=== PATIENT | female | born 1955 | race Caucasian/White ===

== ENCOUNTER → 2016-03-30 | Outpatient (CLI) | payer MEDICARE ==
[~2016-03-30] MED LIST: ACET65TA OR; ACTO30TA7 PO; ALBU17IN INH; ASPI1TAB PO; ATEN25TA PO; ATEN50TA2 PO; CHLO250T4 PO; COLA100C2 OR; GLIP10TA13 PO; JANU100T PO; LEVA750T OR; MILKSUS OR; NAPR220T8 PO; NEUP480I2 SC; PARO-39 PO; PAXI20TA PO; SENO8.6T5 PO; TYLE325T5 PO; compazine PO
[2016-03-30 15:31] LABS: BASO % 0.3 % (0.0-1.0); EOS # 0.1 K/mm3 (0.0-0.50); EOS % 1.4 % (0.0-3.0); LYMPH # 0.2 K/mm3 (1.5-4.5); LYMPH % 5.2 % (24.0-44.0); MEAN CORPUSCULAR VOLUME 96.7 fl (80.0-96.0); MONO # 0.2 K/mm3 (0.0-0.8); MONO % 4.9 % (0.0-5.0); NEUTROPHILS # 3.8 K/mm3 (1.8-7.7); NEUTROPHILS % 87.6 % (36.0-66.0); RED CELL DISTRIBUTION WIDTH 16.8 % (11.5-14.5); WHITE BLOOD COUNT 4.3 K/mm3 (4.0-10.0)
== END ==
LOC: M LAB 14:54
PROVIDERS: ATTEND Internal Medicine Hematology & Oncology
DX: C50.912 Malignant neoplasm of unspecified site of left female breast (principal); C50.911 Malignant neoplasm of unspecified site of right female breast

== ENCOUNTER → 2016-03-31 | Outpatient (CLI) | payer MEDICARE ==
--- NOTE | 2016-03-31 19:01 | REP ---
ULTRASOUND LEFT BREAST: Real-time sonographic evaluation of the left breast is performed and compared to prior ultrasound of 01/20/2016. Imaging is centered in the 9-o'clock region at the site of a known malignancy. Once again, there is a heterogeneous irregular nodule present, measuring 2.3 x 1.1 x 1.9 cm. There are adjacent dilated ducts. The nodule has diminished in size compared to the prior study. On the prior exam, it measured 2.1 x 1.8 x 2.0 cm. IMPRESSION: Once again, the nodule at 9-o'clock appears to have mildly diminished in size compared to the prior study of 01/20/2016. ACR 6. Known malignancy. Signed by Kwabena Dave MD 04/01/2016 05:15 P
== END ==
LOC: M RAD 14:38
PROVIDERS: ATTEND Internal Medicine Hematology & Oncology
DX: C50.912 Malignant neoplasm of unspecified site of left female breast (principal); C50.911 Malignant neoplasm of unspecified site of right female breast

== ENCOUNTER 2016-04-03 03:34 | Inpatient (IN) | payer MEDICARE ==
[~2016-04-03] VITALS: Ht 162.6 cm; Wt 98.2 kg
[~2016-04-03 03:34] MED LIST changes: -ACTO30TA7 PO; -ALBU17IN INH; -ASPI1TAB PO; -ATEN50TA2 PO; -GLIP10TA13 PO; -JANU100T PO; -NAPR220T8 PO; -NEUP480I2 SC; -PARO-39 PO; -TYLE325T5 PO
[2016-04-03 05:18] LABS: DIFF SLIDE NUMBER 104; MEAN CORPUSCULAR HEMOGLOBIN 29.8 pg (27.0-33.0); MEAN CORPUSCULAR VOLUME 93.3 fl (80.0-96.0); RED CELL DISTRIBUTION WIDTH 17.4 % (11.5-14.5)
[2016-04-03 05:31] LABS: WHITE BLOOD COUNT 0.9 K/mm3 (4.0-10.0)
[2016-04-03 05:32] LABS: ADD MORPHOLOGY? NO; BASO % 0.6 % (0.0-1.0); EOS % 2.4 % (0.0-3.0); LARGE UNSTAINED CELL # 0.1 K/mm3 (0.0-0.4); LYMPH # 0.2 K/mm3 (1.5-4.5); LYMPH % 26.9 % (24.0-44.0); MONO # 0.2 K/mm3 (0.0-0.8); MONO % 21.7 % (0.0-5.0); NEUTROPHILS # 0.3 K/mm3 (1.8-7.7); NEUTROPHILS % 36.4 % (36.0-66.0); PLATELET COUNT, AUTOMATED 16 k/mm3 (150-450)
[2016-04-03 05:41] LABS: ANION GAP 10 MEQ/L (8-16); BLOOD UREA NITROGEN 14 MG/DL (7-18); CALCIUM LEVEL 8.7 MG/DL (8.5-10.1); CARBON DIOXIDE LEVEL 29 MEQ/L (21-32); CHLORIDE LEVEL 99 MEQ/L (98-107); CREATININE FOR GFR 0.77 MG/DL (0.55-1.02); GLOMERULAR FILTRATION RATE > 60.0 (>51); GLUCOSE, FASTING 259 MG/DL (70-105); POTASSIUM SERUM 3.8 MEQ/L (3.5-5.1); SODIUM LEVEL 138 MEQ/L (136-145)
[2016-04-03] MEDS ORDERED: TYLE325T5 PO (06:38)
[2016-04-03] MEDS ORDERED: GLIP10TA13 PO (06:38)
[2016-04-03] MEDS ORDERED: ACTO30TA7 PO (06:38)
[2016-04-03] MEDS ORDERED: NEUP480I2 SC (06:38)
[2016-04-03] MEDS ORDERED: PARO-39 PO (06:38)
[2016-04-03] MEDS ORDERED: JANU100T PO (06:38)
[2016-04-03] MEDS ORDERED: NAPR220T8 PO (06:38)
[2016-04-03] MEDS ORDERED: ATEN50TA2 PO (06:38)
[2016-04-03] MEDS ORDERED: ASPI1TAB PO (06:38)
[2016-04-03] MEDS ORDERED: ALBU17IN INH (06:38)
[2016-04-03] MEDS ORDERED: ACETAMINOPHEN TAB 650MG DOSE (2X325MG) PO PRN (07:00)
[2016-04-03] MEDS ORDERED: DEXTROSE 50% 50 ML SYRINGE IV PRN (07:45)
[2016-04-03] MEDS ORDERED: GLUCOSE 4 GM CHEW TABLET PO PRN (07:45)
[2016-04-03] MEDS ORDERED: GLUCAGON FOR INJ 1 MG VIAL (J1610) SC PRN (07:45)
[2016-04-03] MEDS ORDERED: ALBUTEROL 90 MCG/ACT 8GM HFA INHALER INH PRN (08:00)
--- NOTE | 2016-04-03 08:47 | HPE ---
DATE OF ADMISSION: 04/03/2016 PRIMARY CARE PROVIDER: Dr. Julien Ramirez HISTORY OF PRESENT ILLNESS: This is a 61-year-old female with a past medical history significant for bilateral breast cancer, status post chemotherapy, diabetes, hypertension, osteoporosis, depression, who presented to [facility] on 04/03/2016 for worsening generalized weakness. The patient has a history of left breast cancer that was diagnosed in September 2015, stage 2. The patient started on chemotherapy by Dr. Steve in [place]. The patient has received approximately six chemotherapies. Every time after chemotherapy, the patient feels she is getting weaker and starts having different symptoms. The last chemotherapy was 03/26/2016, and two days after chemotherapy the patient started having gastrointestinal symptoms, such as dry heaving. On the next Wednesday, the patient started having continuous diarrhea with orange colored stool. The patient also noticed to have worsening generalized weakness. Now, the patient cannot even perform daily activity functions. The patient also noted to have increased shortness of breath on exertion. Denies any fevers or chills. When the patient arrived in the emergency room, the patient was found to have pancytopenia with a white blood cell count of 0.9, hemoglobin 9.6, and platelet count of 16. The patient stated that she had similar issue in the past after chemotherapy. Approximately one month ago, the patient had significant anemia and required blood transfusion. On 03/26/2016, the patient was found to have significant thrombocytopenia. She actually got one dose of platelet transfusion. The patient does have a history of right breast cancer, status post lobectomy in November 2010, and the patient also was on chemotherapy for her right breast cancer previously. ALLERGIES: No known drug allergies. HOME MEDICATIONS: - Tylenol 650 mg by mouth every 4 hours as needed for pain - Ventolin two puff inhalation every 4 hours as needed for shortness of breath - aspirin 81 mg by mouth daily - atenolol 50 mg by mouth daily - Neupogen injection 480 mcg subcutaneously monthly - glipizide 10 mg by mouth before food - paroxetine 20 mg by mouth daily - Actos 30 mg by mouth daily - Januvia 100 mg by mouth daily PAST MEDICAL HISTORY: 1. Diabetes. 2. Hypertension. 3. Osteoporosis. 4. Depression. 5. History of right breast cancer, status post lumpectomy and chemotherapy in 2010. 6. Current left breast cancer. PAST SURGICAL HISTORY: 1. Right cataract surgery. 2. Complete hysterectomy. 3. Right breast lumpectomy. SOCIAL HISTORY: Denies any smoking. Denies alcohol use. Denies any recreational drug use. The patient wants to be FULL CODE. REVIEW OF SYSTEMS: GENERAL: Has progressive worsening of feeling fatigue and weakness. No fever. No chills. HEENT: No vision change. No auditory change. CARDIOVASCULAR: No chest pain. No palpitations. RESPIRATORY: The patient has worsening of breathing on exertion. No shortness of breath at rest. No wheezes. No cough. No sputum production. CARDIOVASCULAR: No chest pain. No palpitations. GASTROINTESTINAL: The patient started having dry heaving a few days after the chemotherapy. The patient started to have diarrhea four days after chemotherapy, producing loose, orange colored stool. NEUROLOGIC: No numbness. No tingling. MUSCULOSKELETAL: No muscle pain or joint pain. OBJECTIVE: VITAL SIGNS: Blood pressure 118/63, pulse is 94, respirations 18, temperature is 99, pulse oximetry is 98% on room air. Body weight is 96 kg. Body height is 162.56 cm. GENERAL: Pale. No sign of acute distress. Oriented times three. HEENT: Decreased amount of hair. Poor dentition. Otherwise, normocephalic, atraumatic. Extraocular motors grossly intact. CARDIOVASCULAR: Very distant heart sounds. Positive S1, S2. LUNGS: Clear to auscultation bilaterally. No wheezes or rhonchi. ABDOMEN: Soft, nontender, nondistended. Bowel sounds positive. MUSCULOSKELETAL: No lower extremity edema. No sign of cyanosis. No calf tenderness. LABORATORY DATA: WBC 0.9, hemoglobin 9.6, hematocrit 30.1, platelet count is 16. Sodium is 139, potassium 3.8, chloride is 99, carbon dioxide 29, BUN 14, creatinine 0.77, GFR greater than 60, fasting glucose 259, calcium is 8.7. ASSESSMENT AND PLAN: 1. Generalized weakness, most likely secondary to pancytopenia and adverse effects from the chemotherapy. The patient is admitted to medical/surgical floor under inpatient status. Currently, the patient's vital signs are within normal range. However, the patient is mildly anemic. We will follow with hemoglobin and hematocrit. We will follow with stool cultures to rule out any current bleeding. The patient will be on reverse isolation precautions. 2. Pancytopenia secondary to chemotherapy. The patient has received laboratory tests at [facility] and the previous laboratory shows that the patient has a WBC of 4.3, which is in normal range. Hemoglobin 9.3 and platelet count of 31. Significant decrease of WBC and platelet count in the last four days. Currently, the patient is in critical range of leukopenia and the patient's platelet count is 16. We will order irradiated platelets for her. We will check the CBC every 8 hours and at this moment, if hemoglobin and hematocrit remain stable, the patient may not need blood transfusion unless the patient becomes symptomatic. 3. Left breast cancer, stage 2, in the middle of chemotherapy. Per patient, the patient's physical condition is continuing to get worse with each chemotherapy. The patient is seen by oncologist in [place] and she is receiving her chemotherapy in [facility]. Her next scheduled chemotherapy is in 2 weeks. 4. Diabetes. The patient will be on consistent carbohydrate diet and insulin sliding scale. 5. Hypertension. Continue atenolol. 6. Osteoporosis. 7. Anxiety and depression. Continue Paxil. 8. Deep vein thrombosis (DVT) prophylaxis. Currently, the patient has significant thrombocytopenia. Anticoagulation will be on hold. The patient will be on TEDs, sequentials and compression device. The patient's aspirin is also on hold.
--- NOTE | 2016-04-03 10:17 | REP ---
PORTABLE CHEST: AP Portable view of the chest is performed and compared to a prior study of 05/15/2014. Mild bibasilar scarring is seen, which is stable. There is no acute infiltrate or pulmonary edema. The heart is normal in size and mediastinal silhouette is unchanged. There is a left MediPort catheter with the tip in the right atrium. Signed by Kwabena Dave MD 04/03/2016 01:27 P
[2016-04-03 11:22] LABS: MEAN CORPUSCULAR HEMOGLOBIN 30.2 pg (27.0-33.0); MEAN CORPUSCULAR HGB CONC 32.1 g/dl (32.0-36.5); MEAN CORPUSCULAR VOLUME 94.1 fl (80.0-96.0); RED CELL DISTRIBUTION WIDTH 16.4 % (11.5-14.5); RETIC HEMOGLOBIN CONTENT CHr 27.7 PG (24-36); RETICULOCYTE ABSOLUTE ADVIA212 4 x10(9)/L (17-77); WHITE BLOOD COUNT 1.2 K/mm3 (4.0-10.0)
[2016-04-03 11:54] LABS: NUCLEATED RED BLOOD CELL 1 % (0-0)
[2016-04-03 11:55] LABS: ANISOCYTOSIS 1+; FERRITIN 652 NG/ML (8-252); HYPOCHROMASIA 1+; PERCENT SATURATION 12.2 % (13.2-37.4); TOTAL IRON BINDING CAPACITY 254 UG/DL (250-450)
[2016-04-03] MEDS: HumaLOG INSULIN (NovoLOG) PER UNIT SC SCH ×3 (12:00→21:00)
[2016-04-03 12:01] LABS: VITAMIN B12 LEVEL > 2000 PG/ML (247-911)
[2016-04-03 12:02] LABS: FOLATE > 24.0 NG/ML (>5.4)
--- NOTE | 2016-04-03 12:03 | IPNPDOC ---
Assessment/Plan Date Seen The patient was seen on 04/03/16. Problems Problems: (1) Severe neutropenia Status: Acute Problem Text: No documented fever so far. Last Neupogen 03/26? (Patient reports getting an injetion on 03/26 but not entirely certain if it was Neupogen) Initiate Reverse Isolation Consult Oncology (Dr. Noble fried) to discuss further Neupogen, empiric antibiotics etc. (At this point she is calculated to be low risk and empiric antibiotics are not indicated, but will defer decision for abx to Oncology) (2) Thrombocytopenia Status: Acute Problem Text: 2 units irradiated Platelets ordered (3) Anemia Status: Acute Problem Text: Symptomatic with BROWNLEE and generalized weakness Defer to Oncology whether to transfuse (4) Pancytopenia Status: Acute (5) Diabetes type 2, uncontrolled Status: Chronic Response to Treatment: Stable Problem Text: oral meds on hold Continue SSI coverge (6) Breast cancer Status: Chronic (7) Depression Status: Chronic Response to Treatment: Stable Problem Text: Paxil (8) HTN (hypertension) Status: Chronic Response to Treatment: Stable Problem Text: atenolol Plan / VTE VTE Prophylaxis Ordered?: No VTE Exclusion Pharmacological: Thrombocytopenia Disposition Initiate reverse isolation Subjective Review of Systems CC/HPI The patient is a 61-year-old female admitted with a reason for visit of Neutropenia. Events since last encounter Patient without complaints currently. Gets Short of breath and feels generally weak when she walks even short distances, but otherwise feels well. No CP, cough, sore throat,. Ate well this morning. No N/V, abd pain. Diarrhea yesterday but not today so far. Constitutional: Reports: Chills (Had chills earlier in the week), Denies: Fever Pulmonary: Denies: Cough, Dyspnea Cardiovascular: Denies: Chest Pain, Palpitations Gastrointestinal: Denies: Abdominal Pain, Constipation, Diarrhea, Nausea, Vomiting Objective Physical Examination General Exam: Positive: Alert, No Acute Distress Chest Exam: Positive: Clear to auscultation, Normal air movement Heart Exam: Positive: Rate Normal, Negative: Murmurs Abdomen Exam: Positive: Normal bowel sounds, Soft, Negative: Tenderness Extremity Exam: Negative: Edema Laboratory Data Labs 24H Laboratory Tests 2 04/03/16 05:07: Anion Gap 10, White Blood Count 0.9*L, Red Blood Count 3.23L, Hemoglobin 9.6L, Hematocrit 30.1L, Mean Corpuscular Volume 93.3, Mean Corpuscular Hemoglobin 29.8 , Mean Corpuscular Hemoglobin Concent 32.0, Red Cell Distribution Width 17.4H, Platelet Count 16*L, Neutrophils (%) (Auto) 36.4, Lymphocytes (%) (Auto) 26.9, Monocytes (%) (Auto) 21.7H, Eosinophils (%) (Auto) 2.4, Basophils (%) (Auto) 0.6 , Neutrophils # (Auto) 0.3L, Lymphocytes # (Auto) 0.2L, Monocytes # (Auto) 0.2, Eosinophils # (Auto) 0.0, Basophils # (Auto) 0.0, C-Reactive Protein, Quantitative 4.98H, Blood Urea Nitrogen 14, Creatinine 0.77, Sodium Level 138, Potassium Level 3.8, Chloride Level 99, Carbon Dioxide Level 29, Calcium Level 8.7, Glomerular Filtration Rate > 60.0, Large Unclassified Cells # 0.1, Large Unclassified Cells % 12.0H 04/03/16 10:51: CBC/BMP Laboratory Tests 04/03/16 05:07 Calcium Level 8.7, Red Blood Count 3.23 L, Mean Corpuscular Volume 93.3, Mean Corpuscular Hemoglobin 29.8, Mean Corpuscular Hemoglobin Concent 32.0, Red Cell Distribution Width 17.4 H, Neutrophils (%) (Auto) 36.4, Lymphocytes (%) (Auto) 26.9, Monocytes (%) (Auto) 21.7 H, Eosinophils (%) (Auto) 2.4, Basophils (%) ( Auto) 0.6, Neutrophils # (Auto) 0.3 L, Lymphocytes # (Auto) 0.2 L, Monocytes # ( Auto) 0.2, Eosinophils # (Auto) 0.0, Basophils # (Auto) 0.0 Microbiology Microbiology 04/03/16 Blood Culture, Received Pending 04/03/16 Blood Culture, Received Pending YESENIA SOLOMON DO Apr 03, 2016 12:03
--- NOTE | 2016-04-03 13:41 | EDDOCDS ---
Physician Documentation [facility] Name: Sherly Romero Age: 61 yrs Sex: Female : 1955 Arrival Date: 04/03/2016 Time: 03:34 Bed 17 Private MD: Julien Ramirez Disposition: 04/03/16 05:58 Hospitalization ordered by Sussy Agudelo for Inpatient Admission. Preliminary diagnosis are Neutropenia, Thrombocytopenia, unspecified. - Bed requested for 4 Mason. - Status is Inpatient Admission. jmk - Condition is Stable. - Problem is an ongoing problem. - Symptoms are unchanged. Historical: - Allergies: No known drug Allergies; - Home Meds: 1. Atenolol Oral 2. Januvia oral Unknown oral 3. Glipizide Unknown Oral 4. Paroxetine HCl Unknown Oral 5. Aspirin Unknown Oral - Social history: Smoking status: Patient states was never smoker of tobacco. Patient/guardian denies using alcohol, street drugs, No barriers to communication noted, The patient speaks fluent Turkish. - Family history: Not pertinent. - : The pt / caregiver states he / she is not on anticoagulants. Home medication list is obtained from the patient. - Exposure Risk Screening:: None identified. Vital Signs: 04/03 03:44 BP 118 / 63; Pulse 94; Resp 18; Temp 99; Pulse Ox 98% ; Weight 96.16 kg / 212 lbs; [facility] [place] [facility] Height 5 ft. 4 in. (162.56 cm); Pain 0/10; 06:06 BP 124 / 68; Pulse 92; Resp 16; Temp 99.4; Pulse Ox 98% on R/A; Pain 0/10; jp6 09:48 BP 100 / 62; Pulse 95; Resp 16; Temp 99.0; Pulse Ox 98% on R/A; jmk 12:12 BP 133 / 55; Pulse 96; Resp 16; Temp 98.4(TE); Pulse Ox 98% on R/A; jmk 13:29 BP 149 / 70; Pulse 104; Resp 16; Temp 98.0(O); Pulse Ox 98% ; jmk 03:44 Body Mass Index 36.39 (96.16 kg, 162.56 cm) [facility] MDM: 04:18 IV Saline Lock ordered. cs11 04:18 NS 0.9% 1000 ml IV at bolus once ordered. cs11 04:19 CBC with Diff Ordered. EDMS 04:19 MED Profile Ordered. EDMS 05:30 Financial registration complete. [facility] 05:32 [facility] Payment Agreement was scanned into [employer] and attached to record. [facility] 05:35 CBC with Diff Reviewed. [facility] 05:44 MED Profile Reviewed. [facility] 06:00 BED REQUEST+ADM ordered. EDMS 06:35 Admission / Observation Status ordered. EDMS 06:59 2 GRAM SODIUM DIET ordered. EDMS 07:42 IRRADIATED PHERESIS PLATELETS Ordered. EDMS 07:44 COMPLETE BLOOD COUNT Ordered. EDMS 07:54 PORTABLE CHEST X-RAY Ordered. EDMS 08:05 C REACTIVE PROTEIN QUANTITATIV Ordered. EDMS 10:27 Attending Doctor Change: ordered. EDMS 10:30 RETICULOCYTE COUNT Ordered. EDMS 10:30 VITAMIN B12 LEVEL Ordered. EDMS 10:31 FOLATE Ordered. EDMS 10:31 FERRITIN Ordered. EDMS 10:31 IRON (FE) Ordered. EDMS 10:31 TOTAL IRON BINDING CAPACIT Ordered. EDMS 10:31 URINALYSIS Ordered. EDMS 10:31 HEPATITIS PROFILE Ordered. EDMS 10:32 BLOOD CULTURES Ordered. EDMS 10:32 BLOOD CULTURES Ordered. EDMS 10:58 CBC WITH MANUAL DIFFERENTAL Ordered. EDMS Administered Medications: 05:12 Drug: NS 0.9% 1000 ml [sodium chloride 0.9 % intravenous solution] Route: IV; Rate: jp6 bolus; Site: left antecubital; Signatures: Dispatcher [employer] EDMS Anthony Herbert,RN Carlos Goss DO DO 11 Radha Garcia [facility] Xiomara Walls RN RN jp6 Andres Bravo RN RN sa The chart was reviewed and I authenticate all verbal orders and agree with the evaluation and treatment provided.Corrections: (The following items were deleted from the chart) 08:05 07:43 C REACTIVE PROTEIN QUANTITATIV ordered. EDMS EDMS 10:57 10:36 CBC WITH MANUAL DIFFERENTAL ordered. EDMS EDMS Attachments: 05:32 [facility] Payment Agreement [facility] MTDD
[2016-04-03 13:42] VITALS: BP 154/69
--- NOTE | 2016-04-03 13:42 | EDDOCDS ---
Nurse's Notes [facility] Name: Sherly Romero Age: 61 yrs Sex: Female : 1955 Arrival Date: 04/03/2016 Time: 03:34 Bed 17 Private MD: Julien Ramirez Diagnosis: Neutropenia;Thrombocytopenia, unspecified Presentation: 04/03 03:48 Presenting complaint: Patient states: "I have been sick w/ the stomach bug lately and jp6 when I was walking and my legs just gave out" "I pulled down some bags of clothes and fell on them I didn't get hurt" EMS states: EMS states pt is a hoarder and there are only single small walkways from room to room,very unsafe living conditions per EMS. Adult Sepsis Screening: The patient does not have new or worsening altered mentation. Patient's respiratory rate is less than 22. Systolic blood pressure is less than or equal to 100 (1 point). Patient has a qSOFA score of 0- Negative Sepsis Screen. Suicide/Homicide risk assessment- the patient denies having any suicidal and/or homicidal ideations and does not present with any other emotional, behavioral or mental health complaints. Status: Patient is not a customer services manager or dependent. Transition of care: patient was not received from another setting of care. 03:48 Acuity: KAYE Level 3 jp6 03:48 Method Of Arrival: Ambulance jp6 Triage Assessment: 03:56 General: Appears comfortable, ill, Behavior is appropriate for age, cooperative, jp6 pleasant. Pain: Denies pain. Pt Declines HIV testing. The patient is triaged at the bedside. See Assessment in Nurses Notes section of ED record. Neurological: Level of Consciousness is awake, alert, Oriented to person, place, time. EENT: No deficits noted. Cardiovascular: Capillary refill < 3 seconds Heart tones S2 present. Respiratory: Airway is patent Respiratory effort is even, unlabored, Respiratory pattern is regular, symmetrical, Breath sounds are clear bilaterally. GI: Abdomen is obese, Bowel sounds present X 4 quads. Reports diarrhea, nausea. : No deficits noted. Derm: Skin is pink, warm & dry. Musculoskeletal: No deficits noted. Historical: - Allergies: No known drug Allergies; - Home Meds: 1. Atenolol Oral 2. Januvia oral Unknown oral 3. Glipizide Unknown Oral 4. Paroxetine HCl Unknown Oral 5. Aspirin Unknown Oral - Social history: Smoking status: Patient states was never smoker of tobacco. Patient/guardian denies using alcohol, street drugs, No barriers to communication noted, The patient speaks fluent Setswana. - Family history: Not pertinent. - : The pt / caregiver states he / she is not on anticoagulants. Home medication list is obtained from the patient. - Exposure Risk Screening:: None identified. Screenin:58 Screening information is obtained from the patient. Fall risk: At risk due to jp6 immobility. Assistance ADL's: requires no assistance with activities of daily living. Abuse/DV Screen: The patient / caregiver reports he/she is: not in a situation that causes fear, pain or injury. Nutritional screening: Has had N/V for 3 or more days. Advance Directives: Currently, there is a health care proxy, Cindy Jones. home support is inadequate. Assessment: 03:58 General: see triage assessment. jp6 05:13 Reassessment: Patient states symptoms have not improved. Pain: Denies pain. jp6 Neurological: Level of Consciousness is awake, alert, Oriented to person, place, time. EENT: No deficits noted. Cardiovascular: No deficits noted. Respiratory: Airway is patent Respiratory effort is even, unlabored, Respiratory pattern is regular, symmetrical. GI: No deficits noted. : No deficits noted. Derm: Skin is pink, warm & dry. Musculoskeletal: No deficits noted. 06:06 Reassessment: Patient appears in no apparent distress at this time. Patient denies pain jp6 at this time. Respiratory: Airway is patent Respiratory effort is even, unlabored, Respiratory pattern is regular, symmetrical. Derm: Skin is pink, warm & dry. 07:35 General: Appears skin warm and dry. + pallor. without discomfort. no observed resp jmk distress when at rest. OOB to void on commode and reports fatigue with physical activity. Chest is CTA. sl intact to left ac space. awaiting admission. 08:37 General: Appears diet provided and taken fair. without complaints. Presently jmk interviewing with admission nurse.. 09:48 General: Appears quietly awaiting admission. without resp distress. Still with fatigue jmk with activity ( getting OOB to void). awaiting bed avail. comfort measures offered. 11:49 General: Appears without discomfort or SOB. prepared for transfusion. sl accessed with leonela saline.. 12:11 General: Appears OOB to void on commode. Loose BM noted. without pain. Platelets jmk initiated.. 12:22 General: Appears rate increased on platelet infusion. jmk 13:29 General: Appears Infusion nearing infusion without event. reports no new symptoms. jmk remain cheerful nd pleasant. admitted.. Vital Signs: 03:44 BP 118 / 63; Pulse 94; Resp 18; Temp 99; Pulse Ox 98% ; Weight 96.16 kg; Height 5 ft. 4 [facility] in. (162.56 cm); Pain 0/10; 06:06 BP 124 / 68; Pulse 92; Resp 16; Temp 99.4; Pulse Ox 98% on R/A; Pain 0/10; jp6 09:48 BP 100 / 62; Pulse 95; Resp 16; Temp 99.0; Pulse Ox 98% on R/A; jmk 12:12 BP 133 / 55; Pulse 96; Resp 16; Temp 98.4(TE); Pulse Ox 98% on R/A; jmk 13:29 BP 149 / 70; Pulse 104; Resp 16; Temp 98.0(O); Pulse Ox 98% ; jmk 03:44 Body Mass Index 36.39 (96.16 kg, 162.56 cm) [facility] Vitals: 03:44 Log In Time N/A - ambulance arrival. [facility] ED Course: 03:36 Patient visited by Arelis Rojo PCA. tmm1 03:36 Julien Ramirez is Private Physician. tmm1 03:36 Patient moved to Waiting tmm1 03:36 Patient moved to 17 tmm1 03:44 Patient visited by Nery Wellington, Exhaust And Muffler Fitter. [facility] 03:48 Xiomara Walls,RN is Primary Nurse. jp6 03:48 Patient visited by Xiomara Walls,DOUG. jp6 03:52 Triage Initiated jp6 03:58 The patient / caregiver is instructed regarding the plan of care and ED course. Cardiac jp6 monitor on. Pulse ox on. NIBP on. 03:59 Carlos Burgess DO is Attending Physician. cs11 03:59 Patient visited by Carlos Burgess DO. cs11 05:12 Patient visited by Xiomara Walls,DOUG. jp6 05:13 Inserted saline lock: 20 gauge in left antecubital area and blood collected. No jp6 procedures done that require assistance. Labs drawn. (by ED staff). Sent per order to lab. 05:31 Notified attending ED physician of Critical lab value. sls1 05:32 [facility] Payment Agreement was scanned into [employer] and attached to record. [facility] 05:34 Patient name changed from Sherly\\S\\F\\S\\Grandjean\\S\\ to Sherly\\S\\Cherelle\\S\\Grandjean. EDMS 05:58 Sussy Agudelo is Hospitalizing Provider. cs11 06:06 Assisted to bedside commode. jp6 08:38 Patient visited by Anthony Herbert,DOUG. jmk 09:32 Patient moved to Admit Hold dy 09:51 Patient visited by Anthony Herbert,DOUG. jmk 10:34 PORTABLE CHEST X-RAY Returned. EDMS 11:08 CBC WITH MANUAL DIFFERENTAL Sent. jmk 12:13 Patient visited by Anthony Herbert,DOUG. jmk 13:38 Patient moved to [facility] Administered Medications: 05:12 Drug: NS 0.9% 1000 ml [sodium chloride 0.9 % intravenous solution] Route: IV; Rate: jp6 bolus; Site: left antecubital; Order Results: Lab Order: CBC with Diff; SPEC'M 04/03/16 05:07 Test: WHITE BLOOD COUNT; Value: 0.9; Range: 4.0-10.0; Abnormal: Critical Low; Units: K/mm3; Status: F Test: RED BLOOD COUNT; Value: 3.23; Range: 4.00-5.40; Abnormal: Below low normal; Units: M/mm3; Status: F Test: HEMOGLOBIN; Value: 9.6; Range: 12.0-16.0; Abnormal: Below low normal; Units: g/dl; Status: F Test: HEMATOCRIT; Value: 30.1; Range: 36.0-47.0; Abnormal: Below low normal; Units: %; Status: F Test: MEAN CORPUSCULAR VOLUME; Value: 93.3; Range: 80.0-96.0; Units: fl; Status: F Test: MEAN CORPUSCULAR HEMOGLOBIN; Value: 29.8; Range: 27.0-33.0; Units: pg; Status: F Test: MEAN CORPUSCULAR HGB CONC; Value: 32.0; Range: 32.0-36.5; Units: g/dl; Status: F Test: RED CELL DISTRIBUTION WIDTH; Value: 17.4; Range: 11.5-14.5; Abnormal: Above high normal; Units: %; Status: F Test: PLATELET COUNT, AUTOMATED; Value: 16; Range: 150-450; Abnormal: Critical Low; Units: k/mm3; Status: F Test: NEUTROPHILS %; Value: 36.4; Range: 36.0-66.0; Units: %; Status: F Test: LYMPH %; Value: 26.9; Range: 24.0-44.0; Units: %; Status: F Test: MONO %; Value: 21.7; Range: 0.0-5.0; Abnormal: Above high normal; Units: %; Status: F Test: EOS %; Value: 2.4; Range: 0.0-3.0; Units: %; Status: F Test: BASO %; Value: 0.6; Range: 0.0-1.0; Units: %; Status: F Test: LARGE UNSTAINED CELL %; Value: 12.0; Range: 0.0-4.0; Abnormal: Above high normal; Units: %; Status: F Test: NEUTROPHILS #; Value: 0.3; Range: 1.8-7.7; Abnormal: Below low normal; Units: K/mm3; Status: F Test: LYMPH #; Value: 0.2; Range: 1.5-4.5; Abnormal: Below low normal; Units: K/mm3; Status: F Test: MONO #; Value: 0.2; Range: 0.0-0.8; Units: K/mm3; Status: F Test: EOS #; Value: 0.0; Range: 0.0-0.50; Units: K/mm3; Status: F Test: BASO #; Value: 0.0; Range: 0.0-0.2; Units: K/mm3; Status: F Test: LARGE UNSTAINED CELL #; Value: 0.1; Range: 0.0-0.4; Units: K/mm3; Status: F Test Note: ; : 1955 Lab Order: MED Profile; SPEC'M 01/06/17 05:07 Test: GLUCOSE, FASTING; Value: 259; Range: 70-105; Abnormal: Above high normal; Units: MG/DL; Status: F Test: BLOOD UREA NITROGEN; Value: 14; Range: 7-18; Units: MG/DL; Status: F Test: CREATININE FOR GFR; Value: 0.77; Range: 0.55-1.02; Units: MG/DL; Status: F Test: GLOMERULAR FILTRATION RATE; Value: > 60.0; Range: >51; Status: F Test: SODIUM LEVEL; Value: 138; Range: 136-145; Units: MEQ/L; Status: F Test: POTASSIUM SERUM; Value: 3.8; Range: 3.5-5.1; Units: MEQ/L; Status: F Test: CHLORIDE LEVEL; Value: 99; Range: 98-107; Units: MEQ/L; Status: F Test: CARBON DIOXIDE LEVEL; Value: 29; Range: 21-32; Units: MEQ/L; Status: F Test: ANION GAP; Value: 10; Range: 8-16; Units: MEQ/L; Status: F Test: CALCIUM LEVEL; Value: 8.7; Range: 8.5-10.1; Units: MG/DL; Status: F Test Note: ; Units are mL/min/1.73 m2 Chronic Kidney Disease Staging per NKF: Stage I & II GFR >=60 Normal to Mildly Decreased Stage III GFR 30-59 Moderately Decreased Stage IV GFR 15-29 Severely Decreased Stage V GFR <15 Very Little GFR Left ESRD GFR <15 on MECHANICAL ENGINEERING ADVISOR Lab Order: C REACTIVE PROTEIN QUANTITATIV; SPEC'M 04/03/16 05:07 Test: C REACTIVE PROTEIN QUANTITATIV; Value: 4.98; Range: 0.00-0.30; Abnormal: Above high normal; Units: MG/DL; Status: F Lab Order: RETICULOCYTE COUNT; SPEC'M 04/03/16 10:51 Test: RETICULOCYTE % [id number]; Value: 0.10; Range: 0.5-1.5; Abnormal: Below low normal; Units: %; Status: F Test: RETICULOCYTE ABSOLUTE [id number]; Value: 4; Range: 17-77; Abnormal: Below low normal; Units: x10(9)/L; Status: F Test: RETIC HEMOGLOBIN CONTENT CHr; Value: 27.7; Range: 24-36; Units: PG; Status: F Lab Order: VITAMIN B12 LEVEL; 04/03/16 10:51 Test: VITAMIN B12 LEVEL; Value: > 2000; Range: 247-911; Abnormal: Above high normal; Units: PG/ML; Status: F Test Note: ; VITAMIN B12 NORMAL RANGE NORMAL 247 - 911 PG/ML INDETERMINATE 211 - 246 PG/ML DEFICIENT LESS THAN 211 PG/ML Lab Order: FOLATE; 04/03/16 10:51 Test: FOLATE; Value: > 24.0; Range: >5.4; Units: NG/ML; Status: F Test Note: ; FOLATE NORMAL RANGE NORMAL GREATER THAN 5.4 NG/ML INDETERMINATE 3.4-5.4 NG/ML DEFICIENT LESS THAN 3.4 NG/ML Lab Order: FERRITIN; 04/03/16 10:51 Test: FERRITIN; Value: 652; Range: 8-252; Abnormal: Above high normal; Units: NG/ML; Status: F Lab Order: TOTAL IRON BINDING CAPACIT; 04/03/16 10:51 Test: IRON (FE); Value: 31; Range: 50-170; Abnormal: Below low normal; Units: UG/DL; Status: F Test: TOTAL IRON BINDING CAPACITY; Value: 254; Range: 250-450; Units: UG/DL; Status: F Test: PERCENT SATURATION; Value: 12.2; Range: 13.2-37.4; Abnormal: Below low normal; Units: %; Status: F Lab Order: HEPATITIS PROFILE; 04/03/16 10:51 Test: HEPATITIS C VIRUS SHARON INDEX; Value: < 0.0; Range: <0.8; Units: INDEX; Status: F Test: HEPATITIS B SURFACE ANTIGEN; Value: NEGATIVE; Range: NEGATIVE; Status: F Test: HEPATITIS B CORE ANTIBODY IGM; Value: NEGATIVE; Range: NEGATIVE; Status: F Test: HEPATITIS A ANTIBODY IGM; Value: NEGATIVE; Range: NEGATIVE; Status: F Lab Order: CBC WITH MANUAL DIFFERENTAL; 04/03/16 10:51 Test: WHITE BLOOD COUNT; Value: 1.2; Range: 4.0-10.0; Abnormal: Below low normal; Units: K/mm3; Status: F Test: RED BLOOD COUNT; Value: 2.73; Range: 4.00-5.40; Abnormal: Below low normal; Units: M/mm3; Status: F Test: HEMOGLOBIN; Value: 8.2; Range: 12.0-16.0; Abnormal: Below low normal; Units: g/dl; Status: F Test: HEMATOCRIT; Value: 25.6; Range: 36.0-47.0; Abnormal: Below low normal; Units: %; Status: F Test: MEAN CORPUSCULAR VOLUME; Value: 94.1; Range: 80.0-96.0; Units: fl; Status: F Test: MEAN CORPUSCULAR HEMOGLOBIN; Value: 30.2; Range: 27.0-33.0; Units: pg; Status: F Test: MEAN CORPUSCULAR HGB CONC; Value: 32.1; Range: 32.0-36.5; Units: g/dl; Status: F Test: RED CELL DISTRIBUTION WIDTH; Value: 16.4; Range: 11.5-14.5; Abnormal: Above high normal; Units: %; Status: F Test: PLATELET COUNT, AUTOMATED MD; Value: 14; Range: 150-450; Abnormal: Critical Low; Units: K/mm3; Status: F Test: NEUTROPHILS; Value: 28; Range: 35-75; Abnormal: Below low normal; Units: %; Status: F Test: LYMPHOCYTES; Value: 41; Range: 16-52; Units: %; Status: F Test: MONOCYTES; Value: 17; Range: 0-8; Abnormal: Above high normal; Units: %; Status: F Test: METAMYELOCYTES; Value: 5; Range: 0-0; Abnormal: Above high normal; Units: %; Status: F Test: MYELOCYTES; Value: 1; Range: 0-0; Abnormal: Above high normal; Units: %; Status: F Test: ATYPICAL LYMPH; Value: 8; Range: 0-5; Abnormal: Above high normal; Units: %; Status: F Test: NUCLEATED RED BLOOD CELL; Value: 1; Range: 0-0; Abnormal: Above high normal; Units: %; Status: F Test: HYPOCHROMASIA; Value: 1+; Status: F Test: ANISOCYTOSIS; Value: 1+; Status: F Test: PLATELET ESTIMATE; Value: MARKED DECREASE; Range: NORMAL; Status: F Test Note: ; NO PLAT CLUMPING NOTED ON SLIDE. Radiology Order: PORTABLE CHEST X-RAY Test: PORTABLE CHEST X-RAY REASON FOR EXAMINATION: shortness of breath; ; PORTABLE CHEST:; ; AP Portable view of the chest is performed and compared to a prior study of; 05/15/2014.; ; Mild bibasilar scarring is seen, which is stable. There is no acute infiltrate or; pulmonary edema. The heart is normal in size and mediastinal silhouette is; unchanged. There is a left MediPort catheter with the tip in the right atrium.; ; ; ; Unreviewed; Outcome: 05:58 Decision to Hospitalize by Provider. cs11 13:31 Discharge Assessment: Patient awake, alert and oriented x 3. No cognitive and/or jmk functional deficits noted. Patient verbalized understanding of disposition instructions. patient administered narcotics - no. The following High Risk Discharge criteria are identified: None. Admitted to Med/Surg. Condition: good. No special radiology studies were completed. Admission hand-off: Report Faxed Fax receipt verified by private secretary.. Property :Personal belongings accompany Pt. 13:41 Patient left the ED. leonela Signatures: Dispatcher [employer] EDAnthony Elena,RN Walalce Dooley, RN Brunilda Chamberlain RN RN sls1 Carlos Burgess, DO cs11 McLear, Arelis, WATCHGUARD WATCHGUARD tmm1 Nery Wellington, Exhaust And Muffler Fitter Unit Radha Alvarado Jessica,RN RN jp6 MTDD
[2016-04-03] MEDS: ATENOLOL 50 MG TAB PO SCH (15:23)
[2016-04-03] MEDS: PARoxetine 20 MG TAB PO SCH (15:23)
[2016-04-03 16:16] LABS: MEAN CORPUSCULAR HEMOGLOBIN 31.4 pg (27.0-33.0); MEAN CORPUSCULAR HGB CONC 31.6 g/dl (32.0-36.5); MEAN CORPUSCULAR VOLUME 99.4 fl (80.0-96.0); RED CELL DISTRIBUTION WIDTH 17.7 % (11.5-14.5); WHITE BLOOD COUNT 1.9 K/mm3 (4.0-10.0)
[2016-04-03 20:10] VITALS: BP 140/65
[2016-04-04 00:21] LABS: MEAN CORPUSCULAR HEMOGLOBIN 30.4 pg (27.0-33.0); MEAN CORPUSCULAR HGB CONC 32.6 g/dl (32.0-36.5); RED CELL DISTRIBUTION WIDTH 17.8 % (11.5-14.5); WHITE BLOOD COUNT 1.9 K/mm3 (4.0-10.0)
[2016-04-04] MEDS: diphenhydrAMINE 25 MG CAP PO PRN ×2 (01:35→11:23)
[2016-04-04 06:05] VITALS: BP 127/60
[2016-04-04 06:56] LABS: DIFF SLIDE NUMBER 72; MEAN CORPUSCULAR HGB CONC 32.2 g/dl (32.0-36.5); MEAN CORPUSCULAR VOLUME 93.3 fl (80.0-96.0); RED CELL DISTRIBUTION WIDTH 16.8 % (11.5-14.5); WHITE BLOOD COUNT 2.2 K/mm3 (4.0-10.0)
[2016-04-04 07:01] LABS: PLATELET COUNT, AUTOMATED 57 k/mm3 (150-450)
[2016-04-04 07:14] LABS: ANION GAP 9 MEQ/L (8-16); BLOOD UREA NITROGEN 11 MG/DL (7-18); CALCIUM LEVEL 8.7 MG/DL (8.5-10.1); CARBON DIOXIDE LEVEL 28 MEQ/L (21-32); CHLORIDE LEVEL 104 MEQ/L (98-107); CREATININE FOR GFR 0.48 MG/DL (0.55-1.02); GLOMERULAR FILTRATION RATE > 60.0 (>51); GLUCOSE, FASTING 131 MG/DL (70-105); POTASSIUM SERUM 3.3 MEQ/L (3.5-5.1); SODIUM LEVEL 141 MEQ/L (136-145)
--- NOTE | 2016-04-04 07:30 | CR ---
DATE OF CONSULTATION: 04/03/2016 REFERRING PHYSICIAN: Dr. Wu. REASON FOR CONSULTATION: Pancytopenia. 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 Pastor. She primarily sees Dr. Steve at the [facility] in [place]. More recently, she was diagnosed with a left breast Stage IIB triple-negative infiltrating ductal carcinoma, clinical stage IIB [id number]. She is currently receiving chemotherapy with carboplatin and Taxol given initially at one week interval, but then changed to two week interval due to protracted cytopenia, and now more recently, to be given every three weeks. Her last chemotherapy was dosed on 03/26/2016. She was hospitalized for worsening fatigue and with mechanical fall. On evaluation at [facility] emergency room (ER), she was noted to have a white count of 9,000, hemoglobin of 9.6, and a platelet count of 16,000. She denies any cough or shortness of breath. She recently completed antibiotics with Keflex for a right labial cyst. She also has diarrhea which she believes is secondary to her chemotherapy. PAST MEDICAL HISTORY: 1. Diabetes. 2. Hypertension. 3. Hypercholesterolemia. 4. Obesity. 5. Asthma. 6. Bilateral breast cancer as above. PAST SURGICAL HISTORY: 1. Hysterectomy and bilateral salpingo-oophorectomy for endometriosis at age of 42. 2. Left breast biopsy in 2015. 3. Lumpectomy in 2010. MEDICATIONS AT HOME (include): - Compazine as needed - folic acid - Januvia - Paxil - pioglitazone - glipizide - atenolol ALLERGIES: No known drug allergies. SOCIAL HISTORY: No tobacco use. No alcohol use. She lives alone. Unmarried. She has no children. 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 No history of IV drug use. FAMILY HISTORY: Mother diagnosed with breast cancer in her 50s. No other history of breast or ovarian cancer in the family. PHYSICAL EXAMINATION: Vitals: She is afebrile. She is no acute distress. of 1. In general, she is lying in bed in the emergency room. She is in no acute distress. Alopecia. HEENT: No pallor. Anicteric sclerae. Moist mucous membranes. Oropharynx is clear. Neck is supple. Heart: Regular rate and rhythm. Normal S1, S2. Lungs are clear bilaterally. No wheeze, rhonchi or rales. Abdomen is soft, protuberant ,nontender, nondistended. No hepatosplenomegaly or masses. Extremities: No clubbing, cyanosis or edema. LABS: As above. She had a chest x-ray done that showed no acute infiltrates. She had an ultrasound of her left breast on 03/31/2016 and it shows decrease in the 9 o'clock breast nodule from 2.1 cm 1.1 cm. IMPRESSION AND PLAN: 61-year-old female with prior history of right Stage IA infiltrating triple-negative breast cancer and more recently diagnosed with left Stage IIB T2N1 triple-negative infiltrating ductal carcinoma now receiving new adjuvant chemotherapy with carboplatin and Taxol with change in chemotherapy regimen due to protracted cytopenias. Chemotherapy was started in November 2015. The patient is now admitted with cytopenia, including thrombocytopenia and neutropenia. 1. Her cytopenia is likely related to her evelin from chemotherapy and also because she is with chemotherapy; however, would recommend checking the peripheral smear to evaluate for bone marrow involvement of her breast cancer, especially given that it is a triple-negative breast cancer. 2. Will transfuse patient as required to keep platelet count above 15,000 and also to keep hemoglobin above 7. 3. Do not recommend Neupogen at this time; however, if patient's neutropenia does not improve in 24 to 48 hours, then Neupogen could be considered.
[2016-04-04 07:59] LABS: TOXIC GRANULATION 1+
[2016-04-04 08:00] LABS: ANISOCYTOSIS 1+
[2016-04-04] MEDS: PARoxetine 20 MG TAB PO SCH (09:43)
[2016-04-04] MEDS: ATENOLOL 50 MG TAB PO SCH (09:43)
[2016-04-04] MEDS: HumaLOG INSULIN (NovoLOG) PER UNIT SC SCH ×4 (09:44→21:47)
[2016-04-04 09:48] LABS: REASON FOR REVIEW COMPREHENSIVE REVIEW
--- NOTE | 2016-04-04 10:04 | IPNPDOC ---
Assessment/Plan Date Seen The patient was seen on 04/04/16. Problems Problems: (1) Severe neutropenia Status: Acute Problem Text: No documented fever so far. Last Neupogen 03/26? (Patient reports getting an injetion on 03/26 but not entirely certain if it was Neupogen) Initiate Reverse Isolation Consult Oncology (Dr. Dickey aware) to discuss further Neupogen, empiric antibiotics etc. (At this point she is calculated to be low risk and empiric antibiotics are not indicated, but will defer decision for abx to Oncology) 04/04/16 - Seen by Dr Dickey from Onc. He states that her cytopenia is likely related to her evelin from chemotherapy and he would recommend checking the peripheral smear to evaluate for bone marrow involvement of her breast cancer, especially given that it is a triple-negative breast cancer. He advises transfusing patient as required to keep platelet count above 15,000 and also to keep hemoglobin above 7. Dr Dickey does not recommend Neupogen at this time, however, if patient's neutropenia does not improve in 24 to 48 hours, then Neupogen could be considered. Transfusion was ordered during night but PRBCs needed to come from [place] therefore transfusion to be started this AM. (2) Thrombocytopenia Status: Acute Problem Text: 2 units irradiated Platelets given 04/03/16 (3) Anemia Status: Acute Problem Text: Symptomatic with BROWNLEE and generalized weakness Defer to Oncology whether to transfuse 04/04/16 - Seen by Oncology. See above. (4) Pancytopenia Status: Acute (5) Diabetes type 2, uncontrolled Status: Chronic Response to Treatment: Stable Problem Text: oral meds on hold Continue SSI coverge (6) Breast cancer Status: Chronic Problem Text: See above. (7) Depression Status: Chronic Response to Treatment: Stable Problem Text: Paxil (8) HTN (hypertension) Status: Chronic Response to Treatment: Stable Problem Text: atenolol Plan / VTE VTE Prophylaxis Ordered?: No VTE Exclusion Pharmacological: Thrombocytopenia Subjective Review of Systems CC/HPI The patient is a 61-year-old female admitted with a reason for visit of Neutropenia. Events since last encounter Pt states she is feeling better. Denies any current fevers. Denies CP, SOB, Abd pain. Constitutional: Denies: Chills, Fever Pulmonary: Denies: Dyspnea Cardiovascular: Denies: Chest Pain, Palpitations Gastrointestinal: Denies: Abdominal Pain, Nausea, Vomiting Objective Physical Examination General Exam: Positive: Alert, No Acute Distress Chest Exam: Positive: Clear to auscultation, Normal air movement Heart Exam: Positive: Rate Normal, Negative: Murmurs Abdomen Exam: Positive: Normal bowel sounds, Soft, Negative: Tenderness Extremity Exam: Negative: Edema Skin Exam: Positive: Rash (right hand dermatitis) Vital Signs/I&O Vital Signs Date Time Temp Pulse Resp B/P Pulse Ox O2 Delivery O2 Flow Rate FiO2 04/04/16 06:05 97.1 85 16 127/60 99 Room Air I&O- Last 24 Hours up to 6 AM 04/04/16 05:59 Intake Total 1222 ml Output Total 100 ml Balance 1122 ml Laboratory Data Labs 24H Laboratory Tests 2 04/03/16 10:51: Absolute Reticulocyte Count 4L, Anisocytosis 1+, Atypical Lymphocytes 8H, Ferritin 652H, Folate > 24.0, Hepatitis A IgM Antibody NEGATIVE, Hepatitis B Core IgM Antibody NEGATIVE, Hepatitis B Surface Antigen NEGATIVE, Hepatitis C Antibody Index < 0.0, Hypochromasia 1+, Iron Level 31L, Lymphocytes (Manual) 41 , Metamyelocytes 5H, Monocytes (Manual) 17H, Myelocytes 1H, Neutrophils 28L, Nucleated Red Blood Cells 1H, Percent Reticulocyte Count 0.10L, Platelet Estimate MARKED DECREASE, Reticulocyte Hgb Content (CHr) 27.7, Total Iron Binding Capacity 254, Transferrin % Saturation 12.2L, Vitamin B12 Level > 2000H 04/03/16 16:48: Bedside Glucose (Misc Panel) 182H 04/03/16 17:47: Urine Amorphous Sediment , Urine Appearance HAZY, Urine Color YELLOW, Urine pH 6.0, Urine Specific [place] 1.023, Urine Protein 1+H, Urine Glucose (UA) 3+H, Urine Ketones NEGATIVE, Urine Urobilinogen 0.2, Urine Bilirubin NEGATIVE, Urine Leukocyte Esterase TRACEH, Urine Bacteria (Auto) 1+H, Urine Blood 1+H, Urine Calcium Carbonate Cryst(Auto) , Urine Calcium Oxalate Cryst (Auto) , Urine Calcium Phosphate Azucena (Auto) , Urine Cellular Casts , Urine Cystine Crystals , Urine Granular Casts (Auto) , Urine Hyaline Casts (Auto) 1, Urine Leucine Crystals , Urine Mucus (Auto) SMALL, Urine Nitrite NEGATIVE, Urine Oval Fat Bodies (Auto) , Urine RBC (Auto) 6H, Urine Renal Epithelial Cells , Urine Sperm (Auto) , Urine Squamous Epithelial Cells 2, Urine Transitional Epithelial Cells , Urine Trichomonas (Auto) , Urine Triple Phosphate Cryst (Auto) , Urine Tyrosine Crystals , Urine Uric Acid Crystals (Auto) , Urine WBC (Auto) 22H, Urine Waxy Casts (Auto) , Urine Yeast-Like Cells (Auto) 04/03/16 20:09: Bedside Glucose (Misc Panel) 182H 04/04/16 06:40: Anion Gap 9, Anisocytosis 1+, Atypical Lymphocytes 4, Blood Urea Nitrogen 11, Creatinine 0.48L, Sodium Level 141, Potassium Level 3.3L, Chloride Level 104, Carbon Dioxide Level 28, Calcium Level 8.7, Glomerular Filtration Rate > 60.0, Lymphocytes (Manual) 24, Metamyelocytes 3H, Monocytes (Manual) 20H, Myelocytes 1H, Neutrophils 48, Platelet Estimate MARKED DECREASE, Toxic Granulation 1+ CBC/BMP Laboratory Tests 04/03/16 10:51 04/03/16 16:07 Red Blood Count 2.97 L, Mean Corpuscular Volume 99.4 #H, Mean Corpuscular Hemoglobin 31.4, Mean Corpuscular Hemoglobin Concent 31.6 L, Red Cell Distribution Width 17.7 H 04/03/16 23:57 Red Blood Count 2.43 L, Mean Corpuscular Volume 93.0 #, Mean Corpuscular Hemoglobin 30.4, Mean Corpuscular Hemoglobin Concent 32.6, Red Cell Distribution Width 17.8 H 04/04/16 06:40 Red Blood Count 2.62 L, Mean Corpuscular Volume 93.3, Mean Corpuscular Hemoglobin 30.0, Mean Corpuscular Hemoglobin Concent 32.2, Red Cell Distribution Width 16.8 H, Calcium Level 8.7 FSBS Laboratory Tests Test 04/03/16 16:48 04/03/16 20:09 Range/Units Bedside Glucose (Misc Panel) 182 182 70-105 MG/DL Microbiology Microbiology 04/03/16 Blood Culture, Received Pending 04/03/16 Blood Culture, Received Pending 04/03/16 Stool Occult Blood (LEISA) - Final, Complete Deven Herbert RPA-C Apr 04, 2016 10:04
[2016-04-04] MEDS ORDERED: POTASSIUM CHLORIDE 10 MEQ SR TABLET PO ONE (10:15)
[2016-04-04] MEDS: HYDROCORTISONE 1% CREAM 30 GM TOP PRN ×2 (12:26→22:02)
[2016-04-04 14:00] VITALS: BP 110/66
[2016-04-04 16:26] LABS: MEAN CORPUSCULAR HEMOGLOBIN 30.2 pg (27.0-33.0); MEAN CORPUSCULAR HGB CONC 32.4 g/dl (32.0-36.5); MEAN CORPUSCULAR VOLUME 93.2 fl (80.0-96.0); RED CELL DISTRIBUTION WIDTH 18.1 % (11.5-14.5); WHITE BLOOD COUNT 3.6 K/mm3 (4.0-10.0)
[2016-04-04 21:05] VITALS: BP 133/65
[2016-04-05 00:11] LABS: MEAN CORPUSCULAR HEMOGLOBIN 29.6 pg (27.0-33.0); MEAN CORPUSCULAR HGB CONC 31.4 g/dl (32.0-36.5); MEAN CORPUSCULAR VOLUME 94.3 fl (80.0-96.0); RED CELL DISTRIBUTION WIDTH 17.9 % (11.5-14.5); WHITE BLOOD COUNT 4.3 K/mm3 (4.0-10.0)
[2016-04-05 06:20] VITALS: BP 132/62
[2016-04-05 06:30] LABS: ANION GAP 7 MEQ/L (8-16); BLOOD UREA NITROGEN 12 MG/DL (7-18); CALCIUM LEVEL 8.7 MG/DL (8.5-10.1); CARBON DIOXIDE LEVEL 30 MEQ/L (21-32); CHLORIDE LEVEL 104 MEQ/L (98-107); CREATININE FOR GFR 0.42 MG/DL (0.55-1.02); GLOMERULAR FILTRATION RATE > 60.0 (>51); GLUCOSE, FASTING 128 MG/DL (70-105); POTASSIUM SERUM 3.5 MEQ/L (3.5-5.1); SODIUM LEVEL 141 MEQ/L (136-145)
[2016-04-05 06:50] LABS: BASO # 0.1 K/mm3 (0.0-0.2); BASO % 1.3 % (0.0-1.0); EOS % 0.2 % (0.0-3.0); LARGE UNSTAINED CELL # 0.2 K/mm3 (0.0-0.4); LYMPH % 15.7 % (24.0-44.0); MEAN CORPUSCULAR HGB CONC 32.3 g/dl (32.0-36.5); MEAN CORPUSCULAR VOLUME 92.9 fl (80.0-96.0); MONO # 0.3 K/mm3 (0.0-0.8); MONO % 7.2 % (0.0-5.0); NEUTROPHILS # 3.3 K/mm3 (1.8-7.7); NEUTROPHILS % 70.6 % (36.0-66.0); RED CELL DISTRIBUTION WIDTH 17.7 % (11.5-14.5); WHITE BLOOD COUNT 4.7 K/mm3 (4.0-10.0)
[2016-04-05 06:56] LABS: PLATELET COUNT, AUTOMATED 56 k/mm3 (150-450)
[2016-04-05] MEDS: PARoxetine 20 MG TAB PO SCH (08:45)
[2016-04-05] MEDS: ATENOLOL 50 MG TAB PO SCH (08:47)
[2016-04-05] MEDS: HumaLOG INSULIN (NovoLOG) PER UNIT SC SCH ×4 (08:47→20:53)
--- NOTE | 2016-04-05 08:58 | IPNPDOC ---
Assessment/Plan Date Seen The patient was seen on 04/05/16. Problems Problems: (1) Severe neutropenia Status: Acute Problem Text: No documented fever so far. Seen by Dr Dickey from oncology, who believed that her pancytopenia was likely due to her recent chemotherapy. He indicated that her levels would likely return to normal, I did not recommend Neupogen at this point. He recommended transfusion of packed cells for hemoglobin less than 7. Her case was again discussed today, 04/05/2016, and oncology feels that she is safe for discharge and can follow-up in the oncology clinic. -White blood cells have increased to 4.7 -No fever and medically stable for discharge. However, we'll need to have patient evaluated for home safety prior to discharge. (2) Thrombocytopenia Status: Acute Problem Text: Patient was given 2 units irradiated Platelets given 04/03/16, and her platelets have remained stable since then. Oncology feels that she is safe for discharge. -Discharge planning in process -Will need outpatient follow-up labs (3) Anemia Status: Acute Problem Text: Symptomatic with BROWNLEE and generalized weakness. Patient was transfused 1 unit packed red blood cells on 04/04/2016. Her hemoglobin remained stable, and the patient is currently symptomatically. She is cleared for discharge per oncology. - Discharge planning and processed -Will need outpatient follow-up labs (4) Pancytopenia Status: Acute (5) Diabetes type 2, uncontrolled Status: Chronic Response to Treatment: Stable Problem Text: oral meds on hold Continue SSI coverge (6) Breast cancer Status: Chronic Problem Text: See above. (7) Depression Status: Chronic Response to Treatment: Stable Problem Text: Paxil (8) HTN (hypertension) Status: Chronic Response to Treatment: Stable Problem Text: atenolol (9) Rash Status: Acute Response to Treatment: Worse Problem Text: Patient had a rash on her right hand yesterday, which appear to be dry hands and mild dermatitis. However, the rash is now beefy-red and more tender after treatment with 1% hydrocortisone cream. There appear to be some satellite lesions. Will treat with nystatin cream for possible cutaneous candidiasis. Does not appear to be cellulitis. -Nystatin cream twice a day 7 days Plan / VTE VTE Prophylaxis Ordered?: No VTE Exclusion Pharmacological: Thrombocytopenia Disposition Discharge planning for 04/06/2016. PT evaluation for home safety. Subjective Review of Systems CC/HPI The patient is a 61-year-old female admitted with a reason for visit of Neutropenia. Events since last encounter Patient is feeling well today. She has no complaints. However, she feels unsteady on her feet, and feels unsafe to go home. The rash in her hand has worsened with hydrocortisone cream, and is nontender to the touch. She denies any fevers, chills, sweats. She denies any difficulty with breathing. She is eating well, stooling, and urinating without difficulty. Constitutional: Denies: Chills, Fever Skin: Reports: Rash Gastrointestinal: Denies: Abdominal Pain, Constipation, Diarrhea, Nausea, Vomiting Genitourinary: Denies: Dysuria Hematologic: Denies: Bleeding Excessively, Bruising Other systems 10 point review systems otherwise negative. Objective Physical Examination General Exam: Positive: Alert, No Acute Distress Chest Exam: Positive: Clear to auscultation, Normal air movement Heart Exam: Positive: Rate Normal, Negative: Murmurs Abdomen Exam: Positive: Normal bowel sounds, Soft, Negative: Tenderness Extremity Exam: Negative: Edema Skin Exam: Positive: Rash (right hand now has right red erythema, with satellite lesions) Vital Signs/I&O Vital Signs Date Time Temp Pulse Resp B/P Pulse Ox O2 Delivery O2 Flow Rate FiO2 04/05/16 08:47 89 132/62 04/05/16 06:20 97.9 16 94 Room Air I&O- Last 24 Hours up to 6 AM 04/05/16 05:59 Intake Total 1670 ml Output Total 1150 ml Balance 520 ml Laboratory Data Labs 24H Laboratory Tests 2 04/04/16 09:39: Differential Pathologist's Review COMPREHENSIVE REVIEW, Differential Slide Review Report, Peripheral Blood Smear Path Consult PERIPHERAL SMEAR 04/04/16 11:41: Bedside Glucose (Misc Panel) 211H 04/04/16 16:34: Bedside Glucose (Misc Panel) 114H 04/04/16 21:08: Bedside Glucose (Misc Panel) 154H 04/05/16 05:19: Anion Gap 7L, White Blood Count 4.7, Red Blood Count 2.90L, Hemoglobin 8.7L, Hematocrit 27.0L, Mean Corpuscular Volume 92.9, Mean Corpuscular Hemoglobin 30.0 , Mean Corpuscular Hemoglobin Concent 32.3, Red Cell Distribution Width 17.7H, Platelet Count 56L, Neutrophils (%) (Auto) 70.6H, Lymphocytes (%) (Auto) 15.7L, Monocytes (%) (Auto) 7.2H, Eosinophils (%) (Auto) 0.2, Basophils (%) (Auto) 1.3H , Neutrophils # (Auto) 3.3, Lymphocytes # (Auto) 1.0L, Monocytes # (Auto) 0.3, Eosinophils # (Auto) 0.0, Basophils # (Auto) 0.1, Blood Urea Nitrogen 12, Creatinine 0.42L, Sodium Level 141, Potassium Level 3.5, Chloride Level 104, Carbon Dioxide Level 30, Calcium Level 8.7, Glomerular Filtration Rate > 60.0, Large Unclassified Cells # 0.2, Large Unclassified Cells % 5.0H CBC/BMP Laboratory Tests 04/04/16 16:00 Red Blood Count 2.86 L, Mean Corpuscular Volume 93.2, Mean Corpuscular Hemoglobin 30.2, Mean Corpuscular Hemoglobin Concent 32.4, Red Cell Distribution Width 18.1 H 04/05/16 00:04 Red Blood Count 2.91 L, Mean Corpuscular Volume 94.3, Mean Corpuscular Hemoglobin 29.6, Mean Corpuscular Hemoglobin Concent 31.4 L, Red Cell Distribution Width 17.9 H 04/05/16 05:19 Red Blood Count 2.90 L, Mean Corpuscular Volume 92.9, Mean Corpuscular Hemoglobin 30.0, Mean Corpuscular Hemoglobin Concent 32.3, Red Cell Distribution Width 17.7 H, Calcium Level 8.7, Neutrophils (%) (Auto) 70.6 H, Lymphocytes (%) (Auto) 15.7 L, Monocytes (%) (Auto) 7.2 H, Eosinophils (%) (Auto ) 0.2, Basophils (%) (Auto) 1.3 H, Neutrophils # (Auto) 3.3, Lymphocytes # (Auto ) 1.0 L, Monocytes # (Auto) 0.3, Eosinophils # (Auto) 0.0, Basophils # (Auto) 0.1 FSBS Laboratory Tests Test 04/04/16 11:41 04/04/16 16:34 04/04/16 21:08 Range/Units Bedside Glucose (Misc Panel) 211 114 154 70-105 MG/DL Microbiology Microbiology 04/03/16 Blood Culture - Preliminary, Resulted No growth after 24 hours . All specim... 04/03/16 Blood Culture - Preliminary, Resulted No growth after 24 hours . All specim... 04/03/16 Stool Occult Blood (LEISA) - Final, Complete 04/04/16 Urine Culture, Received Pending DEE AVILA MD Apr 05, 2016 08:58
[2016-04-05] MEDS: NYSTATIN CREAM 15 GM TOP SCH ×2 (12:10→20:55)
[2016-04-05 14:00] VITALS: BP 116/57
--- NOTE | 2016-04-05 14:42 | EDDOCDS ---
Physician Documentation [facility] Name: Sherly Romero Age: 61 yrs Sex: Female : 1955 Arrival Date: 04/03/2016 Time: 03:34 Bed 17 Private MD: Julien Ramirez Disposition: 04/03/16 05:58 Hospitalization ordered by Sussy Agudelo for Inpatient Admission. Preliminary diagnosis are Neutropenia, Thrombocytopenia, unspecified. - Bed requested for 4 [place]. - Status is Inpatient Admission. jmk - Condition is Stable. - Problem is an ongoing problem. - Symptoms are unchanged. Historical: - Allergies: No known drug Allergies; - Home Meds: 1. Atenolol Oral 2. Januvia oral Unknown oral 3. Glipizide Unknown Oral 4. Paroxetine HCl Unknown Oral 5. Aspirin Unknown Oral - Social history: Smoking status: Patient states was never smoker of tobacco. Patient/guardian denies using alcohol, street drugs, No barriers to communication noted, The patient speaks fluent [place]. - Family history: Not pertinent. - : The pt / caregiver states he / she is not on anticoagulants. Home medication list is obtained from the patient. - Exposure Risk Screening:: None identified. Vital Signs: 04/03 03:44 BP 118 / 63; Pulse 94; Resp 18; Temp 99; Pulse Ox 98% ; Weight 96.16 kg / 212 lbs; [facility] Height 5 ft. 4 in. (162.56 cm); Pain 0/10; 06:06 BP 124 / 68; Pulse 92; Resp 16; Temp 99.4; Pulse Ox 98% on R/A; Pain 0/10; jp6 09:48 BP 100 / 62; Pulse 95; Resp 16; Temp 99.0; Pulse Ox 98% on R/A; jmk 12:12 BP 133 / 55; Pulse 96; Resp 16; Temp 98.4(TE); Pulse Ox 98% on R/A; jmk 13:29 BP 149 / 70; Pulse 104; Resp 16; Temp 98.0(O); Pulse Ox 98% ; jmk 03:44 Body Mass Index 36.39 (96.16 kg, 162.56 cm) [facility] MDM: 04:18 IV Saline Lock ordered. cs11 04:18 NS 0.9% 1000 ml IV at bolus once ordered. cs11 04:19 CBC with Diff Ordered. EDMS 04:19 MED Profile Ordered. EDMS 05:30 Financial registration complete. [facility] 05:32 [facility] Payment Agreement was scanned into [employer] and attached to record. [facility] 05:35 CBC with Diff Reviewed. [facility] 05:44 MED Profile Reviewed. [facility] 06:00 BED REQUEST+ADM ordered. EDMS 06:35 Admission / Observation Status ordered. EDMS 06:59 2 GRAM SODIUM DIET ordered. EDMS 07:42 IRRADIATED PHERESIS PLATELETS Ordered. EDMS 07:44 COMPLETE BLOOD COUNT Ordered. EDMS 07:54 PORTABLE CHEST X-RAY Ordered. EDMS 08:05 C REACTIVE PROTEIN QUANTITATIV Ordered. EDMS 10:27 Attending Doctor Change: ordered. EDMS 10:30 RETICULOCYTE COUNT Ordered. EDMS 10:30 VITAMIN B12 LEVEL Ordered. EDMS 10:31 FOLATE Ordered. EDMS 10:31 FERRITIN Ordered. EDMS 10:31 IRON (FE) Ordered. EDMS 10:31 TOTAL IRON BINDING CAPACIT Ordered. EDMS 10:31 URINALYSIS Ordered. EDMS 10:31 HEPATITIS PROFILE Ordered. EDMS 10:32 BLOOD CULTURES Ordered. EDMS 10:32 BLOOD CULTURES Ordered. EDMS 10:58 CBC WITH MANUAL DIFFERENTAL Ordered. EDMS 04/04 09:30 T-Sheet-- Draft Copy was scanned into [employer] and attached to record. 12:48 PCR was scanned into [employer] and attached to record. gb Administered Medications: 04/03 05:12 Drug: NS 0.9% 1000 ml [sodium chloride 0.9 % intravenous solution] Route: IV; Rate: jp6 bolus; Site: left antecubital; Signatures: Dispatcher [employer] EDMS Anthony Herbert,RN RN Nieves Truong, Reg Reg Carlos Miller, DO DO cs11 Radha Garcia [facility] Xiomara WalslRN RN jp6 Andres Bravo RN RN The chart was reviewed and I authenticate all verbal orders and agree with the evaluation and treatment provided.Corrections: (The following items were deleted from the chart) 08:05 07:43 C REACTIVE PROTEIN QUANTITATIV ordered. EDMS EDMS 10:57 10:36 CBC WITH MANUAL DIFFERENTAL ordered. EDMS EDMS Attachments: 05:32 [facility] Payment Agreement [facility] 04/04 09:30 T-Sheet-- Draft Copy gb Chart Complete MTDD
--- NOTE | 2016-04-05 14:42 | EDDOCDS ---
Physician Documentation [facility] Name: Sherly Romero Age: 61 yrs Sex: Female : 1955 Arrival Date: 04/03/2016 Time: 03:34 Bed 17 Private MD: Julien Ramirez Disposition: 04/03/16 05:58 Hospitalization ordered by Sussy Agudelo for Inpatient Admission. Preliminary diagnosis are Neutropenia, Thrombocytopenia, unspecified. - Bed requested for 4 [place]. - Status is Inpatient Admission. jmk - Condition is Stable. - Problem is an ongoing problem. - Symptoms are unchanged. Historical: - Allergies: No known drug Allergies; - Home Meds: 1. Atenolol Oral 2. Januvia oral Unknown oral 3. Glipizide Unknown Oral 4. Paroxetine HCl Unknown Oral 5. Aspirin Unknown Oral - Social history: Smoking status: Patient states was never smoker of tobacco. Patient/guardian denies using alcohol, street drugs, No barriers to communication noted, The patient speaks fluent Yoruba. - Family history: Not pertinent. - : The pt / caregiver states he / she is not on anticoagulants. Home medication list is obtained from the patient. - Exposure Risk Screening:: None identified. Vital Signs: 04/03 03:44 BP 118 / 63; Pulse 94; Resp 18; Temp 99; Pulse Ox 98% ; Weight 96.16 kg / 212 lbs; [facility] Height 5 ft. 4 in. (162.56 cm); Pain 0/10; 06:06 BP 124 / 68; Pulse 92; Resp 16; Temp 99.4; Pulse Ox 98% on R/A; Pain 0/10; jp6 09:48 BP 100 / 62; Pulse 95; Resp 16; Temp 99.0; Pulse Ox 98% on R/A; jmk 12:12 BP 133 / 55; Pulse 96; Resp 16; Temp 98.4(TE); Pulse Ox 98% on R/A; jmk 13:29 BP 149 / 70; Pulse 104; Resp 16; Temp 98.0(O); Pulse Ox 98% ; jmk 03:44 Body Mass Index 36.39 (96.16 kg, 162.56 cm) [facility] MDM: 04:18 IV Saline Lock ordered. cs11 04:18 NS 0.9% 1000 ml IV at bolus once ordered. cs11 04:19 CBC with Diff Ordered. EDMS 04:19 MED Profile Ordered. EDMS 05:30 Financial registration complete. [facility] 05:32 [facility] Payment Agreement was scanned into [employer] and attached to record. [facility] 05:35 CBC with Diff Reviewed. [facility] 05:44 MED Profile Reviewed. [facility] 06:00 BED REQUEST+ADM ordered. EDMS 06:35 Admission / Observation Status ordered. EDMS 06:59 2 GRAM SODIUM DIET ordered. EDMS 07:42 IRRADIATED PHERESIS PLATELETS Ordered. EDMS 07:44 COMPLETE BLOOD COUNT Ordered. EDMS 07:54 PORTABLE CHEST X-RAY Ordered. EDMS 08:05 C REACTIVE PROTEIN QUANTITATIV Ordered. EDMS 10:27 Attending Doctor Change: ordered. EDMS 10:30 RETICULOCYTE COUNT Ordered. EDMS 10:30 VITAMIN B12 LEVEL Ordered. EDMS 10:31 FOLATE Ordered. EDMS 10:31 FERRITIN Ordered. EDMS 10:31 IRON (FE) Ordered. EDMS 10:31 TOTAL IRON BINDING CAPACIT Ordered. EDMS 10:31 URINALYSIS Ordered. EDMS 10:31 HEPATITIS PROFILE Ordered. EDMS 10:32 BLOOD CULTURES Ordered. EDMS 10:32 BLOOD CULTURES Ordered. EDMS 10:58 CBC WITH MANUAL DIFFERENTAL Ordered. EDMS 04/04 09:30 T-Sheet-- Draft Copy was scanned into [employer] and attached to record. 12:48 PCR was scanned into [employer] and attached to record. gb Administered Medications: 04/03 05:12 Drug: NS 0.9% 1000 ml [sodium chloride 0.9 % intravenous solution] Route: IV; Rate: jp6 bolus; Site: left antecubital; Signatures: Dispatcher [employer] EDMS Anthony Herbert,RN RN Nieves Truong, Reg Reg Carlos Miller, DO DO cs11 Radha Garcia [facility] Xiomara WallsRN RN jp6 Andres Bravo RN RN The chart was reviewed and I authenticate all verbal orders and agree with the evaluation and treatment provided.Corrections: (The following items were deleted from the chart) 08:05 07:43 C REACTIVE PROTEIN QUANTITATIV ordered. EDMS EDMS 10:57 10:36 CBC WITH MANUAL DIFFERENTAL ordered. EDMS EDMS Attachments: 05:32 [facility] Payment Agreement [facility] 04/04 09:30 T-Sheet-- Draft Copy gb Chart Complete MTDD
--- NOTE | 2016-04-05 14:42 | EDDOCDS ---
Nurse's Notes [facility] Name: Sherly Romero Age: 61 yrs Sex: Female : 1955 Arrival Date: 04/03/2016 Time: 03:34 Bed 17 Private MD: Julien Ramirez Diagnosis: Neutropenia;Thrombocytopenia, unspecified Presentation: 04/03 03:48 Presenting complaint: Patient states: "I have been sick w/ the stomach bug lately and jp6 when I was walking and my legs just gave out" "I pulled down some bags of clothes and fell on them I didn't get hurt" EMS states: EMS states pt is a hoarder and there are only single small walkways from room to room,very unsafe living conditions per EMS. Adult Sepsis Screening: The patient does not have new or worsening altered mentation. Patient's respiratory rate is less than 22. Systolic blood pressure is less than or equal to 100 (1 point). Patient has a qSOFA score of 0- Negative Sepsis Screen. Suicide/Homicide risk assessment- the patient denies having any suicidal and/or homicidal ideations and does not present with any other emotional, behavioral or mental health complaints. Status: Patient is not a sales agent protective service or dependent. Transition of care: patient was not received from another setting of care. 03:48 Acuity: KAYE Level 3 jp6 03:48 Method Of Arrival: Ambulance jp6 Triage Assessment: 03:56 General: Appears comfortable, ill, Behavior is appropriate for age, cooperative, jp6 pleasant. Pain: Denies pain. Pt Declines HIV testing. The patient is triaged at the bedside. See Assessment in Nurses Notes section of ED record. Neurological: Level of Consciousness is awake, alert, Oriented to person, place, time. EENT: No deficits noted. Cardiovascular: Capillary refill < 3 seconds Heart tones S2 present. Respiratory: Airway is patent Respiratory effort is even, unlabored, Respiratory pattern is regular, symmetrical, Breath sounds are clear bilaterally. GI: Abdomen is obese, Bowel sounds present X 4 quads. Reports diarrhea, nausea. : No deficits noted. Derm: Skin is pink, warm & dry. Musculoskeletal: No deficits noted. Historical: - Allergies: No known drug Allergies; - Home Meds: 1. Atenolol Oral 2. Januvia oral Unknown oral 3. Glipizide Unknown Oral 4. Paroxetine HCl Unknown Oral 5. Aspirin Unknown Oral - Social history: Smoking status: Patient states was never smoker of tobacco. Patient/guardian denies using alcohol, street drugs, No barriers to communication noted, The patient speaks fluent Hungarian. - Family history: Not pertinent. - : The pt / caregiver states he / she is not on anticoagulants. Home medication list is obtained from the patient. - Exposure Risk Screening:: None identified. Screenin:58 Screening information is obtained from the patient. Fall risk: At risk due to jp6 immobility. Assistance ADL's: requires no assistance with activities of daily living. Abuse/DV Screen: The patient / caregiver reports he/she is: not in a situation that causes fear, pain or injury. Nutritional screening: Has had N/V for 3 or more days. Advance Directives: Currently, there is a health care proxy, Cindy Jones. home support is inadequate. Assessment: 03:58 General: see triage assessment. jp6 05:13 Reassessment: Patient states symptoms have not improved. Pain: Denies pain. jp6 Neurological: Level of Consciousness is awake, alert, Oriented to person, place, time. EENT: No deficits noted. Cardiovascular: No deficits noted. Respiratory: Airway is patent Respiratory effort is even, unlabored, Respiratory pattern is regular, symmetrical. GI: No deficits noted. : No deficits noted. Derm: Skin is pink, warm & dry. Musculoskeletal: No deficits noted. 06:06 Reassessment: Patient appears in no apparent distress at this time. Patient denies pain jp6 at this time. Respiratory: Airway is patent Respiratory effort is even, unlabored, Respiratory pattern is regular, symmetrical. Derm: Skin is pink, warm & dry. 07:35 General: Appears skin warm and dry. + pallor. without discomfort. no observed resp jmk distress when at rest. OOB to void on commode and reports fatigue with physical activity. Chest is CTA. sl intact to left ac space. awaiting admission. 08:37 General: Appears diet provided and taken fair. without complaints. Presently jmk interviewing with admission nurse.. 09:48 General: Appears quietly awaiting admission. without resp distress. Still with fatigue jmk with activity ( getting OOB to void). awaiting bed avail. comfort measures offered. 11:49 General: Appears without discomfort or SOB. prepared for transfusion. sl accessed with leonela saline.. 12:11 General: Appears OOB to void on commode. Loose BM noted. without pain. Platelets jmk initiated.. 12:22 General: Appears rate increased on platelet infusion. jmk 13:29 General: Appears Infusion nearing infusion without event. reports no new symptoms. jmk remain cheerful nd pleasant. admitted.. Vital Signs: 03:44 BP 118 / 63; Pulse 94; Resp 18; Temp 99; Pulse Ox 98% ; Weight 96.16 kg; Height 5 ft. 4 [facility] in. (162.56 cm); Pain 0/10; 06:06 BP 124 / 68; Pulse 92; Resp 16; Temp 99.4; Pulse Ox 98% on R/A; Pain 0/10; jp6 09:48 BP 100 / 62; Pulse 95; Resp 16; Temp 99.0; Pulse Ox 98% on R/A; jmk 12:12 BP 133 / 55; Pulse 96; Resp 16; Temp 98.4(TE); Pulse Ox 98% on R/A; jmk 13:29 BP 149 / 70; Pulse 104; Resp 16; Temp 98.0(O); Pulse Ox 98% ; jmk 03:44 Body Mass Index 36.39 (96.16 kg, 162.56 cm) [facility] Vitals: 03:44 Log In Time N/A - ambulance arrival. [facility] ED Course: 03:36 Patient visited by Arelis Rojo PCA. tmm1 03:36 Julien Ramirez is Private Physician. tmm1 03:36 Patient moved to Waiting tmm1 03:36 Patient moved to 17 tmm1 03:44 Patient visited by Nery Wellington, Location Man. [facility] 03:48 Xiomara Walls,RN is Primary Nurse. jp6 03:48 Patient visited by Xiomara Walls,DOUG. jp6 03:52 Triage Initiated jp6 03:58 The patient / caregiver is instructed regarding the plan of care and ED course. Cardiac jp6 monitor on. Pulse ox on. NIBP on. 03:59 Carlos Burgess DO is Attending Physician. cs11 03:59 Patient visited by Carlos Burgess DO. cs11 05:12 Patient visited by Xiomara Walls,DOUG. jp6 05:13 Inserted saline lock: 20 gauge in left antecubital area and blood collected. No jp6 procedures done that require assistance. Labs drawn. (by ED staff). Sent per order to lab. 05:31 Notified attending ED physician of Critical lab value. sls1 05:32 [facility] Payment Agreement was scanned into [employer] and attached to record. [facility] 05:34 Patient name changed from Sherly\\S\\F\\S\\Grandjean\\S\\ to Sherly\\S\\Cherelle\\S\\Grandjean. EDMS 05:58 Sussy Agudelo is Hospitalizing Provider. cs11 06:06 Assisted to bedside commode. jp6 08:38 Patient visited by Anthony Herbert,RN. jmk 09:32 Patient moved to Admit Hold dy 09:51 Patient visited by Anthony Herbert,DOUG. jmk 10:34 PORTABLE CHEST X-RAY Returned. EDMS 11:08 CBC WITH MANUAL DIFFERENTAL Sent. jmk 12:13 Patient visited by Anthony Herbert,DOUG. jmk 13:38 Patient moved to 17 k 04/04 09:30 T-Sheet-- Draft Copy was scanned into [employer] and attached to record. gb 12:48 PCR was scanned into [employer] and attached to record. gb Administered Medications: 04/03 05:12 Drug: NS 0.9% 1000 ml [sodium chloride 0.9 % intravenous solution] Route: IV; Rate: jp6 bolus; Site: left antecubital; Order Results: Lab Order: CBC with Diff; SPEC'M 04/03/16 05:07 Test: WHITE BLOOD COUNT; Value: 0.9; Range: 4.0-10.0; Abnormal: Critical Low; Units: K/mm3; Status: F Test: RED BLOOD COUNT; Value: 3.23; Range: 4.00-5.40; Abnormal: Below low normal; Units: M/mm3; Status: F Test: HEMOGLOBIN; Value: 9.6; Range: 12.0-16.0; Abnormal: Below low normal; Units: g/dl; Status: F Test: HEMATOCRIT; Value: 30.1; Range: 36.0-47.0; Abnormal: Below low normal; Units: %; Status: F Test: MEAN CORPUSCULAR VOLUME; Value: 93.3; Range: 80.0-96.0; Units: fl; Status: F Test: MEAN CORPUSCULAR HEMOGLOBIN; Value: 29.8; Range: 27.0-33.0; Units: pg; Status: F Test: MEAN CORPUSCULAR HGB CONC; Value: 32.0; Range: 32.0-36.5; Units: g/dl; Status: F Test: RED CELL DISTRIBUTION WIDTH; Value: 17.4; Range: 11.5-14.5; Abnormal: Above high normal; Units: %; Status: F Test: PLATELET COUNT, AUTOMATED; Value: 16; Range: 150-450; Abnormal: Critical Low; Units: k/mm3; Status: F Test: NEUTROPHILS %; Value: 36.4; Range: 36.0-66.0; Units: %; Status: F Test: LYMPH %; Value: 26.9; Range: 24.0-44.0; Units: %; Status: F Test: MONO %; Value: 21.7; Range: 0.0-5.0; Abnormal: Above high normal; Units: %; Status: F Test: EOS %; Value: 2.4; Range: 0.0-3.0; Units: %; Status: F Test: BASO %; Value: 0.6; Range: 0.0-1.0; Units: %; Status: F Test: LARGE UNSTAINED CELL %; Value: 12.0; Range: 0.0-4.0; Abnormal: Above high normal; Units: %; Status: F Test: NEUTROPHILS #; Value: 0.3; Range: 1.8-7.7; Abnormal: Below low normal; Units: K/mm3; Status: F Test: LYMPH #; Value: 0.2; Range: 1.5-4.5; Abnormal: Below low normal; Units: K/mm3; Status: F Test: MONO #; Value: 0.2; Range: 0.0-0.8; Units: K/mm3; Status: F Test: EOS #; Value: 0.0; Range: 0.0-0.50; Units: K/mm3; Status: F Test: BASO #; Value: 0.0; Range: 0.0-0.2; Units: K/mm3; Status: F Test: LARGE UNSTAINED CELL #; Value: 0.1; Range: 0.0-0.4; Units: K/mm3; Status: F Test Note: ; : 1955 Lab Order: MED Profile; SPEC'04/03/16 05:07 Test: GLUCOSE, FASTING; Value: 259; Range: 70-105; Abnormal: Above high normal; Units: MG/DL; Status: F Test: BLOOD UREA NITROGEN; Value: 14; Range: 7-18; Units: MG/DL; Status: F Test: CREATININE FOR GFR; Value: 0.77; Range: 0.55-1.02; Units: MG/DL; Status: F Test: GLOMERULAR FILTRATION RATE; Value: > 60.0; Range: >51; Status: F Test: SODIUM LEVEL; Value: 138; Range: 136-145; Units: MEQ/L; Status: F Test: POTASSIUM SERUM; Value: 3.8; Range: 3.5-5.1; Units: MEQ/L; Status: F Test: CHLORIDE LEVEL; Value: 99; Range: 98-107; Units: MEQ/L; Status: F Test: CARBON DIOXIDE LEVEL; Value: 29; Range: 21-32; Units: MEQ/L; Status: F Test: ANION GAP; Value: 10; Range: 8-16; Units: MEQ/L; Status: F Test: CALCIUM LEVEL; Value: 8.7; Range: 8.5-10.1; Units: MG/DL; Status: F Test Note: ; Units are mL/min/1.73 m2 Chronic Kidney Disease Staging per NKF: Stage I & II GFR >=60 Normal to Mildly Decreased Stage III GFR 30-59 Moderately Decreased Stage IV GFR 15-29 Severely Decreased Stage V GFR <15 Very Little GFR Left ESRD GFR <15 on TEA TASTER Lab Order: C REACTIVE PROTEIN QUANTITATIV; SPEC'04/03/16 05:07 Test: C REACTIVE PROTEIN QUANTITATIV; Value: 4.98; Range: 0.00-0.30; Abnormal: Above high normal; Units: MG/DL; Status: F Lab Order: RETICULOCYTE COUNT; SPEC'04/03/16 10:51 Test: RETICULOCYTE % [id number]; Value: 0.10; Range: 0.5-1.5; Abnormal: Below low normal; Units: %; Status: F Test: RETICULOCYTE ABSOLUTE [id number]; Value: 4; Range: 17-77; Abnormal: Below low normal; Units: x10(9)/L; Status: F Test: RETIC HEMOGLOBIN CONTENT CHr; Value: 27.7; Range: 24-36; Units: PG; Status: F Lab Order: VITAMIN B12 LEVEL; 04/03/16 10:51 Test: VITAMIN B12 LEVEL; Value: > 2000; Range: 247-911; Abnormal: Above high normal; Units: PG/ML; Status: F Test Note: ; VITAMIN B12 NORMAL RANGE NORMAL 247 - 911 PG/ML INDETERMINATE 211 - 246 PG/ML DEFICIENT LESS THAN 211 PG/ML Lab Order: FOLATE; 04/03/16 10:51 Test: FOLATE; Value: > 24.0; Range: >5.4; Units: NG/ML; Status: F Test Note: ; FOLATE NORMAL RANGE NORMAL GREATER THAN 5.4 NG/ML INDETERMINATE 3.4-5.4 NG/ML DEFICIENT LESS THAN 3.4 NG/ML Lab Order: FERRITIN; 04/03/16 10:51 Test: FERRITIN; Value: 652; Range: 8-252; Abnormal: Above high normal; Units: NG/ML; Status: F Lab Order: TOTAL IRON BINDING CAPACIT; 04/03/16 10:51 Test: IRON (FE); Value: 31; Range: 50-170; Abnormal: Below low normal; Units: UG/DL; Status: F Test: TOTAL IRON BINDING CAPACITY; Value: 254; Range: 250-450; Units: UG/DL; Status: F Test: PERCENT SATURATION; Value: 12.2; Range: 13.2-37.4; Abnormal: Below low normal; Units: %; Status: F Lab Order: HEPATITIS PROFILE; 04/03/16 10:51 Test: HEPATITIS C VIRUS SHARON INDEX; Value: < 0.0; Range: <0.8; Units: INDEX; Status: F Test: HEPATITIS B SURFACE ANTIGEN; Value: NEGATIVE; Range: NEGATIVE; Status: F Test: HEPATITIS B CORE ANTIBODY IGM; Value: NEGATIVE; Range: NEGATIVE; Status: F Test: HEPATITIS A ANTIBODY IGM; Value: NEGATIVE; Range: NEGATIVE; Status: F Lab Order: CBC WITH MANUAL DIFFERENTAL; SPEC'M 04/03/16 10:51 Test: WHITE BLOOD COUNT; Value: 1.2; Range: 4.0-10.0; Abnormal: Below low normal; Units: K/mm3; Status: F Test: RED BLOOD COUNT; Value: 2.73; Range: 4.00-5.40; Abnormal: Below low normal; Units: M/mm3; Status: F Test: HEMOGLOBIN; Value: 8.2; Range: 12.0-16.0; Abnormal: Below low normal; Units: g/dl; Status: F Test: HEMATOCRIT; Value: 25.6; Range: 36.0-47.0; Abnormal: Below low normal; Units: %; Status: F Test: MEAN CORPUSCULAR VOLUME; Value: 94.1; Range: 80.0-96.0; Units: fl; Status: F Test: MEAN CORPUSCULAR HEMOGLOBIN; Value: 30.2; Range: 27.0-33.0; Units: pg; Status: F Test: MEAN CORPUSCULAR HGB CONC; Value: 32.1; Range: 32.0-36.5; Units: g/dl; Status: F Test: RED CELL DISTRIBUTION WIDTH; Value: 16.4; Range: 11.5-14.5; Abnormal: Above high normal; Units: %; Status: F Test: PLATELET COUNT, AUTOMATED MD; Value: 14; Range: 150-450; Abnormal: Critical Low; Units: K/mm3; Status: F Test: NEUTROPHILS; Value: 28; Range: 35-75; Abnormal: Below low normal; Units: %; Status: F Test: LYMPHOCYTES; Value: 41; Range: 16-52; Units: %; Status: F Test: MONOCYTES; Value: 17; Range: 0-8; Abnormal: Above high normal; Units: %; Status: F Test: METAMYELOCYTES; Value: 5; Range: 0-0; Abnormal: Above high normal; Units: %; Status: F Test: MYELOCYTES; Value: 1; Range: 0-0; Abnormal: Above high normal; Units: %; Status: F Test: ATYPICAL LYMPH; Value: 8; Range: 0-5; Abnormal: Above high normal; Units: %; Status: F Test: NUCLEATED RED BLOOD CELL; Value: 1; Range: 0-0; Abnormal: Above high normal; Units: %; Status: F Test: HYPOCHROMASIA; Value: 1+; Status: F Test: ANISOCYTOSIS; Value: 1+; Status: F Test: PLATELET ESTIMATE; Value: MARKED DECREASE; Range: NORMAL; Status: F Test Note: ; NO PLAT CLUMPING NOTED ON SLIDE. Radiology Order: PORTABLE CHEST X-RAY Test: PORTABLE CHEST X-RAY REASON FOR EXAMINATION: shortness of breath; PORTABLE CHEST:; ; AP Portable view of the chest is performed and compared to a prior study of; 05/15/2014.; ; Mild bibasilar scarring is seen, which is stable. There is no acute infiltrate or; pulmonary edema. The heart is normal in size and mediastinal silhouette is; unchanged. There is a left MediPort catheter with the tip in the right atrium.; ; ; Signed by; Kwabena Dave MD 04/03/2016 01:27 P; Outcome: 05:58 Decision to Hospitalize by Provider. cs11 13:31 Discharge Assessment: Patient awake, alert and oriented x 3. No cognitive and/or k functional deficits noted. Patient verbalized understanding of disposition instructions. patient administered narcotics - no. The following High Risk Discharge criteria are identified: None. Admitted to Med/Surg. Condition: good. No special radiology studies were completed. Admission hand-off: Report Faxed Fax receipt verified by junior legal secretary.. Property :Personal belongings accompany Pt. 13:41 Patient left the ED. leonela Signatures: Dispatcher [employer] EDMS Anthony Herbert,RN Nieves De Leon, Reg Reg Wallace Medina, RN Brunilda Chamberlain RN RN [id number] Carlos Burgess DO DO cs11 McLear, Arelis, TUBE BUFFER TUBE BUFFER tmm1 Nery Wellington, Location Man Unit Radha Alvarado Jessica,RN RN jp6 Chart Complete MTDD
[2016-04-05 22:00] VITALS: BP 130/67
[2016-04-06 06:00] VITALS: BP 143/72
[2016-04-06 06:03] LABS: BASO % 0.1 % (0.0-1.0); EOS % 0.4 % (0.0-3.0); LARGE UNSTAINED CELL # 0.2 K/mm3 (0.0-0.4); LARGE UNSTAINED CELL % 3.4 % (0.0-4.0); LYMPH # 0.7 K/mm3 (1.5-4.5); LYMPH % 15.5 % (24.0-44.0); MEAN CORPUSCULAR HEMOGLOBIN 30.1 pg (27.0-33.0); MEAN CORPUSCULAR HGB CONC 32.5 g/dl (32.0-36.5); MEAN CORPUSCULAR VOLUME 92.6 fl (80.0-96.0); MONO # 0.3 K/mm3 (0.0-0.8); NEUTROPHILS # 3.3 K/mm3 (1.8-7.7); NEUTROPHILS % 74.6 % (36.0-66.0); RED CELL DISTRIBUTION WIDTH 16.7 % (11.5-14.5); WHITE BLOOD COUNT 4.4 K/mm3 (4.0-10.0)
[2016-04-06 06:04] LABS: PLATELET COUNT, AUTOMATED 44 k/mm3 (150-450)
[2016-04-06 06:17] LABS: ANION GAP 9 MEQ/L (8-16); BLOOD UREA NITROGEN 10 MG/DL (7-18); CALCIUM LEVEL 8.7 MG/DL (8.5-10.1); CARBON DIOXIDE LEVEL 28 MEQ/L (21-32); CHLORIDE LEVEL 106 MEQ/L (98-107); CREATININE FOR GFR 0.46 MG/DL (0.55-1.02); GLOMERULAR FILTRATION RATE > 60.0 (>51); GLUCOSE, FASTING 129 MG/DL (70-105); POTASSIUM SERUM 3.5 MEQ/L (3.5-5.1); SODIUM LEVEL 143 MEQ/L (136-145)
[2016-04-06 10:30] VITALS: BP 138/70
[2016-04-06] MEDS: NYSTATIN CREAM 15 GM TOP SCH (10:30)
[2016-04-06] MEDS: ATENOLOL 50 MG TAB PO SCH (10:30)
[2016-04-06] MEDS: PARoxetine 20 MG TAB PO SCH (10:30)
[2016-04-06] MEDS: HumaLOG INSULIN (NovoLOG) PER UNIT SC SCH ×2 (10:31→12:53)
--- NOTE | 2016-04-06 16:48 | DSES ---
DATE OF ADMISSION: 04/03/2016 DATE OF DISCHARGE: 04/06/2016 PRIMARY CARE PROVIDER: Dr. Stanislav Costa HISTORY: This is a 61-year-old female patient of Dr. Costa'nicole who presented to [facility] Emergency Room with generalized weakness, difficulty performing activities of daily living, and increased shortness of breath with exertion. She has a history of left breast cancer and is currently undergoing chemotherapy. She was found to have significant thrombocytopenia on arrival to the emergency room and, therefore, her admission was arranged. During her hospitalization she has remained medically stable. She was admitted with reverse isolation precautions. She received two bags of platelets, one bag of red blood cells. Her white blood cells on day of discharge have increased to 4.4, her hemoglobin is at 9.2, her platelets are at 44. She has been seen in consultation by Dr. Dickey, who did not recommend any Neupogen unless her neutropenia did not improve within 24-48 hours. He recommended checking a peripheral smear to evaluate for bone marrow involvement of her breast cancer, especially given that she is triple negative for breast cancer. The results of the peripheral smear are not yet available. She is feeling significantly better today. She does have a physical therapy evaluation pending. As long as this confirms that she is, in fact, safe to go home, she will be discharged home today. She has been ambulating around her room per nursing without difficulty. DISCHARGE DIAGNOSES: Include: 1. Breast cancer with chemotherapy. 2. Severe neutropenia. 3. Thrombocytopenia. 4. Anemia. 5. Depression. 6. Hypertension. 7. Rash. DISCHARGE MEDICATIONS: Include: - acetaminophen 650 mg every 4 hours as needed for pain - albuterol sulfate two puffs inhaled every 4 hours as needed for shortness of breath - aspirin 81 mg daily - atenolol 50 mg daily - Neupogen 480 mcg subcutaneous monthly - Naproxen 220 mg by mouth twice a day as needed for pain - paroxetine 20 mg by mouth daily
== END 2016-04-06 15:05 | disposition home or self-care (01) | DRG 810 ==
LOC: M ED 03:34 → M ED INP 06:33 → M MSPAV 14:17
PROVIDERS: ADMIT Internal Medicine; ATTEND Family Medicine
PROC: 30253N1 (ICD-10-PCS; principal; 2016-04-04)
PROC: 30253R1 (ICD-10-PCS; 2016-04-04)
DX: D61.810 Antineoplastic chemotherapy induced pancytopenia (principal); C50.912 Malignant neoplasm of unspecified site of left female breast; E11.65 Type 2 diabetes mellitus with hyperglycemia; R19.7 Diarrhea, unspecified; B37.2 Candidiasis of skin and nail; I10 Essential (primary) hypertension; M81.0 Age-related osteoporosis without current pathological fracture; J45.909 Unspecified asthma, uncomplicated; E78.00 Pure hypercholesterolemia, unspecified; F41.9 Anxiety disorder, unspecified; F32.9 Major depressive disorder, single episode, unspecified; Z79.82 Long term (current) use of aspirin; Z79.84 Long term (current) use of oral hypoglycemic drugs; Z79.899 Other long term (current) drug therapy; Z68.37 Body mass index [BMI] 37.0-37.9, adult

== ENCOUNTER → 2016-04-13 | Outpatient (CLI) | payer MEDICARE ==
[~2016-04-13] MED LIST changes: +ACTO30TA7 PO; +ALBU17IN INH; +ASPI1TAB PO; +ATEN50TA2 PO; +GLIP10TA13 PO; +JANU100T PO; +NAPR220T8 PO; +NEUP480I2 SC; +PARO-39 PO; +TYLE325T5 PO
[2016-04-13 17:28] LABS: BASO % 0.3 % (0.0-1.0); EOS % 0.9 % (0.0-3.0); LYMPH # 0.6 K/mm3 (1.5-4.5); LYMPH % 20.6 % (24.0-44.0); MEAN CORPUSCULAR HEMOGLOBIN 30.7 pg (27.0-33.0); MEAN CORPUSCULAR HGB CONC 32.1 g/dl (32.0-36.5); MEAN CORPUSCULAR VOLUME 95.8 fl (80.0-96.0); MONO # 0.2 K/mm3 (0.0-0.8); MONO % 6.4 % (0.0-5.0); NEUTROPHILS % 69.2 % (36.0-66.0); RED CELL DISTRIBUTION WIDTH 16.7 % (11.5-14.5); WHITE BLOOD COUNT 2.9 K/mm3 (4.0-10.0)
== END ==
LOC: M LAB 16:25
PROVIDERS: ATTEND Internal Medicine Hematology & Oncology
DX: C50.919 Malignant neoplasm of unspecified site of unspecified female breast (principal)

== ENCOUNTER → 2016-04-22 | Outpatient (CLI) | payer MEDICARE, MEDICAID ==
[2016-04-22 14:18] LABS: LYMPH # 0.2 K/mm3 (1.5-4.5); LYMPH % 54.6 % (24.0-44.0); MEAN CORPUSCULAR HEMOGLOBIN 30.9 pg (27.0-33.0); MEAN CORPUSCULAR HGB CONC 32.4 g/dl (32.0-36.5); MEAN CORPUSCULAR VOLUME 95.3 fl (80.0-96.0); MONO % 5.3 % (0.0-5.0); NEUTROPHILS # 0.1 K/mm3 (1.8-7.7); NEUTROPHILS % 28.7 % (36.0-66.0); RED CELL DISTRIBUTION WIDTH 15.5 % (11.5-14.5)
[2016-04-22 14:27] LABS: WHITE BLOOD COUNT 0.4 K/mm3 (4.0-10.0)
== END ==
LOC: M LAB 13:34
PROVIDERS: ATTEND Internal Medicine Hematology & Oncology
DX: C50.912 Malignant neoplasm of unspecified site of left female breast (principal); C50.511 Malignant neoplasm of lower-outer quadrant of right female breast
CPT/HCPCS: 36415; 85027; G0463

== ENCOUNTER → 2016-05-04 | Outpatient (CLI) | payer MEDICARE, MEDICAID ==
[2016-05-04 14:54] LABS: BASO % 0.3 % (0.0-1.0); EOS % 0.2 % (0.0-3.0); LYMPH # 0.3 K/mm3 (1.5-4.5); MEAN CORPUSCULAR HEMOGLOBIN 30.2 pg (27.0-33.0); MEAN CORPUSCULAR HGB CONC 31.8 g/dl (32.0-36.5); MONO # 0.2 K/mm3 (0.0-0.8); MONO % 5.8 % (0.0-5.0); NEUTROPHILS % 78.5 % (36.0-66.0); RED CELL DISTRIBUTION WIDTH 16.2 % (11.5-14.5); WHITE BLOOD COUNT 2.6 K/mm3 (4.0-10.0)
== END ==
LOC: M LAB 13:57
PROVIDERS: ATTEND Internal Medicine Hematology & Oncology
DX: C50.912 Malignant neoplasm of unspecified site of left female breast (principal); C50.511 Malignant neoplasm of lower-outer quadrant of right female breast

== ENCOUNTER → 2016-05-04 | Outpatient (CLI) | payer MEDICARE, MEDICAID ==
[2016-05-04 14:48] LABS: ANION GAP 7 MEQ/L (8-16); BLOOD UREA NITROGEN 12 MG/DL (7-18); CALCIUM LEVEL 8.9 MG/DL (8.5-10.1); CARBON DIOXIDE LEVEL 35 MEQ/L (21-32); CHLORIDE LEVEL 97 MEQ/L (98-107); CREATININE FOR GFR 0.85 MG/DL (0.55-1.02); GLOMERULAR FILTRATION RATE > 60.0 (>51); GLUCOSE, FASTING 345 MG/DL (70-105); POTASSIUM SERUM 3.1 MEQ/L (3.5-5.1); SODIUM LEVEL 139 MEQ/L (136-145)
== END ==
LOC: M LAB 14:02
PROVIDERS: ATTEND Family Medicine

== ENCOUNTER → 2016-05-13 | Outpatient (CLI) | payer MEDICARE, MEDICAID ==
[~2016-05-13] MED LIST changes: +FILG48VL SC; +REFR0.5D8 OU
[2016-05-13 18:30] LABS: BASO % 0.5 % (0.0-1.0); LYMPH # 0.1 K/mm3 (1.5-4.5); MEAN CORPUSCULAR HGB CONC 31.9 g/dl (32.0-36.5); NEUTROPHILS % 13.5 % (36.0-66.0); RED CELL DISTRIBUTION WIDTH 15.3 % (11.5-14.5)
[2016-05-13 20:01] LABS: WHITE BLOOD COUNT 0.2 K/mm3 (4.0-10.0)
== END ==
LOC: M LAB 16:49
PROVIDERS: ATTEND Internal Medicine Hematology & Oncology
DX: C50.919 Malignant neoplasm of unspecified site of unspecified female breast (principal)

== ENCOUNTER 2016-05-17 04:35 | Inpatient (IN) | payer MEDICARE, MEDICAID ==
[~2016-05-17] VITALS: Ht 162.6 cm; Wt 91.2 kg
[~2016-05-17 04:35] MED LIST changes: -FILG48VL SC; -REFR0.5D8 OU
[2016-05-17] MEDS ORDERED: ONDANSETRON 4MG/2ML VIAL (J2405) As Ordered ONE ×2 (05:15→15:28)
[2016-05-17] MEDS ORDERED: ACETAMINOPHEN TAB 650MG DOSE (2X325MG) As Ordered ONE ×2 (05:52→16:09)
[2016-05-17 06:12] LABS: EOS % 0.6 % (0.0-3.0); LARGE UNSTAINED CELL # 0.1 K/mm3 (0.0-0.4); LARGE UNSTAINED CELL % 12.7 % (0.0-4.0); LYMPH # 0.2 K/mm3 (1.5-4.5); LYMPH % 24.5 % (24.0-44.0); MEAN CORPUSCULAR HEMOGLOBIN 30.2 pg (27.0-33.0); MEAN CORPUSCULAR HGB CONC 32.2 g/dl (32.0-36.5); MEAN CORPUSCULAR VOLUME 93.9 fl (80.0-96.0); MONO # 0.2 K/mm3 (0.0-0.8); MONO % 36.4 % (0.0-5.0); NEUTROPHILS # 0.2 K/mm3 (1.8-7.7); NEUTROPHILS % 25.8 % (36.0-66.0); RED CELL DISTRIBUTION WIDTH 15.3 % (11.5-14.5)
[2016-05-17 06:15] LABS: PLATELET COUNT, AUTOMATED 31 k/mm3 (150-450); WHITE BLOOD COUNT 0.6 K/mm3 (4.0-10.0)
[2016-05-17 06:17] LABS: ANION GAP 13 MEQ/L (8-16); BLOOD UREA NITROGEN 7 MG/DL (7-18); CALCIUM LEVEL 8.3 MG/DL (8.5-10.1); CARBON DIOXIDE LEVEL 28 MEQ/L (21-32); CHLORIDE LEVEL 91 MEQ/L (98-107); CREATININE FOR GFR 0.89 MG/DL (0.55-1.02); GLOMERULAR FILTRATION RATE > 60.0 (>51); POTASSIUM SERUM 3.2 MEQ/L (3.5-5.1); SODIUM LEVEL 132 MEQ/L (136-145)
[2016-05-17 06:19] LABS: GLUCOSE, FASTING 416 MG/DL (70-105)
[2016-05-17] MEDS ORDERED: VANCOMYCIN 1000 MG/20 ML VIAL (J3370) As Ordered ONE (06:29)
[2016-05-17] MEDS ORDERED: ZOSYN 3.375 GM VIAL (J2543) As Ordered ONE ×2 (06:29→13:36)
[2016-05-17] MEDS ORDERED: REFR0.5D8 OU (07:33)
[2016-05-17] MEDS ORDERED: JANU100T PO (07:40)
--- NOTE | 2016-05-17 08:21 | REP ---
Clinical: Chest pain and weakness . Comparison: 04/03/2016 . Findings: The mediastinum and cardiac silhouette are stable and within normal limits for portable technique. Cavvkn-E-Dauc extends into the right atrium. The lung jones are clear without acute consolidation, effusion, or pneumothorax. Skeletal structures are intact. Impression: No acute cardiopulmonary process. Signed by Cedrick Bauer MD 05/17/2016 08:13 A
--- NOTE | 2016-05-17 08:52 | ECGEPIP ---
Stationary ECG Study [facility] - ED Test Date: 2016-05-17 Pat Name: RAND DAVE Department: Room: - Gender: F Donor Relations Associate: LylesB: 1955 Requested By: KAR Pandya Order Number: [id number] Reading MD: Ian Shafer Measurements Intervals [place] Rate: 116 P: 82 AL: 104 QRS: 74 QRSD: 90 T: 120 QT: 306 QTc: 425 Interpretive Statements SINUS TACHYCARDIA WITH SHORT AL INTERVAL NSTTW ABNORMALITIES SIMILAR TO 04/09/11 Electronically Signed On 05-17-2016 8:51:53 EST by Ian Shafer
[2016-05-17] MEDS: ATENOLOL 50 MG TAB PO SCH (09:00)
[2016-05-17] MEDS ORDERED: diphenhydrAMINE INJ 50MG/ML VIAL (J1200) As Ordered ONE (09:06)
[2016-05-17] MEDS ORDERED: FILG48VL SC (09:36)
[2016-05-17 12:00] VITALS: BP 101/56
[2016-05-17] MEDS ORDERED: GLUCAGON FOR INJ 1 MG VIAL (J1610) SC PRN (12:45)
[2016-05-17] MEDS ORDERED: GLUCOSE 4 GM CHEW TABLET PO PRN (12:45)
[2016-05-17] MEDS ORDERED: DEXTROSE 50% 50 ML SYRINGE IV PRN (12:45)
[2016-05-17 13:40] LABS: BASO % 0.4 % (0.0-1.0); EOS % 0.9 % (0.0-3.0); LARGE UNSTAINED CELL # 0.1 K/mm3 (0.0-0.4); LARGE UNSTAINED CELL % 14.2 % (0.0-4.0); LYMPH # 0.3 K/mm3 (1.5-4.5); LYMPH % 43.6 % (24.0-44.0); MEAN CORPUSCULAR HEMOGLOBIN 30.3 pg (27.0-33.0); MEAN CORPUSCULAR HGB CONC 32.3 g/dl (32.0-36.5); MEAN CORPUSCULAR VOLUME 93.6 fl (80.0-96.0); MONO # 0.2 K/mm3 (0.0-0.8); MONO % 26.9 % (0.0-5.0); NEUTROPHILS # 0.1 K/mm3 (1.8-7.7); RED CELL DISTRIBUTION WIDTH 15.7 % (11.5-14.5)
[2016-05-17 13:42] LABS: PLATELET COUNT, AUTOMATED 25 k/mm3 (150-450); WHITE BLOOD COUNT 0.6 K/mm3 (4.0-10.0)
[2016-05-17] MEDS: NS 1,000 ML IV SCH (13:56)
[2016-05-17] MEDS: PIPERACILLIN/TAZOBACTAM SOD 3.375 GM in D5W MINI-BAG PLUS 50 ML IV SCH ×3 (13:57→23:50)
[2016-05-17] MEDS: FILGRASTIM 480 MCG/0.8 ML SYRINGE (J1442) SC SCH (13:57)
[2016-05-17] MEDS ORDERED: VANCOMYCIN HCL 750 MG, VIAL MATE ADAPTER 1 EACH in D5W 250 ML IV SCH (14:00)
--- NOTE | 2016-05-17 14:27 | PHACANCOPD ---
PHARMACY VANCOMYCIN DOSING Pt Demographics Demographics Patient Age:61 , Weight: , Gender: female Adjusted Body Weight Date: 05/17/16, Adjusted Body Weight: [69] Kg Events Past 24 Hours Events Past 24 Hours: YES: Fever, NO: Change in CrCl, Dialysis, Diuretic Therapy, Elevation in WBC, Other, Pending Diagnostics, Pending Procedures Vancomycin Vancomycin indication: febrile neutropenia Vancomycin Target Ranges: 15-20 mcg/ml Vancomycin Load Y/N: Yes Load Dose Date Time Vancomycin Load Dose: 2000mg Date: 05/17 Time: 06:30 (ER) Vancomycin Dose Date: 05/17/16. Current Vancomycin Dose: [750mg IV q8h @14] Intermittent Dosing?: No Labs Labs Item Value Date Time Creatinine 0.89 MG/DL 05/17/16 0536 Micro Microbiology 05/17/16 Blood Culture, Received Pending 05/17/16 Blood Culture, Received Pending 05/17/16 Influenza Virus Type A Antigen - Final, Complete 05/17/16 Influenza Virus Type B Antigen - Final, Complete Creatinine Clearance Date:05/17/16. Creatinine Clearance: [74 ml/min using adjusted BW]. Pending Labs Vanco trough scheduled 05/19 @05:00 Assessment and Plan Maintaining Current Dose?: Yes Reason for dose change: No Dose Change Pharmacist Note Pharmacist Note Date: 05/17/16. Pharmacist note: pt has been admitted for febrile neutropenia and has been started on Zosyn and Vancomycin. She has a Hx of breast cancer and receiving chemotherapy. She does not have any positive culture Hx at our facility and was last on vancomycin IV here in 04/2011. Based on that admission I have resumed similar dosing. She received a 2g load in the ER and I have started vanco 750mg IV q8h. I have a trough scheduled for Wednesday. We will continue to monitor. Luan Hanson Pharm.D. May 17, 2016 14:27
[2016-05-17] MEDS ORDERED: HumaLOG INSULIN (NovoLOG) PER UNIT As Ordered ONE (14:39)
[2016-05-17] MEDS: PARoxetine 20 MG TAB PO SCH (14:48)
[2016-05-17] MEDS: ONDANSETRON 4MG/2ML VIAL (J2405) IV PRN (15:32)
[2016-05-17 16:00] VITALS: BP 132/62
[2016-05-17] MEDS ORDERED: POTASSIUM CHLORIDE 10 MEQ SR TABLET PO SCH (16:00)
[2016-05-17] MEDS: ACETAMINOPHEN TAB 650MG DOSE (2X325MG) PO PRN (16:14)
--- NOTE | 2016-05-17 17:06 | EDDOCDS ---
Physician Documentation [facility] Name: Sherly Romero Age: 61 yrs Sex: Female : 1955 Arrival Date: 05/17/2016 Time: 04:35 Bed 18 Private MD: Disposition: 05/17/16 06:23 Hospitalization ordered by Nilay Ramachandran for Inpatient Admission. Preliminary diagnosis are Neutropenia, Other sepsis. - Bed requested for PCU. - Status is Inpatient Admission. [facility] - Condition is Stable. - Problem is an ongoing problem. - Symptoms have improved. Historical: - Allergies: no known allergies; - Home Meds: 1. potassium chloride 8 mEq Oral cpER 1 cap once daily 2. glipizide 10 mg Oral tab 1 tab once daily 3. Januvia 100 mg oral tab 1 tab once daily 4. pioglitazone 30 mg oral tab 1 tab once daily 5. atenolol 50 mg Oral tab 1 tab once daily 6. Paxil 20 mg Oral tab 1 tab once daily 7. aspirin 81 mg Oral tab 1 tab once daily - PMHx: Cancer, Breast - Left; Cancer, Breast - Right; Diabetes - NIDDM: controlled; Hypertension; - PSHx: Mastectomy- Right; - Social history: Smoking status: Patient states former smoker of tobacco. No barriers to communication noted, The patient speaks fluent [place], Speaks appropriately for age. - Family history: Not pertinent. - : The pt / caregiver states he / she is not on anticoagulants. Home medication list is obtained from the patient. - Exposure Risk Screening:: None identified. Vital Signs: 05/17 04:38 BP 92 / 59 (auto/); srm 04:41 Pulse 121 MON; Pulse Ox 98% ; srm 04:42 BP 92 / 59; Pulse 122; Resp 20; Pulse Ox 100% on R/A; Weight 90.72 kg / 200 lbs (R); yuliya Height 5 ft. 4 in. (162.56 cm) (R); Pain 0/10; 04:45 BP 125 / 60 (auto/); srm 04:46 Pulse 120 MON; Pulse Ox 97% ; srm 05:00 BP 100 / 56 (auto/); srm 05:01 Pulse 115 MON; Pulse Ox 97% ; srm 05:14 Temp 102.2(O); mlc 05:34 BP 126 / 60 (auto/); srm 05:34 Pulse Ox 95% ; srm 05:45 BP 111 / 62 (auto/); srm 05:46 Pulse 111 MON; Pulse Ox 97% ; srm 06:00 BP 113 / 65 (auto/); srm 06:02 Pulse 111 MON; Pulse Ox 94% ; srm 06:15 BP 122 / 68 (auto/); srm 06:16 Pulse 112 MON; Pulse Ox 94% ; srm 06:30 BP 117 / 61 (auto/); srm 06:30 Pulse 110 MON; Pulse Ox 96% ; srm 06:45 BP 120 / 60 (auto/); srm 06:45 Pulse 113 MON; Pulse Ox 96% ; srm 07:00 BP 119 / 56 (auto/); srm 07:00 Pulse 112 MON; Pulse Ox 94% ; srm 07:02 BP 119 / 56; Pulse 110; Resp 16; Temp 100.1(O); Pulse Ox 93% on R/A; Pain 3/10; kr3 07:14 Pulse 110 MON; Pulse Ox 95% ; srm 07:15 BP 106 / 52 (auto/); srm 07:30 BP 112 / 55 (auto/); srm 07:31 Pulse 108 MON; Pulse Ox 92% ; srm 07:43 BP 112 / 55; Pulse 108; Resp 18; Pulse Ox 96% on R/A; kr3 07:45 BP 113 / 65 (auto/); srm 07:45 Pulse 108 MON; Pulse Ox 97% ; srm 08:00 BP 110 / 59 (auto/); srm 08:00 Pulse 108 MON; Pulse Ox 94% ; srm 08:15 BP 112 / 56 (auto/); kr3 08:16 Pulse 102 MON; Pulse Ox 94% ; kr3 08:30 BP 109 / 56 (auto/); kr3 08:31 Pulse 102 MON; Pulse Ox 93% ; kr3 08:45 BP 129 / 79 (auto/); srm 08:46 Pulse Ox 96% ; srm 09:00 BP 133 / 66 (auto/); srm 09:01 Pulse Ox 97% ; srm 09:02 BP 133 / 66; Pulse 116; Resp 16; Pulse Ox 96% on R/A; kr3 09:03 Pulse 107 MON; Pulse Ox 96% ; srm 09:28 BP 132 / 61; Pulse 108; Temp 98.5; kr3 10:28 BP 106 / 55; Pulse 106; Resp 18; kr3 11:23 BP 102 / 51 (auto/); kr3 11:24 Pulse 102 MON; kr3 12:23 BP 101 / 56 (auto/); kr3 12:24 Pulse 102 MON; kr3 04:42 Body Mass Index 34.33 (90.72 kg, 162.56 cm) yuliya 04:42 RN aware of BP yuliya MDM: 05:09 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 mm11 05:09 IV Saline Lock ordered. mm11 05:09 Rhythm Strip to chart ordered. mm11 05:09 Undress patient appropriately for examination ordered. mm11 05:09 NS 0.9% 1000 ml IV at bolus once ordered. mm11 05:10 Basic Metabolic Profile Ordered. EDMS 05:10 CBC with Diff Ordered. EDMS 05:10 Cardiac Injury Profile Ordered. EDMS 05:10 Troponin Ordered. EDMS 05:10 portable chest Ordered. EDMS 05:10 Ondansetron 4 mg IVP once ordered. mm11 05:10 Oral Temp ordered. mm11 05:11 ECG WITH READING ER PHYS+CARDIAG ordered. EDMS 05:42 Acetaminophen Tablet 650 mg PO once ordered. mm11 05:59 Financial registration complete. pm4 06:01 -Influenza A&B Rapid Antigen - Nose Ordered. EDMS 06:17 Piperacillin-Tazobactam 3.375 grams IVPB once over 30 mins; dilute in 50mL of NS or D5W mm11 ordered. 06:17 vancomycin (loading dose for pt. wt. >= 80kg) 2000 mg IVPB once ordered. mm11 06:18 NS 0.9% (Sepsis- hypotension or lactate >4mmol/L, 30ml/kg) 2000 ml IV at bolus once; mm11 Give in 500mL aliquots, assess for rales after each, inform provider ordered. 06:18 [facility] [place] Payment Agreement was scanned into [email or web address] and attached to record. pm4 06:18 BED REQUEST+ADM ordered. EDMS 06:21 Basic Metabolic Profile Reviewed. mm11 06:21 Troponin Reviewed. mm11 06:21 Cardiac Injury Profile Reviewed. mm11 06:43 -Blood Culture (Adults Only), peripheral from different site, or from device/port/PICC mm11 etc. if present ordered. 06:43 CBC with Diff Reviewed. mm11 06:43 -Influenza A&B Rapid Antigen - Nose Reviewed. mm11 06:44 -Blood Culture Ordered. EDMS 06:45 -Blood Culture (Adults Only), peripheral from different site, or from device/port/PICC ml3 etc. if present complete. 06:47 BLOOD CULTURES Ordered. EDMS 09:05 diphenhydrAMINE 25 mg IVP once ordered. mm11 12:50 Admission / Observation Status ordered. EDMS 12:50 CONSISTENT CARBOHYDRATES ordered. EDMS 12:51 CBC WITH DIFFERENTIAL Ordered. EDMS 13:51 CARDIAC MARKER PANEL Ordered. EDMS 13:51 CARDIAC MARKER PANEL Ordered. EDMS Administered Medications: 05:44 Drug: NS 0.9% 1000 ml [sodium chloride 0.9 % intravenous solution] Route: IV; Rate: bcj bolus; Site: Implantable Access Device; 07:04 Follow up: IV Status: Completed infusion; IV Intake: 1000ml kr3 05:44 Drug: Ondansetron 4 mg Route: IVP; Site: Implantable Access Device; j 05:55 Drug: Acetaminophen 650 mg [acetaminophen 325 mg tablet (2 tabs)] Route: PO; bcj 07:02 Follow up: Response: Temperature is decreased kr3 06:48 Drug: Piperacillin-Tazobactam 3.375 grams [piperacillin-tazobactam 3.375 gram bcj intravenous solution] Route: IVPB; Infused Over: 30 mins; Site: Implantable Access Device; 07:51 Follow up: IV Status: Completed infusion; IV Intake: 50ml kr3 07:07 Drug: NS 0.9% (Sepsis- hypotension or lactate >4mmol/L, 30ml/kg) 2000 ml [sodium kr3 chloride 0.9 % intravenous solution] Route: IV; Rate: bolus; Site: Implantable Access Device; 07:54 Drug: vancomycin (loading dose for pt. wt. >= 80kg) 2000 mg Route: IVPB; Infused Over: kr3 1 hrs; Site: Implantable Access Device; 09:01 Follow up: IV Status: Completed infusion; IV Intake: 500ml kr3 09:08 Drug: diphenhydrAMINE 25 mg [diphenhydramine 50 mg/mL injection solution (0.5 mL)] kr3 Route: IVP; Site: Implantable Access Device; 09:30 Follow up: itchy has stopped kr3 Signatures: Dispatcher [employer] EDKelsi Browne, RN RN Kevin Ricketts, RN RN bcGary Tinoco, Plate And Weld Inspector Unit ml3 Tc Taylor, DO mm11 Rahel Agee, TWISTER TENDER TWISTER TENDER ar3 Dillon Gallego, Reg Reg pm4 Sepideh Nicolas RN kr3 The chart was reviewed and I authenticate all verbal orders and agree with the evaluation and treatment provided.Attachments: 06:18 [facility] [place] Payment Agreement pm4 MTDD
--- NOTE | 2016-05-17 17:07 | EDDOCDS ---
Nurse's Notes [facility] Name: Rand Dave Age: 61 yrs Sex: Female : 1955 Arrival Date: 05/17/2016 Time: 04:35 Bed 18 Private MD: Diagnosis: Neutropenia;Other sepsis Presentation: 05/17 04:49 Presenting complaint: Patient states: has been feeling weak x 24 to 48 hrs - not eating bcj not drinking. has been having frequent diarrhea. states that she was told by oncologist that her white count are very low. denies nausea vomiting. ? temp at home . states very light headed whenever she stands up. Adult Sepsis Screening: The patient does not have new or worsening altered mentation. Patient's respiratory rate is less than 22. Systolic blood pressure is less than or equal to 100 (1 point). Patient has a qSOFA score of 1- Negative Sepsis Screen. Suicide/Homicide risk assessment- the patient denies having any suicidal and/or homicidal ideations and does not present with any other emotional, behavioral or mental health complaints. Status: Patient is not a center sales and service associate or dependent. Transition of care: patient was not received from another setting of care. 04:49 Acuity: KAYE Level 2 j 04:49 Method Of Arrival: Ambulance bcj Triage Assessment: 04:57 General: Appears ill, Behavior is cooperative. Pain: Denies pain. HIV screening NA for bcj this visit Offered previously. Neurological: Level of Consciousness is awake, alert, Oriented to person, place, time. Cardiovascular: Rhythm is sinus tachycardia. Derm: Skin is pink, warm & dry. Historical: - Allergies: no known allergies; - Home Meds: 1. potassium chloride 8 mEq Oral cpER 1 cap once daily 2. glipizide 10 mg Oral tab 1 tab once daily 3. Januvia 100 mg oral tab 1 tab once daily 4. pioglitazone 30 mg oral tab 1 tab once daily 5. atenolol 50 mg Oral tab 1 tab once daily 6. Paxil 20 mg Oral tab 1 tab once daily 7. aspirin 81 mg Oral tab 1 tab once daily - PMHx: Cancer, Breast - Left; Cancer, Breast - Right; Diabetes - NIDDM: controlled; Hypertension; - PSHx: Mastectomy- Right; - Social history: Smoking status: Patient states former smoker of tobacco. No barriers to communication noted, The patient speaks fluent Tajik, Speaks appropriately for age. - Family history: Not pertinent. - : The pt / caregiver states he / she is not on anticoagulants. Home medication list is obtained from the patient. - Exposure Risk Screening:: None identified. Screenin:59 Screening information is obtained from the patient. Fall risk: At risk due to gait bcj disturbance, The following interventions are performed due to a positive Fall Risk Screen: Fall Risk is added to Special Handling on the patient Summary Screen. A Fall Risk Bracelet was applied to the patient. Side Rails are placed in the up position. A Call Waters is given with instruction to call for help when getting out of bed. Fall Alert bracelet is placed on the patient. Assistance ADL's: requires no assistance with activities of daily living. Abuse/DV Screen: The patient / caregiver reports he/she is: not in a situation that causes fear, pain or injury. Nutritional screening: No deficits noted. home support is adequate. Assessment: 04:59 General: Appears ill. Cardiovascular: Rhythm is sinus tachycardia. bcj 06:00 General: Appears in no apparent distress, comfortable, Behavior is cooperative. Pain: bcj Denies pain. Neurological: Level of Consciousness is awake, alert, Oriented to person, place, time. Cardiovascular: Rhythm is sinus tachycardia. Respiratory: Airway is patent Respiratory effort is even, unlabored, Respiratory pattern is regular, Breath sounds are clear bilaterally. Derm: Skin is pale, pink. 07:03 Reassessment: Patient appears in no apparent distress at this time. complains of kr3 'discomfort stomach area'. Neurological: Level of Consciousness is awake, alert. Respiratory: Respiratory effort is even, unlabored. GI: Reports nausea. Derm: Skin is normal. 08:44 Reassessment: Patient appears in no apparent distress at this time. attempting to eat kr3 breakfast, reports has poor appetite. 09:01 Reassessment: complains of itchiness all over head, denies difficulty swallowing or kr3 breathing. Respiratory: Respiratory effort is even, unlabored, Breath sounds are clear bilaterally. 09:29 Reassessment: assisted to commode and patient had large amount of diarrhea. did well kr3 moving form bed to commode and back and denies any feelings of dizziness or lightheaded. 10:30 Reassessment: Patient appears in no apparent distress at this time. General: Appears kr3 comfortable, Behavior is cooperative. 11:36 Reassessment: Patient appears in no apparent distress at this time. hospitalist with kr3 patient. 12:37 Reassessment: Patient appears in no apparent distress at this time. General: Appears kr3 comfortable, Behavior is cooperative, aware that plan at this time is to be in ED. Patient watching TV. Vital Signs: 04:38 BP 92 / 59 (auto/); srm 04:41 Pulse 121 MON; Pulse Ox 98% ; srm 04:42 BP 92 / 59; Pulse 122; Resp 20; Pulse Ox 100% on R/A; Weight 90.72 kg (R); Height 5 ft. yuliya 4 in. (162.56 cm) (R); Pain 0/10; 04:45 BP 125 / 60 (auto/); srm 04:46 Pulse 120 MON; Pulse Ox 97% ; srm 05:00 BP 100 / 56 (auto/); srm 05:01 Pulse 115 MON; Pulse Ox 97% ; srm 05:14 Temp 102.2(O); mlc 05:34 BP 126 / 60 (auto/); srm 05:34 Pulse Ox 95% ; srm 05:45 BP 111 / 62 (auto/); srm 05:46 Pulse 111 MON; Pulse Ox 97% ; srm 06:00 BP 113 / 65 (auto/); srm 06:02 Pulse 111 MON; Pulse Ox 94% ; srm 06:15 BP 122 / 68 (auto/); srm 06:16 Pulse 112 MON; Pulse Ox 94% ; srm 06:30 BP 117 / 61 (auto/); srm 06:30 Pulse 110 MON; Pulse Ox 96% ; srm 06:45 BP 120 / 60 (auto/); srm 06:45 Pulse 113 MON; Pulse Ox 96% ; srm 07:00 BP 119 / 56 (auto/); srm 07:00 Pulse 112 MON; Pulse Ox 94% ; srm 07:02 BP 119 / 56; Pulse 110; Resp 16; Temp 100.1(O); Pulse Ox 93% on R/A; Pain 3/10; kr3 07:14 Pulse 110 MON; Pulse Ox 95% ; srm 07:15 BP 106 / 52 (auto/); srm 07:30 BP 112 / 55 (auto/); srm 07:31 Pulse 108 MON; Pulse Ox 92% ; srm 07:43 BP 112 / 55; Pulse 108; Resp 18; Pulse Ox 96% on R/A; kr3 07:45 BP 113 / 65 (auto/); srm 07:45 Pulse 108 MON; Pulse Ox 97% ; srm 08:00 BP 110 / 59 (auto/); srm 08:00 Pulse 108 MON; Pulse Ox 94% ; srm 08:15 BP 112 / 56 (auto/); kr3 08:16 Pulse 102 MON; Pulse Ox 94% ; kr3 08:30 BP 109 / 56 (auto/); kr3 08:31 Pulse 102 MON; Pulse Ox 93% ; kr3 08:45 BP 129 / 79 (auto/); srm 08:46 Pulse Ox 96% ; srm 09:00 BP 133 / 66 (auto/); srm 09:01 Pulse Ox 97% ; srm 09:02 BP 133 / 66; Pulse 116; Resp 16; Pulse Ox 96% on R/A; kr3 09:03 Pulse 107 MON; Pulse Ox 96% ; srm 09:28 BP 132 / 61; Pulse 108; Temp 98.5; kr3 10:28 BP 106 / 55; Pulse 106; Resp 18; kr3 11:23 BP 102 / 51 (auto/); kr3 11:24 Pulse 102 MON; kr3 12:23 BP 101 / 56 (auto/); kr3 12:24 Pulse 102 MON; kr3 04:42 Body Mass Index 34.33 (90.72 kg, 162.56 cm) yuliya 04:42 RN aware of BP yuliya Vitals: 04:57 Glucose Measurement D-stick done by EMS. Log In Time N/A - ambulance arrival. [facility] 04:59 Refer to monitor trend for complete vital signs trends. [facility] ED Course: 04:36 Patient visited by Gary Fields, Regional Director. ml3 04:36 Patient moved to Waiting ml3 04:36 Patient moved to 1 ml3 04:43 Patient visited by Carlotta Salvador PCA. yuliya 04:43 Pt greeted and oriented to ED. Patient advised of names of staff involved in care, yuliya location of call waters, wait times and NPO status. Patient has correct armband on for positive identification. Placed in gown. Bed in low position. Call light in reach. Side rails up X2. monitor car operator on. Pulse ox on. NIBP on. 04:53 Triage Initiated bcj 04:58 Kar Kate DO is Attending Physician. mm11 04:58 Patient visited by Kar Kate DO. mm11 04:59 Resting quietly. Awaiting ED physician evaluation. bcj 04:59 The patient / caregiver is instructed regarding the plan of care and ED course. bcj 05:00 Patient visited by Kevin Giang RN. bcj 05:08 Patient visited by Kar Kate DO. mm11 05:19 Patient visited by Carlotta Salvador PCA. yuliya 05:19 EKG done. (by ED staff). Reviewed by Kar Kate DO. yuliya 05:40 Basic Metabolic Profile Sent. bcj 05:40 CBC with Diff Sent. bcj 05:40 Cardiac Injury Profile Sent. bcj 05:40 Troponin Sent. bcj 05:57 Accessed using accessed w/ # 20 Snyder needle, per hospital protocol. [facility] in [facility] patient's anterior aspect of left upper chest. Clean & dry. Good blood return. Flushes easily. Labs drawn. (by ED staff). Sent per order to lab. Labs/Blood culture drawn. 05:58 Patient visited by Kevin Giang RN. bcj 06:00 Resting quietly. awaiting re-evaluation by ER physician. bcj 06:00 IV is intact. bcj 06:01 Patient visited by Kevin Giang, DOUG. bcj 06:08 -Influenza A&B Rapid Antigen - Nose Sent. bcj 06:18 [facility] Payment Agreement was scanned into [employer] and attached to record. pm4 06:22 Samara Costa is Hospitalizing Provider. mm11 06:24 Notified attending ED physician of Critical lab value. dr kate advised of WBC 0.6, edmundo paltelets 31, glucose of 460. 06:53 -Blood Culture Sent. bcj 06:53 BLOOD CULTURES Sent. bcj 07:33 Sepideh Nicolas,DOUG is Primary Nurse. kr3 07:44 Cleaned of incontinence. Linen changed. kr3 07:51 Nilay Ramachandran MD is Hospitalizing Provider. mm11 08:39 portable chest Returned. EDMS 08:44 Diet tray given. kr3 09:12 EKG-ADULT Returned. EDMS 09:15 Patient moved to [facility] 13:05 Report given to Mariano CAMACHO modi nurse. kr3 13:24 No procedures done that require assistance. js13 13:58 Primary Nurse role handed off by Sepideh Nicolas RN kr3 Administered Medications: 05:44 Drug: NS 0.9% 1000 ml [sodium chloride 0.9 % intravenous solution] Route: IV; Rate: bcj bolus; Site: Implantable Access Device; 07:04 Follow up: IV Status: Completed infusion; IV Intake: 1000ml kr3 05:44 Drug: Ondansetron 4 mg Route: IVP; Site: Implantable Access Device; [facility] 05:55 Drug: Acetaminophen 650 mg [acetaminophen 325 mg tablet (2 tabs)] Route: PO; j 07:02 Follow up: Response: Temperature is decreased kr3 06:48 Drug: Piperacillin-Tazobactam 3.375 grams [piperacillin-tazobactam 3.375 gram bcj intravenous solution] Route: IVPB; Infused Over: 30 mins; Site: Implantable Access Device; 07:51 Follow up: IV Status: Completed infusion; IV Intake: 50ml kr3 07:07 Drug: NS 0.9% (Sepsis- hypotension or lactate >4mmol/L, 30ml/kg) 2000 ml [sodium kr3 chloride 0.9 % intravenous solution] Route: IV; Rate: bolus; Site: Implantable Access Device; 07:54 Drug: vancomycin (loading dose for pt. wt. >= 80kg) 2000 mg Route: IVPB; Infused Over: kr3 1 hrs; Site: Implantable Access Device; 09:01 Follow up: IV Status: Completed infusion; IV Intake: 500ml kr3 09:08 Drug: diphenhydrAMINE 25 mg [diphenhydramine 50 mg/mL injection solution (0.5 mL)] kr3 Route: IVP; Site: Implantable Access Device; 09:30 Follow up: itchy has stopped kr3 Intake: 07:04 IV: 1000.00ml; Total: 1000.00ml. kr3 07:51 IV: 50.00ml; Total: 1050.00ml. kr3 09:01 IV: 500.00ml; Total: 1550.00ml. kr3 10:33 IV: 1000.00ml (NS); Total: 2550.00ml. kr3 Order Results: Lab Order: Basic Metabolic Profile; SPEC'M 05/17/16 05:36 Test: GLUCOSE, FASTING; Value: 416; Range: 70-105; Abnormal: Above upper panic limits; Units: MG/DL; Status: F Test: BLOOD UREA NITROGEN; Value: 7; Range: 7-18; Units: MG/DL; Status: F Test: CREATININE FOR GFR; Value: 0.89; Range: 0.55-1.02; Units: MG/DL; Status: F Test: GLOMERULAR FILTRATION RATE; Value: > 60.0; Range: >51; Status: F Test: SODIUM LEVEL; Value: 132; Range: 136-145; Abnormal: Below low normal; Units: MEQ/L; Status: F Test: POTASSIUM SERUM; Value: 3.2; Range: 3.5-5.1; Abnormal: Below low normal; Units: MEQ/L; Status: F Test: CHLORIDE LEVEL; Value: 91; Range: 98-107; Abnormal: Below low normal; Units: MEQ/L; Status: F Test: CARBON DIOXIDE LEVEL; Value: 28; Range: 21-32; Units: MEQ/L; Status: F Test: ANION GAP; Value: 13; Range: 8-16; Units: MEQ/L; Status: F Test: CALCIUM LEVEL; Value: 8.3; Range: 8.5-10.1; Abnormal: Below low normal; Units: MG/DL; Status: F Test Note: ; Units are mL/min/1.73 m2 Chronic Kidney Disease Staging per NKF: Stage I & II GFR >=60 Normal to Mildly Decreased Stage III GFR 30-59 Moderately Decreased Stage IV GFR 15-29 Severely Decreased Stage V GFR <15 Very Little GFR Left ESRD GFR <15 on UNDERGROUND 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 Lab Order: CBC with Diff; SPEC'M 05/17/16 05:36 Test: WHITE BLOOD COUNT; Value: 0.6; Range: 4.0-10.0; Abnormal: Critical Low; Units: K/mm3; Status: F Test: RED BLOOD COUNT; Value: 2.92; Range: 4.00-5.40; Abnormal: Below low normal; Units: M/mm3; Status: F Test: HEMOGLOBIN; Value: 8.8; Range: 12.0-16.0; Abnormal: Below low normal; Units: g/dl; Status: F Test: HEMATOCRIT; Value: 27.4; Range: 36.0-47.0; Abnormal: Below low normal; Units: %; Status: F Test: MEAN CORPUSCULAR VOLUME; Value: 93.9; Range: 80.0-96.0; Units: fl; Status: F Test: MEAN CORPUSCULAR HEMOGLOBIN; Value: 30.2; Range: 27.0-33.0; Units: pg; Status: F Test: MEAN CORPUSCULAR HGB CONC; Value: 32.2; Range: 32.0-36.5; Units: g/dl; Status: F Test: RED CELL DISTRIBUTION WIDTH; Value: 15.3; Range: 11.5-14.5; Abnormal: Above high normal; Units: %; Status: F Test: PLATELET COUNT, AUTOMATED; Value: 31; Range: 150-450; Abnormal: Below low normal; Units: k/mm3; Status: F Test: NEUTROPHILS %; Value: 25.8; Range: 36.0-66.0; Abnormal: Below low normal; Units: %; Status: F Test: LYMPH %; Value: 24.5; Range: 24.0-44.0; Units: %; Status: F Test: MONO %; Value: 36.4; Range: 0.0-5.0; Abnormal: Above high normal; Units: %; Status: F Test: EOS %; Value: 0.6; Range: 0.0-3.0; Units: %; Status: F Test: BASO %; Value: 0.0; Range: 0.0-1.0; Units: %; Status: F Test: LARGE UNSTAINED CELL %; Value: 12.7; Range: 0.0-4.0; Abnormal: Above high normal; Units: %; Status: F Test: NEUTROPHILS #; Value: 0.2; Range: 1.8-7.7; Abnormal: Below low normal; Units: K/mm3; Status: F Test: LYMPH #; Value: 0.2; Range: 1.5-4.5; Abnormal: Below low normal; Units: K/mm3; Status: F Test: MONO #; Value: 0.2; Range: 0.0-0.8; Units: K/mm3; Status: F Test: EOS #; Value: 0.0; Range: 0.0-0.50; Units: K/mm3; Status: F Test: BASO #; Value: 0.0; Range: 0.0-0.2; Units: K/mm3; Status: F Test: LARGE UNSTAINED CELL #; Value: 0.1; Range: 0.0-0.4; Units: K/mm3; Status: F Lab Order: Cardiac Injury Profile; SPEC'M 05/17/16 05:36 Test: CPK CREATINE PHOSPHOKINASE; Value: 59; Range: 26-192; Units: U/L; Status: F Test: CK-MB VALUE MASS; Value: 1.0; Range: 0.0-3.6; Units: NG/ML; Status: F Test: MB/CK RELATIVE INDEX; Value: 1.69; Range: < OR =4; Status: F Test Note: ; DIAGNOSIS CRITERIA MMB ng/ml Relative Index (RI) NON-AMI < or = 5 N/A LUCIO ZONE > 5 < or = 4 AMI > 5 > 4 Lab Order: Troponin; SPEC'M 05/17/16 05:36 Test: TROPONIN I; Value: 0.63; Range: < 0.10; Abnormal: Above high normal; Units: NG/ML; Status: F Test Note: ; Troponin I Reference Interval for scanR LOCI: 99th Percentile= 0.00-0.045 ng/ml Risk Stratification: <= 0.10 ng/ml Decreased Risk for Adverse Clinical Events. 0.10-1.50 ng/ml Increased Risk for Adverse Clinical Events. Evaluation of additional criterion and/or repeat testing in 2-6 hours is suggested to rule out myocardial damage. >= 1.50 ng/ml Indicative of Myocardial Injury. Lab Order: -Influenza A&B Rapid Antigen - Nose; SPEC'M 05/17/16 06:05 Test: INFLUENZA A RAPID SCR by ICA; Value: INFLUENZA A RESULTS NEGATIVE; Status: F Test: INFLUENZA A RAPID SCR by ICA; Value: Comments:; Status: F Test: INFLUENZA B RAPID SCR by ICA; Value: INFLUENZA B RESULTS NEGATIVE; Status: F Test Note: ; The Influenza test is a direct rapid immunoassay for the qualitative detection of Influenza viral antigen. Cell culture (Viral Culture) testing should be considered to confirm NEGATIVE results and to assist in detecting other viruses that can provide similar clinical symptoms. Please contact the lab within 24 hours ([phone]) if confirmatory testing is desired. Lab Order: CBC WITH DIFFERENTIAL; SPEC'M 05/17/16 13:10 Test: WHITE BLOOD COUNT; Value: 0.6; Range: 4.0-10.0; Abnormal: Critical Low; Units: K/mm3; Status: F Test: RED BLOOD COUNT; Value: 2.33; Range: 4.00-5.40; Abnormal: Below low normal; Units: M/mm3; Status: F Test: HEMOGLOBIN; Value: 7.1; Range: 12.0-16.0; Abnormal: Below low normal; Units: g/dl; Status: F Test: HEMATOCRIT; Value: 21.8; Range: 36.0-47.0; Abnormal: Below low normal; Units: %; Status: F Test: MEAN CORPUSCULAR VOLUME; Value: 93.6; Range: 80.0-96.0; Units: fl; Status: F Test: MEAN CORPUSCULAR HEMOGLOBIN; Value: 30.3; Range: 27.0-33.0; Units: pg; Status: F Test: MEAN CORPUSCULAR HGB CONC; Value: 32.3; Range: 32.0-36.5; Units: g/dl; Status: F Test: RED CELL DISTRIBUTION WIDTH; Value: 15.7; Range: 11.5-14.5; Abnormal: Above high normal; Units: %; Status: F Test: PLATELET COUNT, AUTOMATED; Value: 25; Range: 150-450; Abnormal: Critical Low; Units: k/mm3; Status: F Test: NEUTROPHILS %; Value: 14.0; Range: 36.0-66.0; Abnormal: Below low normal; Units: %; Status: F Test: LYMPH %; Value: 43.6; Range: 24.0-44.0; Units: %; Status: F Test: MONO %; Value: 26.9; Range: 0.0-5.0; Abnormal: Above high normal; Units: %; Status: F Test: EOS %; Value: 0.9; Range: 0.0-3.0; Units: %; Status: F Test: BASO %; Value: 0.4; Range: 0.0-1.0; Units: %; Status: F Test: LARGE UNSTAINED CELL %; Value: 14.2; Range: 0.0-4.0; Abnormal: Above high normal; Units: %; Status: F Test: NEUTROPHILS #; Value: 0.1; Range: 1.8-7.7; Abnormal: Below low normal; Units: K/mm3; Status: F Test: LYMPH #; Value: 0.3; Range: 1.5-4.5; Abnormal: Below low normal; Units: K/mm3; Status: F Test: MONO #; Value: 0.2; Range: 0.0-0.8; Units: K/mm3; Status: F Test: EOS #; Value: 0.0; Range: 0.0-0.50; Units: K/mm3; Status: F Test: BASO #; Value: 0.0; Range: 0.0-0.2; Units: K/mm3; Status: F Test: LARGE UNSTAINED CELL #; Value: 0.1; Range: 0.0-0.4; Units: K/mm3; Status: F Lab Order: Fingerstick Blood Sugar; SPEC'M 05/17/16 13:10 Test: BEDSIDE GLUCOSE; Value: 385; Range: 70-105; Abnormal: Above high normal; Units: MG/DL; Status: F Lab Order: CARDIAC MARKER PANEL; SPEC'M 05/17/16 13:10 Test: CPK CREATINE PHOSPHOKINASE; Value: 79; Range: 26-192; Units: U/L; Status: F Test: CK-MB VALUE MASS; Value: 1.0; Range: 0.0-3.6; Units: NG/ML; Status: F Test: MB/CK RELATIVE INDEX; Value: 1.26; Range: < OR =4; Status: F Test: TROPONIN I; Value: 0.21; Range: < 0.10; Abnormal: High; Units: NG/ML; Status: F Test Note: ; DIAGNOSIS CRITERIA MMB ng/ml Relative Index (RI) NON-AMI < or = 5 N/A LUCIO ZONE > 5 < or = 4 AMI > 5 > 4 Radiology Order: portable chest Test: portable chest REASON FOR EXAMINATION: weakness; Clinical: Chest pain and weakness .; ; Comparison: 04/03/2016 .; ; Findings:; The mediastinum and cardiac silhouette are stable and within normal limits for; portable technique. [place] extends into the right atrium. The lung; jones are clear without acute consolidation, effusion, or pneumothorax.; Skeletal structures are intact.; ; Impression:; No acute cardiopulmonary process.; ; ; Signed by; Cedrick Bauer MD 05/17/2016 08:13 A; Radiology Order: EKG-ADULT Test: EKG-ADULT REASON FOR EXAMINATION: weakness; Stationary ECG Study; [facility] - ED; ; Test Date: 2016-05-17; Pat Name: RAND DAVE Department:; Room: -; Gender: F Print Controller: lesia; : 1955 Requested By: KAR Pandya; Order Number: [id number] Reading MD: Ian Shafer; Measurements; Intervals [place]; Rate: 116 P: 82; FL: 104 QRS: 74; QRSD: 90 T: 120; QT: 306; QTc: 425; Interpretive Statements; SINUS TACHYCARDIA WITH SHORT FL INTERVAL; NSTTW ABNORMALITIES; SIMILAR TO 04/09/11; Electronically Signed On 05-17-2016 8:51:53 EST by Ian Shafer; Outcome: 06:23 Decision to Hospitalize by Provider. mm11 17:05 Patient left the ED. [facility] Signatures: Dispatcher [employer] EDMS Kelsi Ann RN RN kpj Johnson, Bruce RN Teresa Bolotn RN RN srm Newman, Jill New RN Gary Cotton, Regional Director Unit ml3 Sepideh NicolasRN Kar Mendoza, DO DO mm11 Carlotta Salvador, SENIOR SALES COMPENSATION ANALYST SENIOR SALES COMPENSATION ANALYST Yancy RojoRN RN Ha Ren, SENIOR SALES COMPENSATION ANALYST SENIOR SALES COMPENSATION ANALYST Cassidy Lau RN RN mlc Montondo, Paul, Reg Reg pm4 Corrections: (The following items were deleted from the chart) 09:08 09:01 Respiratory: Respiratory effort is even, unlabored, krElaine kitchen3 MTDD
[2016-05-17 17:28] VITALS: BP 121/60
[2016-05-17] MEDS: HumaLOG INSULIN (NovoLOG) PER UNIT SC SCH ×2 (18:16→20:33)
[2016-05-17] MEDS ORDERED: KCL 20MEQ IN 100ML SWI (KRUN) 20 MEQ in APPROPRIATE DILUENT 1 EA IV ONE ×2 (19:00)
[2016-05-17 19:54] VITALS: BP 104/55
[2016-05-17] MEDS: MICONAZOLE-7 VAGINAL 2% CREAM 47.7 GM PV SCH (20:27)
[2016-05-18] VITALS (7 sets, daily range): BP systolic 104–137; BP diastolic 51–71
[2016-05-18 00:43] LABS: ANION GAP 12 MEQ/L (8-16); BLOOD UREA NITROGEN 8 MG/DL (7-18); CALCIUM LEVEL 7.1 MG/DL (8.5-10.1); CARBON DIOXIDE LEVEL 26 MEQ/L (21-32); CHLORIDE LEVEL 103 MEQ/L (98-107); CREATININE FOR GFR 0.71 MG/DL (0.55-1.02); GLOMERULAR FILTRATION RATE > 60.0 (>51); GLUCOSE, FASTING 142 MG/DL (70-105); POTASSIUM SERUM 2.8 MEQ/L (3.5-5.1); SODIUM LEVEL 141 MEQ/L (136-145)
[2016-05-18] MEDS ORDERED: KCL 20MEQ IN 100ML SWI (KRUN) 20 MEQ in APPROPRIATE DILUENT 1 EA IV ONE ×2 (01:00)
[2016-05-18] MEDS: METOPROLOL TART 25 MG TABLET PO SCH ×4 (01:24→18:22)
[2016-05-18] MEDS: ONDANSETRON 4MG/2ML VIAL (J2405) IV PRN ×2 (01:47→12:12)
[2016-05-18] MEDS: ACETAMINOPHEN TAB 650MG DOSE (2X325MG) PO PRN (01:48)
[2016-05-18] MEDS ORDERED: METOPROLOL 5 MG/5 ML VIAL IV STA (02:48)
[2016-05-18] MEDS: PIPERACILLIN/TAZOBACTAM SOD 3.375 GM in D5W MINI-BAG PLUS 50 ML IV SCH ×3 (06:00→18:23)
[2016-05-18 06:30] LABS: MEAN CORPUSCULAR HEMOGLOBIN 30.9 pg (27.0-33.0); MEAN CORPUSCULAR HGB CONC 33.2 g/dl (32.0-36.5); MEAN CORPUSCULAR VOLUME 93.1 fl (80.0-96.0); RED CELL DISTRIBUTION WIDTH 15.5 % (11.5-14.5)
[2016-05-18 06:36] LABS: ANION GAP 10 MEQ/L (8-16); BLOOD UREA NITROGEN 7 MG/DL (7-18); CALCIUM LEVEL 7.3 MG/DL (8.5-10.1); CARBON DIOXIDE LEVEL 27 MEQ/L (21-32); CHLORIDE LEVEL 104 MEQ/L (98-107); CREATININE FOR GFR 0.65 MG/DL (0.55-1.02); GLOMERULAR FILTRATION RATE > 60.0 (>51); GLUCOSE, FASTING 193 MG/DL (70-105); SODIUM LEVEL 141 MEQ/L (136-145); WHITE BLOOD COUNT 0.8 K/mm3 (4.0-10.0)
[2016-05-18] MEDS: PARoxetine 20 MG TAB PO SCH (07:51)
[2016-05-18] MEDS: ATENOLOL 50 MG TAB PO SCH (07:51)
[2016-05-18] MEDS: PANTOPRAZOLE 40MG TAB (PROTONIX) PO SCH (07:52)
[2016-05-18] MEDS: HumaLOG INSULIN (NovoLOG) PER UNIT SC SCH ×4 (07:52→21:00)
[2016-05-18] MEDS: FILGRASTIM 480 MCG/0.8 ML SYRINGE (J1442) SC SCH (10:33)
[2016-05-18] MEDS: KCL 10MEQ IN 100ML SWI (KRUN) 10 MEQ in APPROPRIATE DILUENT 1 EA IV SCH ×4 (10:33→11:58)
--- NOTE | 2016-05-18 10:33 | IPNPDOC ---
Subjective Date Seen The patient was seen on 05/18/16. Subjective Chief Complaint/HPI The patient is a 61-year-old female admitted with a reason for visit of Breast Cancer Diabetes Mellitus Fever Neutropenia. Events since last encounter Pt states she feels better today. Denies CP, SOB, Abd pain. Pulmonary: Denies: Dyspnea Gastrointestinal: Denies: Abdominal Pain, Nausea, Vomiting Objective Physical Examination General Exam: Positive: Alert, No Acute Distress Neck Exam: Positive: Supple, Negative: JVD Chest Exam: Positive: Clear to auscultation Heart Exam: Positive: Rate Normal, Regular Rhythm Abdomen Exam: Positive: Normal bowel sounds, Soft, Negative: Tenderness Extremity Exam: Negative: Edema Assessment /Plan Problems (1) Neutropenia Status: Acute Problem Specific Plan: Monitor Clinically, Repeat Labs Problem Text: 05/18 - WBC 0.8. Neupogen was started. Pt received chemo from Onc in [place] around May 07. (2) Anemia Status: Acute Problem Specific Plan: Monitor Clinically, Repeat Labs Problem Text: 05/18 - Received 1 unit PRBC. Hgb 8.5 (from 7.1). (3) Fever Status: Acute Problem Specific Plan: Monitor Clinically, Repeat Labs Problem Text: 05/18 - Currently afebrile. Tmax was 100.6 during night. IV Zosyn. (4) Pancytopenia Status: Acute Problem Specific Plan: Monitor Clinically, Repeat Labs Problem Text: 05/18 - WBC 0.8. Plts 28. Neupogen was started. Pt received chemo from Onc in [place] around May 07. (5) Breast cancer Status: Chronic Problem Specific Plan: Monitor Clinically, Repeat Labs Problem Text: Pt received chemo from Onc in [place] around May 07. (6) Diabetes mellitus Status: Chronic Problem Specific Plan: Monitor Clinically, Repeat Labs Problem Text: On SSI. Plan/VTE VTE Prophylaxis Ordered?: No Plan Attending attestation: I saw and evaluated the patient, and I agree with the plan of care as discussed and documented by Cedrick Herbert. Dee Costa MD VS, I&O, 24H, Fishbone Vital Signs/I&O Vital Signs Date Time Temp Pulse Resp B/P Pulse Ox O2 Delivery O2 Flow Rate FiO2 05/18/16 07:55 Room Air 05/18/16 07:51 97 104/51 05/18/16 07:49 97.7 18 97 I&O- Last 24 Hours up to 6 AM 05/18/16 06:00 Intake Total 870 ml Balance 870 ml Laboratory Data 24H LABS Laboratory Tests 2 05/17/16 13:10: White Blood Count 0.6*L, Red Blood Count 2.33L, Hemoglobin 7.1L, Hematocrit 21.8L, Mean Corpuscular Volume 93.6, Mean Corpuscular Hemoglobin 30.3, Mean Corpuscular Hemoglobin Concent 32.3, Red Cell Distribution Width 15.7H, Platelet Count 25*L, Neutrophils (%) (Auto) 14.0L, Lymphocytes (%) (Auto) 43.6, Monocytes (%) (Auto) 26.9H, Eosinophils (%) (Auto) 0.9, Basophils (%) (Auto) 0.4 , Neutrophils # (Auto) 0.1L, Lymphocytes # (Auto) 0.3L, Monocytes # (Auto) 0.2, Eosinophils # (Auto) 0.0, Basophils # (Auto) 0.0, Bedside Glucose (Misc Panel) 385H, Creatine Kinase MB 1.0, Creatine Kinase MB Relative Index 1.26, Large Unclassified Cells # 0.1, Large Unclassified Cells % 14.2H, Total Creatine Kinase 79, Troponin I 0.21#H 05/17/16 17:16: Bedside Glucose (Misc Panel) 224H 05/17/16 20:32: Bedside Glucose (Misc Panel) 148H 05/18/16 00:07: Creatine Kinase MB 1.0, Creatine Kinase MB Relative Index 1.49, Total Creatine Kinase 67, Troponin I 0.19H, Anion Gap 12, Blood Urea Nitrogen 8, Creatinine 0.71, Sodium Level 141#, Potassium Level 2.8*L, Chloride Level 103, Carbon Dioxide Level 26, Calcium Level 7.1L, Glomerular Filtration Rate > 60.0 05/18/16 05:45: Anion Gap 10, Blood Urea Nitrogen 7, Creatinine 0.65, Sodium Level 141, Potassium Level 3.0L, Chloride Level 104, Carbon Dioxide Level 27, Calcium Level 7.3L, Creatine Kinase MB 1.0, Creatine Kinase MB Relative Index 1.69, Glomerular Filtration Rate > 60.0, Total Creatine Kinase 59, Troponin I 0.19H CBC/BMP Laboratory Tests 05/17/16 13:10 Red Blood Count 2.33 L, Mean Corpuscular Volume 93.6, Mean Corpuscular Hemoglobin 30.3, Mean Corpuscular Hemoglobin Concent 32.3, Red Cell Distribution Width 15.7 H, Neutrophils (%) (Auto) 14.0 L, Lymphocytes (%) (Auto ) 43.6, Monocytes (%) (Auto) 26.9 H, Eosinophils (%) (Auto) 0.9, Basophils (%) ( Auto) 0.4, Neutrophils # (Auto) 0.1 L, Lymphocytes # (Auto) 0.3 L, Monocytes # ( Auto) 0.2, Eosinophils # (Auto) 0.0, Basophils # (Auto) 0.0 05/18/16 00:07 Calcium Level 7.1 L 05/18/16 05:45 Red Blood Count 2.76 L, Mean Corpuscular Volume 93.1, Mean Corpuscular Hemoglobin 30.9, Mean Corpuscular Hemoglobin Concent 33.2, Red Cell Distribution Width 15.5 H, Calcium Level 7.3 L Microbiology Microbiology 05/17/16 Blood Culture - Preliminary, Resulted No growth after 24 hours . All specim... 05/17/16 Blood Culture - Preliminary, Resulted No growth after 24 hours . All specim... 05/17/16 Stool Occult Blood (LEISA) - Final, Complete 05/17/16 Influenza Virus Type A Antigen - Final, Complete 05/17/16 Influenza Virus Type B Antigen - Final, Complete Deven Herbert May 18, 2016 10:33 DEE COSTA MD May 24, 2016 19:52
[2016-05-18] MEDS: NS 1,000 ML IV SCH (11:57)
--- NOTE | 2016-05-18 14:10 | HPE ---
DATE OF ADMISSION: 05/17/2016 CHIEF COMPLAINT: Weakness. HISTORY OF PRESENT ILLNESS: This is a 61-year-old white female under treatment for a left breast cancer, which appeared in September of this year. It had rapidly grown to the size of a golf ball, and her oncologist, Dr. Criselda Marshall in [place], recommended immediate chemotherapy, which she says she has had since October. Her last chemotherapy was on May 07. The patient herself cannot tell us what exactly her chemotherapeutic regimen, but do know that she does get Neupogen as a continuous infusion after the chemotherapy is finished for another day. Several days ago the patient began feeling weaker. Was having some diarrhea. Also noted some vaginal itching. No dysuria. No cough or shortness of breath. No increased pains. She did not seem to be aware of any problems with fever, although she had 103 fever on evaluation in the emergency room (ER), and I should note that on standing on getting ready to get into the ambulance, she had a brief episode of syncope. She had been treated in our facility with a similar picture approximately 6 weeks ago and also has had blood transfusions and platelet transfusions during her course of chemotherapy.. PAST HISTORY: Includes treatment for diabetes, hypertension, depression, osteoporosis. She was treated with lumpectomy, chemotherapy, and I believe radiation in 2010. She has had cataract surgery. She has had a hysterectomy. Her medication regimen includes Januvia 100 mg daily, Actos 30 mg daily, paroxetine 20 mg daily, glipizide 10 mg daily, Neupogen injection 480 mg monthly following chemotherapy, atenolol 50 mg daily, aspirin 81 mg daily, albuterol inhaler two puffs every four hours as needed, Tylenol as needed. ALLERGIES: She has no known allergies. SOCIAL HISTORY: She lives alone in [place]. She is nonsmoker, nondrinker. She has a healthcare proxy, which is a niece and alternate is a nephew. The patient indicates that she would not want to be intubated and ventilated if she was in a condition to require that for her treatment. She has not worked since 2009. 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 Her primary care physician is Dr. Stanislav Costa. REVIEW OF SYSTEMS: She is not aware of any fever, chills, or sweats. She does have generalized weakness. Not feeling dizzy but did feel lightheaded earlier. Appetite is down. She needs glasses for her vision. No hearing problems. No chewing or swallowing problems. Denies cough or shortness of breath. No sputum production. No chest pains or palpitations. No nausea but does have depressed appetite. Does have a lot of heartburn and indigestion. Is having some loose stools. No dysuria or incontinence but does have some vaginal itching and burning. No back pain. She does have some paresthesias in the tips of her fingers that she believes started with her initial chemotherapy but has not gotten any worse. She can be somewhat unsteady on her feet. She has taken to using a cane. She did have some skin problems that showed up during her last admission. Did have some demarcated patches on her hands. She also reports that this morning in the emergency room (ER) after receiving vancomycin she did have some rash and was given some Benadryl for this. Is treated for depression. Denies any memory troubles. PHYSICAL EXAMINATION: See EMR for vital signs. This is a white female with alopecia who is not in any distress. She is alert, oriented, pleasant, and cooperative. Otherwise normocephalic. Extraocular movements are full. Pupils equal, round, regular, and react to light accommodation. Mouth and throat showed normal mucous membranes. No erythematous or white patches in her mouth. Tongue is midline. Speech is clear. She does have some dentition that is irregular. There are no neck masses, tenderness, or adenopathy. There are no carotid bruits. Her lungs are clear to auscultation. Heart has a regular rhythm. There is no murmur, click, or gallop. Abdomen: Soft and nontender. Breast examination shows no hint of any nodularity in the left breast. Abdomen is soft, nontender without any masses or organomegaly. Somewhat protuberant. There is no edema. No calf tenderness. No cyanosis or clubbing. Babinski signs negative. Cranial nerves III-XII within normal limits. Sensation is grossly normal. She does have well-demarcated areas on primarily her left hand and davide. These are not inflamed or denuded of any skin. Certainly not ulcerated. She is oriented to time, place, and person. She is euthymic. Labs done today: Her hemoglobin is 0.8, WBC are 6000 with 26% neutrophils, 24% lymphocytes, 36% monocytes. Sodium 132, potassium 3.2, glucose 416, BUN 7, creatinine 0.89. CPK is normal at 59. Chest x-ray done today showed no acute cardiopulmonary process. Her platelet count at this time was 31,000. She had a platelet count on her earlier this week of 19,000. Blood cultures and urine cultures are pending. ASSESSMENT: A 61-year-old white female under treatment for breast cancer with 103 fever, leukopenia, treated for potential sepsis. She does have diabetes, hypertension, and depression. She is anemic and thrombocytopenic. After having gotten some intravenous (IV) fluid resuscitation, sounds to be a lot better than when she was originally taken to the emergency room (ER). PLAN: Patient is currently quite comfortable. Appears her temperature is down. Will need to continue antibiotics for her and also will consult with her physician in [place]. Will need to address her blood sugars. It would probably be better to have her on sliding-scale coverage rather than to have her on orals at this time. Goal is to get her white count back up and her fever down and her cultures negative. I should note that she had a rapid influenza A and B, and these were negative. JOSE
--- NOTE | 2016-05-18 17:55 | ECGEPIP ---
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
[2016-05-18] MEDS: MICONAZOLE-7 VAGINAL 2% CREAM 47.7 GM PV SCH (20:40)
[2016-05-18] MEDS ORDERED: diphenhydrAMINE 25 MG CAP PO ONE (21:00)
[2016-05-18] MEDS ORDERED: FLUCONAZOLE 50MG TABLET PO ONE (21:00)
[2016-05-18] MEDS: VANCOMYCIN HCL 750 MG, VIAL MATE ADAPTER 1 EACH in D5W 250 ML IV SCH (22:48)
[2016-05-19] VITALS (9 sets, daily range): BP systolic 88–121; BP diastolic 46–76
[2016-05-19] MEDS: METOPROLOL TART 25 MG TABLET PO SCH ×4 (00:12→17:41)
[2016-05-19] MEDS: PIPERACILLIN/TAZOBACTAM SOD 3.375 GM in D5W MINI-BAG PLUS 50 ML IV SCH ×4 (01:35→17:40)
[2016-05-19] MEDS ORDERED: diphenhydrAMINE 25 MG CAP PO ONE (05:00)
[2016-05-19 05:33] LABS: ANION GAP 7 MEQ/L (8-16); BLOOD UREA NITROGEN 5 MG/DL (7-18); CARBON DIOXIDE LEVEL 29 MEQ/L (21-32); CHLORIDE LEVEL 103 MEQ/L (98-107); CREATININE FOR GFR 0.64 MG/DL (0.55-1.02); GLOMERULAR FILTRATION RATE > 60.0 (>51); GLUCOSE, FASTING 206 MG/DL (70-105); POTASSIUM SERUM 2.9 MEQ/L (3.5-5.1); SODIUM LEVEL 139 MEQ/L (136-145)
[2016-05-19] MEDS: VANCOMYCIN HCL 750 MG, VIAL MATE ADAPTER 1 EACH in D5W 250 ML IV SCH ×3 (05:37→22:14)
[2016-05-19 05:38] LABS: DIFF SLIDE NUMBER 70; MEAN CORPUSCULAR HEMOGLOBIN 31.1 pg (27.0-33.0); MEAN CORPUSCULAR HGB CONC 33.2 g/dl (32.0-36.5); MEAN CORPUSCULAR VOLUME 93.8 fl (80.0-96.0); RED CELL DISTRIBUTION WIDTH 15.4 % (11.5-14.5)
[2016-05-19 05:39] LABS: PLATELET COUNT, AUTOMATED 34 k/mm3 (150-450)
[2016-05-19] MEDS ORDERED: POTASSIUM CHLORIDE 10 MEQ SR TABLET PO SCH (06:00)
[2016-05-19 06:42] LABS: BANDS 2 % (< 11); NUCLEATED RED BLOOD CELL 1 % (0-0)
[2016-05-19 06:43] LABS: ANISOCYTOSIS 2+
[2016-05-19] MEDS ORDERED: diphenhydrAMINE 25 MG CAP PO SCH (07:45)
[2016-05-19 07:54] LABS: MAGNESIUM LEVEL 1.3 MG/DL (1.8-2.4)
[2016-05-19] MEDS: HumaLOG INSULIN (NovoLOG) PER UNIT SC SCH ×4 (08:03→21:00)
[2016-05-19] MEDS: PARoxetine 20 MG TAB PO SCH (08:03)
[2016-05-19] MEDS: ATENOLOL 50 MG TAB PO SCH (08:04)
[2016-05-19] MEDS: PANTOPRAZOLE 40MG TAB (PROTONIX) PO SCH (08:04)
--- NOTE | 2016-05-19 08:49 | IPNPDOC ---
Subjective Date Seen The patient was seen on 05/19/16. Subjective Chief Complaint/HPI The patient is a 61-year-old female admitted with a reason for visit of Breast Cancer Diabetes Mellitus Fever Neutropenia. Events since last encounter Pt states she is feeling better. Denies CP, SOB, Abd pain. Constitutional: Denies: Chills, Fever Pulmonary: Denies: Dyspnea Cardiovascular: Denies: Chest Pain Gastrointestinal: Denies: Abdominal Pain, Nausea, Vomiting Objective Physical Examination General Exam: Positive: Alert, No Acute Distress Neck Exam: Positive: Supple, Negative: JVD Chest Exam: Positive: Clear to auscultation Heart Exam: Positive: Rate Normal, Regular Rhythm Abdomen Exam: Positive: Normal bowel sounds, Soft, Negative: Tenderness Extremity Exam: Negative: Edema Assessment /Plan Problems (1) Neutropenia Status: Acute Problem Specific Plan: Monitor Clinically, Repeat Labs Problem Text: 05/19 - WBC 2.0. ANC 1400. Plan was to stop the Neupogen when ANC above 1000. Pt received chemo from Onc in [place] around May 07. 05/18 - WBC 0.8. Neupogen was started. Pt received chemo from Onc in [place] around May 07. (2) Anemia Status: Acute Problem Specific Plan: Monitor Clinically, Repeat Labs Problem Text: 05/19 - Hgb 8.0. D/W attending 05/18 - Received 1 unit PRBC. Hgb 8.5 (from 7.1). (3) Fever Status: Acute Problem Specific Plan: Monitor Clinically, Repeat Labs Problem Text: 05/19 - Currently afebrile. 05/18 - Currently afebrile. Tmax was 100.6 during night. IV Zosyn. (4) Pancytopenia Status: Acute Problem Specific Plan: Monitor Clinically, Repeat Labs Problem Text: 05/19 - WBC 2.0. ANC 1400. Plan was to stop the Neupogen when ANC above 1000. Plts 34. Pt received chemo from Onc in [place] around May 07. 05/18 - WBC 0.8. Plts 28. Neupogen was started. Pt received chemo from Onc in [place] around May 07. (5) Pancytopenia due to chemotherapy Status: Acute Problem Specific Plan: Monitor Clinically, Repeat Labs Problem Text: 05/19 - WBC 2.0. ANC 1400. Plan was to stop the Neupogen when ANC above 1000. Plts 34. Pt received chemo from Onc in [place] around May 07. (6) Breast cancer Status: Chronic Problem Specific Plan: Monitor Clinically, Repeat Labs Problem Text: Pt received chemo from Onc in [place] around May 07. (7) Diabetes mellitus Status: Chronic Problem Specific Plan: Monitor Clinically, Repeat Labs Problem Text: On SSI. (8) Sepsis Status: Acute Problem Specific Plan: Monitor Clinically, Repeat Labs Problem Text: On Vanco. Pretreating with Benadryl. Pt tolerating the Vanco. (9) Hypokalemia Status: Acute Problem Specific Plan: Monitor Clinically, Repeat Labs Problem Text: Getting replacement. (10) Hypomagnesemia Status: Acute Problem Specific Plan: Monitor Clinically, Repeat Labs Problem Text: Mag 1.3. Will give Mag runs. (11) Atrial fibrillation with RVR Status: Acute Problem Specific Plan: Monitor Clinically, Repeat Labs Problem Text: Converted Plan/VTE VTE Prophylaxis Ordered?: No Plan Attending attestation: I saw and evaluated the patient, and I agree with the plan of care as discussed and documented by Raghu Herbert. Dee Costa VS, I&O, 24H, Chanelle Vital Signs/I&O Vital Signs Date Time Temp Pulse Resp B/P Pulse Ox O2 Delivery O2 Flow Rate FiO2 05/19/16 08:04 85 120/69 05/19/16 04:00 98.9 18 100 Room Air I&O- Last 24 Hours up to 6 AM 05/19/16 06:00 Intake Total 1869 ml Output Total 150 ml Balance 1719 ml Laboratory Data 24H LABS Laboratory Tests 2 05/18/16 11:23: Bedside Glucose (Misc Panel) 266H 05/18/16 16:31: Creatine Kinase MB 1.0, Creatine Kinase MB Relative Index 1.75, Total Creatine Kinase 57, Troponin I 0.14#H 05/18/16 16:38: Bedside Glucose (Misc Panel) 180H 05/18/16 20:39: Bedside Glucose (Misc Panel) 216H 05/19/16 04:50: Anion Gap 7L, Anisocytosis 2+, Atypical Lymphocytes 1, Band Neutrophils 2, Blood Urea Nitrogen 5L, Creatinine 0.64, Sodium Level 139, Potassium Level 2.9*L , Chloride Level 103, Carbon Dioxide Level 29, Calcium Level 7.0L, Glomerular Filtration Rate > 60.0, Lymphocytes (Manual) 22, Magnesium Level 1.3L, Monocytes (Manual) 7, Neutrophils 68, Nucleated Red Blood Cells 1H, Platelet Estimate MARKED DECREASE CBC/BMP Laboratory Tests 05/19/16 04:50 Calcium Level 7.0 L, Red Blood Count 2.57 L, Mean Corpuscular Volume 93.8, Mean Corpuscular Hemoglobin 31.1, Mean Corpuscular Hemoglobin Concent 33.2, Red Cell Distribution Width 15.4 H Microbiology Microbiology 05/17/16 Blood Culture - Preliminary, Resulted No Growth after 48 hours. All Specime... 05/17/16 Blood Culture - Preliminary, Resulted No Growth after 48 hours. All Specime... 05/19/16 Clostridium difficile (PCR), Received Pending 05/17/16 Stool Occult Blood (LEISA) - Final, Complete 05/17/16 Influenza Virus Type A Antigen - Final, Complete 05/17/16 Influenza Virus Type B Antigen - Final, Complete Deven Herbert May 19, 2016 08:49 DEE COSTA MD May 24, 2016 19:35
[2016-05-19] MEDS ORDERED: PREVNAR 13 VACCINE SYRINGE (CPT CODE:90670) IM ONE (09:00)
[2016-05-19] MEDS: MAG SULF 1GM/100ML (MAG RUN) 1 GM in APPROPRIATE DILUENT 1 EA IV SCH ×2 (10:27→11:29)
[2016-05-19] MEDS: NS 1,000 ML IV SCH (12:35)
[2016-05-19] MEDS ORDERED: POTASSIUM CHLORIDE 10 MEQ SR TABLET PO ONE (13:00)
[2016-05-19] MEDS: diphenhydrAMINE 25 MG CAP PO SCH ×2 (13:02→21:26)
--- NOTE | 2016-05-19 13:45 | PHACANCOPD ---
PHARMACY VANCOMYCIN DOSING Pt Demographics Demographics Patient Age:61 , Weight:88.000 , Gender: female Adjusted Body Weight Date: 05/17/16, Adjusted Body Weight: [69] Kg Vancomycin Vancomycin indication: febrile neutropenia Vancomycin Target Ranges: 15-20 mcg/ml Vancomycin Load Y/N: Yes Load Dose Date Time Vancomycin Load Dose: 2000mg Date: 05/17 Time: 06:30 (ER) Vancomycin Dose Date: 05/17/16. Current Vancomycin Dose: [750mg IV q8h @14] Intermittent Dosing?: No Labs Micro Microbiology 05/17/16 Blood Culture - Preliminary, Resulted No Growth after 48 hours. All Specime... 05/17/16 Blood Culture - Preliminary, Resulted No Growth after 48 hours. All Specime... 05/19/16 Clostridium difficile (PCR) - Final, Complete 05/17/16 Stool Occult Blood (LEISA) - Final, Complete 05/17/16 Influenza Virus Type A Antigen - Final, Complete 05/17/16 Influenza Virus Type B Antigen - Final, Complete Creatinine Clearance Date:05/17/16. Creatinine Clearance: [74 ml/min using adjusted BW]. Pending Labs Vanco trough scheduled 05/19 @05:00 Assessment and Plan Maintaining Current Dose?: Yes Reason for dose change: No Dose Change Pharmacist Note Pharmacist Note 05/19/16: I have scheduled a trough 05/20/16 @1300, prior to the 6th dose. We will continue to monitor and make adjustments as needed. Date: 05/17/16. Pharmacist note: pt has been admitted for febrile neutropenia and has been started on Zosyn and Vancomycin. She has a Hx of breast cancer and receiving chemotherapy. She does not have any positive culture Hx at our facility and was last on vancomycin IV here in 04/2011. Based on that admission I have resumed similar dosing. She received a 2g load in the ER and I have started vanco 750mg IV q8h. I have a trough scheduled for Wednesday. We will continue to monitor. MADONNA PERSON PHARMACY May 19, 2016 13:44
[2016-05-19] MEDS: POTASSIUM CHLORIDE 10 MEQ SR TABLET PO SCH ×2 (16:33→21:26)
--- NOTE | 2016-05-19 18:06 | EDDOCDS ---
Physician Documentation [facility] Name: Sherly Romero Age: 61 yrs Sex: Female : 1955 Arrival Date: 05/17/2016 Time: 04:35 Bed 18 Private MD: Disposition: 05/17/16 06:23 Hospitalization ordered by Nilay Ramachandran for Inpatient Admission. Preliminary diagnosis are Neutropenia, Other sepsis. - Bed requested for PCU. - Status is Inpatient Admission. [facility] - Condition is Stable. - Problem is an ongoing problem. - Symptoms have improved. Historical: - Allergies: no known allergies; - Home Meds: 1. potassium chloride 8 mEq Oral cpER 1 cap once daily 2. glipizide 10 mg Oral tab 1 tab once daily 3. Januvia 100 mg oral tab 1 tab once daily 4. pioglitazone 30 mg oral tab 1 tab once daily 5. atenolol 50 mg Oral tab 1 tab once daily 6. Paxil 20 mg Oral tab 1 tab once daily 7. aspirin 81 mg Oral tab 1 tab once daily - PMHx: Cancer, Breast - Left; Cancer, Breast - Right; Diabetes - NIDDM: controlled; Hypertension; - PSHx: Mastectomy- Right; - Social history: Smoking status: Patient states former smoker of tobacco. No barriers to communication noted, The patient speaks fluent [place], Speaks appropriately for age. - Family history: Not pertinent. - : The pt / caregiver states he / she is not on anticoagulants. Home medication list is obtained from the patient. - Exposure Risk Screening:: None identified. Vital Signs: 05/17 04:38 BP 92 / 59 (auto/); srm 04:41 Pulse 121 MON; Pulse Ox 98% ; srm 04:42 BP 92 / 59; Pulse 122; Resp 20; Pulse Ox 100% on R/A; Weight 90.72 kg / 200 lbs (R); yuliya Height 5 ft. 4 in. (162.56 cm) (R); Pain 0/10; 04:45 BP 125 / 60 (auto/); srm 04:46 Pulse 120 MON; Pulse Ox 97% ; srm 05:00 BP 100 / 56 (auto/); srm 05:01 Pulse 115 MON; Pulse Ox 97% ; srm 05:14 Temp 102.2(O); mlc 05:34 BP 126 / 60 (auto/); srm 05:34 Pulse Ox 95% ; srm 05:45 BP 111 / 62 (auto/); srm 05:46 Pulse 111 MON; Pulse Ox 97% ; srm 06:00 BP 113 / 65 (auto/); srm 06:02 Pulse 111 MON; Pulse Ox 94% ; srm 06:15 BP 122 / 68 (auto/); srm 06:16 Pulse 112 MON; Pulse Ox 94% ; srm 06:30 BP 117 / 61 (auto/); srm 06:30 Pulse 110 MON; Pulse Ox 96% ; srm 06:45 BP 120 / 60 (auto/); srm 06:45 Pulse 113 MON; Pulse Ox 96% ; srm 07:00 BP 119 / 56 (auto/); srm 07:00 Pulse 112 MON; Pulse Ox 94% ; srm 07:02 BP 119 / 56; Pulse 110; Resp 16; Temp 100.1(O); Pulse Ox 93% on R/A; Pain 3/10; kr3 07:14 Pulse 110 MON; Pulse Ox 95% ; srm 07:15 BP 106 / 52 (auto/); srm 07:30 BP 112 / 55 (auto/); srm 07:31 Pulse 108 MON; Pulse Ox 92% ; srm 07:43 BP 112 / 55; Pulse 108; Resp 18; Pulse Ox 96% on R/A; kr3 07:45 BP 113 / 65 (auto/); srm 07:45 Pulse 108 MON; Pulse Ox 97% ; srm 08:00 BP 110 / 59 (auto/); srm 08:00 Pulse 108 MON; Pulse Ox 94% ; srm 08:15 BP 112 / 56 (auto/); kr3 08:16 Pulse 102 MON; Pulse Ox 94% ; kr3 08:30 BP 109 / 56 (auto/); kr3 08:31 Pulse 102 MON; Pulse Ox 93% ; kr3 08:45 BP 129 / 79 (auto/); srm 08:46 Pulse Ox 96% ; srm 09:00 BP 133 / 66 (auto/); srm 09:01 Pulse Ox 97% ; srm 09:02 BP 133 / 66; Pulse 116; Resp 16; Pulse Ox 96% on R/A; kr3 09:03 Pulse 107 MON; Pulse Ox 96% ; srm 09:28 BP 132 / 61; Pulse 108; Temp 98.5; kr3 10:28 BP 106 / 55; Pulse 106; Resp 18; kr3 11:23 BP 102 / 51 (auto/); kr3 11:24 Pulse 102 MON; kr3 12:23 BP 101 / 56 (auto/); kr3 12:24 Pulse 102 MON; kr3 04:42 Body Mass Index 34.33 (90.72 kg, 162.56 cm) yuliya 04:42 RN aware of BP yuliya MDM: 05:09 Network Liaison/Pulse Ox/q 30 min VS ordered. mm11 05:09 IV Saline Lock ordered. mm11 05:09 Rhythm Strip to chart ordered. mm11 05:09 Undress patient appropriately for examination ordered. mm11 05:09 NS 0.9% 1000 ml IV at bolus once ordered. mm11 05:10 Basic Metabolic Profile Ordered. EDMS 05:10 CBC with Diff Ordered. EDMS 05:10 Cardiac Injury Profile Ordered. EDMS 05:10 Troponin Ordered. EDMS 05:10 portable chest Ordered. EDMS 05:10 Ondansetron 4 mg IVP once ordered. mm11 05:10 Oral Temp ordered. mm11 05:11 ECG WITH READING ER PHYS+CARDIAG ordered. EDMS 05:42 Acetaminophen Tablet 650 mg PO once ordered. mm11 05:59 Financial registration complete. pm4 06:01 -Influenza A&B Rapid Antigen - Nose Ordered. EDMS 06:17 Piperacillin-Tazobactam 3.375 grams IVPB once over 30 mins; dilute in 50mL of NS or D5W mm11 ordered. 06:17 vancomycin (loading dose for pt. wt. >= 80kg) 2000 mg IVPB once ordered. mm11 06:18 NS 0.9% (Sepsis- hypotension or lactate >4mmol/L, 30ml/kg) 2000 ml IV at bolus once; mm11 Give in 500mL aliquots, assess for rales after each, inform provider ordered. 06:18 [facility] Payment Agreement was scanned into [employer] and attached to record. pm4 06:18 BED REQUEST+ADM ordered. EDMS 06:21 Basic Metabolic Profile Reviewed. mm11 06:21 Troponin Reviewed. mm11 06:21 Cardiac Injury Profile Reviewed. mm11 06:43 -Blood Culture (Adults Only), peripheral from different site, or from device/port/PICC mm11 etc. if present ordered. 06:43 CBC with Diff Reviewed. mm11 06:43 -Influenza A&B Rapid Antigen - Nose Reviewed. mm11 06:44 -Blood Culture Ordered. EDMS 06:45 -Blood Culture (Adults Only), peripheral from different site, or from device/port/PICC ml3 etc. if present complete. 06:47 BLOOD CULTURES Ordered. EDMS 09:05 diphenhydrAMINE 25 mg IVP once ordered. mm11 12:50 Admission / Observation Status ordered. EDMS 12:50 CONSISTENT CARBOHYDRATES ordered. EDMS 12:51 CBC WITH DIFFERENTIAL Ordered. EDMS 13:51 CARDIAC MARKER PANEL Ordered. EDMS 13:51 CARDIAC MARKER PANEL Ordered. EDMS 05/18 12:00 T-Sheet-- Draft Copy was scanned into [employer] and attached to record. gb 12:00 ECG/EKG was scanned into [employer] and attached to record. gb 12:00 PCR was scanned into [employer] and attached to record. gb Administered Medications: 05/17 05:44 Drug: NS 0.9% 1000 ml [sodium chloride 0.9 % intravenous solution] Route: IV; Rate: bcj bolus; Site: Implantable Access Device; 07:04 Follow up: IV Status: Completed infusion; IV Intake: 1000ml kr3 05:44 Drug: Ondansetron 4 mg Route: IVP; Site: Implantable Access Device; [facility] 05:55 Drug: Acetaminophen 650 mg [acetaminophen 325 mg tablet (2 tabs)] Route: PO; j 07:02 Follow up: Response: Temperature is decreased kr3 06:48 Drug: Piperacillin-Tazobactam 3.375 grams [piperacillin-tazobactam 3.375 gram bcj intravenous solution] Route: IVPB; Infused Over: 30 mins; Site: Implantable Access Device; 07:51 Follow up: IV Status: Completed infusion; IV Intake: 50ml kr3 07:07 Drug: NS 0.9% (Sepsis- hypotension or lactate >4mmol/L, 30ml/kg) 2000 ml [sodium kr3 chloride 0.9 % intravenous solution] Route: IV; Rate: bolus; Site: Implantable Access Device; 07:54 Drug: vancomycin (loading dose for pt. wt. >= 80kg) 2000 mg Route: IVPB; Infused Over: kr3 1 hrs; Site: Implantable Access Device; 09:01 Follow up: IV Status: Completed infusion; IV Intake: 500ml kr3 09:08 Drug: diphenhydrAMINE 25 mg [diphenhydramine 50 mg/mL injection solution (0.5 mL)] kr3 Route: IVP; Site: Implantable Access Device; 09:30 Follow up: itchy has stopped kr3 Signatures: Dispatcher [employer] EDKelsi Browne RN RN Kevin Ricketts, RN RN Nieves Tejeda, Reg Reg gb Donnie, ThanhLaly, Senior Education Specialist Unit ml3 Tc Taylor, DO DO mm11 Rahel Agee, SUPERVISOR COMPRESSED YEAST SUPERVISOR COMPRESSED YEAST ar3 Dillon Gallego, Reg Reg pm4 Sepideh Nicolas RN3 The chart was reviewed and I authenticate all verbal orders and agree with the evaluation and treatment provided.Attachments: 06:18 [facility] Payment Agreement pm4 05/18 12:00 T-Sheet-- Draft Copy gb 12:00 ECG/EKG gb Chart Complete MTDD
--- NOTE | 2016-05-19 18:06 | EDDOCDS ---
Physician Documentation [facility] Name: Sherly Romero Age: 61 yrs Sex: Female : 1955 Arrival Date: 05/17/2016 Time: 04:35 Bed 18 Private MD: Disposition: 05/17/16 06:23 Hospitalization ordered by Nilay Ramachandran for Inpatient Admission. Preliminary diagnosis are Neutropenia, Other sepsis. - Bed requested for PCU. - Status is Inpatient Admission. [facility] - Condition is Stable. - Problem is an ongoing problem. - Symptoms have improved. Historical: - Allergies: no known allergies; - Home Meds: 1. potassium chloride 8 mEq Oral cpER 1 cap once daily 2. glipizide 10 mg Oral tab 1 tab once daily 3. Januvia 100 mg oral tab 1 tab once daily 4. pioglitazone 30 mg oral tab 1 tab once daily 5. atenolol 50 mg Oral tab 1 tab once daily 6. Paxil 20 mg Oral tab 1 tab once daily 7. aspirin 81 mg Oral tab 1 tab once daily - PMHx: Cancer, Breast - Left; Cancer, Breast - Right; Diabetes - NIDDM: controlled; Hypertension; - PSHx: Mastectomy- Right; - Social history: Smoking status: Patient states former smoker of tobacco. No barriers to communication noted, The patient speaks fluent Indonesian, Speaks appropriately for age. - Family history: Not pertinent. - : The pt / caregiver states he / she is not on anticoagulants. Home medication list is obtained from the patient. - Exposure Risk Screening:: None identified. Vital Signs: 05/17 04:38 BP 92 / 59 (auto/); srm 04:41 Pulse 121 MON; Pulse Ox 98% ; srm 04:42 BP 92 / 59; Pulse 122; Resp 20; Pulse Ox 100% on R/A; Weight 90.72 kg / 200 lbs (R); yuliya Height 5 ft. 4 in. (162.56 cm) (R); Pain 0/10; 04:45 BP 125 / 60 (auto/); srm 04:46 Pulse 120 MON; Pulse Ox 97% ; srm 05:00 BP 100 / 56 (auto/); srm 05:01 Pulse 115 MON; Pulse Ox 97% ; srm 05:14 Temp 102.2(O); mlc 05:34 BP 126 / 60 (auto/); srm 05:34 Pulse Ox 95% ; srm 05:45 BP 111 / 62 (auto/); srm 05:46 Pulse 111 MON; Pulse Ox 97% ; srm 06:00 BP 113 / 65 (auto/); srm 06:02 Pulse 111 MON; Pulse Ox 94% ; srm 06:15 BP 122 / 68 (auto/); srm 06:16 Pulse 112 MON; Pulse Ox 94% ; srm 06:30 BP 117 / 61 (auto/); srm 06:30 Pulse 110 MON; Pulse Ox 96% ; srm 06:45 BP 120 / 60 (auto/); srm 06:45 Pulse 113 MON; Pulse Ox 96% ; srm 07:00 BP 119 / 56 (auto/); srm 07:00 Pulse 112 MON; Pulse Ox 94% ; srm 07:02 BP 119 / 56; Pulse 110; Resp 16; Temp 100.1(O); Pulse Ox 93% on R/A; Pain 3/10; kr3 07:14 Pulse 110 MON; Pulse Ox 95% ; srm 07:15 BP 106 / 52 (auto/); srm 07:30 BP 112 / 55 (auto/); srm 07:31 Pulse 108 MON; Pulse Ox 92% ; srm 07:43 BP 112 / 55; Pulse 108; Resp 18; Pulse Ox 96% on R/A; kr3 07:45 BP 113 / 65 (auto/); srm 07:45 Pulse 108 MON; Pulse Ox 97% ; srm 08:00 BP 110 / 59 (auto/); srm 08:00 Pulse 108 MON; Pulse Ox 94% ; srm 08:15 BP 112 / 56 (auto/); kr3 08:16 Pulse 102 MON; Pulse Ox 94% ; kr3 08:30 BP 109 / 56 (auto/); kr3 08:31 Pulse 102 MON; Pulse Ox 93% ; kr3 08:45 BP 129 / 79 (auto/); srm 08:46 Pulse Ox 96% ; srm 09:00 BP 133 / 66 (auto/); srm 09:01 Pulse Ox 97% ; srm 09:02 BP 133 / 66; Pulse 116; Resp 16; Pulse Ox 96% on R/A; kr3 09:03 Pulse 107 MON; Pulse Ox 96% ; srm 09:28 BP 132 / 61; Pulse 108; Temp 98.5; kr3 10:28 BP 106 / 55; Pulse 106; Resp 18; kr3 11:23 BP 102 / 51 (auto/); kr3 11:24 Pulse 102 MON; kr3 12:23 BP 101 / 56 (auto/); kr3 12:24 Pulse 102 MON; kr3 04:42 Body Mass Index 34.33 (90.72 kg, 162.56 cm) yuliya 04:42 RN aware of BP yuliya MDM: 05:09 Human Relations Professor/Pulse Ox/q 30 min VS ordered. mm11 05:09 IV Saline Lock ordered. mm11 05:09 Rhythm Strip to chart ordered. mm11 05:09 Undress patient appropriately for examination ordered. mm11 05:09 NS 0.9% 1000 ml IV at bolus once ordered. mm11 05:10 Basic Metabolic Profile Ordered. EDMS 05:10 CBC with Diff Ordered. EDMS 05:10 Cardiac Injury Profile Ordered. EDMS 05:10 Troponin Ordered. EDMS 05:10 portable chest Ordered. EDMS 05:10 Ondansetron 4 mg IVP once ordered. mm11 05:10 Oral Temp ordered. mm11 05:11 ECG WITH READING ER PHYS+CARDIAG ordered. EDMS 05:42 Acetaminophen Tablet 650 mg PO once ordered. mm11 05:59 Financial registration complete. pm4 06:01 -Influenza A&B Rapid Antigen - Nose Ordered. EDMS 06:17 Piperacillin-Tazobactam 3.375 grams IVPB once over 30 mins; dilute in 50mL of NS or D5W mm11 ordered. 06:17 vancomycin (loading dose for pt. wt. >= 80kg) 2000 mg IVPB once ordered. mm11 06:18 NS 0.9% (Sepsis- hypotension or lactate >4mmol/L, 30ml/kg) 2000 ml IV at bolus once; mm11 Give in 500mL aliquots, assess for rales after each, inform provider ordered. 06:18 [facility] [place] Agreement was scanned into [employer] and attached to record. pm4 06:18 BED REQUEST+ADM ordered. EDMS 06:21 Basic Metabolic Profile Reviewed. mm11 06:21 Troponin Reviewed. mm11 06:21 Cardiac Injury Profile Reviewed. mm11 06:43 -Blood Culture (Adults Only), peripheral from different site, or from device/port/PICC mm11 etc. if present ordered. 06:43 CBC with Diff Reviewed. mm11 06:43 -Influenza A&B Rapid Antigen - Nose Reviewed. mm11 06:44 -Blood Culture Ordered. EDMS 06:45 -Blood Culture (Adults Only), peripheral from different site, or from device/port/PICC ml3 etc. if present complete. 06:47 BLOOD CULTURES Ordered. EDMS 09:05 diphenhydrAMINE 25 mg IVP once ordered. mm11 12:50 Admission / Observation Status ordered. EDMS 12:50 CONSISTENT CARBOHYDRATES ordered. EDMS 12:51 CBC WITH DIFFERENTIAL Ordered. EDMS 13:51 CARDIAC MARKER PANEL Ordered. EDMS 13:51 CARDIAC MARKER PANEL Ordered. EDMS 05/18 12:00 T-Sheet-- Draft Copy was scanned into [employer] and attached to record. gb 12:00 ECG/EKG was scanned into [employer] and attached to record. gb 12:00 PCR was scanned into [employer] and attached to record. gb Administered Medications: 05/17 05:44 Drug: NS 0.9% 1000 ml [sodium chloride 0.9 % intravenous solution] Route: IV; Rate: bcj bolus; Site: Implantable Access Device; 07:04 Follow up: IV Status: Completed infusion; IV Intake: 1000ml kr3 05:44 Drug: Ondansetron 4 mg Route: IVP; Site: Implantable Access Device; [facility] 05:55 Drug: Acetaminophen 650 mg [acetaminophen 325 mg tablet (2 tabs)] Route: PO; j 07:02 Follow up: Response: Temperature is decreased kr3 06:48 Drug: Piperacillin-Tazobactam 3.375 grams [piperacillin-tazobactam 3.375 gram bcj intravenous solution] Route: IVPB; Infused Over: 30 mins; Site: Implantable Access Device; 07:51 Follow up: IV Status: Completed infusion; IV Intake: 50ml kr3 07:07 Drug: NS 0.9% (Sepsis- hypotension or lactate >4mmol/L, 30ml/kg) 2000 ml [sodium kr3 chloride 0.9 % intravenous solution] Route: IV; Rate: bolus; Site: Implantable Access Device; 07:54 Drug: vancomycin (loading dose for pt. wt. >= 80kg) 2000 mg Route: IVPB; Infused Over: kr3 1 hrs; Site: Implantable Access Device; 09:01 Follow up: IV Status: Completed infusion; IV Intake: 500ml kr3 09:08 Drug: diphenhydrAMINE 25 mg [diphenhydramine 50 mg/mL injection solution (0.5 mL)] kr3 Route: IVP; Site: Implantable Access Device; 09:30 Follow up: itchy has stopped kr3 Signatures: Dispatcher [employer] EDKelsi Browne RN RN Kevin Ricketts, RN RN Nieves Tejeda, Reg Reg gb Donnie, ThanhLaly, Spare Hand Carding Unit ml3 Tc Taylor, DO DO mm11 Rahel Agee, ACID CONDENSER ACID CONDENSER ar3 Dillon Gallego, Reg Reg pm4 Sepideh Nicolas RN3 The chart was reviewed and I authenticate all verbal orders and agree with the evaluation and treatment provided.Attachments: 06:18 [facility] Payment Agreement pm4 05/18 12:00 T-Sheet-- Draft Copy gb 12:00 ECG/EKG gb Chart Complete MTDD
--- NOTE | 2016-05-19 18:07 | EDDOCDS ---
Nurse's Notes [facility] Name: Rand Dave Age: 61 yrs Sex: Female : 1955 Arrival Date: 05/17/2016 Time: 04:35 Bed 18 Private MD: Diagnosis: Neutropenia;Other sepsis Presentation: 05/17 04:49 Presenting complaint: Patient states: has been feeling weak x 24 to 48 hrs - not eating bcj not drinking. has been having frequent diarrhea. states that she was told by oncologist that her white count are very low. denies nausea vomiting. ? temp at home . states very light headed whenever she stands up. Adult Sepsis Screening: The patient does not have new or worsening altered mentation. Patient's respiratory rate is less than 22. Systolic blood pressure is less than or equal to 100 (1 point). Patient has a qSOFA score of 1- Negative Sepsis Screen. Suicide/Homicide risk assessment- the patient denies having any suicidal and/or homicidal ideations and does not present with any other emotional, behavioral or mental health complaints. 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 Transition of care: patient was not received from another setting of care. 04:49 Acuity: KAYE Level 2 j 04:49 Method Of Arrival: Ambulance bcj Triage Assessment: 04:57 General: Appears ill, Behavior is cooperative. Pain: Denies pain. HIV screening NA for bcj this visit Offered previously. Neurological: Level of Consciousness is awake, alert, Oriented to person, place, time. Cardiovascular: Rhythm is sinus tachycardia. Derm: Skin is pink, warm & dry. Historical: - Allergies: no known allergies; - Home Meds: 1. potassium chloride 8 mEq Oral cpER 1 cap once daily 2. glipizide 10 mg Oral tab 1 tab once daily 3. Januvia 100 mg oral tab 1 tab once daily 4. pioglitazone 30 mg oral tab 1 tab once daily 5. atenolol 50 mg Oral tab 1 tab once daily 6. Paxil 20 mg Oral tab 1 tab once daily 7. aspirin 81 mg Oral tab 1 tab once daily - PMHx: Cancer, Breast - Left; Cancer, Breast - Right; Diabetes - NIDDM: controlled; Hypertension; - PSHx: Mastectomy- Right; - Social history: Smoking status: Patient states former smoker of tobacco. No barriers to communication noted, The patient speaks fluent Georgian, Speaks appropriately for age. - Family history: Not pertinent. - : The pt / caregiver states he / she is not on anticoagulants. Home medication list is obtained from the patient. - Exposure Risk Screening:: None identified. Screenin:59 Screening information is obtained from the patient. Fall risk: At risk due to gait bcj disturbance, The following interventions are performed due to a positive Fall Risk Screen: Fall Risk is added to Special Handling on the patient Summary Screen. A Fall Risk Bracelet was applied to the patient. Side Rails are placed in the up position. A Call Waters is given with instruction to call for help when getting out of bed. Fall Alert bracelet is placed on the patient. Assistance ADL's: requires no assistance with activities of daily living. Abuse/DV Screen: The patient / caregiver reports he/she is: not in a situation that causes fear, pain or injury. Nutritional screening: No deficits noted. home support is adequate. Assessment: 04:59 General: Appears ill. Cardiovascular: Rhythm is sinus tachycardia. bcj 06:00 General: Appears in no apparent distress, comfortable, Behavior is cooperative. Pain: bcj Denies pain. Neurological: Level of Consciousness is awake, alert, Oriented to person, place, time. Cardiovascular: Rhythm is sinus tachycardia. Respiratory: Airway is patent Respiratory effort is even, unlabored, Respiratory pattern is regular, Breath sounds are clear bilaterally. Derm: Skin is pale, pink. 07:03 Reassessment: Patient appears in no apparent distress at this time. complains of kr3 'discomfort stomach area'. Neurological: Level of Consciousness is awake, alert. Respiratory: Respiratory effort is even, unlabored. GI: Reports nausea. Derm: Skin is normal. 08:44 Reassessment: Patient appears in no apparent distress at this time. attempting to eat kr3 breakfast, reports has poor appetite. 09:01 Reassessment: complains of itchiness all over head, denies difficulty swallowing or kr3 breathing. Respiratory: Respiratory effort is even, unlabored, Breath sounds are clear bilaterally. 09:29 Reassessment: assisted to commode and patient had large amount of diarrhea. did well kr3 moving form bed to commode and back and denies any feelings of dizziness or lightheaded. 10:30 Reassessment: Patient appears in no apparent distress at this time. General: Appears kr3 comfortable, Behavior is cooperative. 11:36 Reassessment: Patient appears in no apparent distress at this time. hospitalist with kr3 patient. 12:37 Reassessment: Patient appears in no apparent distress at this time. General: Appears kr3 comfortable, Behavior is cooperative, aware that plan at this time is to be in ED. Patient watching TV. Vital Signs: 04:38 BP 92 / 59 (auto/); srm 04:41 Pulse 121 MON; Pulse Ox 98% ; srm 04:42 BP 92 / 59; Pulse 122; Resp 20; Pulse Ox 100% on R/A; Weight 90.72 kg (R); Height 5 ft. yuliya 4 in. (162.56 cm) (R); Pain 0/10; 04:45 BP 125 / 60 (auto/); srm 04:46 Pulse 120 MON; Pulse Ox 97% ; srm 05:00 BP 100 / 56 (auto/); srm 05:01 Pulse 115 MON; Pulse Ox 97% ; srm 05:14 Temp 102.2(O); mlc 05:34 BP 126 / 60 (auto/); srm 05:34 Pulse Ox 95% ; srm 05:45 BP 111 / 62 (auto/); srm 05:46 Pulse 111 MON; Pulse Ox 97% ; srm 06:00 BP 113 / 65 (auto/); srm 06:02 Pulse 111 MON; Pulse Ox 94% ; srm 06:15 BP 122 / 68 (auto/); srm 06:16 Pulse 112 MON; Pulse Ox 94% ; srm 06:30 BP 117 / 61 (auto/); srm 06:30 Pulse 110 MON; Pulse Ox 96% ; srm 06:45 BP 120 / 60 (auto/); srm 06:45 Pulse 113 MON; Pulse Ox 96% ; srm 07:00 BP 119 / 56 (auto/); srm 07:00 Pulse 112 MON; Pulse Ox 94% ; srm 07:02 BP 119 / 56; Pulse 110; Resp 16; Temp 100.1(O); Pulse Ox 93% on R/A; Pain 3/10; kr3 07:14 Pulse 110 MON; Pulse Ox 95% ; srm 07:15 BP 106 / 52 (auto/); srm 07:30 BP 112 / 55 (auto/); srm 07:31 Pulse 108 MON; Pulse Ox 92% ; srm 07:43 BP 112 / 55; Pulse 108; Resp 18; Pulse Ox 96% on R/A; kr3 07:45 BP 113 / 65 (auto/); srm 07:45 Pulse 108 MON; Pulse Ox 97% ; srm 08:00 BP 110 / 59 (auto/); srm 08:00 Pulse 108 MON; Pulse Ox 94% ; srm 08:15 BP 112 / 56 (auto/); kr3 08:16 Pulse 102 MON; Pulse Ox 94% ; kr3 08:30 BP 109 / 56 (auto/); kr3 08:31 Pulse 102 MON; Pulse Ox 93% ; kr3 08:45 BP 129 / 79 (auto/); srm 08:46 Pulse Ox 96% ; srm 09:00 BP 133 / 66 (auto/); srm 09:01 Pulse Ox 97% ; srm 09:02 BP 133 / 66; Pulse 116; Resp 16; Pulse Ox 96% on R/A; kr3 09:03 Pulse 107 MON; Pulse Ox 96% ; srm 09:28 BP 132 / 61; Pulse 108; Temp 98.5; kr3 10:28 BP 106 / 55; Pulse 106; Resp 18; kr3 11:23 BP 102 / 51 (auto/); kr3 11:24 Pulse 102 MON; kr3 12:23 BP 101 / 56 (auto/); kr3 12:24 Pulse 102 MON; kr3 04:42 Body Mass Index 34.33 (90.72 kg, 162.56 cm) yuliya 04:42 RN aware of BP yuliya Vitals: 04:57 Glucose Measurement D-stick done by EMS. Log In Time N/A - ambulance arrival. [facility] 04:59 Refer to monitor trend for complete vital signs trends. [facility] ED Course: 04:36 Patient visited by Gary Fields, Product Manager. ml3 04:36 Patient moved to Waiting ml3 04:36 Patient moved to 1 ml3 04:43 Patient visited by Carlotta Salvador PCA. yuliya 04:43 Pt greeted and oriented to ED. Patient advised of names of staff involved in care, yuliya location of call waters, wait times and NPO status. Patient has correct armband on for positive identification. Placed in gown. Bed in low position. Call light in reach. Side rails up X2. vehicle monitor technician on. Pulse ox on. NIBP on. 04:53 Triage Initiated bcj 04:58 Kar Kate DO is Attending Physician. mm11 04:58 Patient visited by Kar Kate DO. mm11 04:59 Resting quietly. Awaiting ED physician evaluation. bcj 04:59 The patient / caregiver is instructed regarding the plan of care and ED course. bcj 05:00 Patient visited by Kevin Giang RN. bcj 05:08 Patient visited by Kar Kate DO. mm11 05:19 Patient visited by Carlotta Salvador PCA. yuliya 05:19 EKG done. (by ED staff). Reviewed by Kar Kate DO. yuliya 05:40 Basic Metabolic Profile Sent. bcj 05:40 CBC with Diff Sent. bcj 05:40 Cardiac Injury Profile Sent. bcj 05:40 Troponin Sent. bcj 05:57 Accessed using accessed w/ # 20 Snyder needle, per hospital protocol. [employer] in [facility] patient's anterior aspect of left upper chest. Clean & dry. Good blood return. Flushes easily. Labs drawn. (by ED staff). Sent per order to lab. Labs/Blood culture drawn. 05:58 Patient visited by Kevin Giang RN. bcj 06:00 Resting quietly. awaiting re-evaluation by ER physician. bcj 06:00 IV is intact. bcj 06:01 Patient visited by Kevin Giang, DOUG. bcj 06:08 -Influenza A&B Rapid Antigen - Nose Sent. bcj 06:18 [facility] Payment Agreement was scanned into [employer] and attached to record. pm4 06:22 Samara Costa is Hospitalizing Provider. mm11 06:24 Notified attending ED physician of Critical lab value. dr kate advised of WBC 0.6, edmundo paltelets 31, glucose of 460. 06:53 -Blood Culture Sent. bcj 06:53 BLOOD CULTURES Sent. bcj 07:33 Sepideh Nicolas,DOUG is Primary Nurse. kr3 07:44 Cleaned of incontinence. Linen changed. kr3 07:51 Nilay Ramachandran MD is Hospitalizing Provider. mm11 08:39 portable chest Returned. EDMS 08:44 Diet tray given. kr3 09:12 EKG-ADULT Returned. EDMS 09:15 Patient moved to [facility] 13:05 Report given to Mariano CAMACHO modi nurse. kr3 13:24 No procedures done that require assistance. js13 13:58 Primary Nurse role handed off by Sepideh Nicolas RN kr3 05/18 12:00 T-Sheet-- Draft Copy was scanned into [employer] and attached to record. gb 12:00 ECG/EKG was scanned into [employer] and attached to record. gb 12:00 PCR was scanned into [employer] and attached to record. gb Administered Medications: 05/17 05:44 Drug: NS 0.9% 1000 ml [sodium chloride 0.9 % intravenous solution] Route: IV; Rate: bcj bolus; Site: Implantable Access Device; 07:04 Follow up: IV Status: Completed infusion; IV Intake: 1000ml kr3 05:44 Drug: Ondansetron 4 mg Route: IVP; Site: Implantable Access Device; j 05:55 Drug: Acetaminophen 650 mg [acetaminophen 325 mg tablet (2 tabs)] Route: PO; bcj 07:02 Follow up: Response: Temperature is decreased kr3 06:48 Drug: Piperacillin-Tazobactam 3.375 grams [piperacillin-tazobactam 3.375 gram bcj intravenous solution] Route: IVPB; Infused Over: 30 mins; Site: Implantable Access Device; 07:51 Follow up: IV Status: Completed infusion; IV Intake: 50ml kr3 07:07 Drug: NS 0.9% (Sepsis- hypotension or lactate >4mmol/L, 30ml/kg) 2000 ml [sodium kr3 chloride 0.9 % intravenous solution] Route: IV; Rate: bolus; Site: Implantable Access Device; 07:54 Drug: vancomycin (loading dose for pt. wt. >= 80kg) 2000 mg Route: IVPB; Infused Over: kr3 1 hrs; Site: Implantable Access Device; 09:01 Follow up: IV Status: Completed infusion; IV Intake: 500ml kr3 09:08 Drug: diphenhydrAMINE 25 mg [diphenhydramine 50 mg/mL injection solution (0.5 mL)] kr3 Route: IVP; Site: Implantable Access Device; 09:30 Follow up: itchy has stopped kr3 Intake: 07:04 IV: 1000.00ml; Total: 1000.00ml. kr3 07:51 IV: 50.00ml; Total: 1050.00ml. kr3 09:01 IV: 500.00ml; Total: 1550.00ml. kr3 10:33 IV: 1000.00ml (NS); Total: 2550.00ml. kr3 Order Results: Lab Order: Basic Metabolic Profile; SPEC'M 05/17/16 05:36 Test: GLUCOSE, FASTING; Value: 416; Range: 70-105; Abnormal: Above upper panic limits; Units: MG/DL; Status: F Test: BLOOD UREA NITROGEN; Value: 7; Range: 7-18; Units: MG/DL; Status: F Test: CREATININE FOR GFR; Value: 0.89; Range: 0.55-1.02; Units: MG/DL; Status: F Test: GLOMERULAR FILTRATION RATE; Value: > 60.0; Range: >51; Status: F Test: SODIUM LEVEL; Value: 132; Range: 136-145; Abnormal: Below low normal; Units: MEQ/L; Status: F Test: POTASSIUM SERUM; Value: 3.2; Range: 3.5-5.1; Abnormal: Below low normal; Units: MEQ/L; Status: F Test: CHLORIDE LEVEL; Value: 91; Range: 98-107; Abnormal: Below low normal; Units: MEQ/L; Status: F Test: CARBON DIOXIDE LEVEL; Value: 28; Range: 21-32; Units: MEQ/L; Status: F Test: ANION GAP; Value: 13; Range: 8-16; Units: MEQ/L; Status: F Test: CALCIUM LEVEL; Value: 8.3; Range: 8.5-10.1; Abnormal: Below low normal; Units: MG/DL; Status: F Test Note: ; Units are mL/min/1.73 m2 Chronic Kidney Disease Staging per NKF: Stage I & II GFR >=60 Normal to Mildly Decreased Stage III GFR 30-59 Moderately Decreased Stage IV GFR 15-29 Severely Decreased Stage V GFR <15 Very Little GFR Left ESRD GFR <15 on ROLL CONTOUR GRINDER Lab Order: CBC with Diff; SPEC'M 05/17/16 05:36 Test: WHITE BLOOD COUNT; Value: 0.6; Range: 4.0-10.0; Abnormal: Critical Low; Units: K/mm3; Status: F Test: RED BLOOD COUNT; Value: 2.92; Range: 4.00-5.40; Abnormal: Below low normal; Units: M/mm3; Status: F Test: HEMOGLOBIN; Value: 8.8; Range: 12.0-16.0; Abnormal: Below low normal; Units: g/dl; Status: F Test: HEMATOCRIT; Value: 27.4; Range: 36.0-47.0; Abnormal: Below low normal; Units: %; Status: F Test: MEAN CORPUSCULAR VOLUME; Value: 93.9; Range: 80.0-96.0; Units: fl; Status: F Test: MEAN CORPUSCULAR HEMOGLOBIN; Value: 30.2; Range: 27.0-33.0; Units: pg; Status: F Test: MEAN CORPUSCULAR HGB CONC; Value: 32.2; Range: 32.0-36.5; Units: g/dl; Status: F Test: RED CELL DISTRIBUTION WIDTH; Value: 15.3; Range: 11.5-14.5; Abnormal: Above high normal; Units: %; Status: F Test: PLATELET COUNT, AUTOMATED; Value: 31; Range: 150-450; Abnormal: Below low normal; Units: k/mm3; Status: F Test: NEUTROPHILS %; Value: 25.8; Range: 36.0-66.0; Abnormal: Below low normal; Units: %; Status: F Test: LYMPH %; Value: 24.5; Range: 24.0-44.0; Units: %; Status: F Test: MONO %; Value: 36.4; Range: 0.0-5.0; Abnormal: Above high normal; Units: %; Status: F Test: EOS %; Value: 0.6; Range: 0.0-3.0; Units: %; Status: F Test: BASO %; Value: 0.0; Range: 0.0-1.0; Units: %; Status: F Test: LARGE UNSTAINED CELL %; Value: 12.7; Range: 0.0-4.0; Abnormal: Above high normal; Units: %; Status: F Test: NEUTROPHILS #; Value: 0.2; Range: 1.8-7.7; Abnormal: Below low normal; Units: K/mm3; Status: F Test: LYMPH #; Value: 0.2; Range: 1.5-4.5; Abnormal: Below low normal; Units: K/mm3; Status: F Test: MONO #; Value: 0.2; Range: 0.0-0.8; Units: K/mm3; Status: F Test: EOS #; Value: 0.0; Range: 0.0-0.50; Units: K/mm3; Status: F Test: BASO #; Value: 0.0; Range: 0.0-0.2; Units: K/mm3; Status: F Test: LARGE UNSTAINED CELL #; Value: 0.1; Range: 0.0-0.4; Units: K/mm3; Status: F Lab Order: Cardiac Injury Profile; SPEC'M 05/17/16 05:36 Test: CPK CREATINE PHOSPHOKINASE; Value: 59; Range: 26-192; Units: U/L; Status: F Test: CK-MB VALUE MASS; Value: 1.0; Range: 0.0-3.6; Units: NG/ML; Status: F Test: MB/CK RELATIVE INDEX; Value: 1.69; Range: < OR =4; Status: F Test Note: ; DIAGNOSIS CRITERIA MMB ng/ml Relative Index (RI) NON-AMI < or = 5 N/A LUCIO ZONE > 5 < or = 4 AMI > 5 > 4 Lab Order: Troponin; SPEC'M 05/17/16 05:36 Test: TROPONIN I; Value: 0.63; Range: < 0.10; Abnormal: Above high normal; Units: NG/ML; Status: F Test Note: ; Troponin I Reference Interval for [employer] LOCI: 99th Percentile= 0.00-0.045 ng/ml Risk Stratification: <= 0.10 ng/ml Decreased Risk for Adverse Clinical Events. 0.10-1.50 ng/ml Increased Risk for Adverse Clinical Events. Evaluation of additional criterion and/or repeat testing in 2-6 hours is suggested to rule out myocardial damage. >= 1.50 ng/ml Indicative of Myocardial Injury. Lab Order: -Influenza A&B Rapid Antigen - Nose; SPEC'M 05/17/16 06:05 Test: INFLUENZA A RAPID SCR by ICA; Value: INFLUENZA A RESULTS NEGATIVE; Status: F Test: INFLUENZA A RAPID SCR by ICA; Value: Comments:; Status: F Test: INFLUENZA B RAPID SCR by ICA; Value: INFLUENZA B RESULTS NEGATIVE; Status: F Test Note: ; The Influenza test is a direct rapid immunoassay for the qualitative detection of Influenza viral antigen. Cell culture (Viral Culture) testing should be considered to confirm NEGATIVE results and to assist in detecting other viruses that can provide similar clinical symptoms. Please contact the lab within 24 hours ([phone]) if confirmatory testing is desired. Lab Order: CBC WITH DIFFERENTIAL; SPEC'M 05/17/16 13:10 Test: WHITE BLOOD COUNT; Value: 0.6; Range: 4.0-10.0; Abnormal: Critical Low; Units: K/mm3; Status: F Test: RED BLOOD COUNT; Value: 2.33; Range: 4.00-5.40; Abnormal: Below low normal; Units: M/mm3; Status: F Test: HEMOGLOBIN; Value: 7.1; Range: 12.0-16.0; Abnormal: Below low normal; Units: g/dl; Status: F Test: HEMATOCRIT; Value: 21.8; Range: 36.0-47.0; Abnormal: Below low normal; Units: %; Status: F Test: MEAN CORPUSCULAR VOLUME; Value: 93.6; Range: 80.0-96.0; Units: fl; Status: F Test: MEAN CORPUSCULAR HEMOGLOBIN; Value: 30.3; Range: 27.0-33.0; Units: pg; Status: F Test: MEAN CORPUSCULAR HGB CONC; Value: 32.3; Range: 32.0-36.5; Units: g/dl; Status: F Test: RED CELL DISTRIBUTION WIDTH; Value: 15.7; Range: 11.5-14.5; Abnormal: Above high normal; Units: %; Status: F Test: PLATELET COUNT, AUTOMATED; Value: 25; Range: 150-450; Abnormal: Critical Low; Units: k/mm3; Status: F Test: NEUTROPHILS %; Value: 14.0; Range: 36.0-66.0; Abnormal: Below low normal; Units: %; Status: F Test: LYMPH %; Value: 43.6; Range: 24.0-44.0; Units: %; Status: F Test: MONO %; Value: 26.9; Range: 0.0-5.0; Abnormal: Above high normal; Units: %; Status: F Test: EOS %; Value: 0.9; Range: 0.0-3.0; Units: %; Status: F Test: BASO %; Value: 0.4; Range: 0.0-1.0; Units: %; Status: F Test: LARGE UNSTAINED CELL %; Value: 14.2; Range: 0.0-4.0; Abnormal: Above high normal; Units: %; Status: F Test: NEUTROPHILS #; Value: 0.1; Range: 1.8-7.7; Abnormal: Below low normal; Units: K/mm3; Status: F Test: LYMPH #; Value: 0.3; Range: 1.5-4.5; Abnormal: Below low normal; Units: K/mm3; Status: F Test: MONO #; Value: 0.2; Range: 0.0-0.8; Units: K/mm3; Status: F Test: EOS #; Value: 0.0; Range: 0.0-0.50; Units: K/mm3; Status: F Test: BASO #; Value: 0.0; Range: 0.0-0.2; Units: K/mm3; Status: F Test: LARGE UNSTAINED CELL #; Value: 0.1; Range: 0.0-0.4; Units: K/mm3; Status: F Lab Order: Fingerstick Blood Sugar; [facility] 05/17/16 13:10 Test: BEDSIDE GLUCOSE; Value: 385; Range: 70-105; Abnormal: Above high normal; Units: MG/DL; Status: F Lab Order: CARDIAC MARKER PANEL; [facility] 05/17/16 13:10 Test: CPK CREATINE PHOSPHOKINASE; Value: 79; Range: 26-192; Units: U/L; Status: F Test: CK-MB VALUE MASS; Value: 1.0; Range: 0.0-3.6; Units: NG/ML; Status: F Test: MB/CK RELATIVE INDEX; Value: 1.26; Range: < OR =4; Status: F Test: TROPONIN I; Value: 0.21; Range: < 0.10; Abnormal: High; Units: NG/ML; Status: F Test Note: ; DIAGNOSIS CRITERIA MMB ng/ml Relative Index (RI) NON-AMI < or = 5 N/A LUCIO ZONE > 5 < or = 4 AMI > 5 > 4 Radiology Order: portable chest Test: portable chest REASON FOR EXAMINATION: weakness; Clinical: Chest pain and weakness .; ; Comparison: 04/03/2016 .; ; Findings:; The mediastinum and cardiac silhouette are stable and within normal limits for; portable technique. [id number] extends into the right atrium. 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 mm11 17:05 Patient left the ED. [facility] Signatures: Dispatcher [employer] EDMS Kelsi Ann RN Kevin Piña RN Teresa Bolton RN Bianca Langford RN Nieves Johnston, Gary Rodrigues, Product Manager Unit ml3 Sepideh Nicolas RN RN kr3 Maynard, Matthew, DO mm11 Carlotta Salvador, MEDICAL PAYMENT POSTER MEDICAL PAYMENT POSTER Yancy Rojo,RN RN js Ha Olivier, MEDICAL PAYMENT POSTER MEDICAL PAYMENT POSTER jlf Cassidy Ogden,RN RN mlc Dillon Gallego, Reg Reg pm4 Corrections: (The following items were deleted from the chart) 09:08 09:01 Respiratory: Respiratory effort is even, unlabored, kr3 kr3 Chart Complete MTDD
[2016-05-19] MEDS ORDERED: SODIUM CHLORIDE 0.9% 1000 ML IV ONE (20:45)
[2016-05-19] MEDS: MICONAZOLE-7 VAGINAL 2% CREAM 47.7 GM PV SCH (21:26)
[2016-05-19] MEDS: TRIAMCINOLONE ACET 0.1% CREAM 15 GM TOP SCH (21:26)
[2016-05-20] MEDS: PIPERACILLIN/TAZOBACTAM SOD 3.375 GM in D5W MINI-BAG PLUS 50 ML IV SCH ×4 (00:19→19:49)
[2016-05-20 02:00] VITALS: BP 109/56
[2016-05-20] MEDS: diphenhydrAMINE 25 MG CAP PO SCH ×3 (05:01→17:05)
[2016-05-20 05:34] LABS: BASO % 0.3 % (0.0-1.0); EOS % 0.5 % (0.0-3.0); LARGE UNSTAINED CELL # 0.1 K/mm3 (0.0-0.4); LARGE UNSTAINED CELL % 3.3 % (0.0-4.0); LYMPH # 0.5 K/mm3 (1.5-4.5); LYMPH % 10.7 % (24.0-44.0); MEAN CORPUSCULAR HEMOGLOBIN 31.1 pg (27.0-33.0); MEAN CORPUSCULAR VOLUME 94.2 fl (80.0-96.0); MONO # 0.3 K/mm3 (0.0-0.8); MONO % 8.2 % (0.0-5.0); NEUTROPHILS # 2.7 K/mm3 (1.8-7.7); NEUTROPHILS % 76.9 % (36.0-66.0); RED CELL DISTRIBUTION WIDTH 15.7 % (11.5-14.5); WHITE BLOOD COUNT 3.4 K/mm3 (4.0-10.0)
[2016-05-20 05:35] LABS: PLATELET COUNT, AUTOMATED 26 k/mm3 (150-450)
[2016-05-20] MEDS: VANCOMYCIN HCL 750 MG, VIAL MATE ADAPTER 1 EACH in D5W 250 ML IV SCH (05:35)
[2016-05-20 05:49] LABS: ANION GAP 7 MEQ/L (8-16); BLOOD UREA NITROGEN 4 MG/DL (7-18); CALCIUM LEVEL 7.4 MG/DL (8.5-10.1); CARBON DIOXIDE LEVEL 28 MEQ/L (21-32); CHLORIDE LEVEL 107 MEQ/L (98-107); CREATININE FOR GFR 0.66 MG/DL (0.55-1.02); GLOMERULAR FILTRATION RATE > 60.0 (>51); GLUCOSE, FASTING 207 MG/DL (70-105); MAGNESIUM LEVEL 1.8 MG/DL (1.8-2.4); POTASSIUM SERUM 3.3 MEQ/L (3.5-5.1); SODIUM LEVEL 142 MEQ/L (136-145)
[2016-05-20 06:00] VITALS: BP 113/60
[2016-05-20] MEDS: HumaLOG INSULIN (NovoLOG) PER UNIT SC SCH ×4 (08:23→21:13)
[2016-05-20] MEDS: PANTOPRAZOLE 40MG TAB (PROTONIX) PO SCH (08:24)
[2016-05-20] MEDS: ATENOLOL 50 MG TAB PO SCH (08:24)
[2016-05-20] MEDS: POTASSIUM CHLORIDE 10 MEQ SR TABLET PO SCH ×3 (08:24→21:09)
[2016-05-20] MEDS: PARoxetine 20 MG TAB PO SCH (08:24)
[2016-05-20] MEDS: TRIAMCINOLONE ACET 0.1% CREAM 15 GM TOP SCH ×2 (08:25→21:10)
[2016-05-20] MEDS ORDERED: ATENOLOL 50 MG TAB PO SCH (09:00)
[2016-05-20 10:00] VITALS: BP 110/64
--- NOTE | 2016-05-20 11:23 | IPNPDOC ---
Subjective Date Seen The patient was seen on 05/20/16. Subjective Chief Complaint/HPI The patient is a 61-year-old female admitted with a reason for visit of Breast Cancer Diabetes Mellitus Fever Neutropenia. Events since last encounter Pt denies any new issues. States she is feeling better. She denies CP, SOB, Abd pain. Constitutional: Denies: Chills, Fever Pulmonary: Denies: Dyspnea Cardiovascular: Denies: Chest Pain Gastrointestinal: Denies: Abdominal Pain, Nausea, Vomiting Objective Physical Examination General Exam: Positive: Alert, No Acute Distress Neck Exam: Positive: Supple, Negative: JVD Chest Exam: Positive: Clear to auscultation Heart Exam: Positive: Rate Normal, Regular Rhythm Abdomen Exam: Positive: Normal bowel sounds, Soft, Negative: Tenderness Extremity Exam: Negative: Edema Assessment /Plan Problems (1) Neutropenia Status: Acute Problem Specific Plan: Monitor Clinically, Repeat Labs Problem Text: 05/20 - WBC 3.4. Neupogen was stopped after ANC >1000. Pt received chemo from Onc in [place] around May 07. 05/19 - WBC 2.0. ANC 1400. Plan was to stop the Neupogen when ANC above 1000. Pt received chemo from Onc in [place] around May 07. 05/18 - WBC 0.8. Neupogen was started. Pt received chemo from Onc in [place] around May 07. (2) Anemia Status: Acute Problem Specific Plan: Monitor Clinically, Repeat Labs Problem Text: 05/20 - Hgb 8.2. 05/19 - Hgb 8.0. D/W attending 05/18 - Received 1 unit PRBC. Hgb 8.5 (from 7.1). (3) Fever Status: Acute Problem Specific Plan: Monitor Clinically, Repeat Labs Problem Text: 05/20 - Currently afebrile. 05/19 - Currently afebrile. 05/18 - Currently afebrile. Tmax was 100.6 during night. IV Zosyn. (4) Pancytopenia Status: Acute Problem Specific Plan: Monitor Clinically, Repeat Labs Problem Text: 05/20 - WBC 3.4. Neupogen was stopped after ANC >1000. Pt received chemo from Onc in [place] around May 07. 05/19 - WBC 2.0. ANC 1400. Plan was to stop the Neupogen when ANC above 1000. Plts 34. Pt received chemo from Onc in [place] around May 07. 05/18 - WBC 0.8. Plts 28. Neupogen was started. Pt received chemo from Onc in [place] around May 07. (5) Pancytopenia due to chemotherapy Status: Acute Problem Specific Plan: Monitor Clinically, Repeat Labs Problem Text: 05/20 - WBC 3.4. Neupogen was stopped after ANC >1000. Pt received chemo from Onc in [place] around May 07. 05/19 - WBC 2.0. ANC 1400. Plan was to stop the Neupogen when ANC above 1000. Plts 34. Pt received chemo from Onc in [place] around May 07. (6) Breast cancer Status: Chronic Problem Specific Plan: Monitor Clinically, Repeat Labs Problem Text: Pt received chemo from Onc in [place] around May 07. (7) Diabetes mellitus Status: Chronic Problem Specific Plan: Monitor Clinically, Repeat Labs Problem Text: On SSI. (8) Sepsis Status: Acute Problem Specific Plan: Monitor Clinically, Repeat Labs Problem Text: On Zosyn. On Vanco. Pretreating with Benadryl. Pt tolerating the Vanco. (9) Hypokalemia Status: Acute Problem Specific Plan: Monitor Clinically, Repeat Labs Problem Text: Getting replacement. (10) Hypomagnesemia Status: Acute Problem Specific Plan: Monitor Clinically, Repeat Labs Problem Text: 05/20 - Mg 1.8 05/19 - Mag 1.3. Will give Mag runs. (11) Atrial fibrillation with RVR Status: Acute Problem Specific Plan: Monitor Clinically, Repeat Labs Problem Text: Converted Plan/VTE VTE Prophylaxis Ordered?: No Plan Attending attestation: I saw and evaluated the patient, and I agree with the plan of care as discussed and documented by Raghu Herbert. From heme standpoint, pt is stable now. No fevers in the past 48 hrs, cx negative. Will likely be able to discharge tomorrow. Dee Costa MD VS, I&O, 24H, [facility] Vital Signs/I&O Vital Signs Date Time Temp Pulse Resp B/P Pulse Ox O2 Delivery O2 Flow Rate FiO2 05/20/16 08:24 87 116/65 05/20/16 06:00 97.9 18 95 Room Air I&O- Last 24 Hours up to 6 AM 05/20/16 06:00 Intake Total 3155 ml Output Total 975 ml Balance 2180 ml Laboratory Data 24H LABS Laboratory Tests 2 05/19/16 11:27: Bedside Glucose (Misc Panel) 294H 05/19/16 16:32: Bedside Glucose (Misc Panel) 273H 05/19/16 21:03: Bedside Glucose (Misc Panel) 161H 05/20/16 05:14: Anion Gap 7L, White Blood Count 3.4L, Red Blood Count 2.63L, Hemoglobin 8.2L, Hematocrit 24.8L, Mean Corpuscular Volume 94.2, Mean Corpuscular Hemoglobin 31.1 , Mean Corpuscular Hemoglobin Concent 33.0, Red Cell Distribution Width 15.7H, Platelet Count 26*L, Neutrophils (%) (Auto) 76.9H, Lymphocytes (%) (Auto) 10.7L , Monocytes (%) (Auto) 8.2H, Eosinophils (%) (Auto) 0.5, Basophils (%) (Auto) 0.3, Neutrophils # (Auto) 2.7, Lymphocytes # (Auto) 0.5L, Monocytes # (Auto) 0.3 , Eosinophils # (Auto) 0.0, Basophils # (Auto) 0.0, Blood Urea Nitrogen 4L, Creatinine 0.66, Sodium Level 142, Potassium Level 3.3L, Chloride Level 107, Carbon Dioxide Level 28, Calcium Level 7.4L, Glomerular Filtration Rate > 60.0, Large Unclassified Cells # 0.1, Large Unclassified Cells % 3.3, Magnesium Level 1.8 CBC/BMP Laboratory Tests 05/20/16 05:14 Calcium Level 7.4 L, Red Blood Count 2.63 L, Mean Corpuscular Volume 94.2, Mean Corpuscular Hemoglobin 31.1, Mean Corpuscular Hemoglobin Concent 33.0, Red Cell Distribution Width 15.7 H, Neutrophils (%) (Auto) 76.9 H, Lymphocytes (%) (Auto ) 10.7 L, Monocytes (%) (Auto) 8.2 H, Eosinophils (%) (Auto) 0.5, Basophils (%) (Auto) 0.3, Neutrophils # (Auto) 2.7, Lymphocytes # (Auto) 0.5 L, Monocytes # ( Auto) 0.3, Eosinophils # (Auto) 0.0, Basophils # (Auto) 0.0 Microbiology Microbiology 05/17/16 Blood Culture - Preliminary, Resulted No Growth after 72 hours. All specime... 05/17/16 Blood Culture - Preliminary, Resulted No Growth after 72 hours. All specime... 05/19/16 Clostridium difficile (PCR) - Final, Complete 05/17/16 Stool Occult Blood (LEISA) - Final, Complete 05/17/16 Influenza Virus Type A Antigen - Final, Complete 05/17/16 Influenza Virus Type B Antigen - Final, Complete Deven Herbert May 20, 2016 11:23 DEE COSTA MD May 24, 2016 11:03
[2016-05-20] MEDS ORDERED: POTASSIUM CHLORIDE 10 MEQ SR TABLET PO ONE (11:45)
[2016-05-20 14:00] VITALS: BP 120/67
[2016-05-20] MEDS: NS 1,000 ML IV SCH (14:25)
--- NOTE | 2016-05-20 14:30 | PHACANCOPD ---
PHARMACY VANCOMYCIN DOSING Pt Demographics Demographics Patient Age:61 , Weight:91.100 , Gender: female Adjusted Body Weight Date: 05/17/16, Adjusted Body Weight: [69] Kg Events Past 24 Hours Events Past 24 Hours: NO: Change in CrCl, Dialysis, Diuretic Therapy, Elevation in WBC, Fever, Other, Pending Diagnostics, Pending Procedures Vancomycin Vancomycin indication: febrile neutropenia Vancomycin Target Ranges: 15-20 mcg/ml Vancomycin Load Y/N: Yes Load Dose Date Time Vancomycin Load Dose: 2000mg Date: 05/17 Time: 06:30 (ER) Vancomycin Dose Date: 05/20/16. Current Vancomycin Dose: [1G IV Q12H @18] Date: 05/17/16. Current Vancomycin Dose: [750mg IV q8h @14] Intermittent Dosing?: No Labs Labs Item Value Date Time Creatinine 0.64 MG/DL 05/19/16 0450 Creatinine 0.66 MG/DL 05/20/16 0514 Vital Signs Label Value Date Time Patient Temperature 98.3 degrees F 05/20/16 1000 Temperature Source Tympanic 05/20/16 1000 Micro Microbiology 05/17/16 Blood Culture - Preliminary, Resulted No Growth after 72 hours. All specime... 05/17/16 Blood Culture - Preliminary, Resulted No Growth after 72 hours. All specime... 05/19/16 Clostridium difficile (PCR) - Final, Complete 05/17/16 Stool Occult Blood (LEISA) - Final, Complete 05/17/16 Influenza Virus Type A Antigen - Final, Complete 05/17/16 Influenza Virus Type B Antigen - Final, Complete Creatinine Clearance Date:05/17/16. Creatinine Clearance: [74 ml/min using adjusted BW]. Pending Labs Vanco trough scheduled 05/19 @05:00 Assessment and Plan Maintaining Current Dose?: No Reason for dose change: Trough too high Pharmacist Note Pharmacist Note Date: 05/20/16. Pharmacist note: Trough came back today at 20.6mcg/ml. Creatinine clearance has remained level and half life for this patient is estimated at ~10 hours. The dose was held and therapy will continue with 1g q12h starting at 1800. 05/19/16: I have scheduled a trough 05/20/16 @1300, prior to the 6th dose. We will continue to monitor and make adjustments as needed. Date: 05/17/16. Pharmacist note: pt has been admitted for febrile neutropenia and has been started on Zosyn and Vancomycin. She has a Hx of breast cancer and receiving chemotherapy. She does not have any positive culture Hx at our facility and was last on vancomycin IV here in 04/2011. Based on that admission I have resumed similar dosing. She received a 2g load in the ER and I have started vanco 750mg IV q8h. I have a trough scheduled for Wednesday. We will continue to monitor. MONA ROSAS PHARMACY May 20, 2016 14:30
[2016-05-20] MEDS: VANCOMYCIN HCL 1,000 MG, VIAL MATE ADAPTER 1 EACH in D5W 250 ML IV SCH (17:37)
[2016-05-20 18:00] VITALS: BP 126/69
[2016-05-20] MEDS: MICONAZOLE-7 VAGINAL 2% CREAM 47.7 GM PV SCH (21:00)
[2016-05-20 22:00] VITALS: BP 116/60
[2016-05-21] MEDS: PIPERACILLIN/TAZOBACTAM SOD 3.375 GM in D5W MINI-BAG PLUS 50 ML IV SCH ×3 (00:46→13:19)
[2016-05-21 02:00] VITALS: BP 111/55
[2016-05-21] MEDS: diphenhydrAMINE 25 MG CAP PO SCH (05:04)
[2016-05-21] MEDS: VANCOMYCIN HCL 1,000 MG, VIAL MATE ADAPTER 1 EACH in D5W 250 ML IV SCH (05:30)
[2016-05-21 06:00] VITALS: BP 126/55
[2016-05-21 06:07] LABS: BASO % 0.1 % (0.0-1.0); EOS % 0.2 % (0.0-3.0); LARGE UNSTAINED CELL # 0.1 K/mm3 (0.0-0.4); LARGE UNSTAINED CELL % 3.4 % (0.0-4.0); LYMPH # 0.4 K/mm3 (1.5-4.5); LYMPH % 9.7 % (24.0-44.0); MEAN CORPUSCULAR HEMOGLOBIN 30.2 pg (27.0-33.0); MEAN CORPUSCULAR HGB CONC 31.7 g/dl (32.0-36.5); MEAN CORPUSCULAR VOLUME 95.4 fl (80.0-96.0); MONO # 0.3 K/mm3 (0.0-0.8); MONO % 8.7 % (0.0-5.0); NEUTROPHILS # 2.6 K/mm3 (1.8-7.7); NEUTROPHILS % 77.9 % (36.0-66.0); RED CELL DISTRIBUTION WIDTH 15.9 % (11.5-14.5); WHITE BLOOD COUNT 3.3 K/mm3 (4.0-10.0)
[2016-05-21 06:09] LABS: PLATELET COUNT, AUTOMATED 34 k/mm3 (150-450)
[2016-05-21 06:20] LABS: ANION GAP 9 MEQ/L (8-16); BLOOD UREA NITROGEN 4 MG/DL (7-18); CALCIUM LEVEL 7.7 MG/DL (8.5-10.1); CARBON DIOXIDE LEVEL 27 MEQ/L (21-32); CHLORIDE LEVEL 111 MEQ/L (98-107); CREATININE FOR GFR 0.85 MG/DL (0.55-1.02); GLOMERULAR FILTRATION RATE > 60.0 (>51); GLUCOSE, FASTING 184 MG/DL (70-105); POTASSIUM SERUM 3.9 MEQ/L (3.5-5.1); SODIUM LEVEL 147 MEQ/L (136-145)
[2016-05-21] MEDS: HumaLOG INSULIN (NovoLOG) PER UNIT SC SCH ×2 (08:50→13:18)
[2016-05-21] MEDS: POTASSIUM CHLORIDE 10 MEQ SR TABLET PO SCH (08:50)
[2016-05-21] MEDS: PARoxetine 20 MG TAB PO SCH (08:51)
[2016-05-21] MEDS: TRIAMCINOLONE ACET 0.1% CREAM 15 GM TOP SCH (08:51)
[2016-05-21] MEDS: PANTOPRAZOLE 40MG TAB (PROTONIX) PO SCH (08:51)
[2016-05-21 08:52] VITALS: BP 126/60
[2016-05-21] MEDS: ATENOLOL 50 MG TAB PO SCH (08:52)
[2016-05-21 10:00] VITALS: BP 112/50
[2016-05-21] MEDS ORDERED: AMOX500T2 PO (10:01)
[2016-05-21] MEDS ORDERED: SODIUM CHLORIDE 0.9% INJ 10 ML SYR IV PRN (14:15)
--- NOTE | 2016-05-22 07:31 | DSES ---
DATE OF ADMISSION: 05/17/2016 DATE OF DISCHARGE: 05/21/2016 HISTORY: This is a 61-year-old female patient of Dr. Costa who presented to [facility] Emergency Room with weakness. She has been under treatment for left breast cancer under the guidance of Dr. Criselda Marshall in [place], last chemotherapy was administered on May 07. The patient has noticed progressive weakness and diarrhea, some vaginal itching and she denied any fever although on presentation to the emergency room she was noted to have a temperature of 100.3. She was admitted to the hospital for leukopenia with potential sepsis. During her hospitalizations she has remained medically stable. Her white blood cell count was increased to 3.4. Neupogen has been stopped secondary to an ANC of greater than 1000. She will follow with Dr. Marshall in [place] for continued chemotherapy and for further followup. Her hemoglobin baseline runs approximately 8, this morning she is 7.8. She was 8.2 yesterday. She did receive a transfusion on 05/17 with a hemoglobin of 7.1. She does have orders to have her CBC monitored. She may require additional transfusions in the future although this can be arranged as an outpatient. She does feel comfortable with this as the plan. She was placed on Zofran and vancomycin on admission secondary to a fever. Her chest x-ray was benign. Her cultures have been negative. She did have a loose bowel movement although Clostridium difficile was obtained and was negative. Influenza was negative. Blood cultures have been negative. I will discharge her home on Augmentin. DISCHARGE DIAGNOSES: 1. Pancytopenia secondary to chemotherapy with neutropenia. 2. Anemia of chronic disease. 3. Fever. 4. Breast cancer. 5. Diabetes mellitus type 2. 6. Sepsis. 7. Hypokalemia. 8. Hypomagnesemia. 9. Atrial fibrillation with rapid ventricular rate which is converted. DISCHARGE MEDICATIONS: - Augmentin 500/125 one tablet by mouth three times a day times seven days - acetaminophen 650 mg every four hours as needed for pain - Ventolin HFA two puffs inhaled every four hours as needed for shortness of breath - atenolol 50 mg daily - Refresh Tears as needed for dry eyes - Neupogen per oncology - Paroxetine 20 mg daily - Januvia 100 mg by mouth daily Discharge plan will be to followup with Dr. Costa in one week. ACTIVITIES: As tolerated. DIET: Regular. She will followup with Dr. Marshall in the hematology center in [place] next week as scheduled.
[2016-05-22] MEDS ORDERED: SODIUM CHLORIDE 0.9% INJ 10 ML SYR IV SCH (09:00)
== END 2016-05-21 14:25 | disposition home health service (06) | DRG 871 ==
LOC: M ED 04:35 → M ED INP 12:38 → M PCU 17:04 → M MSPAV 05-19 22:00
PROVIDERS: ADMIT Family Medicine; ATTEND Family Medicine
PROC: 30253N1 (ICD-10-PCS; principal; 2016-05-17)
DX: A41.9 Sepsis, unspecified organism (principal); D61.810 Antineoplastic chemotherapy induced pancytopenia; C50.912 Malignant neoplasm of unspecified site of left female breast; E11.9 Type 2 diabetes mellitus without complications; I10 Essential (primary) hypertension; I48.91 Unspecified atrial fibrillation; D63.8 Anemia in other chronic diseases classified elsewhere; L65.9 Nonscarring hair loss, unspecified; D70.9 Neutropenia, unspecified; E83.42 Hypomagnesemia; F32.9 Major depressive disorder, single episode, unspecified; R26.81 Unsteadiness on feet; M81.0 Age-related osteoporosis without current pathological fracture; Z90.710 Acquired absence of both cervix and uterus; Z79.84 Long term (current) use of oral hypoglycemic drugs; Z79.82 Long term (current) use of aspirin; Z79.899 Other long term (current) drug therapy; Z87.891 Personal history of nicotine dependence

== ENCOUNTER → 2016-05-26 | Outpatient (REF) | payer MEDICARE, MEDICAID ==
[~2016-05-26] MED LIST changes: +AMOX500T2 PO; +FILG48VL SC; +PANT40TA2 PO; +POTA10CA PO; +REFR0.5D8 OU; +SMZ-800T PO; +[UNRECOGNIZED DRUG - CODE] PO
[2016-05-26 18:50] LABS: BASO % 0.2 % (0.0-1.0); EOS % 0.4 % (0.0-3.0); LARGE UNSTAINED CELL % 1.2 % (0.0-4.0); LYMPH # 0.6 K/mm3 (1.5-4.5); LYMPH % 15.5 % (24.0-44.0); MEAN CORPUSCULAR HEMOGLOBIN 30.7 pg (27.0-33.0); MEAN CORPUSCULAR HGB CONC 31.7 g/dl (32.0-36.5); MEAN CORPUSCULAR VOLUME 96.8 fl (80.0-96.0); MONO # 0.2 K/mm3 (0.0-0.8); MONO % 6.8 % (0.0-5.0); NEUTROPHILS # 2.7 K/mm3 (1.8-7.7); NEUTROPHILS % 75.9 % (36.0-66.0); WHITE BLOOD COUNT 3.6 K/mm3 (4.0-10.0)
[2016-05-26 18:51] LABS: PLATELET COUNT, AUTOMATED 58 k/mm3 (150-450)
== END ==
LOC: M SFHCPLAZ 16:02
PROVIDERS: ATTEND Family Medicine
DX: D61.818 Other pancytopenia (principal); E11.9 Type 2 diabetes mellitus without complications
CPT/HCPCS: 36415; 83036; 85025; G0463

== ENCOUNTER 2016-06-02 03:30 | Inpatient (IN) | payer MEDICARE, MEDICAID ==
[~2016-06-02] VITALS: Ht 162.6 cm; Wt 81.2 kg
[~2016-06-02 03:30] MED LIST changes: -PANT40TA2 PO; -POTA10CA PO; -SMZ-800T PO; -[UNRECOGNIZED DRUG - CODE] PO
--- NOTE | 2016-06-02 04:40 | REPUSA ---
CLINICAL HISTORY: Head trauma. TECHNIQUE: Multiple axial brain CT scan sections were obtained from base to vertex without contrast a dministration. COMMENTS: There is no evidence of skull fracture. The study shows normal configuration of sella turcica. There are no intra or extra-axial collections. There is no mass effect or midline shift. There is no evidence of hematoma formation. No hydrocephal us is present. No abnormal calcifications are noted. No significant abnormalities are seen either in the posterior fossa or supratentorial compartment. Mild chronic mucosal inflammatory changes of the maxillary sinuses and ethmoid air cells. IMPRESSION: Chronic mucosal inflammatory changes of the maxillary sinuses and ethmoid air cells. No evidence of acute intracranial pathology. No intracranial hemorrhage or skull fracture. Thank you for your kind referral of this patient.
--- NOTE | 2016-06-02 04:50 | REPUSA ---
HISTORY: Trauma. COMPARISON: Not provided. TECHNIQUE: Multiple thin section helically-acquired axially-displayed and helically acquired coronall y displayed computed tomographic images of the face are obtained from the mandible through the fronta l sinuses, with images obtained at soft tissue and bone window. 2D reformatted images were performed. FINDINGS: Right facial soft tissue contusion overlying the mandible. Normal bony mineralization. No fractures. Normal orbits. Mild chronic mucosal inflammatory changes of the maxillary sinuses and ethmoid air cells. Normal, clear paranasal sinuses. Normal oral and nasal cavities. Normal infratemporal fossa and deep parapharyngeal spaces with normal muscles of mastication. Normal parotid and submandibular glands. IMPRESSION: Right facial soft tissue contusion overlying the mandible. Mild chronic mucosal inflammatory changes of the maxillary sinuses and ethmoid air cells. Thank you for your kind referral of this patient
[2016-06-02] MEDS ORDERED: MORPHINE 2 MG/ML 1ML SYRINGE IV ONE (05:15)
[2016-06-02] MEDS ORDERED: MORPHINE 10 MG/ML 1ML VIAL IM ONE (05:30)
[2016-06-02 06:22] LABS: DIFF SLIDE NUMBER 107; MEAN CORPUSCULAR HEMOGLOBIN 30.7 pg (27.0-33.0); MEAN CORPUSCULAR HGB CONC 32.2 g/dl (32.0-36.5); MEAN CORPUSCULAR VOLUME 95.6 fl (80.0-96.0); RED CELL DISTRIBUTION WIDTH 15.5 % (11.5-14.5)
[2016-06-02 06:27] LABS: ANION GAP 10 MEQ/L (8-16); BLOOD UREA NITROGEN 15 MG/DL (7-18); CALCIUM LEVEL 7.7 MG/DL (8.5-10.1); CARBON DIOXIDE LEVEL 34 MEQ/L (21-32); CHLORIDE LEVEL 92 MEQ/L (98-107); GLOMERULAR FILTRATION RATE > 60.0 (>51); GLUCOSE, FASTING 387 MG/DL (70-105); POTASSIUM SERUM 2.7 MEQ/L (3.5-5.1); SODIUM LEVEL 136 MEQ/L (136-145)
[2016-06-02 06:39] LABS: PLATELET COUNT, AUTOMATED 26 k/mm3 (150-450); WHITE BLOOD COUNT 0.2 K/mm3 (4.0-10.0)
[2016-06-02] MEDS ORDERED: POTASSIUM CHLORIDE 10 MEQ SR TABLET PO ONE (06:45)
[2016-06-02] MEDS ORDERED: GLUCAGON FOR INJ 1 MG VIAL (J1610) SC PRN (07:00)
[2016-06-02] MEDS ORDERED: GLUCOSE 4 GM CHEW TABLET PO PRN (07:00)
[2016-06-02] MEDS ORDERED: DEXTROSE 50% 50 ML SYRINGE IV PRN (07:00)
[2016-06-02 07:14] LABS: BASO % 2.2 % (0.0-1.0); EOS % 0.8 % (0.0-3.0); LARGE UNSTAINED CELL % 9.7 % (0.0-4.0); LYMPH # 0.1 K/mm3 (1.5-4.5); LYMPH % 29.1 % (24.0-44.0); MONO % 15.8 % (0.0-5.0); NEUTROPHILS # 0.1 K/mm3 (1.8-7.7); NEUTROPHILS % 42.5 % (36.0-66.0)
--- NOTE | 2016-06-02 07:15 | HPE ---
DATE OF ADMISSION: 06/02/2016 REASON FOR ADMISSION: Fall secondary to weakness. PRIMARY CARE PROVIDER: Dr. Stanislav Costa HISTORY OF PRESENT ILLNESS: The patient is a 61-year-old female who presented with generalized weakness and a ground level fall. She stated she was walking and tripped. She had recent chemotherapy last and has been feeling weak ever since. She states the last two admissions were due to weakness after chemotherapy. The patient was admitted under hospitalist for the family practice group REVIEW OF SYSTEMS: 12-point review of systems obtained. The patient was only complaining of left-sided rib pain and facial swelling and pain. The rest of 12 point review of systems was negative. PAST MEDICAL HISTORY: Significant for breast cancer on chemotherapy, diabetes type 2, hypokalemia, anemia of chronic disease, history of atrial fibrillation with rapid ventricular rate (RVR). PAST SURGICAL HISTORY: Significant for cataract surgery and hysterectomy. MEDICATIONS: Reviewed. ALLERGIES: No known drug allergies. FAMILY HISTORY: Noncontributory. SOCIAL HISTORY: The patient lives alone. She is a nonsmoker and nondrinker. PHYSICAL FINDINGS: Blood pressure 110/82, respiratory rate 18, pulse 75, temperature 98.9, pulse oximetry 94% on room air. HEENT: Pupils equal round and reactive to light and accommodation. Neck: Supple. Cardiac: Regular rate and rhythm. Lungs: Clear to auscultation (CTA) bilaterally. Abdomen: Soft, nontender. Extremities: No clubbing, cyanosis or edema. LABORATORY FINDINGS: WBC 0.2, hemoglobin 8.4, hematocrit 26.2, platelet count 26. Sodium 136, potassium 2.7, chloride 92, BUN 15, creatinine 1, fasting glucose 387. CT of the head showed no evidence of acute intracranial pathology, no intracranial hemorrhage or skull fracture. Facial CT showed right facial soft tissue contusion overlying the mandible. ASSESSMENT AND PLAN: 1. Fall secondary to weakness. The patient was unable to go home due to increased weakness. We will consult physical therapy and occupational therapy for home safety evaluation. 2. Hypokalemia. Patient has history of chronic hypokalemia. We will order electrocardiogram (EKG) and check magnesium level. 3. Breast cancer, on chemotherapy. 4. Pancytopenia secondary to chemotherapy. Continue to monitor. No obvious sources of bleeding other than the facial hematoma at this time. We will defer to morning team for transfusion. 5. History of diabetes. The patient is on sliding scale and consistent carb diet. 6. History of atrial fibrillation. Will order an EKG at this time. 7. Deep vein thrombosis (DVT) prophylaxis. Sequential compression devices (SCDs) while in bed.
[2016-06-02 07:56] LABS: MAGNESIUM LEVEL 1.5 MG/DL (1.8-2.4)
[2016-06-02] MEDS: KCL 10MEQ IN 100ML SWI (KRUN) 10 MEQ in APPROPRIATE DILUENT 1 EA IV SCH ×10 (08:08→12:18)
[2016-06-02] MEDS: diphenhydrAMINE 25 MG CAP PO PRN (08:08)
[2016-06-02] MEDS: HumaLOG INSULIN (NovoLOG) PER UNIT SC SCH ×4 (08:08→21:48)
[2016-06-02 08:28] VITALS: BP 97/54
--- NOTE | 2016-06-02 09:19 | REP ---
Chest one-view HISTORY: Trauma Comparison: 05/17/2016 The lungs are clear. The heart is normal in size. The pulmonary vasculature is normal in appearance. An Hlxvir-E-Wwev catheter is present. Impression: No acute disease. Signed by Sandeep Day MD 06/02/2016 09:11 A
--- NOTE | 2016-06-02 10:38 | IPNPDOC ---
Subjective Date Seen The patient was seen on 06/02/16. Subjective Chief Complaint/HPI Pt notes that she tripped and fell at home, scraping her R face, denies LOC. She did after suffer from some dizziness which resolved within in a few moments. She feels weak, felt too weak to return home. She has stairs which she has to get up to get into her home. Definitely feels as though she could not get up these. General: Reports: Fatigue Constitutional: Reports: Weakness, Denies: Chills, Fever ENT: Denies: Head Aches Pulmonary: Reports: Dyspnea, Denies: Cough Cardiovascular: Denies: Chest Pain, Palpitations Gastrointestinal: Denies: Diarrhea, Nausea, Vomiting Neurological: Reports: Weakness Psych: Reports: Mood Normal Objective Physical Examination General Exam: Positive: Alert, No Acute Distress ENT Exam: Positive: Mucous membr. moist/pink Chest Exam: Positive: Clear to auscultation, Diminished Heart Exam: Positive: Normal S1, Normal S2, Rate Normal Abdomen Exam: Positive: Normal bowel sounds, Soft, Negative: Tenderness Extremity Exam: Negative: Edema Skin Exam: Positive: Other skin issue (R face with swelling, eccymosis, and abrasion) Assessment /Plan Problems (1) Weakness generalized Status: Acute Problem Specific Plan: Monitor Clinically Problem Text: PT ordered (2) Facial contusion Status: Acute Response to Treatment: Stable Problem Specific Plan: Monitor Clinically Problem Text: CT head and face without fractures (3) Hypokalemia Status: Acute Problem Specific Plan: Monitor Clinically, Repeat Labs Problem Text: Replacement ordered, Renal profile ordered for 3 pm (4) Hypomagnesemia Status: Acute Problem Specific Plan: Monitor Clinically, Repeat Labs Problem Text: Replacement ordered (5) Pancytopenia Status: Chronic Problem Specific Plan: Monitor Clinically Problem Text: favor chemo-induced 06/02 BCX x 2 P Plan/VTE VTE Prophylaxis Ordered?: No VS, I&O, 24H, Fishbone Vital Signs/I&O Vital Signs Date Time Temp Pulse Resp B/P Pulse Ox O2 Delivery O2 Flow Rate FiO2 06/02/16 09:25 98/52 06/02/16 09:17 100 97 Nasal Cannula 2 06/02/16 08:28 98.8 20 Laboratory Data 24H LABS Laboratory Tests 2 06/02/16 05:47: Anion Gap 10, White Blood Count 0.2*L, Red Blood Count 2.74L, Hemoglobin 8.4L, Hematocrit 26.2L, Mean Corpuscular Volume 95.6, Mean Corpuscular Hemoglobin 30.7 , Mean Corpuscular Hemoglobin Concent 32.2, Red Cell Distribution Width 15.5H, Platelet Count 26*L, Neutrophils (%) (Auto) 42.5, Lymphocytes (%) (Auto) 29.1, Monocytes (%) (Auto) 15.8H, Eosinophils (%) (Auto) 0.8, Basophils (%) (Auto) 2.2H, Neutrophils # (Auto) 0.1L, Lymphocytes # (Auto) 0.1L, Monocytes # (Auto) 0.0, Eosinophils # (Auto) 0.0, Basophils # (Auto) 0.0, Blood Urea Nitrogen 15, Creatinine 1.00, Sodium Level 136, Potassium Level 2.7*L, Chloride Level 92L, Carbon Dioxide Level 34H, Calcium Level 7.7L, Glomerular Filtration Rate > 60.0 , Large Unclassified Cells # 0.0, Large Unclassified Cells % 9.7H, Magnesium Level 1.5L, Platelet Estimate 06/02/16 08:01: Bedside Glucose (Misc Panel) 390H CBC/BMP Laboratory Tests 06/02/16 05:47 Calcium Level 7.7 L, Red Blood Count 2.74 L, Mean Corpuscular Volume 95.6, Mean Corpuscular Hemoglobin 30.7, Mean Corpuscular Hemoglobin Concent 32.2, Red Cell Distribution Width 15.5 H, Neutrophils (%) (Auto) 42.5, Lymphocytes (%) (Auto) 29.1, Monocytes (%) (Auto) 15.8 H, Eosinophils (%) (Auto) 0.8, Basophils (%) ( Auto) 2.2 H, Neutrophils # (Auto) 0.1 L, Lymphocytes # (Auto) 0.1 L, Monocytes # (Auto) 0.0, Eosinophils # (Auto) 0.0, Basophils # (Auto) 0.0 CATHRYN LINDSAY PA-C Jun 02, 2016 10:38 Bubba Cardoso M.D. Jun 02, 2016 16:50
[2016-06-02] MEDS: MUPIROCIN 2% OINT 22 GM TUBE TOP SCH ×2 (12:18→21:48)
[2016-06-02 12:35] VITALS: BP 139/68
[2016-06-02] MEDS ORDERED: MAG SULF 1GM/100ML (MAG RUN) 1 GM in APPROPRIATE DILUENT 1 EA IV ONE (13:00)
[2016-06-02] MEDS ORDERED: MAGNESIUM SULFATE 1 GM/100 ML D5W BAG (10MG/ML) (J3475) As Ordered ONE (13:44)
[2016-06-02 15:39] LABS: ALBUMIN 2.6 GM/DL (3.2-5.2); CALCIUM LEVEL 7.5 MG/DL (8.5-10.1); CREATININE FOR GFR 1.1 MG/DL (0.55-1.02); GLOMERULAR FILTRATION RATE 54.1 (>51); MAGNESIUM LEVEL 1.9 MG/DL (1.8-2.4); PHOSPHORUS LEVEL 1.3 MG/DL (2.5-4.9); POTASSIUM SERUM 3.2 MEQ/L (3.5-5.1)
[2016-06-02 16:00] VITALS: BP 116/59
--- NOTE | 2016-06-02 16:54 | ECGEPIP ---
Stationary ECG Study [facility] Test Date: 2016-06-02 Pat Name: RAND DAVE Department: Room: [place] [address] Gender: F Mobile Marketing Specialist: KENNEDY : 1955 Requested By: FAWN MCCONNELL Order Number: [id number] Reading MD: Liz Capone Measurements Intervals Ecru Rate: 96 P: 88 MN: 107 QRS: 75 QRSD: 85 T: 204 QT: 326 QTc: 414 Interpretive Statements SINUS RHYTHM WITH SHORT MN INTERVAL ST DEVIATION AND MODERATE T-WAVE ABNORMALITY, CONSIDER ANTEROLATERAL AND INFERIOR ISCHEMIA PRIOR WITH A FIB 05/18/16 Electronically Signed On 06-02-2016 16:54:00 EST by Liz Capone
[2016-06-02] MEDS ORDERED: NORCO, ANEXSIA 5/325MG TABLET (HYDROcodone/ACETAMINOPHEN) PO PRN (17:00)
[2016-06-02] MEDS ORDERED: ACETAMINOPHEN TAB 650MG DOSE (2X325MG) PO PRN (17:00)
[2016-06-02] MEDS: ACETAMINOPHEN TAB 650MG DOSE (2X325MG) PO PRN (17:18)
--- NOTE | 2016-06-02 19:49 | REP ---
THORACOLUMBAR SPINE: AP and lateral views of the thoracolumbar spine are performed. There are no compression fracture of the visualized vertebral bodies. There is normal thoracic kyphosis on alignment. There is moderate diffuse spurring. There is mild disc space narrowing and subchondral sclerosis at virtually all levels. There is mild curvature toward the right. The posterior elements are intact. IMPRESSION: Diffuse degenerative changes as above. Signed by Kwabena Dave MD 06/02/2016 08:13 P
[2016-06-02 20:00] VITALS: BP 101/51
[2016-06-03] VITALS (8 sets, daily range): BP systolic 114–170; BP diastolic 58–75
[2016-06-03] MEDS: NORCO, ANEXSIA 5/325MG TABLET (HYDROcodone/ACETAMINOPHEN) PO PRN ×3 (01:59→19:54)
[2016-06-03 06:30] LABS: BASO % 0.6 % (0.0-1.0); EOS % 3.3 % (0.0-3.0); LARGE UNSTAINED CELL % 16.7 % (0.0-4.0); LYMPH # 0.1 K/mm3 (1.5-4.5); LYMPH % 59.4 % (24.0-44.0); MEAN CORPUSCULAR HEMOGLOBIN 30.9 pg (27.0-33.0); MEAN CORPUSCULAR HGB CONC 32.5 g/dl (32.0-36.5); MEAN CORPUSCULAR VOLUME 95.1 fl (80.0-96.0); RED CELL DISTRIBUTION WIDTH 15.5 % (11.5-14.5)
[2016-06-03 06:31] LABS: PLATELET COUNT, AUTOMATED 16 k/mm3 (150-450); WHITE BLOOD COUNT 0.2 K/mm3 (4.0-10.0)
[2016-06-03 06:47] LABS: ALBUMIN 2.7 GM/DL (3.2-5.2); ALBUMIN/GLOBULIN RATIO 0.82 (1.00-1.93); ALKALINE PHOSPHATASE 62 U/L (45-117); ALT/SGPT 19 U/L (12-78); ANION GAP 8 MEQ/L (8-16); AST/SGOT 22 U/L (15-37); BILIRUBIN,TOTAL 0.5 MG/DL (0.2-1.0); BLOOD UREA NITROGEN 16 MG/DL (7-18); CALCIUM LEVEL 7.5 MG/DL (8.5-10.1); CARBON DIOXIDE LEVEL 34 MEQ/L (21-32); CHLORIDE LEVEL 95 MEQ/L (98-107); CREATININE FOR GFR 0.92 MG/DL (0.55-1.02); GLOMERULAR FILTRATION RATE > 60.0 (>51); GLUCOSE, FASTING 297 MG/DL (70-105); MAGNESIUM LEVEL 1.7 MG/DL (1.8-2.4); POTASSIUM SERUM 3.4 MEQ/L (3.5-5.1); SODIUM LEVEL 137 MEQ/L (136-145)
[2016-06-03] MEDS: HumaLOG INSULIN (NovoLOG) PER UNIT SC SCH ×4 (08:59→20:33)
[2016-06-03] MEDS: SODIUM CHLORIDE 0.9% INJ 10 ML SYR IV SCH (09:00)
[2016-06-03] MEDS: MUPIROCIN 2% OINT 22 GM TUBE TOP SCH ×2 (09:09→20:33)
--- NOTE | 2016-06-03 10:35 | IPNPDOC ---
Subjective Date Seen The patient was seen on 06/03/16. Subjective Chief Complaint/HPI The patient is a 61-year-old female admitted with a reason for visit of Weakness Generalized. Events since last encounter Continues with nausea and weakness. Received several runs of potassium and magnesium yesterday. Constitutional: Reports: Malaise, Denies: Chills, Fever, Night Sweats ENT: Denies: Dysphagia, Ear Pain, Head Aches Skin: Denies: Breakdown, Lesions, Rash Pulmonary: Denies: Cough, Dyspnea Gastrointestinal: Reports: Nausea, Denies: Abdominal Pain, Constipation, Diarrhea, Vomiting Genitourinary: Denies: Dysuria, Frequency, Incontinence, Retention Hematologic: Reports: Bruising (to face after fall) Psych: Reports: Mood Normal Objective Physical Examination General Exam: Positive: Alert, No Acute Distress ENT Exam: Positive: Mucous membr. moist/pink Chest Exam: Positive: Clear to auscultation, Diminished Heart Exam: Positive: Normal S1, Normal S2, Rate Normal Abdomen Exam: Positive: Normal bowel sounds, Soft, Negative: Tenderness Extremity Exam: Negative: Edema Skin Exam: Positive: Other skin issue (R face with swelling, eccymosis, and abrasion) Assessment /Plan Problems (1) Chemotherapy-induced thrombocytopenia Status: Acute Problem Text: platelets 16 today. (2) Chemotherapy-induced neutropenia Status: Acute Problem Text: WBC 0.2. Receives Neulasta post chemo weekly. last dose 05/28/2016. consider Neupogen if WBC remains low in am. (3) Hypomagnesemia Status: Acute Problem Specific Plan: Monitor Clinically, Repeat Labs Problem Text: Mag 1.7: Mag RUN x 1. Replacement ordered (4) Weakness generalized Status: Acute Problem Specific Plan: Monitor Clinically Problem Text: PT ordered (5) Facial contusion Status: Acute Response to Treatment: Stable Problem Specific Plan: Monitor Clinically Problem Text: CT head and face without fractures (6) Hypokalemia Status: Acute Problem Specific Plan: Monitor Clinically, Repeat Labs Problem Text: 06/03: K+ 3.4. order 2 runs KCL (7) Pancytopenia Status: Chronic Problem Specific Plan: Monitor Clinically Problem Text: favor chemo-induced 06/02 BCX x 2 P Plan/VTE VTE Prophylaxis Ordered?: No Plan Family Medicine Attending Note: Patient seen and examined today; I d/w Shannon Samaniego NP and I agree with her note. Patient is c/o low back pain today; x- ray of back shows diffuse degenerative changes only. There is no bruising on her back. She is also c/o mild diffuse abdominal pain - abdomen is soft and nontender to palpation; she states she was able to tolerate a small lunch today without nausea or vomiting. She is pancytopenic, likely from chemotherapy. Per ASCO guidelines, threshold for platelet transfusion is <10,000. Neupogen given today for leukopenia. Anticoagulation is being held. I encouraged her to continue to work with PT to regain her strength. (KES) VS, I&O, 24H, Fishbone Vital Signs/I&O Vital Signs Date Time Temp Pulse Resp B/P Pulse Ox O2 Delivery O2 Flow Rate FiO2 06/03/16 09:11 18 Room Air 06/03/16 08:00 98.4 108 137/75 97 06/02/16 20:00 1.0 I&O- Last 24 Hours up to 6 AM 06/03/16 05:59 Intake Total 2280 ml Output Total 350 ml Balance 1930 ml Laboratory Data 24H LABS Laboratory Tests 2 06/02/16 12:17: Bedside Glucose (Misc Panel) 224H 06/02/16 15:08: Albumin 2.6L, Blood Urea Nitrogen 17, Creatinine 1.10H, Sodium Level 137, Potassium Level 3.2L, Chloride Level 95L, Carbon Dioxide Level 34H, Anion Gap 8 , Calcium Level 7.5L, Glomerular Filtration Rate 54.1, Magnesium Level 1.9, Phosphorus Level 1.3L 06/02/16 16:30: Bedside Glucose (Misc Panel) 245H 06/02/16 21:09: Bedside Glucose (Misc Panel) 283H 06/03/16 06:07: Blood Urea Nitrogen 16, Creatinine 0.92, Sodium Level 137, Potassium Level 3.4L , Chloride Level 95L, Carbon Dioxide Level 34H, Calcium Level 7.5L, Aspartate Amino Transf (AST/SGOT) 22, Alanine Aminotransferase (ALT/SGPT) 19, Alkaline Phosphatase 62, Total Bilirubin 0.5, Total Protein 6.0L, Albumin 2.7L, Albumin/ Globulin Ratio 0.82L, Anion Gap 8, White Blood Count 0.2*L, Red Blood Count 2.35L, Hemoglobin 7.3L, Hematocrit 22.4L, Mean Corpuscular Volume 95.1, Mean Corpuscular Hemoglobin 30.9, Mean Corpuscular Hemoglobin Concent 32.5, Red Cell Distribution Width 15.5H, Platelet Count 16*L, Neutrophils (%) (Auto) 10.0L, Lymphocytes (%) (Auto) 59.4H, Monocytes (%) (Auto) 10.0H, Eosinophils (%) (Auto ) 3.3H, Basophils (%) (Auto) 0.6, Neutrophils # (Auto) 0.0L, Lymphocytes # (Auto ) 0.1L, Monocytes # (Auto) 0.0, Eosinophils # (Auto) 0.0, Basophils # (Auto) 0.0 , Glomerular Filtration Rate > 60.0, Large Unclassified Cells # 0.0, Large Unclassified Cells % 16.7H, Magnesium Level 1.7L CBC/BMP Laboratory Tests 06/02/16 15:08 Anion Gap 8 06/03/16 06:07 Calcium Level 7.5 L, Aspartate Amino Transf (AST/SGOT) 22, Alanine Aminotransferase (ALT/SGPT) 19, Alkaline Phosphatase 62, Total Bilirubin 0.5, Total Protein 6.0 L, Albumin 2.7 L, Red Blood Count 2.35 L, Mean Corpuscular Volume 95.1, Mean Corpuscular Hemoglobin 30.9, Mean Corpuscular Hemoglobin Concent 32.5, Red Cell Distribution Width 15.5 H, Neutrophils (%) (Auto) 10.0 L , Lymphocytes (%) (Auto) 59.4 H, Monocytes (%) (Auto) 10.0 H, Eosinophils (%) ( Auto) 3.3 H, Basophils (%) (Auto) 0.6, Neutrophils # (Auto) 0.0 L, Lymphocytes # (Auto) 0.1 L, Monocytes # (Auto) 0.0, Eosinophils # (Auto) 0.0, Basophils # ( Auto) 0.0 Microbiology Microbiology 06/02/16 Blood Culture, Received Pending Shannon Samaniego Jun 03, 2016 10:35 DAI BHAKTA MD Jun 03, 2016 15:17
[2016-06-03] MEDS ORDERED: MAG SULF 1GM/100ML (MAG RUN) 1 GM in APPROPRIATE DILUENT 1 EA IV ONE (11:00)
[2016-06-03] MEDS: KCL 10MEQ IN 100ML SWI (KRUN) 10 MEQ in APPROPRIATE DILUENT 1 EA IV SCH ×4 (11:32→14:22)
[2016-06-03] MEDS: FILGRASTIM 300 MCG/0.5 ML SYRINGE (J1442) SC SCH (14:24)
[2016-06-03] MEDS: ONDANSETRON 4MG/2ML VIAL (J2405) IV PRN (17:19)
[2016-06-04] MEDS: SODIUM CHLORIDE 0.9% INJ 10 ML SYR IV PRN ×2 (05:19→17:32)
[2016-06-04 05:41] LABS: BASO % 2.8 % (0.0-1.0); EOS % 2.5 % (0.0-3.0); LARGE UNSTAINED CELL # 0.1 K/mm3 (0.0-0.4); LARGE UNSTAINED CELL % 21.1 % (0.0-4.0); LYMPH # 0.1 K/mm3 (1.5-4.5); LYMPH % 37.6 % (24.0-44.0); MEAN CORPUSCULAR HEMOGLOBIN 29.9 pg (27.0-33.0); MEAN CORPUSCULAR HGB CONC 32.3 g/dl (32.0-36.5); MEAN CORPUSCULAR VOLUME 92.5 fl (80.0-96.0); MONO # 0.1 K/mm3 (0.0-0.8); MONO % 21.1 % (0.0-5.0); NEUTROPHILS # 0.1 K/mm3 (1.8-7.7); NEUTROPHILS % 15.1 % (36.0-66.0); WHITE BLOOD COUNT 0.3 K/mm3 (4.0-10.0)
[2016-06-04 05:42] LABS: PLATELET COUNT, AUTOMATED 16 k/mm3 (150-450)
[2016-06-04 06:00] VITALS: BP 125/59
[2016-06-04 06:40] LABS: ALBUMIN 2.5 GM/DL (3.2-5.2); ALBUMIN/GLOBULIN RATIO 0.74 (1.00-1.93); ALKALINE PHOSPHATASE 57 U/L (45-117); ALT/SGPT 16 U/L (12-78); ANION GAP 8 MEQ/L (8-16); AST/SGOT 16 U/L (15-37); BILIRUBIN,TOTAL 0.5 MG/DL (0.2-1.0); BLOOD UREA NITROGEN 13 MG/DL (7-18); CALCIUM LEVEL 7.8 MG/DL (8.5-10.1); CARBON DIOXIDE LEVEL 32 MEQ/L (21-32); CHLORIDE LEVEL 95 MEQ/L (98-107); CREATININE FOR GFR 0.83 MG/DL (0.55-1.02); GLOMERULAR FILTRATION RATE > 60.0 (>51); GLUCOSE, FASTING 246 MG/DL (70-105); MAGNESIUM LEVEL 1.6 MG/DL (1.8-2.4); POTASSIUM SERUM 3.1 MEQ/L (3.5-5.1); SODIUM LEVEL 135 MEQ/L (136-145); TOTAL PROTEIN 5.9 GM/DL (6.4-8.2)
[2016-06-04] MEDS: ACETAMINOPHEN TAB 650MG DOSE (2X325MG) PO PRN ×2 (06:47→15:22)
[2016-06-04] MEDS: SODIUM CHLORIDE 0.9% INJ 10 ML SYR IV SCH (09:31)
[2016-06-04] MEDS: HumaLOG INSULIN (NovoLOG) PER UNIT SC SCH ×4 (09:31→21:30)
[2016-06-04] MEDS: MUPIROCIN 2% OINT 22 GM TUBE TOP SCH ×2 (09:32→21:30)
[2016-06-04] MEDS: FILGRASTIM 300 MCG/0.5 ML SYRINGE (J1442) SC SCH (11:11)
--- NOTE | 2016-06-04 11:39 | IPNPDOC ---
Subjective Date Seen The patient was seen on 06/04/16. Subjective Chief Complaint/HPI Pt is feeling pretty good this morning. notes some improvement in her strength General: Denies: Fatigue Constitutional: Denies: Chills, Fever Pulmonary: Denies: Cough, Dyspnea Cardiovascular: Denies: Chest Pain, Palpitations Gastrointestinal: Denies: Diarrhea, Nausea, Vomiting Neurological: Reports: Weakness Psych: Reports: Mood Normal Objective Physical Examination General Exam: Positive: Alert, No Acute Distress ENT Exam: Positive: Mucous membr. moist/pink Chest Exam: Positive: Clear to auscultation, Diminished Heart Exam: Positive: Normal S1, Normal S2, Rate Normal Abdomen Exam: Positive: Normal bowel sounds, Soft, Negative: Tenderness Extremity Exam: Negative: Edema Skin Exam: Positive: Other skin issue (R face with swelling, eccymosis, and abrasion) Assessment /Plan Problems (1) Chemotherapy-induced thrombocytopenia Status: Acute Problem Text: 06/04 platelets 16 today, stable c/w yesterday. (2) Chemotherapy-induced neutropenia Status: Acute Problem Text: 06/04 WBC 0.3. Receives Neulasta post chemo weekly. last dose 05/28/2016. Neupogen started 06/03.. (3) Hypomagnesemia Status: Acute Problem Specific Plan: Monitor Clinically, Repeat Labs Problem Text: 06/04 Mag 1.6: start po replacement. (4) Weakness generalized Status: Acute Problem Specific Plan: Monitor Clinically Problem Text: PT ordered (5) Facial contusion Status: Acute Response to Treatment: Stable Problem Specific Plan: Monitor Clinically Problem Text: CT head and face without fractures (6) Hypokalemia Status: Acute Problem Specific Plan: Monitor Clinically, Repeat Labs Problem Text: 06/04- K+ 3.1, give po replacement 06/03: K+ 3.4. order 2 runs KCL (7) Pancytopenia Status: Chronic Problem Specific Plan: Monitor Clinically Problem Text: favor chemo-induced 06/02 BCX x 2 P (8) Anemia Status: Acute Problem Text: Likely chemotherapy-induced; 2 U pRBCs given this morning. Will recheck CBC tomorrow. Plan/VTE VTE Prophylaxis Ordered?: No Plan Family Medicine Attending Note: Patient seen and examined early this morning; I discussed her care with Cathryn Lindsay PA-C and I agree with her note. Patient is weak and pancytopenic s/p chemo, which is typical for her. As Hgb <7 this morning, will transfuse 2 U pRBCs (consent obtained and signed this morning). Continue neupagen for neutropenia. Monitor thrombocytopenia and transfuse plt if <10,000. Replete K+, Mag+ as above. Continue PT - will plan to discharge once patient is stronger and safe for discharge. (KES) VS, I&O, 24H, Fishbone Vital Signs/I&O Vital Signs Date Time Temp Pulse Resp B/P Pulse Ox O2 Delivery O2 Flow Rate FiO2 06/04/16 06:00 100.0 119 18 125/59 94 06/03/16 20:40 Room Air 06/02/16 20:00 1.0 I&O- Last 24 Hours up to 6 AM 06/04/16 06:00 Intake Total 900 ml Output Total 750 ml Balance 150 ml Laboratory Data 24H LABS Laboratory Tests 2 06/03/16 12:40: Bedside Glucose (Misc Panel) 248H 06/03/16 17:05: Bedside Glucose (Misc Panel) 353H 06/03/16 20:31: Bedside Glucose (Misc Panel) 222H 06/04/16 05:26: Blood Urea Nitrogen 13, Creatinine 0.83, Sodium Level 135L, Potassium Level 3.1L , Chloride Level 95L, Carbon Dioxide Level 32, Calcium Level 7.8L, Aspartate Amino Transf (AST/SGOT) 16, Alanine Aminotransferase (ALT/SGPT) 16, Alkaline Phosphatase 57, Total Bilirubin 0.5, Total Protein 5.9L, Albumin 2.5L, Albumin/ Globulin Ratio 0.74L, Anion Gap 8, White Blood Count 0.3*L, Red Blood Count 2.30L, Hemoglobin 6.9*L, Hematocrit 21.3L, Mean Corpuscular Volume 92.5, Mean Corpuscular Hemoglobin 29.9, Mean Corpuscular Hemoglobin Concent 32.3, Red Cell Distribution Width 15.0H, Platelet Count 16*L, Neutrophils (%) (Auto) 15.1L, Lymphocytes (%) (Auto) 37.6, Monocytes (%) (Auto) 21.1H, Eosinophils (%) (Auto) 2.5, Basophils (%) (Auto) 2.8H, Neutrophils # (Auto) 0.1L, Lymphocytes # (Auto) 0.1L, Monocytes # (Auto) 0.1, Eosinophils # (Auto) 0.0, Basophils # (Auto) 0.0, Glomerular Filtration Rate > 60.0, Large Unclassified Cells # 0.1, Large Unclassified Cells % 21.1H, Magnesium Level 1.6L CBC/BMP Laboratory Tests 06/04/16 05:26 Calcium Level 7.8 L, Aspartate Amino Transf (AST/SGOT) 16, Alanine Aminotransferase (ALT/SGPT) 16, Alkaline Phosphatase 57, Total Bilirubin 0.5, Total Protein 5.9 L, Albumin 2.5 L, Red Blood Count 2.30 L, Mean Corpuscular Volume 92.5, Mean Corpuscular Hemoglobin 29.9, Mean Corpuscular Hemoglobin Concent 32.3, Red Cell Distribution Width 15.0 H, Neutrophils (%) (Auto) 15.1 L , Lymphocytes (%) (Auto) 37.6, Monocytes (%) (Auto) 21.1 H, Eosinophils (%) ( Auto) 2.5, Basophils (%) (Auto) 2.8 H, Neutrophils # (Auto) 0.1 L, Lymphocytes # (Auto) 0.1 L, Monocytes # (Auto) 0.1, Eosinophils # (Auto) 0.0, Basophils # ( Auto) 0.0 Microbiology Microbiology 06/02/16 Blood Culture - Preliminary, Resulted No growth after 24 hours . All specim... CATHRYN LINDSAY PA-C Jun 04, 2016 11:39 DAI BHAKTA MD Jun 04, 2016 13:08
[2016-06-04] MEDS ORDERED: POTASSIUM CHLORIDE 10 MEQ SR TABLET PO ONE (11:45)
[2016-06-04] MEDS: MAGNESIUM OXIDE 400 MG TAB (MAG-OX) PO SCH ×2 (12:51→21:30)
[2016-06-04 14:00] VITALS: BP 137/65
--- NOTE | 2016-06-04 16:55 | REP ---
PORTABLE CHEST: AP portable view of the chest is performed and compared to prior study of 04/03/2016. There is no acute infiltrate. Cardiomediastinal silhouette is unchanged. Left Mediport catheter is again noted. IMPRESSION: Stable exam with no acute infiltrate. Signed by Kwabena Dave MD 06/04/2016 04:57 P
[2016-06-04] MEDS: NORCO, ANEXSIA 5/325MG TABLET (HYDROcodone/ACETAMINOPHEN) PO PRN (18:57)
[2016-06-04 22:00] VITALS: BP 130/58
[2016-06-05] MEDS ORDERED: LevoFLOXacin IV 500 MG in APPROPRIATE DILUENT 1 EA IV SCH ×2
[2016-06-05] MEDS: ACETAMINOPHEN TAB 650MG DOSE (2X325MG) PO PRN ×2 (00:26→14:06)
[2016-06-05] MEDS: ONDANSETRON 4MG/2ML VIAL (J2405) IV PRN (00:50)
[2016-06-05] MEDS: NORCO, ANEXSIA 5/325MG TABLET (HYDROcodone/ACETAMINOPHEN) PO PRN ×2 (00:51→22:52)
[2016-06-05 05:46] LABS: DIFF SLIDE NUMBER 17; MEAN CORPUSCULAR HEMOGLOBIN 30.6 pg (27.0-33.0); MEAN CORPUSCULAR HGB CONC 34.2 g/dl (32.0-36.5); MEAN CORPUSCULAR VOLUME 89.2 fl (80.0-96.0); RED CELL DISTRIBUTION WIDTH 15.4 % (11.5-14.5); WHITE BLOOD COUNT 1.1 K/mm3 (4.0-10.0)
[2016-06-05 05:48] LABS: PLATELET COUNT, AUTOMATED 17 k/mm3 (150-450)
[2016-06-05 06:00] VITALS: BP 130/66
[2016-06-05 07:58] LABS: BANDS 1 % (< 11); BASOPHILS 1 % (0-4)
[2016-06-05 07:59] LABS: ANISOCYTOSIS 1+; DOHLE BODIES 1+
[2016-06-05] MEDS: MAGNESIUM OXIDE 400 MG TAB (MAG-OX) PO SCH ×2 (08:51→21:53)
[2016-06-05] MEDS: HumaLOG INSULIN (NovoLOG) PER UNIT SC SCH ×5 (08:51→21:54)
[2016-06-05] MEDS: POTASSIUM CHLORIDE 10 MEQ SR TABLET PO SCH (08:51)
[2016-06-05] MEDS: MUPIROCIN 2% OINT 22 GM TUBE TOP SCH ×2 (08:52→21:55)
[2016-06-05] MEDS: SODIUM CHLORIDE 0.9% INJ 10 ML SYR IV SCH (08:52)
[2016-06-05 09:08] LABS: ALBUMIN 2.4 GM/DL (3.2-5.2); ALBUMIN/GLOBULIN RATIO 0.65 (1.00-1.93); BILIRUBIN,TOTAL 0.9 MG/DL (0.2-1.0); CALCIUM LEVEL 7.5 MG/DL (8.5-10.1); CREATININE FOR GFR 1.06 MG/DL (0.55-1.02); GLOMERULAR FILTRATION RATE 56.5 (>51); MAGNESIUM LEVEL 1.5 MG/DL (1.8-2.4); POTASSIUM SERUM 3.6 MEQ/L (3.5-5.1); TOTAL PROTEIN 6.1 GM/DL (6.4-8.2)
[2016-06-05] MEDS: FILGRASTIM 300 MCG/0.5 ML SYRINGE (J1442) SC SCH (10:24)
[2016-06-05] MEDS ORDERED: MAG SULF 1GM/100ML (MAG RUN) 1 GM in APPROPRIATE DILUENT 1 EA IV ONE (12:15)
--- NOTE | 2016-06-05 12:32 | IPNPDOC ---
Subjective Date Seen The patient was seen on 06/05/16. Subjective Chief Complaint/HPI The patient is a 61-year-old female admitted with a reason for visit of Weakness Generalized. Events since last encounter Patient states she fees a little bit better today; she worked with PT briefly and was able to walk around her room, General: Denies: Chills, Fatigue, Malaise, Night Sweats Eyes: Denies: Pain ENT: Denies: Head Aches Skin: Denies: Lesions, Rash Pulmonary: Denies: Cough, Dyspnea Cardiovascular: Denies: Chest Pain Gastrointestinal: Denies: Abdominal Pain, Diarrhea, Nausea, Vomiting Genitourinary: Denies: Dysuria Neurological: Reports: Weakness (generalized) Objective Physical Examination General Exam: Positive: Alert, No Acute Distress ENT Exam: Positive: Mucous membr. moist/pink Chest Exam: Positive: Clear to auscultation, Normal air movement, Negative: Rales, Rhonchi, Wheezing Heart Exam: Positive: Normal S1, Normal S2, Rate Normal, Regular Rhythm Abdomen Exam: Positive: Normal bowel sounds, Soft, Negative: Tenderness Extremity Exam: Negative: Edema Skin Exam: Positive: Other skin issue (R face with swelling, eccymosis, and abrasion; no rashes or sacral ulcers) Assessment /Plan Problems (1) Fever and neutropenia Status: Acute Problem Text: Fever to 101.3 overnight. Levaquin x1 given overnight. Patient is high-risk as fever developed in the hospital; will switch to Cefepime 2 g Q8H pseudomonas coverage. - CXR done yesterday negative for infection. - Blood cultures and urine culture pending. - Skin exam today shows no rashes or cellulitis. - No other obvious source of infection. (2) Chemotherapy-induced thrombocytopenia Status: Acute Problem Text: 06/05 - Plt stable at 17,000 today (3) Chemotherapy-induced neutropenia Status: Acute Problem Text: 06/05 - WBCs improved today to 1.1 06/04 WBC 0.3. Receives Neulasta post chemo weekly. Last dose 05/28/2016. Neupogen started 06/03. (4) Hypomagnesemia Status: Acute Problem Specific Plan: Monitor Clinically, Repeat Labs Problem Text: 06/05 - Mag remains low despite PO replacement; patient was quite hypokalemic upon admission; Mag run x1 ordered for today 06/04 Mag 1.6: start po replacement. (5) Weakness generalized Status: Acute Problem Specific Plan: Monitor Clinically Problem Text: PT ordered (6) Facial contusion Status: Acute Response to Treatment: Stable Problem Specific Plan: Monitor Clinically Problem Text: CT head and face without fractures (7) Hypokalemia Status: Acute Problem Specific Plan: Monitor Clinically, Repeat Labs Problem Text: 06/05 - K+ better today with PO replacement. 06/04- K+ 3.1, give po replacement 06/03: K+ 3.4. order 2 runs KCL (8) Pancytopenia Status: Chronic Problem Specific Plan: Monitor Clinically Problem Text: favor chemo-induced 06/02 BCX x NGTD; repeat BCX 06/04 pending. (9) Anemia Status: Acute Problem Text: 06/05 - H/H improved this morning s/p 2U pRBCs. 06/04 -Likely chemotherapy-induced; 2 U pRBCs given this morning. Will recheck CBC tomorrow. Plan/VTE VTE Prophylaxis Ordered?: No VS, I&O, [facility]O Vital Signs Date Time Temp Pulse Resp B/P Pulse Ox O2 Delivery O2 Flow Rate FiO2 06/05/16 06:00 99.7 85 18 130/66 95 Room Air 06/02/16 20:00 1.0 I&O- Last 24 Hours up to 6 AM 06/05/16 06:00 Intake Total 1600 ml Output Total 50 ml Balance 1550 ml Laboratory Data 24H LABS Laboratory Tests 2 06/04/16 12:40: Bedside Glucose (Misc Panel) 279H 06/04/16 16:29: Bedside Glucose (Misc Panel) 298H 06/04/16 20:26: Bedside Glucose (Misc Panel) 329H 06/05/16 05:25: Blood Urea Nitrogen 14, Creatinine 1.06H, Sodium Level 135L, Potassium Level 3.6 , Chloride Level 94L, Carbon Dioxide Level 29, Calcium Level 7.5L, Aspartate Amino Transf (AST/SGOT) 22, Alanine Aminotransferase (ALT/SGPT) 18, Alkaline Phosphatase 58, Total Bilirubin 0.9#, Total Protein 6.1L, Albumin 2.4L, Albumin/ Globulin Ratio 0.65L, Anion Gap 12, Anisocytosis 1+, Atypical Lymphocytes 7H, Band Neutrophils 1, Basophils (Manual) 1, Dohle Bodies 1+, Glomerular Filtration Rate 56.5, Lymphocytes (Manual) 32, Magnesium Level 1.5L, Metamyelocytes 5H, Monocytes (Manual) 20H, Neutrophils 34L, Platelet Estimate MARKED DECREASE 06/05/16 07:31: Urine Amorphous Sediment , Urine Appearance CLEAR, Urine Color YELLOW, Urine pH 5.0, Urine Specific [place] 1.029, Urine Protein 2+H, Urine Glucose (UA) 3+H, Urine Ketones 1+H, Urine Urobilinogen 0.2, Urine Bilirubin NEGATIVE, Urine Leukocyte Esterase NEGATIVE, Urine Bacteria (Auto) NEGATIVE, Urine Blood 2+H, Urine Calcium Carbonate Cryst(Auto) , Urine Calcium Oxalate Cryst (Auto) , Urine Calcium Phosphate Azucena (Auto) , Urine Cellular Casts , Urine Cystine Crystals , Urine Granular Casts (Auto) , Urine Hyaline Casts (Auto) 0, Urine Leucine Crystals , Urine Mucus (Auto) , Urine Nitrite NEGATIVE, Urine Oval Fat Bodies (Auto) , Urine RBC (Auto) 15H, Urine Renal Epithelial Cells , Urine Sperm (Auto) , Urine Squamous Epithelial Cells 1, Urine Transitional Epithelial Cells , Urine Trichomonas (Auto) , Urine Triple Phosphate Cryst (Auto) , Urine Tyrosine Crystals , Urine Uric Acid Crystals (Auto) , Urine WBC (Auto) 3, Urine Waxy Casts (Auto) , Urine Yeast-Like Cells (Auto) 06/05/16 08:46: Bedside Glucose (Misc Panel) 395H 06/05/16 11:43: Bedside Glucose (Misc Panel) 344H CBC/BMP Laboratory Tests 06/05/16 05:25 Calcium Level 7.5 L, Aspartate Amino Transf (AST/SGOT) 22, Alanine Aminotransferase (ALT/SGPT) 18, Alkaline Phosphatase 58, Total Bilirubin 0.9 #, Total Protein 6.1 L, Albumin 2.4 L, Red Blood Count 3.33 L, Mean Corpuscular Volume 89.2, Mean Corpuscular Hemoglobin 30.6, Mean Corpuscular Hemoglobin Concent 34.2, Red Cell Distribution Width 15.4 H Microbiology Microbiology 06/04/16 Blood Culture, Received Pending 06/04/16 Blood Culture, Received Pending 06/02/16 Blood Culture - Preliminary, Resulted No Growth after 48 hours. All Specime... 06/05/16 Urine Culture, Received Pending DAI BHAKTA MD Jun 05, 2016 12:32
[2016-06-05] MEDS: CEFEPIME HCL 2 GM in D5W MINI-BAG PLUS 50 ML IV SCH ×2 (13:43→21:53)
[2016-06-05 14:00] VITALS: BP 96/53
[2016-06-05] MEDS: SODIUM CHLORIDE 0.9% INJ 10 ML SYR IV PRN ×2 (14:35→22:51)
[2016-06-05 22:00] VITALS: BP 129/63
[2016-06-06] MEDS: SODIUM CHLORIDE 0.9% INJ 10 ML SYR IV PRN ×3 (05:26→22:09)
[2016-06-06] MEDS: CEFEPIME HCL 2 GM in D5W MINI-BAG PLUS 50 ML IV SCH ×3 (05:26→21:13)
[2016-06-06] MEDS: NORCO, ANEXSIA 5/325MG TABLET (HYDROcodone/ACETAMINOPHEN) PO PRN ×2 (05:50→17:56)
[2016-06-06 06:00] VITALS: BP 113/74
[2016-06-06 06:03] LABS: DIFF SLIDE NUMBER 10; MEAN CORPUSCULAR HEMOGLOBIN 30.8 pg (27.0-33.0); MEAN CORPUSCULAR HGB CONC 33.6 g/dl (32.0-36.5); MEAN CORPUSCULAR VOLUME 91.8 fl (80.0-96.0); RED CELL DISTRIBUTION WIDTH 15.7 % (11.5-14.5); WHITE BLOOD COUNT 3.9 K/mm3 (4.0-10.0)
[2016-06-06 06:09] LABS: PLATELET COUNT, AUTOMATED 18 k/mm3 (150-450)
[2016-06-06 06:13] LABS: ALBUMIN 2.2 GM/DL (3.2-5.2); ALBUMIN/GLOBULIN RATIO 0.52 (1.00-1.93); ALKALINE PHOSPHATASE 52 U/L (45-117); ALT/SGPT 14 U/L (12-78); ANION GAP 9 MEQ/L (8-16); AST/SGOT 14 U/L (15-37); BILIRUBIN,TOTAL 0.5 MG/DL (0.2-1.0); BLOOD UREA NITROGEN 16 MG/DL (7-18); CALCIUM LEVEL 8.2 MG/DL (8.5-10.1); CARBON DIOXIDE LEVEL 30 MEQ/L (21-32); CHLORIDE LEVEL 100 MEQ/L (98-107); CREATININE FOR GFR 0.79 MG/DL (0.55-1.02); GLOMERULAR FILTRATION RATE > 60.0 (>51); GLUCOSE, FASTING 202 MG/DL (70-105); MAGNESIUM LEVEL 1.9 MG/DL (1.8-2.4); POTASSIUM SERUM 2.9 MEQ/L (3.5-5.1); SODIUM LEVEL 139 MEQ/L (136-145); TOTAL PROTEIN 6.4 GM/DL (6.4-8.2)
[2016-06-06] MEDS ORDERED: ATENOLOL 50 MG TAB PO ONE (06:15)
[2016-06-06 07:01] LABS: EOSINOPHILS 1 % (0-5); NUCLEATED RED BLOOD CELL 2 % (0-0)
[2016-06-06 07:02] LABS: ANISOCYTOSIS 1+
[2016-06-06] MEDS: KCL 10MEQ IN 100ML SWI (KRUN) 10 MEQ in APPROPRIATE DILUENT 1 EA IV SCH ×4 (07:02→08:09)
[2016-06-06] MEDS: HumaLOG INSULIN (NovoLOG) PER UNIT SC SCH ×4 (08:10→21:12)
[2016-06-06 08:22] VITALS: BP 102/62
[2016-06-06] MEDS: MAGNESIUM OXIDE 400 MG TAB (MAG-OX) PO SCH ×2 (09:00→21:12)
[2016-06-06] MEDS: POTASSIUM CHLORIDE 10 MEQ SR TABLET PO SCH ×2 (09:00→21:11)
[2016-06-06] MEDS: SODIUM CHLORIDE 0.9% INJ 10 ML SYR IV SCH (09:28)
[2016-06-06] MEDS: MUPIROCIN 2% OINT 22 GM TUBE TOP SCH ×2 (09:29→21:13)
[2016-06-06 10:17] LABS: CALCIUM LEVEL 7.9 MG/DL (8.5-10.1); CREATININE FOR GFR 1.1 MG/DL (0.55-1.02); GLOMERULAR FILTRATION RATE 54.1 (>51); POTASSIUM SERUM 3.4 MEQ/L (3.5-5.1)
--- NOTE | 2016-06-06 10:21 | IPNPDOC ---
Subjective Date Seen The patient was seen on 06/06/16. Subjective Chief Complaint/HPI Pt cont to feel better each day. She does feel as though she is too weak to return home. General: Denies: Fatigue Constitutional: Denies: Chills, Fever Pulmonary: Denies: Cough, Dyspnea Cardiovascular: Denies: Chest Pain, Palpitations Gastrointestinal: Denies: Diarrhea, Nausea, Vomiting Psych: Reports: Mood Normal Objective Physical Examination General Exam: Positive: Alert, No Acute Distress ENT Exam: Positive: Mucous membr. moist/pink Chest Exam: Positive: Clear to auscultation, Normal air movement, Negative: Rales, Rhonchi, Wheezing Heart Exam: Positive: Normal S1, Normal S2, Rate Normal, Regular Rhythm Abdomen Exam: Positive: Normal bowel sounds, Soft, Negative: Tenderness Extremity Exam: Negative: Edema Skin Exam: Positive: Other skin issue (R face with swelling, eccymosis, and abrasion; no rashes or sacral ulcers) Assessment /Plan Problems (1) Fever and neutropenia Status: Acute Problem Text: 06/06- afebrile x 24 hours, on cefepime D2 06/05 Fever to 101.3 overnight. Levaquin x1 given overnight. Patient is high- risk as fever developed in the hospital; will switch to Cefepime 2 g Q8H pseudomonas coverage. - CXR done yesterday negative for infection. - Blood cultures and urine culture pending. - Skin exam today shows no rashes or cellulitis. - No other obvious source of infection. (2) Chemotherapy-induced thrombocytopenia Status: Acute Problem Text: 06/06 - cont to make improvements 06/05 - Plt stable at 17,000 today (3) Chemotherapy-induced neutropenia Status: Acute Problem Text: 06/05 - WBCs improved today to 1.1 06/04 WBC 0.3. Receives Neulasta post chemo weekly. Last dose 05/28/2016. Neupogen started 06/03. (4) Hypomagnesemia Status: Acute Problem Specific Plan: Monitor Clinically, Repeat Labs Problem Text: 06/05 - Mag remains low despite PO replacement; patient was quite hypokalemic upon admission; Mag run x1 ordered for today 06/04 Mag 1.6: start po replacement. (5) Weakness generalized Status: Acute Problem Specific Plan: Monitor Clinically Problem Text: PT ordered (6) Facial contusion Status: Acute Response to Treatment: Stable Problem Specific Plan: Monitor Clinically Problem Text: CT head and face without fractures (7) Hypokalemia Status: Acute Problem Specific Plan: Monitor Clinically, Repeat Labs Problem Text: 06/06 K+ 2.9 this morning, IV replacement and repeat labs ordered , will increase po replacement to 40 mcg po BID. 06/05 - K+ better today with PO replacement. 06/04- K+ 3.1, give po replacement 06/03: K+ 3.4. order 2 runs KCL (8) Pancytopenia Status: Chronic Problem Specific Plan: Monitor Clinically Problem Text: favor chemo-induced 06/02 BCX x NGTD; repeat BCX 06/04 pending. (9) Anemia Status: Acute Problem Text: 06/06 - Hgb, stable 10.1 yesterday, 9.9 today. 06/05 - H/H improved this morning s/p 2U pRBCs. 06/04 -Likely chemotherapy-induced; 2 U pRBCs given this morning. Will recheck CBC tomorrow. Plan/VTE VTE Prophylaxis Ordered?: No VS, I&O, 24H, [facility] Vital Signs/I&O Vital Signs Date Time Temp Pulse Resp B/P Pulse Ox O2 Delivery O2 Flow Rate FiO2 06/06/16 08:22 97.5 83 14 102/62 100 Room Air 06/06/16 06:29 2.0 I&O- Last 24 Hours up to 6 AM 06/06/16 06:00 Intake Total 860 ml Output Total 650 ml Balance 210 ml Laboratory Data 24H LABS Laboratory Tests 2 06/05/16 11:43: Bedside Glucose (Misc Panel) 344H 06/05/16 16:35: Bedside Glucose (Misc Panel) 205H 06/05/16 21:32: Bedside Glucose (Misc Panel) 258H 06/06/16 05:34: Blood Urea Nitrogen 16, Creatinine 0.79, Sodium Level 139, Potassium Level 2.9*L , Chloride Level 100, Carbon Dioxide Level 30, Calcium Level 8.2L, Aspartate Amino Transf (AST/SGOT) 14L, Alanine Aminotransferase (ALT/SGPT) 14, Alkaline Phosphatase 52, Total Bilirubin 0.5, Total Protein 6.4, Albumin 2.2L, Albumin/ Globulin Ratio 0.52L, Anion Gap 9, Anisocytosis 1+, Eosinophils (Manual) 1, Glomerular Filtration Rate > 60.0, Lymphocytes (Manual) 13L, Magnesium Level 1.9 , Monocytes (Manual) 5, Neutrophils 81H, Nucleated Red Blood Cells 2H, Platelet Estimate MARKED DECREASE 06/06/16 09:14: CBC/BMP Laboratory Tests 06/06/16 05:34 Calcium Level 8.2 L, Aspartate Amino Transf (AST/SGOT) 14 L, Alanine Aminotransferase (ALT/SGPT) 14, Alkaline Phosphatase 52, Total Bilirubin 0.5, Total Protein 6.4, Albumin 2.2 L, Red Blood Count 3.21 L, Mean Corpuscular Volume 91.8, Mean Corpuscular Hemoglobin 30.8, Mean Corpuscular Hemoglobin Concent 33.6, Red Cell Distribution Width 15.7 H Microbiology Microbiology 06/04/16 Blood Culture - Preliminary, Resulted No growth after 24 hours . All specim... 06/04/16 Blood Culture - Preliminary, Resulted No growth after 24 hours . All specim... 06/02/16 Blood Culture - Preliminary, Resulted No Growth after 72 hours. All specime... 06/05/16 Urine Culture - Final, Complete Attending Note Attending Note Patient c/o cough. She has history of asthma so will make available PRN albuterol. CATHRYN LINDSAY PA-C Jun 06, 2016 10:21 Kevin Hayes MD Jun 06, 2016 15:14
[2016-06-06] MEDS: FILGRASTIM 300 MCG/0.5 ML SYRINGE (J1442) SC SCH (10:25)
[2016-06-06 14:17] VITALS: BP 118/60
--- NOTE | 2016-06-06 15:09 | ECGEPIP ---
Stationary ECG Study [facility] Test Date: 2016-06-06 Pat Name: RAND DAVE Department: [facility] [place] Room: [place] [address] Gender: F Kennel Manager: GAIL : 1955 Requested By: Nilay Ramachandran Order Number: [id number] Reading MD: Liz Capone Measurements Intervals [place] Rate: 115 P: 52 CA: 119 QRS: 70 QRSD: 77 T: 22 QT: 307 QTc: 426 Interpretive Statements SINUS TACHYCARDIA WITH SHORT CA INTERVAL LAE ST & T-WAVE ABNORMALITY ABNORMAL RHYTHM ECG RATE FASTER DIFFUSE STTABN NOT SEVERE 06/02/16 Electronically Signed On 06-06-2016 15:08:45 EST by Liz Capone
[2016-06-06] MEDS: ALBUTEROL 90 MCG/ACT 8GM HFA INHALER INH PRN ×2 (18:04→22:16)
[2016-06-06 22:00] VITALS: BP 159/65
[2016-06-07] MEDS: ALBUTEROL 90 MCG/ACT 8GM HFA INHALER INH PRN ×3 (01:55→20:46)
[2016-06-07] MEDS: SODIUM CHLORIDE 0.9% INJ 10 ML SYR IV PRN ×2 (05:25→15:31)
[2016-06-07] MEDS: CEFEPIME HCL 2 GM in D5W MINI-BAG PLUS 50 ML IV SCH ×3 (05:25→21:36)
[2016-06-07] MEDS: NORCO, ANEXSIA 5/325MG TABLET (HYDROcodone/ACETAMINOPHEN) PO PRN ×2 (05:38→21:35)
[2016-06-07 05:47] LABS: BASO % 0.1 % (0.0-1.0); EOS % 0.3 % (0.0-3.0); LARGE UNSTAINED CELL # 0.1 K/mm3 (0.0-0.4); LARGE UNSTAINED CELL % 2.1 % (0.0-4.0); LYMPH # 0.2 K/mm3 (1.5-4.5); LYMPH % 3.7 % (24.0-44.0); MEAN CORPUSCULAR HEMOGLOBIN 31.6 pg (27.0-33.0); MEAN CORPUSCULAR HGB CONC 34.2 g/dl (32.0-36.5); MEAN CORPUSCULAR VOLUME 92.6 fl (80.0-96.0); MONO # 0.3 K/mm3 (0.0-0.8); MONO % 4.9 % (0.0-5.0); NEUTROPHILS # 5.6 K/mm3 (1.8-7.7); NEUTROPHILS % 88.9 % (36.0-66.0); RED CELL DISTRIBUTION WIDTH 15.7 % (11.5-14.5); WHITE BLOOD COUNT 6.3 K/mm3 (4.0-10.0)
[2016-06-07 05:52] LABS: PLATELET COUNT, AUTOMATED 20 k/mm3 (150-450)
[2016-06-07 06:00] VITALS: BP 121/59
[2016-06-07 06:55] LABS: ALBUMIN 2.3 GM/DL (3.2-5.2); ALBUMIN/GLOBULIN RATIO 0.61 (1.00-1.93); ALKALINE PHOSPHATASE 62 U/L (45-117); ALT/SGPT 18 U/L (12-78); ANION GAP 9 MEQ/L (8-16); AST/SGOT 23 U/L (15-37); BILIRUBIN,TOTAL 0.3 MG/DL (0.2-1.0); BLOOD UREA NITROGEN 19 MG/DL (7-18); CALCIUM LEVEL 8.2 MG/DL (8.5-10.1); CARBON DIOXIDE LEVEL 27 MEQ/L (21-32); CHLORIDE LEVEL 106 MEQ/L (98-107); CREATININE FOR GFR 0.82 MG/DL (0.55-1.02); GLOMERULAR FILTRATION RATE > 60.0 (>51); GLUCOSE, FASTING 228 MG/DL (70-105); MAGNESIUM LEVEL 1.9 MG/DL (1.8-2.4); POTASSIUM SERUM 3.9 MEQ/L (3.5-5.1); SODIUM LEVEL 142 MEQ/L (136-145); TOTAL PROTEIN 6.1 GM/DL (6.4-8.2)
[2016-06-07] MEDS: MAGNESIUM OXIDE 400 MG TAB (MAG-OX) PO SCH ×2 (08:09→21:34)
[2016-06-07] MEDS: ATENOLOL 50 MG TAB PO SCH (08:09)
[2016-06-07] MEDS: POTASSIUM CHLORIDE 10 MEQ SR TABLET PO SCH ×2 (08:09→21:34)
[2016-06-07] MEDS: HumaLOG INSULIN (NovoLOG) PER UNIT SC SCH ×4 (08:10→21:36)
[2016-06-07] MEDS: MUPIROCIN 2% OINT 22 GM TUBE TOP SCH ×2 (08:11→21:36)
[2016-06-07] MEDS: SODIUM CHLORIDE 0.9% INJ 10 ML SYR IV SCH (08:12)
--- NOTE | 2016-06-07 11:30 | IPNPDOC ---
Subjective Date Seen The patient was seen on 06/07/16. Subjective Chief Complaint/HPI pt doing pretty well. She c/o cyst in her R groin, has been dealing with it on and off for several weeks, seems to be slightly larger in the last few days. slightly painful. Has not been draining. General: Reports: Fatigue Constitutional: Denies: Chills, Fever ENT: Denies: Head Aches Pulmonary: Reports: Cough, Dyspnea Cardiovascular: Denies: Chest Pain, Palpitations Gastrointestinal: Denies: Diarrhea, Nausea, Vomiting Neurological: Reports: Weakness Psych: Reports: Mood Normal Objective Physical Examination General Exam: Positive: Alert, No Acute Distress ENT Exam: Positive: Mucous membr. moist/pink Chest Exam: Positive: Clear to auscultation, Normal air movement, Negative: Rales, Rhonchi, Wheezing Heart Exam: Positive: Normal S1, Normal S2, Rate Normal, Regular Rhythm Abdomen Exam: Positive: Normal bowel sounds, Soft, Negative: Tenderness Extremity Exam: Negative: Edema Skin Exam: Positive: Other skin issue (R face with swelling, eccymosis, and abrasion; no rashes or sacral ulcers; R groin with 18 mm x 12 mm boil, mild fluctuation, purple in color, not significantly warm, I suspect there is blood in it more than pus.) Assessment /Plan Problems (1) Fever and neutropenia Status: Acute Problem Text: 06/07 Remains Afebrile, Cefepime D3. 06/06- afebrile x 24 hours, on cefepime D2 06/05 Fever to 101.3 overnight. Levaquin x1 given overnight. Patient is high- risk as fever developed in the hospital; will switch to Cefepime 2 g Q8H pseudomonas coverage. - CXR done yesterday negative for infection. - Blood cultures and urine culture pending. - Skin exam today shows no rashes or cellulitis. - No other obvious source of infection. (2) Chemotherapy-induced thrombocytopenia Status: Acute Problem Text: 06/06 - cont to make improvements 06/05 - Plt stable at 17,000 today (3) Chemotherapy-induced neutropenia Status: Acute Problem Text: 06/07 - D/C Neupogen today. 06/05 - WBCs improved today to 1.1 06/04 WBC 0.3. Receives Neulasta post chemo weekly. Last dose 05/28/2016. Neupogen started 06/03. (4) Hypomagnesemia Status: Acute Problem Specific Plan: Monitor Clinically, Repeat Labs Problem Text: 06/05 - Mag remains low despite PO replacement; patient was quite hypokalemic upon admission; Mag run x1 ordered for today 06/04 Mag 1.6: start po replacement. (5) Weakness generalized Status: Acute Problem Specific Plan: Monitor Clinically Problem Text: Not safe per PT yet. (6) Facial contusion Status: Acute Response to Treatment: Stable Problem Specific Plan: Monitor Clinically Problem Text: CT head and face without fractures (7) Hypokalemia Status: Acute Problem Specific Plan: Monitor Clinically, Repeat Labs Problem Text: 06/06 K+ 2.9 this morning, IV replacement and repeat labs ordered , will increase po replacement to 40 mcg po BID. 06/05 - K+ better today with PO replacement. 06/04- K+ 3.1, give po replacement 06/03: K+ 3.4. order 2 runs KCL (8) Pancytopenia Status: Chronic Problem Specific Plan: Monitor Clinically Problem Text: favor chemo-induced 06/02 BCX x NGTD; repeat BCX 06/04 pending. (9) Anemia Status: Acute Problem Text: 06/06 - Hgb, stable 10.1 yesterday, 9.9 today. 06/05 - H/H improved this morning s/p 2U pRBCs. 06/04 -Likely chemotherapy-induced; 2 U pRBCs given this morning. Will recheck CBC tomorrow. Plan/VTE VTE Prophylaxis Ordered?: No VS, I&O, 24H, Fishbone Vital Signs/I&O Vital Signs Date Time Temp Pulse Resp B/P Pulse Ox O2 Delivery O2 Flow Rate FiO2 06/07/16 08:09 94 110/64 06/07/16 06:08 16 06/07/16 06:00 97.9 94 06/07/16 05:38 Room Air 06/06/16 06:29 2.0 I&O- Last 24 Hours up to 6 AM 06/07/16 06:00 Intake Total 2090 ml Output Total 750 ml Balance 1340 ml Laboratory Data 24H LABS Laboratory Tests 2 06/06/16 11:28: Bedside Glucose (Misc Panel) 278H 06/06/16 16:18: Bedside Glucose (Misc Panel) 206H 06/06/16 20:34: Bedside Glucose (Misc Panel) 270H 06/07/16 05:34: Blood Urea Nitrogen 19H, Creatinine 0.82, Sodium Level 142, Potassium Level 3.9 , Chloride Level 106, Carbon Dioxide Level 27, Calcium Level 8.2L, Aspartate Amino Transf (AST/SGOT) 23, Alanine Aminotransferase (ALT/SGPT) 18, Alkaline Phosphatase 62, Total Bilirubin 0.3, Total Protein 6.1L, Albumin 2.3L, Albumin/ Globulin Ratio 0.61L, Anion Gap 9, Glomerular Filtration Rate > 60.0, Magnesium Level 1.9 06/07/16 05:35: White Blood Count 6.3, Red Blood Count 2.77L, Hemoglobin 8.7L, Hematocrit 25.6L , Mean Corpuscular Volume 92.6, Mean Corpuscular Hemoglobin 31.6, Mean Corpuscular Hemoglobin Concent 34.2, Red Cell Distribution Width 15.7H, Platelet Count 20*L, Neutrophils (%) (Auto) 88.9H, Lymphocytes (%) (Auto) 3.7L, Monocytes (%) (Auto) 4.9, Eosinophils (%) (Auto) 0.3, Basophils (%) (Auto) 0.1, Neutrophils # (Auto) 5.6, Lymphocytes # (Auto) 0.2L, Monocytes # (Auto) 0.3, Eosinophils # (Auto) 0.0, Basophils # (Auto) 0.0, Large Unclassified Cells # 0.1 , Large Unclassified Cells % 2.1 CBC/BMP Laboratory Tests 06/07/16 05:34 Calcium Level 8.2 L, Aspartate Amino Transf (AST/SGOT) 23, Alanine Aminotransferase (ALT/SGPT) 18, Alkaline Phosphatase 62, Total Bilirubin 0.3, Total Protein 6.1 L, Albumin 2.3 L 06/07/16 05:35 Red Blood Count 2.77 L, Mean Corpuscular Volume 92.6, Mean Corpuscular Hemoglobin 31.6, Mean Corpuscular Hemoglobin Concent 34.2, Red Cell Distribution Width 15.7 H, Neutrophils (%) (Auto) 88.9 H, Lymphocytes (%) (Auto ) 3.7 L, Monocytes (%) (Auto) 4.9, Eosinophils (%) (Auto) 0.3, Basophils (%) ( Auto) 0.1, Neutrophils # (Auto) 5.6, Lymphocytes # (Auto) 0.2 L, Monocytes # ( Auto) 0.3, Eosinophils # (Auto) 0.0, Basophils # (Auto) 0.0 Microbiology Microbiology 06/04/16 Blood Culture - Preliminary, Resulted No Growth after 48 hours. All Specime... 06/04/16 Blood Culture - Preliminary, Resulted No Growth after 48 hours. All Specime... 06/02/16 Blood Culture - Preliminary, Resulted No Growth after 72 hours. All specime... 06/05/16 Urine Culture - Final, Complete CATHRYN LINDSAY PA-C Jun 07, 2016 11:30
[2016-06-07 14:00] VITALS: BP 118/66
[2016-06-07] MEDS: ACETAMINOPHEN TAB 650MG DOSE (2X325MG) PO PRN (17:48)
[2016-06-07 22:00] VITALS: BP 110/61
[2016-06-08] MEDS: ALBUTEROL 90 MCG/ACT 8GM HFA INHALER INH PRN ×4 (01:24→23:37)
[2016-06-08] MEDS: ACETAMINOPHEN TAB 650MG DOSE (2X325MG) PO PRN ×3 (05:23→20:58)
[2016-06-08] MEDS: CEFEPIME HCL 2 GM in D5W MINI-BAG PLUS 50 ML IV SCH ×3 (05:23→22:14)
[2016-06-08 06:00] VITALS: BP 144/64
[2016-06-08 06:17] LABS: ALBUMIN 2.4 GM/DL (3.2-5.2); ALBUMIN/GLOBULIN RATIO 0.71 (1.00-1.93); ALKALINE PHOSPHATASE 76 U/L (45-117); ALT/SGPT 20 U/L (12-78); ANION GAP 11 MEQ/L (8-16); AST/SGOT 49 U/L (15-37); BILIRUBIN,TOTAL 0.3 MG/DL (0.2-1.0); BLOOD UREA NITROGEN 15 MG/DL (7-18); CALCIUM LEVEL 7.7 MG/DL (8.5-10.1); CARBON DIOXIDE LEVEL 24 MEQ/L (21-32); CHLORIDE LEVEL 104 MEQ/L (98-107); CREATININE FOR GFR 0.76 MG/DL (0.55-1.02); GLOMERULAR FILTRATION RATE > 60.0 (>51); GLUCOSE, FASTING 222 MG/DL (70-105); MAGNESIUM LEVEL 1.6 MG/DL (1.8-2.4); POTASSIUM SERUM 4.4 MEQ/L (3.5-5.1); SODIUM LEVEL 139 MEQ/L (136-145); TOTAL PROTEIN 5.8 GM/DL (6.4-8.2)
[2016-06-08] MEDS: SODIUM CHLORIDE 0.9% INJ 10 ML SYR IV PRN ×2 (06:30→22:59)
[2016-06-08 06:31] LABS: BASO % 0.1 % (0.0-1.0); EOS % 0.1 % (0.0-3.0); LARGE UNSTAINED CELL # 0.3 K/mm3 (0.0-0.4); LARGE UNSTAINED CELL % 2.9 % (0.0-4.0); LYMPH # 0.2 K/mm3 (1.5-4.5); LYMPH % 1.8 % (24.0-44.0); MEAN CORPUSCULAR HEMOGLOBIN 29.9 pg (27.0-33.0); MEAN CORPUSCULAR HGB CONC 31.9 g/dl (32.0-36.5); MEAN CORPUSCULAR VOLUME 93.6 fl (80.0-96.0); MONO # 0.5 K/mm3 (0.0-0.8); MONO % 5.4 % (0.0-5.0); NEUTROPHILS # 7.8 K/mm3 (1.8-7.7); NEUTROPHILS % 89.7 % (36.0-66.0); WHITE BLOOD COUNT 8.7 K/mm3 (4.0-10.0)
[2016-06-08 06:33] LABS: PLATELET COUNT, AUTOMATED 24 k/mm3 (150-450)
--- NOTE | 2016-06-08 08:38 | IPNPDOC ---
Subjective Date Seen The patient was seen on 06/08/16. Subjective Chief Complaint/HPI The patient is a 61-year-old female admitted with a reason for visit of Weakness Generalized. Events since last encounter Continues with fever. Area to mons pubis with drainage, states is mildly tender. Constitutional: Reports: Fever Skin: Denies: Breakdown, Lesions, Rash Pulmonary: Denies: Cough, Dyspnea Cardiovascular: Denies: Chest Pain, Lt Headedness, Orthopnea, Palpitations, Paroxysmal Noc. Dyspnea Gastrointestinal: Denies: Abdominal Pain, Constipation, Diarrhea, Nausea, Vomiting Psych: Reports: Mood Normal, Denies: Depression, Memory Issues Objective Physical Examination General Exam: Positive: Alert, No Acute Distress ENT Exam: Positive: Mucous membr. moist/pink Chest Exam: Positive: Clear to auscultation, Normal air movement, Negative: Rales, Rhonchi, Wheezing Heart Exam: Positive: Normal S1, Normal S2, Rate Normal, Regular Rhythm Abdomen Exam: Positive: Normal bowel sounds, Soft, Negative: Tenderness Extremity Exam: Negative: Edema Skin Exam: Positive: Other skin issue (RIGHT mons pubis: fluctucant, tender area, purulent drainage expressed, wound cx obatined. ) Assessment /Plan Problems (1) Fever and neutropenia Status: Acute Problem Text: 06/08/2016: low grade temps overnight. Continue Cefepime D4. 06/07 Remains Afebrile, Cefepime D3. 06/06- afebrile x 24 hours, on cefepime D2 06/05 Fever to 101.3 overnight. Levaquin x1 given overnight. Patient is high- risk as fever developed in the hospital; will switch to Cefepime 2 g Q8H pseudomonas coverage. - CXR done yesterday negative for infection. - Blood cultures and urine culture pending. - Skin exam today shows no rashes or cellulitis. - No other obvious source of infection. (2) Chemotherapy-induced thrombocytopenia Status: Acute Problem Text: 06/08/2016: improved at 24, 000 today 06/06 - cont to make improvements 06/05 - Plt stable at 17,000 today (3) Chemotherapy-induced neutropenia Status: Acute Problem Text: 06/07 - D/C Neupogen today. 06/05 - WBCs improved today to 1.1 06/04 WBC 0.3. Receives Neulasta post chemo weekly. Last dose 05/28/2016. Neupogen started 06/03. (4) Hypomagnesemia Status: Resolved Problem Specific Plan: Monitor Clinically, Repeat Labs Problem Text: 06/08/2016: 1.6 today, will replace. 06/05 - Mag remains low despite PO replacement; patient was quite hypokalemic upon admission; Mag run x1 ordered for today 06/04 Mag 1.6: start po replacement. (5) Weakness generalized Status: Acute Problem Specific Plan: Monitor Clinically Problem Text: 06/10/16 Still Not safe per PT. Requires stair training. (6) Facial contusion Status: Acute Response to Treatment: Stable Problem Specific Plan: Monitor Clinically Problem Text: CT head and face without fractures (7) Hypokalemia Status: Acute Problem Specific Plan: Monitor Clinically, Repeat Labs Problem Text: 06/06 K+ 2.9 this morning, IV replacement and repeat labs ordered , will increase po replacement to 40 mcg po BID. 06/05 - K+ better today with PO replacement. 06/04- K+ 3.1, give po replacement 06/03: K+ 3.4. order 2 runs KCL (8) Pancytopenia Status: Chronic Problem Specific Plan: Monitor Clinically Problem Text: favor chemo-induced 06/02 BCX x NGTD; repeat BCX 06/04 pending. (9) Anemia Status: Acute Problem Text: 06/06 - Hgb, stable 10.1 yesterday, 9.9 today. 06/05 - H/H improved this morning s/p 2U pRBCs. 06/04 -Likely chemotherapy-induced; 2 U pRBCs given this morning. Will recheck CBC tomorrow. Plan/VTE VTE Prophylaxis Ordered?: No VS, I&O, 24H, Fishbone Vital Signs/I&O Vital Signs Date Time Temp Pulse Resp B/P Pulse Ox O2 Delivery O2 Flow Rate FiO2 06/08/16 06:00 100.6 115 20 144/64 95 06/07/16 19:35 Room Air 06/06/16 06:29 2.0 I&O- Last 24 Hours up to 6 AM 06/08/16 06:00 Intake Total 1580 ml Output Total 900 ml Balance 680 ml Laboratory Data 24H LABS Laboratory Tests 2 06/07/16 11:41: Bedside Glucose (Misc Panel) 222H 06/07/16 16:17: Bedside Glucose (Misc Panel) 174H 06/07/16 20:25: Bedside Glucose (Misc Panel) 258H 06/08/16 05:24: Blood Urea Nitrogen 15, Creatinine 0.76, Sodium Level 139, Potassium Level 4.4, Chloride Level 104, Carbon Dioxide Level 24, Calcium Level 7.7L, Aspartate Amino Transf (AST/SGOT) 49H, Alanine Aminotransferase (ALT/SGPT) 20, Alkaline Phosphatase 76, Total Bilirubin 0.3, Total Protein 5.8L, Albumin 2.4L, Albumin/ Globulin Ratio 0.71L, Anion Gap 11, White Blood Count 8.7, Red Blood Count 2.86L , Hemoglobin 8.6L, Hematocrit 26.8L, Mean Corpuscular Volume 93.6, Mean Corpuscular Hemoglobin 29.9, Mean Corpuscular Hemoglobin Concent 31.9L, Red Cell Distribution Width 16.0H, Platelet Count 24*L, Neutrophils (%) (Auto) 89.7H , Lymphocytes (%) (Auto) 1.8L, Monocytes (%) (Auto) 5.4H, Eosinophils (%) (Auto ) 0.1, Basophils (%) (Auto) 0.1, Neutrophils # (Auto) 7.8H, Lymphocytes # (Auto ) 0.2L, Monocytes # (Auto) 0.5, Eosinophils # (Auto) 0.0, Basophils # (Auto) 0.0 , Glomerular Filtration Rate > 60.0, Large Unclassified Cells # 0.3, Large Unclassified Cells % 2.9, Magnesium Level 1.6L CBC/BMP Laboratory Tests 06/08/16 05:24 Calcium Level 7.7 L, Aspartate Amino Transf (AST/SGOT) 49 H, Alanine Aminotransferase (ALT/SGPT) 20, Alkaline Phosphatase 76, Total Bilirubin 0.3, Total Protein 5.8 L, Albumin 2.4 L, Red Blood Count 2.86 L, Mean Corpuscular Volume 93.6, Mean Corpuscular Hemoglobin 29.9, Mean Corpuscular Hemoglobin Concent 31.9 L, Red Cell Distribution Width 16.0 H, Neutrophils (%) (Auto) 89.7 H, Lymphocytes (%) (Auto) 1.8 L, Monocytes (%) (Auto) 5.4 H, Eosinophils (%) ( Auto) 0.1, Basophils (%) (Auto) 0.1, Neutrophils # (Auto) 7.8 H, Lymphocytes # ( Auto) 0.2 L, Monocytes # (Auto) 0.5, Eosinophils # (Auto) 0.0, Basophils # (Auto ) 0.0 Microbiology Microbiology 06/04/16 Blood Culture - Preliminary, Resulted No Growth after 72 hours. All specime... 06/04/16 Blood Culture - Preliminary, Resulted No Growth after 72 hours. All specime... 06/02/16 Blood Culture - Final, Complete NO GROWTH AFTER 5 DAYS 06/05/16 Urine Culture - Final, Complete Attending Note Attending Note Agree with plan and findings. Shannon Samaniego Jun 08, 2016 08:38 Kevin Hayes MD Jun 11, 2016 12:34
[2016-06-08] MEDS ORDERED: MAG SULF 1GM/100ML (MAG RUN) 1 GM in APPROPRIATE DILUENT 1 EA IV ONE (09:00)
[2016-06-08] MEDS: SODIUM CHLORIDE 0.9% INJ 10 ML SYR IV SCH (09:00)
[2016-06-08] MEDS: HumaLOG INSULIN (NovoLOG) PER UNIT SC SCH ×4 (09:03→20:51)
[2016-06-08] MEDS: ATENOLOL 50 MG TAB PO SCH (09:03)
[2016-06-08] MEDS: MAGNESIUM OXIDE 400 MG TAB (MAG-OX) PO SCH ×2 (09:04→20:57)
[2016-06-08] MEDS: POTASSIUM CHLORIDE 10 MEQ SR TABLET PO SCH ×2 (09:04→20:58)
[2016-06-08] MEDS: MUPIROCIN 2% OINT 22 GM TUBE TOP SCH ×2 (09:05→20:58)
[2016-06-08] MEDS: ONDANSETRON 4MG/2ML VIAL (J2405) IV PRN (11:28)
[2016-06-08] MEDS ORDERED: fentaNYL 100 MCG/2 ML INJECTION (J3010) As Ordered ONE (13:58)
[2016-06-08] MEDS ORDERED: MIDAZOLAM INJ 2 MG/2 ML VIAL (J2250) As Ordered ONE ×2 (13:59→14:58)
[2016-06-08] MEDS ORDERED: PROPOFOL 200 MG/20 ML VIAL As Ordered ONE (13:59)
[2016-06-08] MEDS ORDERED: LIDOCAINE 2% INJ 100 MG/5 ML SDV (FOR ANES.) As Ordered ONE (13:59)
[2016-06-08 14:00] VITALS: BP 126/57
[2016-06-08] MEDS ORDERED: MORPHINE 10 MG/ML 1ML VIAL As Ordered ONE (16:29)
[2016-06-08] MEDS: PINK BISMUTH SUSP 524MG/30ML ORAL SYRINGE PO PRN (20:58)
[2016-06-08 21:00] VITALS: BP 118/55
[2016-06-09] MEDS: CEFEPIME HCL 2 GM in D5W MINI-BAG PLUS 50 ML IV SCH ×3 (05:37→21:22)
[2016-06-09 06:00] VITALS: BP 142/69
[2016-06-09 06:16] LABS: ALBUMIN 2.4 GM/DL (3.2-5.2); ALBUMIN/GLOBULIN RATIO 0.59 (1.00-1.93); ALKALINE PHOSPHATASE 69 U/L (45-117); ALT/SGPT 23 U/L (12-78); ANION GAP 8 MEQ/L (8-16); AST/SGOT 66 U/L (15-37); BILIRUBIN,TOTAL 0.2 MG/DL (0.2-1.0); BLOOD UREA NITROGEN 13 MG/DL (7-18); CALCIUM LEVEL 7.8 MG/DL (8.5-10.1); CARBON DIOXIDE LEVEL 25 MEQ/L (21-32); CHLORIDE LEVEL 105 MEQ/L (98-107); CREATININE FOR GFR 0.75 MG/DL (0.55-1.02); GLOMERULAR FILTRATION RATE > 60.0 (>51); GLUCOSE, FASTING 197 MG/DL (70-105); MAGNESIUM LEVEL 1.8 MG/DL (1.8-2.4); POTASSIUM SERUM 4.4 MEQ/L (3.5-5.1); SODIUM LEVEL 138 MEQ/L (136-145); TOTAL PROTEIN 6.5 GM/DL (6.4-8.2)
[2016-06-09] MEDS: SODIUM CHLORIDE 0.9% INJ 10 ML SYR IV PRN ×2 (06:22→21:22)
[2016-06-09] MEDS: ACETAMINOPHEN TAB 650MG DOSE (2X325MG) PO PRN (06:22)
[2016-06-09 06:42] LABS: BASO % 0.2 % (0.0-1.0); EOS % 0.2 % (0.0-3.0); LARGE UNSTAINED CELL # 0.3 K/mm3 (0.0-0.4); LYMPH # 0.3 K/mm3 (1.5-4.5); LYMPH % 2.9 % (24.0-44.0); MEAN CORPUSCULAR HEMOGLOBIN 29.3 pg (27.0-33.0); MEAN CORPUSCULAR HGB CONC 31.1 g/dl (32.0-36.5); MEAN CORPUSCULAR VOLUME 94.3 fl (80.0-96.0); MONO # 0.6 K/mm3 (0.0-0.8); MONO % 6.5 % (0.0-5.0); NEUTROPHILS # 7.9 K/mm3 (1.8-7.7); NEUTROPHILS % 87.3 % (36.0-66.0); RED CELL DISTRIBUTION WIDTH 15.8 % (11.5-14.5)
[2016-06-09 06:43] LABS: PLATELET COUNT, AUTOMATED 29 k/mm3 (150-450)
[2016-06-09] MEDS: HumaLOG INSULIN (NovoLOG) PER UNIT SC SCH ×4 (09:36→20:51)
[2016-06-09] MEDS: POTASSIUM CHLORIDE 10 MEQ SR TABLET PO SCH ×2 (09:37→20:50)
[2016-06-09] MEDS: MAGNESIUM OXIDE 400 MG TAB (MAG-OX) PO SCH ×2 (09:38→20:50)
[2016-06-09] MEDS: ATENOLOL 50 MG TAB PO SCH (09:38)
[2016-06-09] MEDS: MUPIROCIN 2% OINT 22 GM TUBE TOP SCH ×2 (09:39→20:51)
[2016-06-09] MEDS: SODIUM CHLORIDE 0.9% INJ 10 ML SYR IV SCH (09:39)
--- NOTE | 2016-06-09 09:41 | IPNPDOC ---
Subjective Date Seen The patient was seen on 06/09/16. Subjective Chief Complaint/HPI The patient is a 61-year-old female admitted with a reason for visit of Weakness Generalized. Events since last encounter c/o 10-12 stools per day. + stool for occult blood yesterday. Denies abdominal pain. Continues with fevers, most recent 100.7. CXR and bl cxs on 06/04 were negative. Constitutional: Reports: Chills, Fatigue, Fever, Lethargy, Malaise, Night Sweats, Weakness Skin: Denies: Breakdown, Lesions, Rash Pulmonary: Denies: Cough, Dyspnea Cardiovascular: Denies: Chest Pain, Lt Headedness, Orthopnea, Palpitations, Paroxysmal Noc. Dyspnea Gastrointestinal: Reports: Diarrhea, Melena, Denies: Abdominal Pain, Constipation, Nausea, Vomiting Genitourinary: Denies: Dysuria, Frequency, Incontinence, Retention Psych: Reports: Mood Normal, Denies: Depression, Memory Issues Objective Physical Examination General Exam: Positive: Alert, No Acute Distress ENT Exam: Positive: Mucous membr. moist/pink Chest Exam: Positive: Clear to auscultation, Normal air movement, Negative: Rales, Rhonchi, Wheezing Heart Exam: Positive: Normal S1, Normal S2, Rate Normal, Regular Rhythm Abdomen Exam: Positive: Normal bowel sounds, Soft, Negative: Tenderness Extremity Exam: Negative: Edema Skin Exam: Positive: Other skin issue (RIGHT mons pubis: mildly erythematous, no drainage, tender) Assessment /Plan Problems (1) Fever and neutropenia Status: Acute Problem Text: 06/08/2016: low grade temps overnight. Continue Cefepime D4. 06/07 Remains Afebrile, Cefepime D3. 06/06- afebrile x 24 hours, on cefepime D2 06/05 Fever to 101.3 overnight. Levaquin x1 given overnight. Patient is high- risk as fever developed in the hospital; will switch to Cefepime 2 g Q8H pseudomonas coverage. - CXR done yesterday negative for infection. - Blood cultures and urine culture pending. - Skin exam today shows no rashes or cellulitis. - No other obvious source of infection. (2) Acute diarrhea Status: Acute Problem Text: + Hemoccult, GI panel pending. (3) Chemotherapy-induced thrombocytopenia Status: Acute Problem Text: 06/08/2016: improved at 24, 000 today 06/06 - cont to make improvements 06/05 - Plt stable at 17,000 today (4) Chemotherapy-induced neutropenia Status: Acute Problem Text: 06/07 - D/C Neupogen today. 06/05 - WBCs improved today to 1.1 06/04 WBC 0.3. Receives Neulasta post chemo weekly. Last dose 05/28/2016. Neupogen started 06/03. (5) Hypomagnesemia Status: Acute Problem Specific Plan: Monitor Clinically, Repeat Labs Problem Text: 06/08/2016: 1.6 today, will replace. 06/05 - Mag remains low despite PO replacement; patient was quite hypokalemic upon admission; Mag run x1 ordered for today 06/04 Mag 1.6: start po replacement. (6) Weakness generalized Status: Acute Problem Specific Plan: Monitor Clinically Problem Text: Not safe per PT yet. (7) Facial contusion Status: Acute Response to Treatment: Stable Problem Specific Plan: Monitor Clinically Problem Text: CT head and face without fractures (8) Hypokalemia Status: Acute Problem Specific Plan: Monitor Clinically, Repeat Labs Problem Text: 06/06 K+ 2.9 this morning, IV replacement and repeat labs ordered , will increase po replacement to 40 mcg po BID. 06/05 - K+ better today with PO replacement. 06/04- K+ 3.1, give po replacement 06/03: K+ 3.4. order 2 runs KCL (9) Pancytopenia Status: Chronic Problem Specific Plan: Monitor Clinically Problem Text: favor chemo-induced 06/02 BCX x NGTD; repeat BCX 06/04 no growth (10) Anemia Status: Acute Problem Text: 06/09/16: H/H: 12/25. 06/06 - Hgb, stable 10.1 yesterday, 9.9 today. 06/05 - H/H improved this morning s/p 2U pRBCs. 06/04 -Likely chemotherapy-induced; 2 U pRBCs given this morning. Will recheck CBC tomorrow. Plan/VTE VTE Prophylaxis Ordered?: No VS, I&O, 24H, Fishbone Vital Signs/I&O Vital Signs Date Time Temp Pulse Resp B/P Pulse Ox O2 Delivery O2 Flow Rate FiO2 06/09/16 06:00 100.7 110 17 142/69 97 Room Air 06/06/16 06:29 2.0 I&O- Last 24 Hours up to 6 AM 06/09/16 06:00 Intake Total 1690 ml Output Total 500 ml Balance 1190 ml Laboratory Data 24H LABS Laboratory Tests 2 06/08/16 11:35: Bedside Glucose (Misc Panel) 235H 06/08/16 16:23: Bedside Glucose (Misc Panel) 228H 06/08/16 20:46: Bedside Glucose (Misc Panel) 239H 06/09/16 05:34: Blood Urea Nitrogen 13, Creatinine 0.75, Sodium Level 138, Potassium Level 4.4, Chloride Level 105, Carbon Dioxide Level 25, Calcium Level 7.8L, Aspartate Amino Transf (AST/SGOT) 66H, Alanine Aminotransferase (ALT/SGPT) 23, Alkaline Phosphatase 69, Total Bilirubin 0.2, Total Protein 6.5, Albumin 2.4L, Albumin/ Globulin Ratio 0.59L, Anion Gap 8, White Blood Count 9.0, Red Blood Count 3.08L , Hemoglobin 9.0L, Hematocrit 29.0L, Mean Corpuscular Volume 94.3, Mean Corpuscular Hemoglobin 29.3, Mean Corpuscular Hemoglobin Concent 31.1L, Red Cell Distribution Width 15.8H, Platelet Count 29*L, Neutrophils (%) (Auto) 87.3H , Lymphocytes (%) (Auto) 2.9L, Monocytes (%) (Auto) 6.5H, Eosinophils (%) (Auto ) 0.2, Basophils (%) (Auto) 0.2, Neutrophils # (Auto) 7.9H, Lymphocytes # (Auto ) 0.3L, Monocytes # (Auto) 0.6, Eosinophils # (Auto) 0.0, Basophils # (Auto) 0.0 , Glomerular Filtration Rate > 60.0, Large Unclassified Cells # 0.3, Large Unclassified Cells % 3.0, Magnesium Level 1.8 CBC/BMP Laboratory Tests 06/09/16 05:34 Calcium Level 7.8 L, Aspartate Amino Transf (AST/SGOT) 66 H, Alanine Aminotransferase (ALT/SGPT) 23, Alkaline Phosphatase 69, Total Bilirubin 0.2, Total Protein 6.5, Albumin 2.4 L, Red Blood Count 3.08 L, Mean Corpuscular Volume 94.3, Mean Corpuscular Hemoglobin 29.3, Mean Corpuscular Hemoglobin Concent 31.1 L, Red Cell Distribution Width 15.8 H, Neutrophils (%) (Auto) 87.3 H, Lymphocytes (%) (Auto) 2.9 L, Monocytes (%) (Auto) 6.5 H, Eosinophils (%) ( Auto) 0.2, Basophils (%) (Auto) 0.2, Neutrophils # (Auto) 7.9 H, Lymphocytes # ( Auto) 0.3 L, Monocytes # (Auto) 0.6, Eosinophils # (Auto) 0.0, Basophils # (Auto ) 0.0 Microbiology Microbiology 06/04/16 Blood Culture - Preliminary, Resulted No Growth after 72 hours. All specime... 06/04/16 Blood Culture - Preliminary, Resulted No Growth after 72 hours. All specime... 06/02/16 Blood Culture - Final, Complete NO GROWTH AFTER 5 DAYS 06/08/16 Stool Occult Blood (LEISA) - Final, Complete 06/08/16 Stool Lactoferrin - Final, Complete 06/05/16 Urine Culture - Final, Complete 06/08/16 Wound Culture, Received Pending Shannon Samaniego [facility] Jun 09, 2016 09:41
[2016-06-09] MEDS: PANTOPRAZOLE 40MG INJ (PROTONIX) (C9113) IV SCH ×2 (12:37→21:22)
[2016-06-09] MEDS: PINK BISMUTH SUSP 524MG/30ML ORAL SYRINGE PO PRN (12:38)
[2016-06-09 14:00] VITALS: BP 117/72
[2016-06-09 22:00] VITALS: BP 106/58
[2016-06-10 06:00] VITALS: BP 106/58
[2016-06-10] MEDS: CEFEPIME HCL 2 GM in D5W MINI-BAG PLUS 50 ML IV SCH (06:31)
[2016-06-10] MEDS: SODIUM CHLORIDE 0.9% INJ 10 ML SYR IV PRN ×2 (06:32→22:19)
[2016-06-10 07:14] LABS: DIFF SLIDE NUMBER 65; MEAN CORPUSCULAR HEMOGLOBIN 30.3 pg (27.0-33.0); MEAN CORPUSCULAR HGB CONC 32.1 g/dl (32.0-36.5); MEAN CORPUSCULAR VOLUME 94.3 fl (80.0-96.0); RED CELL DISTRIBUTION WIDTH 15.8 % (11.5-14.5); WHITE BLOOD COUNT 6.6 K/mm3 (4.0-10.0)
[2016-06-10 07:21] LABS: PLATELET COUNT, AUTOMATED 24 k/mm3 (150-450)
[2016-06-10 07:29] LABS: ALBUMIN 2.2 GM/DL (3.2-5.2); ALBUMIN/GLOBULIN RATIO 0.59 (1.00-1.93); ALKALINE PHOSPHATASE 63 U/L (45-117); ALT/SGPT 25 U/L (12-78); ANION GAP 12 MEQ/L (8-16); AST/SGOT 73 U/L (15-37); BILIRUBIN,TOTAL 0.3 MG/DL (0.2-1.0); BLOOD UREA NITROGEN 13 MG/DL (7-18); CALCIUM LEVEL 7.5 MG/DL (8.5-10.1); CARBON DIOXIDE LEVEL 21 MEQ/L (21-32); CHLORIDE LEVEL 106 MEQ/L (98-107); CREATININE FOR GFR 0.69 MG/DL (0.55-1.02); GLOMERULAR FILTRATION RATE > 60.0 (>51); GLUCOSE, FASTING 160 MG/DL (70-105); POTASSIUM SERUM 4.3 MEQ/L (3.5-5.1); SODIUM LEVEL 139 MEQ/L (136-145); TOTAL PROTEIN 5.9 GM/DL (6.4-8.2)
--- NOTE | 2016-06-10 07:47 | IPNPDOC ---
Subjective Date Seen The patient was seen on 06/10/16. Subjective Chief Complaint/HPI The patient is a 61-year-old female admitted with a reason for visit of Weakness Generalized. Events since last encounter Continues with diarrhea. GI panel negative. vaginal abcess cx returned + for MRSA with sensitivity to Bactrim. Denies nausea or vomiting. fevers, trending down. Constitutional: Reports: Fever, Denies: Chills, Night Sweats Skin: Denies: Breakdown, Lesions, Rash Pulmonary: Denies: Cough, Dyspnea Gastrointestinal: Reports: Diarrhea, Denies: Abdominal Pain, Constipation, Nausea, Vomiting Psych: Reports: Mood Normal, Denies: Depression, Memory Issues Objective Physical Examination General Exam: Positive: Alert, No Acute Distress ENT Exam: Positive: Mucous membr. moist/pink Chest Exam: Positive: Clear to auscultation, Normal air movement, Negative: Rales, Rhonchi, Wheezing Heart Exam: Positive: Normal S1, Normal S2, Rate Normal, Regular Rhythm Abdomen Exam: Positive: Normal bowel sounds, Soft, Negative: Tenderness Extremity Exam: Negative: Edema Skin Exam: Positive: Other skin issue (RIGHT mons pubis: mildly erythematous/ ecchymotic in appearance, no drainage, tender) Assessment /Plan Problems (1) Fever and neutropenia Status: Acute Problem Text: 06/09/2016: continues with low grade temps. Changed to Bactrim po based on cx. 06/08/2016: low grade temps overnight. Continue Cefepime D4. 06/07 Remains Afebrile, Cefepime D3. 06/06- afebrile x 24 hours, on cefepime D2 06/05 Fever to 101.3 overnight. Levaquin x1 given overnight. Patient is high- risk as fever developed in the hospital; will switch to Cefepime 2 g Q8H pseudomonas coverage. - CXR done yesterday negative for infection. - Blood cultures and urine culture pending. - Skin exam today shows no rashes or cellulitis. - No other obvious source of infection. (2) Acute diarrhea Status: Acute Problem Text: + Hemoccult, GI panel pending. (3) Chemotherapy-induced thrombocytopenia Status: Acute Problem Text: 06/08/2016: improved at 24, 000 today 06/06 - cont to make improvements 06/05 - Plt stable at 17,000 today (4) Chemotherapy-induced neutropenia Status: Acute Problem Text: 06/07 - D/C Neupogen today. 06/05 - WBCs improved today to 1.1 06/04 WBC 0.3. Receives Neulasta post chemo weekly. Last dose 05/28/2016. Neupogen started 06/03. (5) Hypomagnesemia Status: Acute Problem Specific Plan: Monitor Clinically, Repeat Labs Problem Text: 06/08/2016: 1.6 today, will replace. 06/05 - Mag remains low despite PO replacement; patient was quite hypokalemic upon admission; Mag run x1 ordered for today 06/04 Mag 1.6: start po replacement. (6) Weakness generalized Status: Acute Problem Specific Plan: Monitor Clinically Problem Text: Not safe per PT yet. (7) Facial contusion Status: Acute Response to Treatment: Stable Problem Specific Plan: Monitor Clinically Problem Text: CT head and face without fractures (8) Hypokalemia Status: Acute Problem Specific Plan: Monitor Clinically, Repeat Labs Problem Text: 06/06 K+ 2.9 this morning, IV replacement and repeat labs ordered , will increase po replacement to 40 mcg po BID. 06/05 - K+ better today with PO replacement. 06/04- K+ 3.1, give po replacement 06/03: K+ 3.4. order 2 runs KCL (9) Pancytopenia Status: Chronic Problem Specific Plan: Monitor Clinically Problem Text: favor chemo-induced 06/02 BCX x NGTD; repeat BCX 06/04 no growth (10) Anemia Status: Acute Problem Text: 06/09/16: H/H: 9/. 06/06 - Hgb, stable 10.1 yesterday, 9.9 today. 06/05 - H/H improved this morning s/p 2U pRBCs. 06/04 -Likely chemotherapy-induced; 2 U pRBCs given this morning. Will recheck CBC tomorrow. (11) MRSA (methicillin resistant staph aureus) culture positive Status: Acute Problem Text: STOP Cefepime. Placed on bactrim po bid based on sensitivity. (12) Infection of skin due to methicillin resistant Staphylococcus aureus (MRSA) Status: Acute Plan/VTE VTE Prophylaxis Ordered?: No VS, I&O, 24H, Fishbone Vital Signs/I&O Vital Signs Date Time Temp Pulse Resp B/P Pulse Ox O2 Delivery O2 Flow Rate FiO2 06/10/16 06:00 98.9 108 93 106/58 17 Room Air 06/06/16 06:29 2.0 I&O- Last 24 Hours up to 6 AM 06/10/16 06:00 Intake Total 1520 ml Output Total 300 ml Balance 1220 ml Laboratory Data 24H LABS Laboratory Tests 2 06/09/16 11:44: Bedside Glucose (Misc Panel) 316H 06/09/16 16:36: Bedside Glucose (Misc Panel) 141H 06/09/16 20:32: Bedside Glucose (Misc Panel) 255H 06/10/16 06:29: Blood Urea Nitrogen 13, Creatinine 0.69, Sodium Level 139, Potassium Level 4.3, Chloride Level 106, Carbon Dioxide Level 21, Calcium Level 7.5L, Aspartate Amino Transf (AST/SGOT) 73H, Alanine Aminotransferase (ALT/SGPT) 25, Alkaline Phosphatase 63, Total Bilirubin 0.3, Total Protein 5.9L, Albumin 2.2L, Albumin/ Globulin Ratio 0.59L, Anion Gap 12, Glomerular Filtration Rate > 60.0 CBC/BMP Laboratory Tests 06/10/16 06:29 Calcium Level 7.5 L, Aspartate Amino Transf (AST/SGOT) 73 H, Alanine Aminotransferase (ALT/SGPT) 25, Alkaline Phosphatase 63, Total Bilirubin 0.3, Total Protein 5.9 L, Albumin 2.2 L, Red Blood Count 3.00 L, Mean Corpuscular Volume 94.3, Mean Corpuscular Hemoglobin 30.3, Mean Corpuscular Hemoglobin Concent 32.1, Red Cell Distribution Width 15.8 H Microbiology Microbiology 06/04/16 Blood Culture - Final, Complete NO GROWTH AFTER 5 DAYS 06/04/16 Blood Culture - Final, Complete NO GROWTH AFTER 5 DAYS 06/02/16 Blood Culture - Final, Complete NO GROWTH AFTER 5 DAYS 06/09/16 Gastrointestinal Tract Panel (PCR) - Final, Complete 06/08/16 Stool Occult Blood (LEISA) - Final, Complete 06/08/16 Stool Lactoferrin - Final, Complete 06/05/16 Urine Culture - Final, Complete 06/08/16 Wound Culture - Final, Complete Staph.aureus Methicillin Resis Shannon Samaniego Jun 10, 2016 07:47
[2016-06-10] MEDS: HumaLOG INSULIN (NovoLOG) PER UNIT SC SCH ×4 (08:00→21:00)
[2016-06-10] MEDS: POTASSIUM CHLORIDE 10 MEQ SR TABLET PO SCH ×2 (08:00→21:00)
[2016-06-10] MEDS: MAGNESIUM OXIDE 400 MG TAB (MAG-OX) PO SCH ×2 (08:00→21:11)
[2016-06-10] MEDS: PANTOPRAZOLE 40MG INJ (PROTONIX) (C9113) IV SCH ×2 (08:00→21:21)
[2016-06-10] MEDS: SODIUM CHLORIDE 0.9% INJ 10 ML SYR IV SCH (08:01)
[2016-06-10] MEDS: BACTRIM 160MG/800MG DS TAB PO SCH ×2 (08:01→21:11)
[2016-06-10] MEDS: ATENOLOL 50 MG TAB PO SCH (08:01)
[2016-06-10] MEDS: MUPIROCIN 2% OINT 22 GM TUBE TOP SCH ×2 (08:01→21:12)
[2016-06-10 08:13] LABS: BANDS 5 % (< 11); BASOPHILS 1 % (0-4)
[2016-06-10 08:14] LABS: ANISOCYTOSIS 1+; MICROCYTOSIS 1+; POIKILOCYTOSIS 1+
[2016-06-10 14:00] VITALS: BP 101/60
--- NOTE | 2016-06-10 15:02 | REP ---
COMPLETE ABDOMINAL ULTRASOUND: 06/10/2016 COMPARISON: CT abdomen and pelvis 12/17/2015. CLINICAL HISTORY: Elevated LFTs, diarrhea. FINDINGS: Sonographic evaluation of the right upper quadrant shows the liver homogeneous and hyperechoic in echotexture suggesting some degree of fatty infiltration may be present. This attenuates sounds and there is a limited sonographic window available. The gallbladder shows some biliary sludge. It has wall thickness of 2.7 mm which is still in the normal range. I do not see pericholecystic fluid or mass. There is no calcified gallstone with shadowing. Common duct has a maximal diameter 4.3 mm. Visualized pancreas is grossly intact without mass, ductal dilatation or inflammatory change. The spleen has a length of 10.7 cm without splenomegaly or focal lesion. There are a few calcifications in the spleen. The aorta has a maximum AP diameter of its patent lumen of 1.4 cm, at the renal artery level 1.3 cm at the bifurcation. The right kidney is 11.6 x 5.4 x 5.5 cm. The left kidney is 11.2 x 5.2 x 4.9 cm. No pelvic or abdominal free fluid on this examination. There is no hydronephrosis or stone. IMPRESSION: 1. Mild hyperechogenicity of the liver diffusely with shadowing and limited sonographic window. The hypodense nodule seen within the liver on CT in December 17, 2015 is not visible today. 2. Right and left kidney without hydronephrosis, stone or mass. 3. Pancreas, spleen, kidneys and aorta intact. 4. The common bile duct 4.3 mm. No common duct dilatation or stone. Signed by Omar Vizcarra MD 06/10/2016 06:43 P
[2016-06-10] MEDS: PINK BISMUTH SUSP 524MG/30ML ORAL SYRINGE PO PRN (21:12)
[2016-06-10 22:00] VITALS: BP 107/57
[2016-06-11] MEDS: ALBUTEROL 90 MCG/ACT 8GM HFA INHALER INH PRN ×3 (00:35→21:50)
[2016-06-11] MEDS: diphenhydrAMINE 25 MG CAP PO PRN ×2 (03:31→20:33)
[2016-06-11] MEDS: ACETAMINOPHEN TAB 650MG DOSE (2X325MG) PO PRN ×3 (03:31→20:30)
[2016-06-11] MEDS: SODIUM CHLORIDE 0.9% INJ 10 ML SYR IV PRN (05:31)
[2016-06-11 06:00] VITALS: BP 101/56
[2016-06-11 06:04] LABS: ALBUMIN 2.2 GM/DL (3.2-5.2); ALBUMIN/GLOBULIN RATIO 0.59 (1.00-1.93); ALKALINE PHOSPHATASE 59 U/L (45-117); ALT/SGPT 23 U/L (12-78); ANION GAP 8 MEQ/L (8-16); AST/SGOT 60 U/L (15-37); BILIRUBIN,TOTAL 0.2 MG/DL (0.2-1.0); BLOOD UREA NITROGEN 14 MG/DL (7-18); CALCIUM LEVEL 7.5 MG/DL (8.5-10.1); CARBON DIOXIDE LEVEL 22 MEQ/L (21-32); CHLORIDE LEVEL 107 MEQ/L (98-107); CREATININE FOR GFR 0.84 MG/DL (0.55-1.02); GLOMERULAR FILTRATION RATE > 60.0 (>51); GLUCOSE, FASTING 148 MG/DL (70-105); POTASSIUM SERUM 4.2 MEQ/L (3.5-5.1); SODIUM LEVEL 137 MEQ/L (136-145); TOTAL PROTEIN 5.9 GM/DL (6.4-8.2)
[2016-06-11 06:05] LABS: BASO % 0.2 % (0.0-1.0); EOS % 0.1 % (0.0-3.0); LARGE UNSTAINED CELL # 0.1 K/mm3 (0.0-0.4); LARGE UNSTAINED CELL % 2.6 % (0.0-4.0); LYMPH # 0.3 K/mm3 (1.5-4.5); LYMPH % 6.5 % (24.0-44.0); MEAN CORPUSCULAR HEMOGLOBIN 29.9 pg (27.0-33.0); MEAN CORPUSCULAR HGB CONC 32.1 g/dl (32.0-36.5); MEAN CORPUSCULAR VOLUME 93.2 fl (80.0-96.0); MONO # 0.4 K/mm3 (0.0-0.8); MONO % 6.9 % (0.0-5.0); NEUTROPHILS # 4.2 K/mm3 (1.8-7.7); NEUTROPHILS % 83.7 % (36.0-66.0); RED CELL DISTRIBUTION WIDTH 15.9 % (11.5-14.5)
[2016-06-11 06:12] LABS: PLATELET COUNT, AUTOMATED 26 k/mm3 (150-450)
--- NOTE | 2016-06-11 07:20 | IPNPDOC ---
Subjective Date Seen The patient was seen on 06/11/16. Subjective Chief Complaint/HPI The patient is a 61-year-old female admitted with a reason for visit of Weakness Generalized. Events since last encounter Tmax: 99. Tolerating Bactrim well. States diarrhea slowing down. Constitutional: Denies: Chills, Fever, Night Sweats Pulmonary: Reports: Dyspnea (relieved with nebs), Denies: Cough Cardiovascular: Denies: Chest Pain, Lt Headedness, Orthopnea, Palpitations, Paroxysmal Noc. Dyspnea Gastrointestinal: Denies: Abdominal Pain, Constipation, Diarrhea, Nausea, Vomiting Genitourinary: Denies: Dysuria, Frequency, Incontinence, Retention Psych: Reports: Mood Normal, Denies: Depression, Memory Issues Objective Physical Examination General Exam: Positive: Alert, No Acute Distress ENT Exam: Positive: Mucous membr. moist/pink Chest Exam: Positive: Clear to auscultation, Normal air movement, Negative: Rales, Rhonchi, Wheezing Heart Exam: Positive: Normal S1, Normal S2, Rate Normal, Regular Rhythm Abdomen Exam: Positive: Normal bowel sounds, Soft, Negative: Tenderness Extremity Exam: Negative: Edema Skin Exam: Positive: Other skin issue (RIGHT mons pubis: mildly erythematous/ ecchymotic in appearance, no drainage, tender) Assessment /Plan Problems (1) Fever and neutropenia Status: Acute Problem Text: 06/10/16: T max 99. Continus to improve. WBC 5,000 06/09/2016: continues with low grade temps. Changed to Bactrim po based on cx. 06/08/2016: low grade temps overnight. Continue Cefepime D4. 06/07 Remains Afebrile, Cefepime D3. 06/06- afebrile x 24 hours, on cefepime D2 06/05 Fever to 101.3 overnight. Levaquin x1 given overnight. Patient is high- risk as fever developed in the hospital; will switch to Cefepime 2 g Q8H pseudomonas coverage. - CXR done yesterday negative for infection. - Blood cultures and urine culture pending. - Skin exam today shows no rashes or cellulitis. - No other obvious source of infection. (2) Infection of skin due to methicillin resistant Staphylococcus aureus (MRSA) Status: Acute Problem Text: 06/11/2016: Bactrim Day 2 (3) Acute diarrhea Status: Acute Problem Text: 06/11/16: repeat hemoccult today + Hemoccult, GI panel pending. (4) Chemotherapy-induced thrombocytopenia Status: Acute Problem Text: 06/11/16: stable at 26,000 06/08/2016: improved at 24, 000 today 06/06 - cont to make improvements 06/05 - Plt stable at 17,000 today (5) Chemotherapy-induced neutropenia Status: Acute Problem Text: 06/07 - D/C Neupogen today. 06/05 - WBCs improved today to 1.1 06/04 WBC 0.3. Receives Neulasta post chemo weekly. Last dose 05/28/2016. Neupogen started 06/03. (6) Weakness generalized Status: Acute Problem Specific Plan: Monitor Clinically Problem Text: Not safe per PT yet. (7) Facial contusion Status: Acute Response to Treatment: Stable Problem Specific Plan: Monitor Clinically Problem Text: CT head and face without fractures (8) Hypokalemia Status: Acute Problem Specific Plan: Monitor Clinically, Repeat Labs Problem Text: 06/06 K+ 2.9 this morning, IV replacement and repeat labs ordered , will increase po replacement to 40 mcg po BID. 06/05 - K+ better today with PO replacement. 06/04- K+ 3.1, give po replacement 06/03: K+ 3.4. order 2 runs KCL (9) Pancytopenia Status: Chronic Problem Specific Plan: Monitor Clinically Problem Text: favor chemo-induced 06/02 BCX x NGTD; repeat BCX 06/04 no growth (10) Anemia Status: Acute Problem Text: 06/09/16: H/H: 12/25. 06/06 - Hgb, stable 10.1 yesterday, 9.9 today. 06/05 - H/H improved this morning s/p 2U pRBCs. 06/04 -Likely chemotherapy-induced; 2 U pRBCs given this morning. Will recheck CBC tomorrow. (11) MRSA (methicillin resistant staph aureus) culture positive Status: Acute Problem Text: STOP Cefepime. Placed on bactrim po bid based on sensitivity. (12) Hypomagnesemia Status: Resolved Problem Specific Plan: Monitor Clinically, Repeat Labs Problem Text: 06/08/2016: 1.6 today, will replace. 06/05 - Mag remains low despite PO replacement; patient was quite hypokalemic upon admission; Mag run x1 ordered for today 06/04 Mag 1.6: start po replacement. Plan/VTE VTE Prophylaxis Ordered?: No VS, I&O, 24H, Brianbone Vital Signs/I&O Vital Signs Date Time Temp Pulse Resp B/P Pulse Ox O2 Delivery O2 Flow Rate FiO2 06/11/16 06:00 98.6 98 17 101/56 97 Room Air 06/06/16 06:29 2.0 I&O- Last 24 Hours up to 6 AM 06/11/16 06:00 Intake Total 1040 ml Output Total 500 ml Balance 540 ml Laboratory Data 24H LABS Laboratory Tests 2 06/10/16 11:36: Bedside Glucose (Misc Panel) 281H 06/10/16 16:22: Bedside Glucose (Misc Panel) 217H 06/10/16 19:59: Bedside Glucose (Misc Panel) 168H 06/11/16 05:33: Blood Urea Nitrogen 14, Creatinine 0.84, Sodium Level 137, Potassium Level 4.2, Chloride Level 107, Carbon Dioxide Level 22, Calcium Level 7.5L, Aspartate Amino Transf (AST/SGOT) 60H, Alanine Aminotransferase (ALT/SGPT) 23, Alkaline Phosphatase 59, Total Bilirubin 0.2, Total Protein 5.9L, Albumin 2.2L, Albumin/ Globulin Ratio 0.59L, Anion Gap 8, White Blood Count 5.0, Red Blood Count 2.85L , Hemoglobin 8.5L, Hematocrit 26.6L, Mean Corpuscular Volume 93.2, Mean Corpuscular Hemoglobin 29.9, Mean Corpuscular Hemoglobin Concent 32.1, Red Cell Distribution Width 15.9H, Platelet Count 26*L, Neutrophils (%) (Auto) 83.7H, Lymphocytes (%) (Auto) 6.5L, Monocytes (%) (Auto) 6.9H, Eosinophils (%) (Auto) 0.1, Basophils (%) (Auto) 0.2, Neutrophils # (Auto) 4.2, Lymphocytes # (Auto) 0.3L, Monocytes # (Auto) 0.4, Eosinophils # (Auto) 0.0, Basophils # (Auto) 0.0, Glomerular Filtration Rate > 60.0, Large Unclassified Cells # 0.1, Large Unclassified Cells % 2.6 CBC/BMP Laboratory Tests 06/11/16 05:33 Calcium Level 7.5 L, Aspartate Amino Transf (AST/SGOT) 60 H, Alanine Aminotransferase (ALT/SGPT) 23, Alkaline Phosphatase 59, Total Bilirubin 0.2, Total Protein 5.9 L, Albumin 2.2 L, Red Blood Count 2.85 L, Mean Corpuscular Volume 93.2, Mean Corpuscular Hemoglobin 29.9, Mean Corpuscular Hemoglobin Concent 32.1, Red Cell Distribution Width 15.9 H, Neutrophils (%) (Auto) 83.7 H , Lymphocytes (%) (Auto) 6.5 L, Monocytes (%) (Auto) 6.9 H, Eosinophils (%) ( Auto) 0.1, Basophils (%) (Auto) 0.2, Neutrophils # (Auto) 4.2, Lymphocytes # ( Auto) 0.3 L, Monocytes # (Auto) 0.4, Eosinophils # (Auto) 0.0, Basophils # (Auto ) 0.0 Microbiology Microbiology 06/04/16 Blood Culture - Final, Complete NO GROWTH AFTER 5 DAYS 06/04/16 Blood Culture - Final, Complete NO GROWTH AFTER 5 DAYS 06/02/16 Blood Culture - Final, Complete NO GROWTH AFTER 5 DAYS 06/09/16 Gastrointestinal Tract Panel (PCR) - Final, Complete 06/08/16 Stool Occult Blood (LEISA) - Final, Complete 06/08/16 Stool Lactoferrin - Final, Complete 06/05/16 Urine Culture - Final, Complete 06/08/16 Wound Culture - Final, Complete Staph.aureus Methicillin Resis Shannon Samaniego Jun 11, 2016 07:20
[2016-06-11] MEDS: BACTRIM 160MG/800MG DS TAB PO SCH ×2 (08:12→20:30)
[2016-06-11] MEDS: MAGNESIUM OXIDE 400 MG TAB (MAG-OX) PO SCH ×2 (08:12→20:30)
[2016-06-11] MEDS: ATENOLOL 50 MG TAB PO SCH (08:13)
[2016-06-11] MEDS: POTASSIUM CHLORIDE 10 MEQ SR TABLET PO SCH ×2 (08:13→20:29)
[2016-06-11] MEDS: SODIUM CHLORIDE 0.9% INJ 10 ML SYR IV SCH (08:14)
[2016-06-11] MEDS: HumaLOG INSULIN (NovoLOG) PER UNIT SC SCH ×4 (08:14→20:35)
[2016-06-11] MEDS: PANTOPRAZOLE 40MG INJ (PROTONIX) (C9113) IV SCH (08:14)
[2016-06-11] MEDS: MUPIROCIN 2% OINT 22 GM TUBE TOP SCH ×2 (08:15→20:30)
[2016-06-11] MEDS: PINK BISMUTH SUSP 524MG/30ML ORAL SYRINGE PO PRN (13:00)
[2016-06-11 14:00] VITALS: BP 101/48
[2016-06-11 20:05] VITALS: BP 112/65
[2016-06-11] MEDS: PANTOPRAZOLE 40MG TAB (PROTONIX) PO SCH (20:30)
[2016-06-12] MEDS: ALBUTEROL 90 MCG/ACT 8GM HFA INHALER INH PRN (03:24)
[2016-06-12] MEDS: SODIUM CHLORIDE 0.9% INJ 10 ML SYR IV PRN (05:29)
[2016-06-12 05:55] VITALS: BP 123/61
[2016-06-12 06:25] LABS: BASO % 0.2 % (0.0-1.0); EOS % 0.2 % (0.0-3.0); LARGE UNSTAINED CELL # 0.1 K/mm3 (0.0-0.4); LARGE UNSTAINED CELL % 1.6 % (0.0-4.0); LYMPH # 0.3 K/mm3 (1.5-4.5); LYMPH % 6.2 % (24.0-44.0); MEAN CORPUSCULAR HEMOGLOBIN 30.1 pg (27.0-33.0); MEAN CORPUSCULAR HGB CONC 32.1 g/dl (32.0-36.5); MEAN CORPUSCULAR VOLUME 93.7 fl (80.0-96.0); MONO # 0.3 K/mm3 (0.0-0.8); MONO % 6.2 % (0.0-5.0); NEUTROPHILS # 3.7 K/mm3 (1.8-7.7); NEUTROPHILS % 85.5 % (36.0-66.0); RED CELL DISTRIBUTION WIDTH 15.8 % (11.5-14.5); WHITE BLOOD COUNT 4.3 K/mm3 (4.0-10.0)
[2016-06-12 06:26] LABS: PLATELET COUNT, AUTOMATED 23 k/mm3 (150-450)
[2016-06-12 07:13] LABS: ALBUMIN 2.3 GM/DL (3.2-5.2); ALKALINE PHOSPHATASE 68 U/L (45-117); ALT/SGPT 20 U/L (12-78); ANION GAP 11 MEQ/L (8-16); AST/SGOT 46 U/L (15-37); BILIRUBIN,TOTAL 0.2 MG/DL (0.2-1.0); BLOOD UREA NITROGEN 16 MG/DL (7-18); CALCIUM LEVEL 7.5 MG/DL (8.5-10.1); CARBON DIOXIDE LEVEL 22 MEQ/L (21-32); CHLORIDE LEVEL 108 MEQ/L (98-107); CREATININE FOR GFR 0.77 MG/DL (0.55-1.02); GLOMERULAR FILTRATION RATE > 60.0 (>51); GLUCOSE, FASTING 140 MG/DL (70-105); POTASSIUM SERUM 4.3 MEQ/L (3.5-5.1); SODIUM LEVEL 141 MEQ/L (136-145); TOTAL PROTEIN 5.6 GM/DL (6.4-8.2)
[2016-06-12] MEDS: HumaLOG INSULIN (NovoLOG) PER UNIT SC SCH ×2 (08:11→11:57)
[2016-06-12] MEDS: MAGNESIUM OXIDE 400 MG TAB (MAG-OX) PO SCH (08:12)
[2016-06-12] MEDS: diphenhydrAMINE 25 MG CAP PO PRN (08:12)
[2016-06-12] MEDS: BACTRIM 160MG/800MG DS TAB PO SCH (08:12)
[2016-06-12] MEDS: POTASSIUM CHLORIDE 10 MEQ SR TABLET PO SCH ×2 (08:12→08:15)
[2016-06-12] MEDS: PANTOPRAZOLE 40MG TAB (PROTONIX) PO SCH (08:12)
[2016-06-12] MEDS: SODIUM CHLORIDE 0.9% INJ 10 ML SYR IV SCH (08:13)
[2016-06-12] MEDS: MUPIROCIN 2% OINT 22 GM TUBE TOP SCH (08:13)
[2016-06-12] MEDS: ACETAMINOPHEN TAB 650MG DOSE (2X325MG) PO PRN (08:14)
[2016-06-12 08:15] VITALS: BP 128/69
[2016-06-12] MEDS: ATENOLOL 50 MG TAB PO SCH (08:15)
[2016-06-12] MEDS ORDERED: ALBU17IN INH (08:34)
[2016-06-12] MEDS ORDERED: PANT40TA2 PO (08:34)
[2016-06-12] MEDS ORDERED: POTA10CA PO (08:34)
[2016-06-12] MEDS ORDERED: [UNRECOGNIZED DRUG - CODE] PO (08:34)
[2016-06-12] MEDS ORDERED: SMZ-800T PO (08:34)
[2016-06-12 14:00] VITALS: BP 107/62
--- NOTE | 2016-06-13 16:49 | DSES ---
DATE OF ADMISSION: 06/04/2016 DATE OF DISCHARGE: 06/12/2016 PRIMARY CARE PROVIDER: Stanislav Costa MD ONCOLOGIST: Criselda Marshall MD at [facility] [place], [address] [place] [address]. Sherly is a 61-year-old female who has had multiple admissions postchemotherapy with postchemotherapy thrombocytopenia and leukopenia, who was admitted on 06/02/2016, after having a fall secondary to weakness. She had had chemotherapy 4 days prior to this. Patient had fallen, had significant ecchymosis and swelling to the right side of her face. Workup also proved hypokalemia and pancytopenia secondary to chemotherapy. Patient was subsequently admitted, electrolytes were replaced accordingly. Physical therapy and occupational therapy were consulted. Workup after fall with facial contusion proved no fractures. Patient did receive 3 days of Neupogen due to white blood cell count of 0.3. This did improve her white count shelter through her hospitalization and the Neupogen was discontinued after 3 doses. On 06/05/2016, patient was found to have a fever of 101.3. Chest xray and blood cultures were obtained, all proved negative. Patient's white count was 1.1 on this day. On 06/08/2016, patient was found to have an area to the right mons pubis which was fluctuant and tender, consistent with an abscess. On exam, a large amount of purulent serous drainage was expressed, culture was obtained, and patient was positive for methicillin-resistant Staphylococcus aureus (MRSA) to this area. She was sensitive to Bactrim and started on this medication and she has tolerated it very well. The abscess has had no further drainage. Patient has been participating with physical therapy. Strength has improved, she has been able to ambulate to the bathroom with her walker with minimal assistance. Patient is anxious to go home today. She states she finally feels well enough to go, is agreeable to home health services for assistance within the home. On physical exam today white count is 4.3, hemoglobin and hematocrit of 8.5 and 26.4, platelet count of 23. Chemistry shows a potassium level of 4.3, sodium 141, BUN 16, creatinine 0.77, calcium level of 7.5. Incidentally noted, patient did have a positive Hemoccult times one while inpatient, repeat was negative. Patient has never had a colonoscopy and is agreeable to followup as an outpatient. Imaging completed includes maxillofacial CT, head CT, chest xray on 06/02/2016 and 06/04/2016, spine xray on 06/02/2016, and an abdominal ultrasound on 06/10/2016, this was secondary to complaints of elevated liver function tests (LFTs) and diarrhea, and no abnormality is appreciated. CONSULTATIONS: None. PHYSICAL EXAMINATION: Today: HEENT: Neck is supple without lymphadenopathy or jugular venous distention (JVD). She does have some ecchymosis to the left side of the face without swelling. Oral mucosa is pink and moist. CARDIOVASCULAR: Heart rate and rhythm are regular. PULMONARY: Lungs are clear to auscultation bilaterally. ABDOMEN: Soft and nontender with positive bowel sounds throughout all four quadrants. BILATERAL LOWER EXTREMITIES: Without any edema. ASSESSMENT: 1. Weakness with fall. 2. Chemotherapy induced thrombocytopenia. 3. Mons pubis abscess with positive methicillin-resistant Staphylococcus aureus (MRSA) infection. 4. Hypokalemia, which has resolved. 5. Breast cancer. In process of chemotherapy, treatment with Dr. Criselda Marshall. 6. History of diabetes. 7. History of atrial fibrillation. PLAN: Patient will be discharged home. Diet is as tolerated. Activity is out of bed with walker. Patient will have home health services within the home for monitoring. MEDICATIONS: Are as follows: - albuterol inhaler every 4 hours as needed for shortness of breath - Pepto-Bismol 30 mL by mouth every 6 hours as needed for gastrointestinal (GI) distress - pantoprazole sodium 40 mg by mouth twice a day - potassium chloride 40 mEq by mouth twice a day - Bactrim one tablet by mouth twice a day - atenolol 50 mg by mouth every evening - paroxetine 20 mg by mouth every evening - Januvia 100 mg by mouth every evening Patient will followup with primary care provider (PCP) within the next 5-7 days. She should also followup with her oncologist Dr. Criselda Marshall within the next 5-7 days. It may need to be discussed between primary care provider (PCP) and oncologist patient's recurrent admissions status post chemotherapy and need of monitoring for electrolyte disturbances on a more acute basis.
== END 2016-06-12 16:50 | disposition home health service (06) | DRG 604 ==
LOC: EDBD 03:30 → M ED 04:54 → M ED INP 06:35 → M PCU 12:32 → M MSPAV 06-03 20:42 → EEVIPCON 06-04 11:39 → OBSVTOIN 06-04 11:39
PROVIDERS: ADMIT Internal Medicine; ATTEND Family Medicine
PROC: 30233N1 Transfusion of Nonautologous Red Blood Cells into Peripheral Vein, Percutaneous Approach (ICD-10-PCS; principal; 2016-06-04)
DX: S00.83XA Contusion of other part of head, initial encounter (principal); D61.810 Antineoplastic chemotherapy induced pancytopenia; L02.215 Cutaneous abscess of perineum; C50.919 Malignant neoplasm of unspecified site of unspecified female breast; D64.81 Anemia due to antineoplastic chemotherapy; E87.6 Hypokalemia; E11.9 Type 2 diabetes mellitus without complications; J45.909 Unspecified asthma, uncomplicated; B95.62 Methicillin resistant Staphylococcus aureus infection as the cause of diseases classified elsewhere; D69.59 Other secondary thrombocytopenia; D70.1 Agranulocytosis secondary to cancer chemotherapy; E83.42 Hypomagnesemia; R53.1 Weakness; R19.7 Diarrhea, unspecified; I48.91 Unspecified atrial fibrillation; Z79.84 Long term (current) use of oral hypoglycemic drugs; Z79.899 Other long term (current) drug therapy; Z92.21 Personal history of antineoplastic chemotherapy; Z90.710 Acquired absence of both cervix and uterus; Z95.828 Presence of other vascular implants and grafts; W01.0XXA Fall on same level from slipping, tripping and stumbling without subsequent striking against object, initial encounter; Y92.019 Unspecified place in single-family (private) house as the place of occurrence of the external cause; Y93.01 Activity, walking, marching and hiking; Y99.9 Unspecified external cause status

== ENCOUNTER → 2016-06-17 | Outpatient (REF) | payer MEDICARE, MEDICAID ==
[~2016-06-17] MED LIST changes: +PANT40TA2 PO; +POTA10CA PO; +SMZ-800T PO; +[UNRECOGNIZED DRUG - CODE] PO
[2016-06-17 13:58] LABS: BASO % 0.4 % (0.0-1.0); EOS % 0.2 % (0.0-3.0); LARGE UNSTAINED CELL # 0.1 K/mm3 (0.0-0.4); LARGE UNSTAINED CELL % 1.4 % (0.0-4.0); LYMPH # 0.4 K/mm3 (1.5-4.5); LYMPH % 7.7 % (24.0-44.0); MEAN CORPUSCULAR HEMOGLOBIN 29.8 pg (27.0-33.0); MEAN CORPUSCULAR HGB CONC 30.8 g/dl (32.0-36.5); MEAN CORPUSCULAR VOLUME 96.8 fl (80.0-96.0); MONO # 0.3 K/mm3 (0.0-0.8); MONO % 6.9 % (0.0-5.0); NEUTROPHILS # 3.7 K/mm3 (1.8-7.7); NEUTROPHILS % 83.4 % (36.0-66.0); RED CELL DISTRIBUTION WIDTH 16.3 % (11.5-14.5); WHITE BLOOD COUNT 4.4 K/mm3 (4.0-10.0)
[2016-06-17 14:01] LABS: PLATELET COUNT, AUTOMATED 58 k/mm3 (150-450)
== END ==
LOC: M SFHCPLAZ 12:13
PROVIDERS: ATTEND Family Medicine
DX: D61.818 Other pancytopenia (principal)
CPT/HCPCS: 36415; 85025; G0463

== ENCOUNTER → 2016-07-15 | Outpatient (REF) | payer MEDICARE, MEDICAID | LOC: M SFHCPLAZ 16:26 | PROVIDERS: ATTEND Family Medicine | DX: D61.818 Other pancytopenia (principal); Z53.8 Procedure and treatment not carried out for other reasons ==

== ENCOUNTER → 2016-07-16 | Outpatient (REF) | payer MEDICARE, MEDICAID ==
[2016-07-16 16:16] LABS: BASO % 0.2 % (0.0-1.0); EOS # 0.1 K/mm3 (0.0-0.50); EOS % 2.1 % (0.0-3.0); LARGE UNSTAINED CELL # 0.1 K/mm3 (0.0-0.4); LARGE UNSTAINED CELL % 1.2 % (0.0-4.0); LYMPH # 0.5 K/mm3 (1.5-4.5); LYMPH % 7.9 % (24.0-44.0); MEAN CORPUSCULAR HEMOGLOBIN 31.3 pg (27.0-33.0); MEAN CORPUSCULAR HGB CONC 31.1 g/dl (32.0-36.5); MEAN CORPUSCULAR VOLUME 100.7 fl (80.0-96.0); MONO # 0.4 K/mm3 (0.0-0.8); NEUTROPHILS # 4.5 K/mm3 (1.8-7.7); NEUTROPHILS % 81.5 % (36.0-66.0); RED CELL DISTRIBUTION WIDTH 16.2 % (11.5-14.5); WHITE BLOOD COUNT 5.5 K/mm3 (4.0-10.0)
[2016-07-16 16:21] LABS: PLATELET COUNT, AUTOMATED 96 k/mm3 (150-450)
== END ==
LOC: M SFHCPLAZ 14:49
PROVIDERS: ATTEND Family Medicine
DX: D61.818 Other pancytopenia (principal)

== ENCOUNTER → 2016-09-25 | Outpatient (REF) | payer MEDICARE, MEDICAID ==
[~2016-09-25] MED LIST changes: +ACET50TAOT PO; +ACTO30TA15 PO; -ACTO30TA7 PO; +ASPI325T PO; +ASPI81CH PO; +CLAR1TAB2 PO; +DEXA4TA PO; -GLIP10TA13 PO; +GLIP1TAB51 PO; +INSUDET SC; +INSUHUMDS SC; +LEVA1TAB2 PO; +LISI2.5T3 PO; +MILKSUS PO; +NAPR1TAB41 PO; -NAPR220T8 PO; -PARO-39 PO; +PARO20TA4 PO; +PERCOCET PO; +PIOG30TA4 PO; +SENN18TA PO; +SENN1TAB2 PO; -SMZ-800T PO; +SULF1TAB23 PO; +TYLE500T78 PO; +VICT18IN SC; +ZOCO40TA PO
[2016-09-25 16:38] LABS: ANION GAP 5 MEQ/L (8-16); BLOOD UREA NITROGEN 20 MG/DL (7-18); CALCIUM LEVEL 9.5 MG/DL (8.5-10.1); CARBON DIOXIDE LEVEL 30 MEQ/L (21-32); CHLORIDE LEVEL 105 MEQ/L (98-107); CHOLESTEROL LEVEL 318 MG/DL (<200); CREATININE FOR GFR 0.64 MG/DL (0.55-1.02); GLOMERULAR FILTRATION RATE > 60.0 (>51); GLUCOSE, FASTING 209 MG/DL (70-105); POTASSIUM SERUM 4.2 MEQ/L (3.5-5.1); SODIUM LEVEL 140 MEQ/L (136-145); TRIGLYCERIDES LEVEL 190 MG/DL (<150)
[2016-09-25 16:39] LABS: BASO % 0.4 % (0.0-1.0); EOS # 0.1 K/mm3 (0.0-0.50); EOS % 2.4 % (0.0-3.0); LARGE UNSTAINED CELL # 0.1 K/mm3 (0.0-0.4); LARGE UNSTAINED CELL % 2.3 % (0.0-4.0); LYMPH # 0.6 K/mm3 (1.5-4.5); LYMPH % 15.2 % (24.0-44.0); MEAN CORPUSCULAR HEMOGLOBIN 31.8 pg (27.0-33.0); MEAN CORPUSCULAR HGB CONC 32.2 g/dl (32.0-36.5); MEAN CORPUSCULAR VOLUME 98.8 fl (80.0-96.0); MONO # 0.2 K/mm3 (0.0-0.8); MONO % 7.5 % (0.0-5.0); NEUTROPHILS # 2.3 K/mm3 (1.8-7.7); NEUTROPHILS % 72.2 % (36.0-66.0); RED CELL DISTRIBUTION WIDTH 12.4 % (11.5-14.5); WHITE BLOOD COUNT 3.2 K/mm3 (4.0-10.0)
[2016-09-25 16:42] LABS: PLATELET COUNT, AUTOMATED 98 k/mm3 (150-450)
== END ==
LOC: M SFHCPLAZ 14:42
PROVIDERS: ATTEND Family Medicine
DX: Z86.2 Personal history of diseases of the blood and blood-forming organs and certain disorders involving the immune mechanism (principal); E11.65 Type 2 diabetes mellitus with hyperglycemia
CPT/HCPCS: 36415; 80048; 80061; 83036; 85025; G0463

== ENCOUNTER → 2016-11-12 | Outpatient (CLI) | payer MEDICARE, MEDICAID ==
--- NOTE | 2016-11-12 14:23 | REP ---
Right shoulder three views: Mineralization and joint spaces are normal. There is no fracture or dislocation. There are no calcifications or foreign bodies. There are surgical clips in the right axilla. Impression: Negative right shoulder. There are surgical clips in the right axilla. Signed by Kwabena De La Rosa MD 11/12/2016 02:14 P
--- NOTE | 2016-11-12 14:24 | REP ---
Cervical spine eight views: There are no comparisons. Vertebral body heights and alignment are normal. There are anterior bridging osteophytes at C4-5 C5-6 compatible with degenerative disc disease. There is disc space narrowing and anterior bridging osteophytes at C6-7 compatible with degenerative disc disease. The prevertebral soft tissues are normal. The facets are normally aligned. There is no listhesis on flexion or extension. The odontoid view is unremarkable. There is no bony foraminal encroachment. There is an indwelling left IJ central venous catheter. Impression: Multilevel degenerative disc disease. No bony foraminal encroachment. Right IJ central venous [id number] catheter. Signed by Kwabena De La Rosa MD 11/12/2016 02:17 P
== END ==
LOC: M RAD 13:43
PROVIDERS: ATTEND Nurse Practitioner Family
DX: M50.30 Other cervical disc degeneration, unspecified cervical region (principal); Z96.89 Presence of other specified functional implants

== ENCOUNTER → 2016-11-26 | Outpatient (CLI) | payer MEDICARE, MEDICAID ==
--- NOTE | 2016-11-27 15:26 | REP ---
MRI BRAIN WITHOUT CONTRAST: HISTORY: Right arm weakness. COMPARISON: CT 06/02/2016 A mass with a cystic component is present in the left parietal lobe. The mass measures 2.4 cm in transverse x 2.8 cm in AP dimensions. A small amount of surrounding edema is present. There is minimal mass effect with partial effacement of the overlying cortical sulci. There is no midline shift. There is no intraparenchymal hemorrhage or infarct. The ventricular system and cortical sulci are dilated consistent with minimal volume loss. There is no extracerebral collection. Mucosal thickening is present in the maxillary sinuses. IMPRESSION: There is a 2.8 cm mass with a cystic component in the posterior left parietal lobe. Contrast enhanced MR is recommended for further evaluation. Signed by Sandeep Day MD 11/27/2016 03:31 P
--- NOTE | 2016-11-27 15:34 | REP ---
MR CERVICAL SPINE WITHOUT CONTRAST: HISTORY: Right arm weakness. A disc bugle is present at the C3-4 level. There is minimal effacement of the thecal sac without spinal cord compression. The C3 neural foramina are patent. A disc bulge is present at the C4-5 level. There is minimal effacement of the thecal sac without spinal cord compression. The C4 neural foramina are patent. A disc bulge is present at the C5-6 level. There is mild effacement of the thecal sac without spinal cord compression. The C5 neural foramina are patent. A disc bugle is present at the C6-7 level. There is mild effacement of the thecal sac without spinal cord compression. Bilateral uncinate process hypertrophy is present. This produces minimal narrowing of the C6 neural foramina. A disc bulge is present at the C7-T1 level. There is minimal effacement of the thecal sac without spinal cord compression. The C7 neural foramina are patent. A small disc protrusion is present at the T1-2 level. There is minimal effacement of the thecal sac without spinal cord compression. The T1 neural foramina are patent on sagittal images. There is no other disc bulge or herniation. The remaining neural foramen are patent. The spinal cord is normal in signal intensity. The C6-7 intervertebral disc is decreased in height consistent with disc degeneration. A 1 cm area of increased signal intensity on T1 and T2-weighted images is present in the left thyroid lobe. A 4 mm area is present in the right thyroid lobe. IMPRESSION: 1. There is cervical spondylosis at the C3-4 through C7-T1 levels without spinal cord compression. 2. There are two areas of increased signal intensity in the thyroid gland. These may represent cysts. Ultrasound may be helpful for further evaluation. Signed by Sandeep Day MD 11/27/2016 03:40 P
== END ==
LOC: M RAD 19:01
PROVIDERS: ATTEND Family Medicine
DX: G93.0 Cerebral cysts (principal); M47.812 Spondylosis without myelopathy or radiculopathy, cervical region; M47.893 Other spondylosis, cervicothoracic region

== ENCOUNTER 2016-12-11 12:15 | Inpatient (IN) | payer MEDICARE, MEDICAID ==
[~2016-12-11] VITALS: Ht 162.6 cm; Wt 80.3 kg
[~2016-12-11 12:15] MED LIST changes: -ACET50TAOT PO; -ASPI325T PO; -ASPI81CH PO; -CLAR1TAB2 PO; -DEXA4TA PO; -INSUDET SC; -INSUHUMDS SC; -LEVA1TAB2 PO; -LISI2.5T3 PO; -MILKSUS PO; -PERCOCET PO; -PIOG30TA4 PO; -SENN18TA PO; -SENN1TAB2 PO; -TYLE500T78 PO; -VICT18IN SC; -ZOCO40TA PO
[2016-12-11] MEDS ORDERED: ASPI81CH PO (12:34)
[2016-12-11] MEDS ORDERED: PIOG30TA4 PO (12:34)
[2016-12-11] MEDS ORDERED: TYLE500T78 PO (12:34)
[2016-12-11] MEDS ORDERED: DEXA4TA PO (12:34)
[2016-12-11] MEDS ORDERED: ONDANSETRON 4MG/2ML VIAL (J2405) IV ONE (13:00)
--- NOTE | 2016-12-11 13:30 | REP ---
Clinical: Right hip pain. Altered mental status. Technique: Frontal view of the pelvis with neutral and frog lateral views of the right hip. Findings: Age-related degenerative changes are appreciated. Hip joints are symmetric. No acute fracture or dislocation is appreciated. Impression: No acute fracture or dislocation. Signed by Cedrick Bauer MD 12/11/2016 01:22 P
--- NOTE | 2016-12-11 13:31 | REP ---
Clinical: Altered mental status. Chest pain. Comparison: 06/04/2016. Findings: Mediastinum and cardiac silhouette are stable. [id number] is identified with tip in the right atrium. Lung jones are clear without acute consolidation, effusion, or pneumothorax. Skeletal structures are normal. Evidence of prior right axillary node dissection. Impression: No acute cardiopulmonary process or focal consolidation appreciated. Signed by Cedrick Bauer MD 12/11/2016 01:23 P
[2016-12-11] MEDS: NS 1,000 ML IV SCH (13:37)
[2016-12-11] MEDS: MORPHINE 2 MG/ML 1ML SYRINGE IV PRN ×2 (13:39→23:40)
[2016-12-11] MEDS ORDERED: CLAR1TAB2 PO (13:48)
[2016-12-11] MEDS ORDERED: LISI2.5T3 PO (13:48)
[2016-12-11] MEDS ORDERED: ASPI325T PO (13:48)
[2016-12-11] MEDS ORDERED: VICT18IN SC (13:48)
[2016-12-11] MEDS ORDERED: ZOCO40TA PO (13:48)
[2016-12-11] MEDS ORDERED: ACET50TAOT PO (13:48)
[2016-12-11 14:36] LABS: EOS % 0.3 % (0.0-3.0); LARGE UNSTAINED CELL % 0.5 % (0.0-4.0); LYMPH # 0.3 K/mm3 (1.5-4.5); LYMPH % 4.4 % (24.0-44.0); MEAN CORPUSCULAR HEMOGLOBIN 30.4 pg (27.0-33.0); MEAN CORPUSCULAR HGB CONC 31.9 g/dl (32.0-36.5); MEAN CORPUSCULAR VOLUME 95.3 fl (80.0-96.0); MONO # 0.2 K/mm3 (0.0-0.8); MONO % 2.8 % (0.0-5.0); NEUTROPHILS # 5.5 K/mm3 (1.8-7.7); PLATELET COUNT, AUTOMATED 123 k/mm3 (150-450)
[2016-12-11 14:53] LABS: ALBUMIN 3.5 GM/DL (3.2-5.2); ALBUMIN/GLOBULIN RATIO 0.88 (1.00-1.93); ALKALINE PHOSPHATASE 59 U/L (45-117); ALT/SGPT 18 U/L (12-78); ANION GAP 9 MEQ/L (8-16); AST/SGOT 9 U/L (15-37); BILIRUBIN,TOTAL 0.4 MG/DL (0.2-1.0); BLOOD UREA NITROGEN 21 MG/DL (7-18); CALCIUM LEVEL 9.5 MG/DL (8.5-10.1); CARBON DIOXIDE LEVEL 27 MEQ/L (21-32); CHLORIDE LEVEL 104 MEQ/L (98-107); CREATININE FOR GFR 0.94 MG/DL (0.55-1.02); GLOMERULAR FILTRATION RATE > 60.0 (>51); GLUCOSE, FASTING 336 MG/DL (70-105); POTASSIUM SERUM 3.7 MEQ/L (3.5-5.1); SODIUM LEVEL 140 MEQ/L (136-145); TOTAL PROTEIN 7.5 GM/DL (6.4-8.2)
[2016-12-11 14:58] LABS: BILIRUBIN,DIRECT < 0.1 MG/DL (0.0-0.2)
[2016-12-11 16:39] LABS: INR 1.06
[2016-12-11] MEDS ORDERED: DEXTROSE 50% 50 ML SYRINGE IV PRN (17:30)
[2016-12-11] MEDS ORDERED: ALBUTEROL 90 MCG/ACT 8GM HFA INHALER INH PRN (17:30)
[2016-12-11] MEDS ORDERED: GLUCAGON FOR INJ 1 MG VIAL (J1610) SC PRN (17:30)
[2016-12-11] MEDS ORDERED: GLUCOSE 4 GM CHEW TABLET PO PRN (17:30)
[2016-12-11 17:38] VITALS: BP 138/71
[2016-12-11] MEDS: HumaLOG INSULIN (NovoLOG) PER UNIT SC SCH ×2 (18:51→21:00)
[2016-12-11 22:00] VITALS: BP 113/56
[2016-12-12] MEDS: NS 1,000 ML IV SCH ×3 (05:28→18:22)
[2016-12-12 06:00] VITALS: BP 121/59
[2016-12-12 06:15] LABS: ANION GAP 10 MEQ/L (8-16); BLOOD UREA NITROGEN 18 MG/DL (7-18); CALCIUM LEVEL 8.4 MG/DL (8.5-10.1); CARBON DIOXIDE LEVEL 26 MEQ/L (21-32); CHLORIDE LEVEL 109 MEQ/L (98-107); GLOMERULAR FILTRATION RATE > 60.0 (>51); GLUCOSE, FASTING 239 MG/DL (70-105); POTASSIUM SERUM 4.2 MEQ/L (3.5-5.1); SODIUM LEVEL 145 MEQ/L (136-145)
[2016-12-12 06:27] LABS: MEAN CORPUSCULAR HEMOGLOBIN 30.6 pg (27.0-33.0); MEAN CORPUSCULAR HGB CONC 31.8 g/dl (32.0-36.5); MEAN CORPUSCULAR VOLUME 96.1 fl (80.0-96.0); WHITE BLOOD COUNT 6.2 K/mm3 (4.0-10.0)
[2016-12-12 06:35] LABS: INR 1.04
[2016-12-12 08:00] VITALS: BP 130/62
[2016-12-12] MEDS: HumaLOG INSULIN (NovoLOG) PER UNIT SC SCH ×4 (08:25→20:36)
[2016-12-12] MEDS: SIMVASTATIN 40 MG TAB PO SCH (08:26)
[2016-12-12] MEDS: PANTOPRAZOLE 40MG TAB (PROTONIX) PO SCH (08:26)
[2016-12-12] MEDS: LISINOPRIL *2.5 MG* TAB PO SCH (08:26)
[2016-12-12] MEDS: ATENOLOL 50 MG TAB PO SCH (08:27)
[2016-12-12] MEDS: LEVEMIR (INSULIN DETEMIR) 1 UNITS/0.01ML SC SCH ×2 (11:51→20:59)
--- NOTE | 2016-12-12 12:01 | ECGEPIP ---
Stationary ECG Study [facility] Test Date: 2016-12-11 Pat Name: RAND DAVE Department: Room: [place] [address] Gender: F Tag Writer: JHONATAN : 1955 Requested By: Chin Beatty Order Number: [id number] Reading MD: Wallace Davis Measurements Intervals [place] Rate: 78 P: 73 LA: 101 QRS: 73 QRSD: 106 T: 44 QT: 376 QTc: 430 Interpretive Statements SINUS RHYTHM WITH SHORT LA INTERVAL Similar to tracing done 12-11-16 Electronically Signed On 12-12-2016 12:01:00 EDT by Wallace Davis
[2016-12-12 14:00] VITALS: BP 138/68
--- NOTE | 2016-12-12 17:29 | ECGEPIP ---
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
--- NOTE | 2016-12-12 17:59 | IPN ---
DATE: 12/12/2016 Ms. Romero is feeling well today. She has no complaints of pain, chest pain, shortness of breath. She obviously has weakness in her right upper extremity. Temperature 96.9, pulse 65, respiratory rate 19, blood pressure 138/68, 96% on room air. Input and output notable for a positive fluid balance of 600. Pleasant, easily conversant. Mucous membranes moist. Neck is supple. Breathing is symmetrical. I:E ratio is 1:3. Breathing is rested. No accessory muscle use. Heart is regular rate and rhythm. There is a systolic ejection murmur at the right upper sternal border. Abdomen is soft, doughy, nontender. White cell count 6.2, hemoglobin 10.4, platelets 99. BUN is 18, creatinine 0.6, INR is 1.04. Fingersticks have been greater than 200 and so she has been started on Levemir. ASSESSMENT: 61-year-old with malignant breast cancer with metastases to the brain. Plan for further surgical workup. PLAN: 1. Oncologic. The patient has malignant neoplasm with brain metastases. This has been present since at least November 26, await repeat MRI to assess for any advancement. Possibility of need for urgent surgery. If there is a need for emergent surgery, would recommend proceeding to surgery without further workup. If the surgery is urgent and can be delayed to create an optimal surgical environment, we will attempt to better optimize diabetic management. 2. The patient has type 2 diabetes. She is hyperglycemia that is complicated with steroid use currently. I have added some long-acting insulin to get her fingerstick less than 200. 3. The patient has hyperlipidemia. 4. The patient has hypertensive heart disease without known heart failure. Echocardiogram has been ordered, as she has had cardiotoxic chemotherapy in the past, strictly speaking, this is not necessary for emergency surgery but might be beneficial prior to an urgent procedure to help guide fluid management.
[2016-12-12] MEDS: SENOKOT S TAB PO SCH (20:58)
[2016-12-12] MEDS: MOM 30ML SUSPENSION UDC PO PRN (20:58)
[2016-12-12] MEDS ORDERED: zolPIDEM TARTRATE 5 MG TAB PO ONE (21:00)
[2016-12-12 22:00] VITALS: BP 112/58
[2016-12-13] MEDS ORDERED: NS 1,000 ML IV SCH
[2016-12-13 05:37] LABS: MEAN CORPUSCULAR HEMOGLOBIN 30.6 pg (27.0-33.0); MEAN CORPUSCULAR HGB CONC 31.8 g/dl (32.0-36.5); MEAN CORPUSCULAR VOLUME 96.4 fl (80.0-96.0); RED CELL DISTRIBUTION WIDTH 13.2 % (11.5-14.5)
[2016-12-13 06:00] VITALS: BP 126/61
[2016-12-13 06:31] LABS: ANION GAP 5 MEQ/L (8-16); BLOOD UREA NITROGEN 20 MG/DL (7-18); CALCIUM LEVEL 8.5 MG/DL (8.5-10.1); CARBON DIOXIDE LEVEL 29 MEQ/L (21-32); CHLORIDE LEVEL 111 MEQ/L (98-107); CREATININE FOR GFR 0.62 MG/DL (0.55-1.02); GLOMERULAR FILTRATION RATE > 60.0 (>51); GLUCOSE, FASTING 263 MG/DL (70-105); POTASSIUM SERUM 4.1 MEQ/L (3.5-5.1); SODIUM LEVEL 145 MEQ/L (136-145)
[2016-12-13] MEDS: HumaLOG INSULIN (NovoLOG) PER UNIT SC SCH ×4 (07:30→20:42)
[2016-12-13] MEDS: SIMVASTATIN 40 MG TAB PO SCH ×2 (07:52→11:15)
[2016-12-13] MEDS: ATENOLOL 50 MG TAB PO SCH ×2 (07:52→11:15)
[2016-12-13] MEDS: LISINOPRIL *2.5 MG* TAB PO SCH ×2 (07:53→11:14)
[2016-12-13] MEDS: SENOKOT S TAB PO SCH ×2 (07:53→11:15)
[2016-12-13] MEDS: PANTOPRAZOLE 40MG TAB (PROTONIX) PO SCH ×2 (07:53→11:14)
[2016-12-13] MEDS ORDERED: ISOVUE-370 76% 100ML VIAL (Q9967) As Ordered ONE (08:17)
[2016-12-13] MEDS: SODIUM CHLORIDE 0.9% INJ 10 ML SYR IV SCH (08:20)
[2016-12-13] MEDS: LEVEMIR (INSULIN DETEMIR) 1 UNITS/0.01ML SC SCH ×2 (08:20→20:43)
--- NOTE | 2016-12-13 09:06 | ECHO ---
DATE OF STUDY: 12/12/2016 REFERRING PHYSICIAN: Dr. Davis INDICATION: Congestive heart failure. The study was performed 12/12/2016. The patient measures 163 cm and weighs 79 kg. DIMENSIONS: IVS 1.0 LV 4.3 LVPW 0.9 LA 3.2 Aorta 2.9 FINDINGS: The study is of very limited technical quality. Neither parasternal nor apical nor subcostal views are good. Nevertheless, left ventricle is of normal size and overall likely normal systolic function based on limited views. I certainly cannot rule out subtle wall motion abnormalities. Estimated ejection fraction (EF) around 65% to 70%. Right ventricle was poorly visualized but grossly appears normal. Both atria appear normal. Aortic valve is mildly sclerotic but has preserved mobility. The same applies for mitral valve. There are subtle mitral annular calcifications, but leaflet mobility is preserved. Tricuspid and pulmonic valves appear normal. No pericardial effusion is noted. Inferior vena cava is normal size. Aortic root, aortic arch, and visualized segment of abdominal aorta appear normal. Doppler interrogation of aortic valve reveals no stenosis or insufficiency. There is mild mitral insufficiency and mild tricuspid insufficiency. Calculated pulmonary artery pressure is within normal limits. Pulmonic valve is exhibiting trace insufficiency. Mitral inflow pattern and tissue Doppler imaging of mitral annulus reveal probably normal diastolic function, even though tissue Doppler velocities of mitral annulus are mildly reduced (8.0 and 8.9 cm/sec septal and lateral mitral annulus). CONCLUSIONS: 1. The study is of very limited technical quality. 2. Normal left ventricle (LV) size with overall preserved LV systolic function. Probably normal diastolic function. Cannot reliably rule out subtle wall motion abnormalities. 3. No significant valvular disease. 4. Normal central venous pressure. 5. Probably normal pulmonary artery pressure. COMMENT: Subacute bacterial endocarditis (SBE) prophylaxis is not recommended.
--- NOTE | 2016-12-13 09:57 | REP ---
Clinical: Preoperative planning. Mass. Technique: Axial contrast enhanced images from the skull base to the vertex using 100 ml Isovue 370 intravenous contrast material with coronal and sagittal re-formations. Findings: There is a rim enhancing cystic lesion in the posterior left frontal lobe measuring 3.5 x 3.1 x 2.5 cm with possible subtle enhancing superior mural nodule. Mild surrounding edema is suggested, but without significant mass effect or midline shift. Dave-white differentiation is maintained and no other lesions are identified. No extra-axial fluid collection is appreciated. Vascularity to the bilateral hemispheres appears relatively symmetric and normal. Calvarium is intact. Sinuses are clear. Impression: Solitary cystic rim enhancing lesion in the posterior left frontal lobe with possible small enhancing mural nodule and very minimal surrounding edema. Signed by Cedrick Bauer MD 12/13/2016 09:48 A
[2016-12-13 14:00] VITALS: BP 103/53
[2016-12-13] MEDS: NS 1,000 ML IV SCH ×2 (15:51→20:41)
--- NOTE | 2016-12-13 16:35 | IPN ---
DATE: 12/13/2016 Ms. Romero is feeling well today. She has no complaints of chest pain or shortness of breath. She has no change in the weakness in the right upper extremity. Temperature 96.7, pulse 64, respiratory rate 15, blood pressure 126/61, 96% on room air. Input and output notable for a positive fluid balance of 2930, no bowel movements noted. She is awake, appropriately interactive, pleasantly conversant. Mucous membranes moist. Neck is supple. Breathing is symmetrical. I:E ratio is 1:3. Heart is distant sounding, normal S1, S2. Abdomen is soft, doughy, nontender. There is decreased strength in her right upper extremity. Panel Beater strength is good, but movement of the shoulder and elbow is exceedingly limited. White cell count 5, hemoglobin 10.1, platelets 92. BUN 20, creatinine 0.62. Fasting glucose this morning was 263. Echocardiogram as read by Dr. Mckeon shows preserved left ventricular systolic function, likely normal diastolic dysfunction, no significant valvular disease. I did discuss this in person with Dr. Mckeon. My assessment is as follows: This is a 61-year-old with malignant breast cancer with a metastatic lesion to the brain planned for surgical workup. Plan is as follows: 1. Oncologic. The patient has a malignant neoplasm with brain metastases. Considering the possibility for urgent or emergent surgery. Surgery had initially been planned for today, but has been delayed for what appears to be technical reasons. At this point, there does not appear to be any urgency to have this surgery done today by my estimation. 2. The patient has type 2 diabetes. This is not optimally controlled at this time. I have increased her long-acting insulin and increased her sliding scale. Postoperatively, patient may benefit from an insulin drip if that is deemed clinically warranted. 3. The patient has hyperlipidemia. 4. The patient has hypertensive heart disease. No evidence of heart failure. 5. I did discuss this case with Dr. Lane in person.
[2016-12-13 22:00] VITALS: BP 124/72
[2016-12-13] MEDS ORDERED: zolPIDEM TARTRATE 5 MG TAB PO ONE (22:00)
[2016-12-14] MEDS: NS 1,000 ML IV SCH ×3 (01:40→16:41)
[2016-12-14 06:00] VITALS: BP 134/72
[2016-12-14 06:16] LABS: MEAN CORPUSCULAR HEMOGLOBIN 29.6 pg (27.0-33.0); MEAN CORPUSCULAR HGB CONC 30.7 g/dl (32.0-36.5); MEAN CORPUSCULAR VOLUME 96.3 fl (80.0-96.0); RED CELL DISTRIBUTION WIDTH 13.2 % (11.5-14.5); WHITE BLOOD COUNT 5.6 K/mm3 (4.0-10.0)
[2016-12-14 06:17] LABS: ANION GAP 7 MEQ/L (8-16); BLOOD UREA NITROGEN 19 MG/DL (7-18); CALCIUM LEVEL 8.1 MG/DL (8.5-10.1); CARBON DIOXIDE LEVEL 26 MEQ/L (21-32); CHLORIDE LEVEL 113 MEQ/L (98-107); CREATININE FOR GFR 0.56 MG/DL (0.55-1.02); GLOMERULAR FILTRATION RATE > 60.0 (>51); GLUCOSE, FASTING 238 MG/DL (70-105); POTASSIUM SERUM 4.2 MEQ/L (3.5-5.1); SODIUM LEVEL 146 MEQ/L (136-145)
[2016-12-14] MEDS: HumaLOG INSULIN (NovoLOG) PER UNIT SC SCH ×4 (07:30→20:19)
[2016-12-14] MEDS: LEVEMIR (INSULIN DETEMIR) 1 UNITS/0.01ML SC SCH (08:02)
[2016-12-14] MEDS: LISINOPRIL *2.5 MG* TAB PO SCH (08:10)
[2016-12-14] MEDS: PANTOPRAZOLE 40MG TAB (PROTONIX) PO SCH (08:11)
[2016-12-14] MEDS: ATENOLOL 50 MG TAB PO SCH (08:11)
[2016-12-14] MEDS: SENOKOT S TAB PO SCH (08:12)
[2016-12-14] MEDS: SIMVASTATIN 40 MG TAB PO SCH (08:12)
[2016-12-14] MEDS: SODIUM CHLORIDE 0.9% INJ 10 ML SYR IV SCH (08:13)
--- NOTE | 2016-12-14 08:13 | REP ---
MRI brain with IV contrast: History: Mass. [facility]. Right sided arm and leg weakness. Past history of breast carcinoma. Comparison MRI study of the brain is from November 26, 2016. Gadolinium enhancement dose: 15 ml of intravenous ProHance is administered. MRI findings: There is a 3.3 cm peripherally enhancing centrally cystic mass lesion in the left parietal lobe as seen on recent prior MRI study. It is unchanged. No other abnormal gadolinium enhancement is seen. There is a small mucous retention cyst in the right maxillary sinus. Impression: Ring enhancing mass lesion in the left parietal lobe again seen. Signed by To Patton MD 12/14/2016 12:14 P
[2016-12-14] MEDS ORDERED: THROMBIN SOLN 20,000 UNITS KIT As Ordered ONE (13:36)
[2016-12-14] MEDS ORDERED: LIDOCAINE W/EPINEPHRINE 1% 20ML VIAL As Ordered ONE (13:36)
[2016-12-14] MEDS ORDERED: BACITRACIN OINT 30GM As Ordered ONE ×2 (13:36→18:18)
[2016-12-14] MEDS ORDERED: REMIFENTANIL 1MG 3ML VIAL As Ordered ONE (13:40)
[2016-12-14] MEDS ORDERED: ROCURONIUM BROMIDE 50 MG/5 ML VIAL/SYRINGE As Ordered ONE (13:40)
[2016-12-14] MEDS ORDERED: PROPOFOL 200 MG/20 ML VIAL As Ordered ONE ×2 (13:40→13:41)
[2016-12-14] MEDS ORDERED: MIDAZOLAM INJ 2 MG/2 ML VIAL (J2250) As Ordered ONE (13:40)
[2016-12-14] MEDS ORDERED: fentaNYL 100 MCG/2 ML INJECTION (J3010) As Ordered ONE ×2 (13:40→19:02)
[2016-12-14] MEDS ORDERED: dexameTHASONE 4 MG/ML 1ML VIAL (J1100) As Ordered ONE (13:41)
[2016-12-14] MEDS ORDERED: ceFAZolin 2 GM/D5W 50 ML IV BAG (J0690) As Ordered ONE (14:34)
--- NOTE | 2016-12-14 15:08 | IPN ---
DATE: 12/14/2016 Ms. Romero is feeling well this morning. She has no complaints of pain, chest pain, shortness of breath, it has been difficult to control her blood sugar. Temperature is 96.5, pulse 61, respiratory rate 15, blood pressure 135/72, 95% on room air. Input and output notable for a positive fluid balance of 1630, one bowel movement yesterday. She is awake, appropriately interactive, pleasantly conversant. Breathing is symmetrical and rested. Heart is distant sounding. Normal S1, S2. Abdomen soft, doughy, nontender. White cell count 5.6, hemoglobin 7.1, platelets of 89. BUN 19, creatinine 0.56, sodium 146. Glucose 180. My assessment is as follows: 61-year-old with malignant breast cancer, metastatic lesion to the brain. Plan for surgical workup. Plan is as follows: 1. Oncologic: The patient has a malignant neoplasm with brain mets. Plan for surgery today. I have discussed intention for more intensive blood sugar management with Dr. Lane that the patient will require postoperatively should we pursue that type of management. I will defer to Dr. Lane on the appropriateness of surgery in the setting of thrombocytopenia. 2. The patient has type 2 diabetes that is not optimally controlled in this patient as previously mentioned. Will start an insulin drip postoperatively. 3. The patient has hyperlipidemia. 4. The patient has hypertensive heart disease without evidence of heart failure.
[2016-12-14] MEDS ORDERED: ePHEDrine SULFATE 25 MG/5 ML(5MG/ML) SYRINGE As Ordered ONE ×2 (15:54→16:03)
[2016-12-14] MEDS ORDERED: GLYCOPYRROLATE INJ 0.2 MG/ML 2 ML VIAL As Ordered ONE (18:10)
[2016-12-14] MEDS ORDERED: ONDANSETRON 4MG/2ML VIAL (J2405) IV PRN ×2 (19:00→20:30)
[2016-12-14] MEDS ORDERED: LR 1,000 ML IV SCH (19:00)
[2016-12-14] MEDS: fentaNYL 100 MCG/2 ML INJECTION (J3010) IV PRN ×4 (19:02→19:19)
[2016-12-14 19:45] VITALS: BP 171/84
[2016-12-14 20:00] VITALS: BP 175/76
[2016-12-14] MEDS: ACETAMINOPHEN TAB 650MG DOSE (2X325MG) PO SCH (20:06)
[2016-12-14 21:00] VITALS: BP 152/70
[2016-12-14] MEDS ORDERED: INSULIN HUMAN REGULAR 100 UNITS in NS 99 ML IV SCH (21:00)
[2016-12-14] MEDS: MORPHINE 2 MG/ML 1ML SYRINGE IV PRN ×2 (21:36→23:45)
[2016-12-14 22:00] VITALS: BP 151/67
[2016-12-14] MEDS: INSULIN IV RATE CHANGE DOCUMENTATION ML/HR XX SCH (22:39)
[2016-12-14 23:00] VITALS: BP 132/60
[2016-12-14] MEDS: ceFAZolin SOD 1 GM in D5W MINI-BAG PLUS 50 ML IV SCH (23:01)
[2016-12-15] VITALS (11 sets, daily range): BP systolic 99–146; BP diastolic 44–81
[2016-12-15] MEDS: INSULIN IV RATE CHANGE DOCUMENTATION ML/HR XX SCH (00:38)
[2016-12-15] MEDS: ACETAMINOPHEN TAB 650MG DOSE (2X325MG) PO SCH ×6 (00:41→20:45)
[2016-12-15] MEDS: MORPHINE 2 MG/ML 1ML SYRINGE IV PRN ×4 (02:49→20:46)
[2016-12-15] MEDS: NS 1,000 ML IV SCH (02:56)
[2016-12-15 05:34] LABS: MEAN CORPUSCULAR HEMOGLOBIN 31.2 pg (27.0-33.0); MEAN CORPUSCULAR HGB CONC 33.3 g/dl (32.0-36.5); MEAN CORPUSCULAR VOLUME 93.5 fl (80.0-96.0); RED CELL DISTRIBUTION WIDTH 13.1 % (11.5-14.5); WHITE BLOOD COUNT 6.9 K/mm3 (4.0-10.0)
[2016-12-15 05:50] LABS: ANION GAP 9 MEQ/L (8-16); BLOOD UREA NITROGEN 14 MG/DL (7-18); CALCIUM LEVEL 7.9 MG/DL (8.5-10.1); CARBON DIOXIDE LEVEL 24 MEQ/L (21-32); CHLORIDE LEVEL 111 MEQ/L (98-107); CREATININE FOR GFR 0.51 MG/DL (0.55-1.02); GLOMERULAR FILTRATION RATE > 60.0 (>51); GLUCOSE, FASTING 110 MG/DL (70-105); POTASSIUM SERUM 3.7 MEQ/L (3.5-5.1); SODIUM LEVEL 144 MEQ/L (136-145)
[2016-12-15] MEDS: ceFAZolin SOD 1 GM in D5W MINI-BAG PLUS 50 ML IV SCH ×2 (06:21→15:34)
[2016-12-15] MEDS: LISINOPRIL *2.5 MG* TAB PO SCH (08:48)
[2016-12-15] MEDS: SENOKOT S TAB PO SCH (08:48)
[2016-12-15] MEDS: SIMVASTATIN 40 MG TAB PO SCH (08:48)
[2016-12-15] MEDS: PANTOPRAZOLE 40MG TAB (PROTONIX) PO SCH (08:48)
[2016-12-15] MEDS: SODIUM CHLORIDE 0.9% INJ 10 ML SYR IV SCH (09:00)
--- NOTE | 2016-12-15 11:04 | IPN ---
DATE: 12/15/2016 Ms. Romero is feeling tired this morning. She is not particularly hungry. She is thirsty. She is having some difficulty with word finding. Temperature is 97.6, pulse 70, respiratory rate 17, blood pressure 103/45, 95% on room air. Input and output notable for a positive fluid balance of 825, one bowel movement noted yesterday. Weight is recorded was 85.7 kg, which would represent a 6 kg increase from the 15th. She is awake, appropriately interactive. She has moist mucous membranes. Neck is supple, thick. Breathing is symmetrical and rested. Heart is regular rate and rhythm. Abdomen soft, doughy, nontender. She is in fact having difficulty with word finding. White cell count 6.9, hemoglobin 10, platelets of 100, BUN 14, creatinine 0.5. This is a 61-year-old with malignant breast cancer, metastatic lesion to the brain. Postoperative day #1 for surgical debulking. Plan is as follows: 1. Oncologic: The patient has a malignant neoplasm with brain metastases. Pathology is pending. Blood sugar control should be easier today as she is off steroids. We will put her back on sliding scale, which should be appropriate for the current setting. 2. The patient has type 2 diabetes that is not optimally controlled previously but will be managed with subcutaneous insulin at this point. 3. The patient has hyperlipidemia. 4. The patient has hypertensive heart disease without evidence of heart failure.
[2016-12-15] MEDS: HumaLOG INSULIN (NovoLOG) PER UNIT SC SCH ×3 (13:23→20:54)
--- NOTE | 2016-12-15 15:17 | REP ---
CT study of the brain without contrast. History: Postop. Comparison CT brain study is from December 13, 2016. CT findings: The patient is status post left parietal craniotomy. There is some postoperative air and hyperdense material consistent with blood at the resection site of the mass in the left posterior frontal lobe. This area measures 4 cm in diameter and is surrounded by some vasogenic edema. There is some crowding of the sulci in this region similar to the preoperative scan. No midline shift is seen. No subdural or subarachnoid hemorrhage is seen. Brain parenchyma is otherwise unchanged. Impression: 4 cm area of hyperdensity representing some postoperative hemorrhage, surrounded by edema and containing some postoperative air at the site of the resected ring enhancing lesion in the left posterior frontal lobe. Signed by To Patton MD 12/15/2016 03:54 P
--- NOTE | 2016-12-15 20:43 | ROOPDOC ---
[facility] Report Of Operation Report of Operation DATE OF SURGERY: 12/14/2016 SURGEON: Dr. Jim Lane PIN INSERTER: None PREOPERATIVE DIAGNOSIS: Left frontal lobe nodular-cystic mass POSTOPERATIVE DIAGNOSIS: Same PROCEDURE PERFORMED: 1. Left fronto-parietal craniotomy for open biopsy of intracranial lesion 2. Intraoperative ultrasound use for lesion localization ANESTHESIA: GETA. ESTIMATED BLOOD LOSS: 50cc. FINDINGS : Frozen section was consistent with carcinoma. DRAINS: None COMPLICATIONS: None. DISPOSITION: Stable to the PACU. INDICATIONS FOR THE PROCEDURE HISTORY: Mrs. Romero is a 61 y/o F who presents with signs, symptoms and radiographic evidence of a Left frontal lobe mass. The patient presents for craniotomy for biopsy of her lesion. DIAGNOSTIC STUDY: MRI of brain showed contrast enhanced nodular-cystic mass lesion of central sulcus with minimal perilesional edema and local mass effect. SURGICAL RISKS: The patient was well apprised of all objectives, benefits, risks and potential complications of the procedure, including but not limited to: worsening of current status, the possible need for further procedures, the risk of infection , headaches, CSF leak, possible spinal nerve injury resulting in paralysis, infection, injury to major vessels causing hemorrhage, stroke, loss of language function, coma and even . No assurance was given whether symptoms would improve following the procedure. The surgery is technically difficult procedure and despite the significant discomfort for the patient and the best effort of the physician, the surgery may be unsuccessful or may need to be aborted. Informed consent was obtained and secured in the chart after patient voiced understanding of these risks and decided to proceed with the operation. DESCRIPTION OF THE PROCEDURE The patient was transferred to the operating room. He was given preoperative prophylactic IV antibiotics. ANESTHESIA: The patient was sedated and intubated without difficulty by the anesthesia service. Eyes were taped shut after ointment was applied to prevent corneal abrasion. A Carmen Hugger was placed over the upper body to maintain control of core body temperature. A Watson catheter was inserted. POSITIONING: A Solis head clamp was applied. The patient was placed in the supine position, rotated to the right with help of jelly bolster along left side of body and all pressure points were well padded. The hair was clipped in the area where the incision was planned and marked. Pre-prepping was done with alcohol. Superior sagittal sinus was identified as midline and mapped out. The planned craniotomy was outlined. OPERATIVE TECHNIQUE: The patient was prepped and draped in the standard sterile fashion. Local anesthetic was infiltrated along the line of the planned skin incision. A Left straight incision was performed with a # 15 scalpel blade to the level of the periosteum. The scalp was reflected sidewise and held in place utilizing cerebellar retractor. Using a high speed pneumatic and electric drill , jose manuel hole was placed with a business initiatives manager bit in the parietal-frontal region. A #3 Gerlaw was utilized to detach the dura from the bone. With the B1 bit and footplate, the jose manuel holes were interconnected and a wide craniotomy carried out. The bone flap was centrally detached from the dura and removed. The dura was visualized and intact. We tacked up the dura on all edges; medial, lateral, anterior and posterior edges. Hemostasis was achieved utilizing a combination of bipolar electrocautery, monopolar electrocautery and absorbable gelatin compressed sponge Gelfoam and Surgicel. The wound was irrigated until clear. The dura was tense and protruding. It was coagulated with the bipolar electrocautery and opened in a C-shaped fashion, over the area where the lesion was located, with base of dural flap toward to SSS. Ultrasound machine was brought to OR and ultrasound probe was drape in sterile fashion. Ultrasound was used to obtain axial and coronal imaging of cystic mass lesion and planning of entrance for cyst drainage. The arachnoid on the surface of the central gyrus was coagulated with bipolar electrocautery forceps and a corticectomy performed. Plastic cannula was attached to syringe and through corticetomy was entered into the cystic lesion. On aspiration 10 cc of yellow hazy liquid has been obtain and sent to pathology. Brain has been relaxed and further dissection of nodular lesion has been performed. The lesion was visualized and was biopsied with micropituitary rongeurs. Frozen section sample was sent to pathology and preliminary report confirmed diagnostic tissue of carcinoma. The field was subsequently irrigated with saline solution and hemostasis achieved utilizing bipolar electrocautery and gelatin hemostatic matrix. The biopsy site was lined with oxidized cellulose absorbable hemostat . The cavity was irrigated full and the dura reapproximated utilizing interrupted 2-0 non- absorbable braided polyamide suture. The bone flap was replaced and secured utilizing plates and screws. The wound was again irrigated with antibiotic solution until clear. The galea was closed with inverted interrupted stitches utilizing 1O polyglactin synthetic absorbable sutures. Scalp has been closed by metal kelsi. Bacitracin ointment has been applied to the wound and sterile dressing has been placed over closed wound. All sponge counts, needle counts and instrument counts were correct at the end of the case times two. The patient tolerated the procedure well, without any complications and was transferred in stable condition to the recovery room. JIM LANE MD Dec 15, 2016 20:43
[2016-12-16] MEDS: ACETAMINOPHEN TAB 650MG DOSE (2X325MG) PO SCH ×5 (01:50→16:47)
[2016-12-16] MEDS: MORPHINE 2 MG/ML 1ML SYRINGE IV PRN ×3 (05:19→22:29)
[2016-12-16 06:00] VITALS: BP 134/72
[2016-12-16 07:15] LABS: MEAN CORPUSCULAR HEMOGLOBIN 31.5 pg (27.0-33.0); MEAN CORPUSCULAR HGB CONC 33.7 g/dl (32.0-36.5); MEAN CORPUSCULAR VOLUME 93.3 fl (80.0-96.0); RED CELL DISTRIBUTION WIDTH 13.1 % (11.5-14.5); WHITE BLOOD COUNT 5.6 K/mm3 (4.0-10.0)
[2016-12-16 07:54] LABS: ANION GAP 9 MEQ/L (8-16); BLOOD UREA NITROGEN 9 MG/DL (7-18); CALCIUM LEVEL 7.9 MG/DL (8.5-10.1); CARBON DIOXIDE LEVEL 27 MEQ/L (21-32); CHLORIDE LEVEL 108 MEQ/L (98-107); CREATININE FOR GFR 0.46 MG/DL (0.55-1.02); GLOMERULAR FILTRATION RATE > 60.0 (>51); GLUCOSE, FASTING 172 MG/DL (70-105); POTASSIUM SERUM 3.4 MEQ/L (3.5-5.1); SODIUM LEVEL 144 MEQ/L (136-145)
[2016-12-16] MEDS ORDERED: POTASSIUM CHLORIDE 10 MEQ SR TABLET PO ONE (08:15)
[2016-12-16] MEDS: HumaLOG INSULIN (NovoLOG) PER UNIT SC SCH ×4 (08:50→21:00)
[2016-12-16] MEDS: SENOKOT S TAB PO SCH (08:51)
[2016-12-16] MEDS: PANTOPRAZOLE 40MG TAB (PROTONIX) PO SCH (08:51)
[2016-12-16] MEDS: LISINOPRIL *2.5 MG* TAB PO SCH (08:51)
[2016-12-16] MEDS: SIMVASTATIN 40 MG TAB PO SCH (08:52)
[2016-12-16] MEDS: SODIUM CHLORIDE 0.9% INJ 10 ML SYR IV SCH (12:19)
[2016-12-16 14:00] VITALS: BP 155/75
--- NOTE | 2016-12-16 15:48 | IPN ---
DATE: 12/16/2016 Ms. Romero is feeling well today. She has no complaints of pain, chest pain, shortness of breath. She is unable to move her right lower extremity or arm and she is concerned about how she will get out of the hospital, hearing about treatment for her cancer, but would defer treatment decisions depending on the discussion of risks and benefits. She does also wish to fill out a Medical Orders for Life-Sustaining Treatment (MOLST) form and we do complete that. She says that she would use antibiotics and IV fluids, is unsure about her willingness to have a feeding tube, would be sent to the hospital, did not want to be intubated, and does not want to be resuscitated. On physical exam, temperature is 97.5, pulse 75, respiratory rate 18, blood pressure 134/72, 94% on room air. Intake and output notable for a positive fluid balance of 960. Body mass index 30.5. She is awake, appropriately interactive, pleasantly conversant. Head is normocephalic. Mucous membranes are moist. Neck is supple. She has no strength in her right upper extremity. She has minimal flexion at her toes in the lower extremity. White cell count 5.6, hemoglobin 9.7, platelets 90. BUN 9, creatinine 0.46, potassium 3.4. Brain biopsy shows evidence of metastatic breast carcinoma. My assessment is as follows: This is a 61-year-old with malignant breast cancer with metastatic lesion to the brain, postoperative day #2 for surgical debulking. Plan is as follows: 1. Oncologic. The patient has malignant breast cancer status post debulking of brain tumor. Patient will need chemotherapy. Oncologist is in [place]. Will reach out to Dr. Marshall for further guidance. Patient will need inpatient chemotherapy which could potentially be done back in [place] if we can arrange for transfer. It is obvious that the patient will not be able to go back to her previous living arrangement, she is not able to move her right side. 2. The patient has type 2 diabetes which is reasonably well controlled with the current setting. 3. The patient has hyperlipemia. 4. The patient has hypertensive heart disease without evidence of heart failure. 5. The patient has been discussed at multidisciplinary rounds and she is likely to be a complicated discharge.
[2016-12-16 22:00] VITALS: BP 145/68
[2016-12-17] MEDS: MORPHINE 2 MG/ML 1ML SYRINGE IV PRN ×2 (03:52→13:27)
[2016-12-17 06:00] VITALS: BP 133/63
[2016-12-17 06:35] LABS: MEAN CORPUSCULAR HEMOGLOBIN 31.7 pg (27.0-33.0); MEAN CORPUSCULAR HGB CONC 34.1 g/dl (32.0-36.5); RED CELL DISTRIBUTION WIDTH 13.2 % (11.5-14.5)
[2016-12-17 06:49] LABS: ANION GAP 9 MEQ/L (8-16); BLOOD UREA NITROGEN 9 MG/DL (7-18); CALCIUM LEVEL 8.5 MG/DL (8.5-10.1); CARBON DIOXIDE LEVEL 29 MEQ/L (21-32); CHLORIDE LEVEL 106 MEQ/L (98-107); CREATININE FOR GFR 0.44 MG/DL (0.55-1.02); GLOMERULAR FILTRATION RATE > 60.0 (>51); GLUCOSE, FASTING 185 MG/DL (70-105); POTASSIUM SERUM 3.5 MEQ/L (3.5-5.1); SODIUM LEVEL 144 MEQ/L (136-145)
[2016-12-17] MEDS: SIMVASTATIN 40 MG TAB PO SCH (08:25)
[2016-12-17] MEDS: PANTOPRAZOLE 40MG TAB (PROTONIX) PO SCH (08:25)
[2016-12-17] MEDS: SENOKOT S TAB PO SCH (08:25)
[2016-12-17] MEDS: LISINOPRIL *2.5 MG* TAB PO SCH (08:25)
[2016-12-17] MEDS: HumaLOG INSULIN (NovoLOG) PER UNIT SC SCH ×4 (08:26→21:00)
[2016-12-17] MEDS: SODIUM CHLORIDE 0.9% INJ 10 ML SYR IV SCH (08:26)
--- NOTE | 2016-12-17 10:07 | IPNPDOC ---
Text Note Date of Service The patient was seen on 12/17/16. NOTE Subjective: Patient seen and examined at bedside. No new medical complaints. She did express some discomfort at her surgical site, which she attributed to the surgical kelsi. She again expressed concern regarding her ability to perform ADLs. Objective: General: NAD, lying comfortably in bed HEENT: surgical incision frontal lobe, occipital lobe with kelsi in place, EOMI, PERRL Lungs: CTA B/L Heart: +S1S2, RRR Abd: soft, NT, +BS Ext: no edema Psych: AAOx3 Neuro: essentially 0/5 strength RUE/RLE Assessment/Plan: This is a 61-year-old with malignant breast cancer with metastatic lesion to the brain, postoperative day #3 for surgical debulking. 1. Oncologic - malignant breast cancer status post debulking of brain tumor - case has been d/w oncologist is in [place] - Dr. Marshall - d/w Dr. Horton - Dec 3 10am for RT - d/w for neurosurgery - no further intervention - will need placement 2. DM 3. Hyperlipidemia 4. The patient has hypertensive heart disease without evidence of heart failure. 5. DVT prophylaxis - mechanical VS,Fishbone, I+O VS, Fishbone, I+O Laboratory Tests 12/17/16 06:21 Red Blood Count 3.21 L, Mean Corpuscular Volume 93.0, Mean Corpuscular Hemoglobin 31.7, Mean Corpuscular Hemoglobin Concent 34.1, Red Cell Distribution Width 13.2, Calcium Level 8.5 Vital Signs Date Time Temp Pulse Resp B/P (MAP) Pulse Ox O2 Delivery O2 Flow Rate FiO2 12/17/16 08:25 133/63 12/17/16 06:00 97.7 93 18 96 Room Air 12/16/16 20:50 2.0 CLEMENTINA HILL MD Dec 17, 2016 10:07
[2016-12-17] MEDS ORDERED: MORPHINE 2 MG/ML 1ML SYRINGE IV PRN (13:45)
[2016-12-17 14:00] VITALS: BP 131/64
[2016-12-17] MEDS: PERCOCET 5MG/325MG TAB PO PRN (21:52)
[2016-12-17 22:00] VITALS: BP 136/65
[2016-12-18] MEDS: SODIUM CHLORIDE 0.9% INJ 10 ML SYR IV SCH (05:59)
[2016-12-18 06:00] VITALS: BP 145/60
[2016-12-18 06:47] LABS: MEAN CORPUSCULAR HEMOGLOBIN 31.6 pg (27.0-33.0); MEAN CORPUSCULAR HGB CONC 34.1 g/dl (32.0-36.5); MEAN CORPUSCULAR VOLUME 92.7 fl (80.0-96.0); WHITE BLOOD COUNT 3.6 K/mm3 (4.0-10.0)
[2016-12-18 07:06] LABS: ANION GAP 5 MEQ/L (8-16); BLOOD UREA NITROGEN 10 MG/DL (7-18); CALCIUM LEVEL 8.7 MG/DL (8.5-10.1); CARBON DIOXIDE LEVEL 33 MEQ/L (21-32); CHLORIDE LEVEL 101 MEQ/L (98-107); CREATININE FOR GFR 0.46 MG/DL (0.55-1.02); GLOMERULAR FILTRATION RATE > 60.0 (>51); GLUCOSE, FASTING 183 MG/DL (70-105); POTASSIUM SERUM 3.3 MEQ/L (3.5-5.1); SODIUM LEVEL 139 MEQ/L (136-145)
--- NOTE | 2016-12-18 08:48 | IPNPDOC ---
Text Note Date of Service The patient was seen on 12/18/16. NOTE Subjective: Patient seen and examined at bedside. No new medical complaints. Still constipated. Objective: General: NAD, lying comfortably in bed, in good spirits today HEENT: surgical incision frontal lobe, EOMI, PERRL Lungs: CTA B/L Heart: +S1S2, RRR Abd: soft, NT, +BS Ext: no edema Psych: AAOx3 Neuro: essentially 0/5 strength RUE/RLE Assessment/Plan: This is a 61-year-old with malignant breast cancer with metastatic lesion to the brain, postoperative day #4 for surgical debulking. 1. Oncologic - malignant breast cancer status post debulking of brain tumor - case has been d/w oncologist is in [place] - Dr. Marshall - d/w Dr. Horton - Dec 3 10am for RT - d/w for neurosurgery - no further intervention - will need placement 2. DM 3. Hyperlipidemia 4. The patient has hypertensive heart disease without evidence of heart failure. 5. DVT prophylaxis - mechanical VS,Fishbone, I+O VS, Fishbone, I+O Laboratory Tests 12/18/16 05:58 Red Blood Count 3.17 L, Mean Corpuscular Volume 92.7, Mean Corpuscular Hemoglobin 31.6, Mean Corpuscular Hemoglobin Concent 34.1, Red Cell Distribution Width 13.0, Calcium Level 8.7 Vital Signs Date Time Temp Pulse Resp B/P (MAP) Pulse Ox O2 Delivery O2 Flow Rate FiO2 12/18/16 06:00 96.6 105 18 145/60 (88) 95 Room Air 12/16/16 20:50 2.0 CLEMENTINA HILL MD Dec 18, 2016 08:48
[2016-12-18] MEDS: HumaLOG INSULIN (NovoLOG) PER UNIT SC SCH ×4 (08:50→21:00)
[2016-12-18] MEDS: LISINOPRIL *2.5 MG* TAB PO SCH (08:51)
[2016-12-18] MEDS: PANTOPRAZOLE 40MG TAB (PROTONIX) PO SCH (08:51)
[2016-12-18] MEDS: SIMVASTATIN 40 MG TAB PO SCH (08:51)
[2016-12-18] MEDS: SENOKOT S TAB PO SCH (08:51)
[2016-12-18] MEDS: MOM 30ML SUSPENSION UDC PO PRN (08:52)
[2016-12-18] MEDS: PERCOCET 5MG/325MG TAB PO PRN (11:53)
[2016-12-18 14:00] VITALS: BP 142/77
[2016-12-18 22:00] VITALS: BP 146/74
[2016-12-19] MEDS: PERCOCET 5MG/325MG TAB PO PRN ×2 (00:04→10:30)
[2016-12-19 06:00] VITALS: BP 153/74
[2016-12-19] MEDS: HumaLOG INSULIN (NovoLOG) PER UNIT SC SCH ×4 (07:30→21:00)
[2016-12-19] MEDS ORDERED: SENNA 8.6 MG TAB (SENOKOT) PO PRN (10:00)
--- NOTE | 2016-12-19 10:02 | IPNPDOC ---
Text Note Date of Service The patient was seen on 12/19/16. NOTE Subjective: Patient seen and examined at bedside. No new medical complaints. Still constipated. States she can wiggle her right toes intermittently. Objective: General: NAD, lying comfortably in bed, in good spirits today HEENT: surgical incision frontal lobe, EOMI, PERRL Lungs: CTA B/L Heart: +S1S2, RRR Abd: soft, NT, +BS Ext: no edema Psych: AAOx3 Neuro: essentially 0/5 strength RUE/RLE Assessment/Plan: This is a 61-year-old with malignant breast cancer with metastatic lesion to the brain, postoperative day #4 for surgical debulking. 1. Oncologic - malignant breast cancer status post debulking of brain tumor - case has been d/w oncologist is in [place] - Dr. Marshall - d/w Dr. Horton - Dec 29 at 10am for RT - d/w for neurosurgery - no further intervention - will need placement 2. DM 3. Hyperlipidemia 4. The patient has hypertensive heart disease without evidence of heart failure. 5. Constipation - continue escalating bowel regimen 6. DVT prophylaxis - mechanical VS,Fishbone, I+O VS, Fishbone, I+O Vital Signs Date Time Temp Pulse Resp B/P (MAP) Pulse Ox O2 Delivery O2 Flow Rate FiO2 12/19/16 06:00 96.4 88 20 153/74 (100) 98 Room Air 12/16/16 20:50 2.0 I&O- Last 24 Hours up to 6 AM 12/20/16 06:00 Intake Total 240 ml Balance 240 ml CLEMENTINA HILL MD Dec 19, 2016 10:02
[2016-12-19] MEDS: SENOKOT S TAB PO SCH (10:20)
[2016-12-19] MEDS: SIMVASTATIN 40 MG TAB PO SCH (10:20)
[2016-12-19] MEDS: LISINOPRIL *2.5 MG* TAB PO SCH (10:20)
[2016-12-19] MEDS: SODIUM CHLORIDE 0.9% INJ 10 ML SYR IV SCH (10:20)
[2016-12-19] MEDS: PANTOPRAZOLE 40MG TAB (PROTONIX) PO SCH (10:20)
[2016-12-19] MEDS: MOM 30ML SUSPENSION UDC PO PRN (10:30)
[2016-12-19] MEDS ORDERED: POTASSIUM CHLORIDE 10 MEQ SR TABLET PO ONE (11:00)
[2016-12-19 11:19] LABS: BASO % 0.2 % (0.0-1.0); EOS # 0.1 K/mm3 (0.0-0.50); EOS % 2.8 % (0.0-3.0); LARGE UNSTAINED CELL # 0.1 K/mm3 (0.0-0.4); LARGE UNSTAINED CELL % 1.4 % (0.0-4.0); LYMPH # 0.4 K/mm3 (1.5-4.5); LYMPH % 10.8 % (24.0-44.0); MEAN CORPUSCULAR HEMOGLOBIN 31.6 pg (27.0-33.0); MEAN CORPUSCULAR HGB CONC 33.9 g/dl (32.0-36.5); MONO # 0.2 K/mm3 (0.0-0.8); MONO % 6.1 % (0.0-5.0); NEUTROPHILS # 2.7 K/mm3 (1.8-7.7); NEUTROPHILS % 78.7 % (36.0-66.0); RED CELL DISTRIBUTION WIDTH 13.2 % (11.5-14.5); WHITE BLOOD COUNT 3.4 K/mm3 (4.0-10.0)
[2016-12-19 11:20] LABS: PLATELET COUNT, AUTOMATED 95 k/mm3 (150-450)
[2016-12-19 11:45] LABS: ANION GAP 8 MEQ/L (8-16); BLOOD UREA NITROGEN 11 MG/DL (7-18); CALCIUM LEVEL 7.8 MG/DL (8.5-10.1); CARBON DIOXIDE LEVEL 31 MEQ/L (21-32); CHLORIDE LEVEL 102 MEQ/L (98-107); CREATININE FOR GFR 0.56 MG/DL (0.55-1.02); GLOMERULAR FILTRATION RATE > 60.0 (>51); GLUCOSE, FASTING 282 MG/DL (70-105); POTASSIUM SERUM 3.5 MEQ/L (3.5-5.1); SODIUM LEVEL 141 MEQ/L (136-145)
[2016-12-19 14:00] VITALS: BP 141/73
[2016-12-19] MEDS ORDERED: MAGNESIUM CITRATE 300 ML BTL PO ONE (20:00)
[2016-12-19 22:00] VITALS: BP 150/84
[2016-12-20] MEDS ORDERED: ONDANSETRON 4MG/2ML VIAL (J2405) IV SCH
--- NOTE | 2016-12-20 00:30 | REPUSA ---
Clinical statement: Pain. Rule out obstruction. Comparison: None. Findings: 2 views of the abdomen were obtained. A nonobstructive bowel gas pattern is noted. There is normal amount of stool appreciated within the colon. There is no free air. There are no abnormal mas ses or calcifications. The osseous structures and soft tissues are unremarkable. Impression: No acute finding.
[2016-12-20] MEDS ORDERED: LACTULOSE 20 GM/30 ML SYRUP UD PO ONE (01:00)
[2016-12-20 06:00] VITALS: BP 138/79
[2016-12-20 06:37] LABS: MEAN CORPUSCULAR HEMOGLOBIN 30.7 pg (27.0-33.0); MEAN CORPUSCULAR HGB CONC 32.9 g/dl (32.0-36.5); MEAN CORPUSCULAR VOLUME 93.3 fl (80.0-96.0); RED CELL DISTRIBUTION WIDTH 13.2 % (11.5-14.5); WHITE BLOOD COUNT 3.8 K/mm3 (4.0-10.0)
[2016-12-20 06:42] LABS: ANION GAP 4 MEQ/L (8-16); BLOOD UREA NITROGEN 10 MG/DL (7-18); CALCIUM LEVEL 8.7 MG/DL (8.5-10.1); CARBON DIOXIDE LEVEL 34 MEQ/L (21-32); CHLORIDE LEVEL 100 MEQ/L (98-107); CREATININE FOR GFR 0.47 MG/DL (0.55-1.02); GLOMERULAR FILTRATION RATE > 60.0 (>51); GLUCOSE, FASTING 182 MG/DL (70-105); POTASSIUM SERUM 3.5 MEQ/L (3.5-5.1); SODIUM LEVEL 138 MEQ/L (136-145)
[2016-12-20] MEDS: HumaLOG INSULIN (NovoLOG) PER UNIT SC SCH ×4 (07:30→21:53)
--- NOTE | 2016-12-20 08:52 | IPNPDOC ---
Text Note Date of Service The patient was seen on 12/20/16. NOTE Subjective: Patient seen and examined at bedside. Patient did have a large bowel yesterday, and has been feeling better. She can still wiggle her right toes intermittently. Objective: General: NAD, lying comfortably in bed, in good spirits today HEENT: surgical incision frontal and occipital area, kelsi in place, EOMI, PERRL, poor dentition Lungs: CTA B/L Heart: +S1S2, RRR Abd: soft, NT, +BS Ext: no edema Psych: AAOx3 Neuro: essentially 0/5 strength RUE/RLE Assessment/Plan: This is a 61-year-old with malignant breast cancer with metastatic lesion to the brain, s/p surgical debulking. 1. Oncologic - malignant breast cancer status post debulking of brain tumor - case has been d/w oncologist is in [place] - Dr. Marshall - d/w Dr. Horton - Dec 3 at 10am for RT - d/w for neurosurgery - no further intervention - will need placement 2. DM 3. Hyperlipidemia 4. The patient has hypertensive heart disease without evidence of heart failure. 5. Constipation - resolved 6. DVT prophylaxis - mechanical VS,Fishbone, I+O VS, Fishbone, I+O Laboratory Tests 12/19/16 10:39 Red Blood Count 3.25 L, Mean Corpuscular Volume 93.0, Mean Corpuscular Hemoglobin 31.6, Mean Corpuscular Hemoglobin Concent 33.9, Red Cell Distribution Width 13.2, Neutrophils (%) (Auto) 78.7 H, Lymphocytes (%) (Auto) 10.8 L, Monocytes (%) (Auto) 6.1 H, Eosinophils (%) (Auto) 2.8, Basophils (%) ( Auto) 0.2, Neutrophils # (Auto) 2.7, Lymphocytes # (Auto) 0.4 L, Monocytes # ( Auto) 0.2, Eosinophils # (Auto) 0.1, Basophils # (Auto) 0.0, Calcium Level 7.8 L 12/20/16 06:04 Red Blood Count 3.29 L, Mean Corpuscular Volume 93.3, Mean Corpuscular Hemoglobin 30.7, Mean Corpuscular Hemoglobin Concent 32.9, Red Cell Distribution Width 13.2, Calcium Level 8.7 Vital Signs Date Time Temp Pulse Resp B/P (MAP) Pulse Ox O2 Delivery O2 Flow Rate FiO2 12/20/16 06:00 97.3 89 18 138/79 (98) 97 Room Air 12/16/16 20:50 2.0 I&O- Last 24 Hours up to 6 AM 12/21/16 05:59 Intake Total 120 ml Balance 120 ml CLEMENTINA HILL MD Dec 20, 2016 08:52
[2016-12-20] MEDS: SENOKOT S TAB PO SCH ×2 (09:00→10:28)
[2016-12-20] MEDS: SODIUM CHLORIDE 0.9% INJ 10 ML SYR IV SCH (09:00)
[2016-12-20] MEDS: LISINOPRIL *2.5 MG* TAB PO SCH (10:28)
[2016-12-20] MEDS: SIMVASTATIN 40 MG TAB PO SCH (10:28)
[2016-12-20] MEDS: PANTOPRAZOLE 40MG TAB (PROTONIX) PO SCH (10:28)
[2016-12-20 14:00] VITALS: BP 125/74
[2016-12-20] MEDS: ACETAMINOPHEN 500 MG TAB PO PRN (21:53)
[2016-12-20 22:00] VITALS: BP 128/79
[2016-12-21] MEDS: PERCOCET 5MG/325MG TAB PO PRN ×2 (01:06→22:48)
[2016-12-21 06:00] VITALS: BP 129/66
[2016-12-21] MEDS ORDERED: ONDANSETRON 4MG/2ML VIAL (J2405) IV PRN (06:00)
[2016-12-21] MEDS: HumaLOG INSULIN (NovoLOG) PER UNIT SC SCH ×4 (08:05→20:54)
[2016-12-21] MEDS: ACETAMINOPHEN 500 MG TAB PO PRN (08:31)
[2016-12-21] MEDS: LISINOPRIL *2.5 MG* TAB PO SCH (10:39)
[2016-12-21] MEDS: PANTOPRAZOLE 40MG TAB (PROTONIX) PO SCH (10:39)
[2016-12-21] MEDS: SIMVASTATIN 40 MG TAB PO SCH (10:39)
[2016-12-21] MEDS: SODIUM CHLORIDE 0.9% INJ 10 ML SYR IV SCH (10:40)
--- NOTE | 2016-12-21 11:22 | CR ---
DATE OF CONSULTATION: 12/12/2016 Sherly's medical consultation was generated through [facility] office record in order to maintain all of the data of her previous cancer, chemotherapy, etc. A copy of this was placed in the chart in the emergency room. A copy has been provided to Dr. Davis for his review informing him of consultative care.
--- NOTE | 2016-12-21 13:13 | IPN ---
DATE: 12/21/2016 Ms. Romero is feeling well. She has no complaints of pain, chest pain or shortness of breath. She is tolerating a diet. She still has no motion of her right upper extremity. She is able to move her toes on the right lower extremity. Temperature is 97.6. Pulse 76. Respiratory rate 18. Blood pressure 129/66. 98% on room air. Ins and outs notable for a negative fluid balance of -40, 6 bowel movements yesterday. She is awake, appropriately interactive, pleasantly conversant. No acute distress. Speaking in complete sentences. No accessory muscle use. Heart is distant sounding. Normal S1, S2. Abdomen soft, doughy, nontender. White cell count 3.8, hemoglobin 10.1 and platelets 100. Glucose 182. Creatinine 0.47. ASSESSMENT: 61-year-old with malignant breast cancer with metastatic lesion to the brain status post surgical debulking. PLAN: 1. Oncologic. The patient has malignant breast cancer status post debulking of brain tumor. I have discussed the case by phone with Dr. Marshall previously. The plan is for radiation therapy on 12/29/2016. I have reached out to Dr. Pastor to verify the time frame for that. 2. The patient has diabetes. Finger sticks well controlled with the current setting. 3. The patient has hyperlipidemia. 4. The patient hypertensive heart disease without heart failure. 5. The patient has resolved constipation. 6. The patient will require placement as she can not ambulate.
[2016-12-21 13:37] VITALS: BP 139/75
[2016-12-22 00:02] VITALS: BP 140/65
[2016-12-22 07:07] VITALS: BP 152/74
[2016-12-22] MEDS: HumaLOG INSULIN (NovoLOG) PER UNIT SC SCH ×4 (09:12→21:45)
[2016-12-22] MEDS: SODIUM CHLORIDE 0.9% INJ 10 ML SYR IV SCH (09:13)
[2016-12-22] MEDS: SIMVASTATIN 40 MG TAB PO SCH (09:13)
[2016-12-22] MEDS: SENOKOT S TAB PO SCH (09:13)
[2016-12-22] MEDS: LISINOPRIL *2.5 MG* TAB PO SCH (09:13)
[2016-12-22] MEDS: PANTOPRAZOLE 40MG TAB (PROTONIX) PO SCH (09:14)
[2016-12-22] MEDS: PERCOCET 5MG/325MG TAB PO PRN ×2 (09:14→22:55)
[2016-12-22 14:00] VITALS: BP 108/66
[2016-12-22] MEDS: ACETAMINOPHEN 500 MG TAB PO PRN (16:54)
--- NOTE | 2016-12-22 17:03 | IPN ---
DATE: 12/22/2016 Ms. Romero has no complaints of pain. No chest pain. No shortness of breath. Is tolerating a diet. Temperature is 96.1, pulse 86, respiratory rate 14, systolic blood pressure 150. She is awake, appropriately interactive, pleasantly conversant. Clarisse are still in place on her head. Neck supple. Breathing is symmetrical. Inspiratory to expiratory (I-to-E) ratio is 1:3. Heart is in a regular rate and rhythm. Abdomen is soft, doughy, nontender. She is not able to move her right upper extremity, her hand. She is able to move her toes on her right foot. Not able to move at the ankle. White cell count 3.8, hemoglobin 10.1, platelets 100 on most recent labs. BUN 10 , creatinine 0.47 on the most recent labs. ASSESSMENT: A 61-year-old with malignant breast cancer and metastatic lesion to the brain status post surgical debulking. PLAN: 1. Oncologic. Discussed this case in general with Dr. Pastor, whose plan for radiation therapy is 12/29/2016, which he has verified. I have previously discussed this case by phone with Dr. Marshall. 2. Patient has diabetes. Fingersticks are controlled in the current setting. 3. Patient has hyperlipidemia. 4. Patient has hypertensive heart disease without heart failure. 5. Patient has resolved constipation. 6. Patient will require placement, as she cannot ambulate or meaningfully move her right side. 7. Right hemiparesis MTDD
[2016-12-22 22:00] VITALS: BP 142/70
[2016-12-23 06:00] VITALS: BP 148/58
[2016-12-23] MEDS: SENOKOT S TAB PO SCH (07:57)
[2016-12-23] MEDS: PANTOPRAZOLE 40MG TAB (PROTONIX) PO SCH (07:57)
[2016-12-23] MEDS: HumaLOG INSULIN (NovoLOG) PER UNIT SC SCH ×4 (07:57→21:00)
[2016-12-23] MEDS: SIMVASTATIN 40 MG TAB PO SCH (07:58)
[2016-12-23] MEDS: LISINOPRIL *2.5 MG* TAB PO SCH (07:58)
[2016-12-23] MEDS: SODIUM CHLORIDE 0.9% INJ 10 ML SYR IV SCH (07:59)
[2016-12-23 14:00] VITALS: BP 134/71
--- NOTE | 2016-12-23 17:54 | IPN ---
DATE: 12/23/2016 Ms. Romero is feeling well this morning. She has no complaints of pain, chest pain, shortness of breath. Temperature is 97, pulse 78, respiratory rate 18, blood pressure 148/58, 99% on room air. Intake and output are notable for a negative fluid balance of -120. No bowel movements noted. She is awake, appropriately interactive, pleasantly conversant. Mucous membranes are moist. Neck is supple. Breathing is symmetrical and rested. Heart is distant sounding. Abdomen is soft, doughy, nontender. She is unable to move her right upper extremity. She is able to move her toes and slightly move her right lower extremity, although not against gravity. LABORATORY DATA: White cell count 3.8 most recently and creatinine 0.47 most recently. ASSESSMENT: This is a 61-year-old with malignant breast cancer and metastatic lesion to the brain status post surgical debulking and hemiparesis postoperatively. PLAN: 1. Oncologic. The plan is for radiation therapy which will start 12/29/2016. The patient's oncologist is Dr. Marshall. 2. The patient has diabetes. Fingersticks are reasonably well-controlled for the current setting. No plans to adjust her sliding scale. 3. The patient has hyperlipidemia. 4. The patient has hypertensive heart disease without heart failure. 5. The patient has resolved constipation. 6. The patient will require placement, as she cannot ambulate or meaningfully move her right side. 7. Right hemiparesis MTDD
[2016-12-23] MEDS: PERCOCET 5MG/325MG TAB PO PRN (18:16)
[2016-12-23 22:00] VITALS: BP 164/62
[2016-12-24 06:00] VITALS: BP 133/74
[2016-12-24] MEDS: SENOKOT S TAB PO SCH (08:12)
[2016-12-24] MEDS: LISINOPRIL *2.5 MG* TAB PO SCH (08:12)
[2016-12-24] MEDS: SIMVASTATIN 40 MG TAB PO SCH (08:12)
[2016-12-24] MEDS: HumaLOG INSULIN (NovoLOG) PER UNIT SC SCH ×4 (08:12→21:00)
[2016-12-24] MEDS: PANTOPRAZOLE 40MG TAB (PROTONIX) PO SCH (08:12)
[2016-12-24] MEDS: SODIUM CHLORIDE 0.9% INJ 10 ML SYR IV SCH (08:13)
[2016-12-24] MEDS: ACETAMINOPHEN 500 MG TAB PO PRN (12:50)
[2016-12-24] MEDS: MOM 30ML SUSPENSION UDC PO PRN (13:03)
[2016-12-24 14:00] VITALS: BP 137/69
[2016-12-24 22:00] VITALS: BP 143/72
[2016-12-25 06:00] VITALS: BP 139/68
[2016-12-25] MEDS: SENOKOT S TAB PO SCH (08:14)
[2016-12-25] MEDS: LISINOPRIL *2.5 MG* TAB PO SCH (08:14)
[2016-12-25] MEDS: SIMVASTATIN 40 MG TAB PO SCH (08:14)
[2016-12-25] MEDS: PANTOPRAZOLE 40MG TAB (PROTONIX) PO SCH (08:14)
[2016-12-25] MEDS: HumaLOG INSULIN (NovoLOG) PER UNIT SC SCH ×4 (08:14→20:21)
[2016-12-25] MEDS: SODIUM CHLORIDE 0.9% INJ 10 ML SYR IV SCH (08:15)
[2016-12-25 14:00] VITALS: BP 125/72
[2016-12-25] MEDS: PERCOCET 5MG/325MG TAB PO PRN (22:13)
[2016-12-26 06:00] VITALS: BP 131/66
[2016-12-26] MEDS: HumaLOG INSULIN (NovoLOG) PER UNIT SC SCH ×4 (07:30→20:52)
[2016-12-26] MEDS: LISINOPRIL *2.5 MG* TAB PO SCH (10:16)
[2016-12-26] MEDS: SENOKOT S TAB PO SCH (10:16)
[2016-12-26] MEDS: SIMVASTATIN 40 MG TAB PO SCH (10:16)
[2016-12-26] MEDS: PANTOPRAZOLE 40MG TAB (PROTONIX) PO SCH (10:16)
[2016-12-26] MEDS: SODIUM CHLORIDE 0.9% INJ 10 ML SYR IV SCH (10:17)
[2016-12-26 14:00] VITALS: BP 117/68
[2016-12-26] MEDS: PERCOCET 5MG/325MG TAB PO PRN (17:50)
[2016-12-26 22:00] VITALS: BP 124/65
[2016-12-27 02:00] VITALS: BP 126/62
[2016-12-27 06:00] VITALS: BP 128/62
[2016-12-27] MEDS: SIMVASTATIN 40 MG TAB PO SCH (09:48)
[2016-12-27] MEDS: PANTOPRAZOLE 40MG TAB (PROTONIX) PO SCH (09:48)
[2016-12-27] MEDS: SODIUM CHLORIDE 0.9% INJ 10 ML SYR IV SCH (09:49)
[2016-12-27] MEDS: LISINOPRIL *2.5 MG* TAB PO SCH (09:49)
[2016-12-27] MEDS: SENOKOT S TAB PO SCH (09:49)
[2016-12-27] MEDS: HumaLOG INSULIN (NovoLOG) PER UNIT SC SCH ×4 (09:50→20:42)
--- NOTE | 2016-12-27 10:41 | IPN ---
DATE OF SERVICE: 12/27/2016 Ms. Romero is feeling well this morning. She denies pain, chest pain, shortness of breath. She is tolerating diet. Still has weakness on the right side, slightly improved in the lower extremity. Temperature 96.5, pulse 82, respiratory rate 20, blood pressure 128/62, 96% on room air. Input and output notable for bowel movement last on 12/25/2016. She is awake, appropriately interactive, pleasantly conversant. Mucous membranes moist. Heart is in a regular rate and rhythm. Normal S1, S2. Breathing is symmetrical, rested. I:E ratio 1:3. She is able to lift her right lower extremity subtly above gravity. There are no recent labs. Repeat labs are due for Wednesday. ASSESSMENT: 61-year-old with malignant breast cancer and metastatic lesion to the brain status post surgical debulking and hemiparesis postoperatively. PLAN: 1. Oncologic. Plan is for radiation therapy which is planned to start 12/29/2016. Plan is for 10 rounds of therapy at this point. Patient's oncologist is Dr. Marshall and radiation oncologist Dr. Pastor. Patient will likely need custodial placement after this. 2. Patient has diabetes. Fingersticks are reasonably well controlled at the current setting. 3. Patient has hyperlipidemia. 4. Patient has hypertensive heart disease without heart failure. 5. Patient had some issues with constipation during this stay. Will need to follow her bowel movements. Currently she is not complaining of constipation. 6. Right hemiparesis MTDD
[2016-12-27 14:00] VITALS: BP 140/78
[2016-12-27] MEDS ORDERED: OXAZEPAM 10 MG CAP PO PRN (14:15)
[2016-12-27 22:00] VITALS: BP 116/65
[2016-12-28 06:00] VITALS: BP 140/79
[2016-12-28] MEDS: HumaLOG INSULIN (NovoLOG) PER UNIT SC SCH ×4 (07:59→20:39)
[2016-12-28 08:00] VITALS: BP 124/73
[2016-12-28 08:00] LABS: MEAN CORPUSCULAR HEMOGLOBIN 30.6 pg (27.0-33.0); MEAN CORPUSCULAR HGB CONC 32.1 g/dl (32.0-36.5); MEAN CORPUSCULAR VOLUME 95.3 fl (80.0-96.0); WHITE BLOOD COUNT 4.1 10^3/uL (4.0-10.0)
[2016-12-28 08:12] LABS: ANION GAP 6 MEQ/L (8-16); BLOOD UREA NITROGEN 17 MG/DL (7-18); CALCIUM LEVEL 9.5 MG/DL (8.5-10.1); CARBON DIOXIDE LEVEL 30 MEQ/L (21-32); CHLORIDE LEVEL 103 MEQ/L (98-107); GLOMERULAR FILTRATION RATE > 60.0 (>51); GLUCOSE, FASTING 202 MG/DL (70-105); SODIUM LEVEL 139 MEQ/L (136-145)
[2016-12-28 09:00] VITALS: BP 124/73
[2016-12-28] MEDS: SIMVASTATIN 40 MG TAB PO SCH (10:35)
[2016-12-28] MEDS: LISINOPRIL *2.5 MG* TAB PO SCH (10:35)
[2016-12-28] MEDS: PANTOPRAZOLE 40MG TAB (PROTONIX) PO SCH (10:36)
[2016-12-28] MEDS: SENOKOT S TAB PO SCH (10:36)
[2016-12-28] MEDS: SODIUM CHLORIDE 0.9% INJ 10 ML SYR IV SCH (10:38)
[2016-12-28 14:00] VITALS: BP 110/67
[2016-12-28 22:00] VITALS: BP 142/42
[2016-12-29 06:00] VITALS: BP 142/42
[2016-12-29] MEDS: HumaLOG INSULIN (NovoLOG) PER UNIT SC SCH ×4 (08:13→22:04)
[2016-12-29] MEDS: PANTOPRAZOLE 40MG TAB (PROTONIX) PO SCH (08:14)
[2016-12-29] MEDS: SODIUM CHLORIDE 0.9% INJ 10 ML SYR IV SCH (08:14)
[2016-12-29] MEDS: SENOKOT S TAB PO SCH (08:14)
[2016-12-29] MEDS: SIMVASTATIN 40 MG TAB PO SCH (08:14)
[2016-12-29] MEDS: LISINOPRIL *2.5 MG* TAB PO SCH (08:14)
--- NOTE | 2016-12-29 11:09 | IPNPDOC ---
Text Note Date of Service The patient was seen on 12/29/16. NOTE Hospitalist Progress Note Subjective: Ms. Romero continues to be in a good mood this morning. When I entered the room she was she was discussing her case with social media manager, and they are continuing to work with her for future placement as well as trying to coordinate care for radiation and oncology services. She has no new complaints today, she is obviously overwhelmed with her current situation, but she is quite grateful for all the services that have been rendered to her thus far. She is looking forward to being able to speak with oncology later today. Objective: General: Awake, alert, oriented 3. She is in a good mood. HEENT: Head normocephalic, atraumatic, sclera are nonicteric. Hearing is grossly intact to conversation. Respiratory: Clear to auscultation bilaterally with no wheezes, rales, or rhonchi. Cardiovascular: Regular rate and rhythm, with no rubs, gallops, or murmur. Abdomen: Soft, nontender, nondistended, no hepatosplenomegaly appreciated. Bowel sounds present. Extremities: 2+ pulses in the radial and dorsalis pedis bilaterally. No evidence of clubbing or cyanosis. Neuro: She continues to suffer from right hemiparesis. She is able to barely wiggle her right thumb, and she can lift her right leg ever so slightly against gravity. Assessment/Plan: 1. Breast cancer status post metastases to the brain, status post surgical resection of metastases, leaving her with a right hemiparesis. She is scheduled to discuss her case with Dr. Horton radiation oncology later today and consult , it does not sound like she will be starting treatment today however. I did speak briefly with social media manager as well as the nurse product development coordinator, and they're doing everything they can in order to set her up for appropriate treatment at this time. 2. Diabetes mellitus type 2. She continues to have reasonably well-controlled fingersticks at this time, although she continues to be on sliding scale insulin before meals and at bedtime. She is normally on sitagliptin, Victoza, and pioglitazone at home. I will restart her sitaglipton at this time such that her insulin requirements are less, and she may not need as many injections. 3. Hyperlipidemia. Continue statins 4. Hypertensive heart disease without heart failure. She continues to have appropriate pressures, we'll continue with small dose of lisinopril daily 5. Constipation. She is not currently constipated, we will continue to monitor. We'll continue with Senokot S by mouth daily scheduled, she also has PRN medications for this as well. Addendum: I called and spoke with Dr. Horton of Radiation oncology today, he will begin full brain radiation treatment tomorrow for a total of 10 treatments that will occur over the next 2 weeks. He requested that we begin her on Decadron 4mg BID, that will be continued throughout her treatment. My preceptor for this patient encounter was physically present in the building during the encounter and was fully available. As needed, all aspects of the patient interview, examination, medical decision making process, and medical care plan development were reviewed and approved by the preceptor. Preceptor is aware and concurs with the plan as stated in the body of this note and will attest to such by his/her cosignature. VS,Fishbone, I+O VS, Fishbone, I+O Vital Signs Date Time Temp Pulse Resp B/P (MAP) Pulse Ox O2 Delivery O2 Flow Rate FiO2 12/29/16 08:14 142/42 12/29/16 06:00 97.7 97 16 98 Room Air I&O- Last 24 Hours up to 6 AM 12/30/16 06:00 Output Total 100 ml Balance -100 ml DAGOBERTO KENNEY DO Dec 29, 2016 11:09
[2016-12-29] MEDS: ACETAMINOPHEN 500 MG TAB PO PRN (17:22)
[2016-12-29] MEDS: SITagliptin 50 MG TAB (JANUVIA) PO SCH (20:05)
[2016-12-30 06:00] VITALS: BP 145/66
--- NOTE | 2016-12-30 06:33 | IPN ---
RADIATION ONCOLOGY SIMULATION NOTE DATE: 12/29/2016 CHART NUMBER: [id number]. SIMULATION NOTE: Ms. Romero was taken to the CT scan for CT simulation of her brain field. CT was accomplished without difficulty or discomfort. Radiation treatment planning is underway and radiation treatments will begin subsequently. An immobilization device was created including a mask. It will be used throughout the course of treatment. It was created without difficulty or discomfort. I was physically present throughout the course of simulation.
[2016-12-30] MEDS: SENOKOT S TAB PO SCH (08:50)
[2016-12-30] MEDS: PANTOPRAZOLE 40MG TAB (PROTONIX) PO SCH (08:50)
[2016-12-30] MEDS: LISINOPRIL *2.5 MG* TAB PO SCH (08:51)
[2016-12-30] MEDS: SIMVASTATIN 40 MG TAB PO SCH (08:51)
[2016-12-30] MEDS: SODIUM CHLORIDE 0.9% INJ 10 ML SYR IV SCH (08:52)
[2016-12-30] MEDS: HumaLOG INSULIN (NovoLOG) PER UNIT SC SCH ×4 (08:52→22:42)
[2016-12-30] MEDS: MOM 30ML SUSPENSION UDC PO PRN (12:59)
[2016-12-30] MEDS: ACETAMINOPHEN 500 MG TAB PO PRN (12:59)
[2016-12-30] MEDS: LORATADINE 10 MG TAB PO PRN (17:01)
[2016-12-30] MEDS: SITagliptin 50 MG TAB (JANUVIA) PO SCH (22:41)
[2016-12-31 06:00] VITALS: BP 160/74
[2016-12-31] MEDS: HumaLOG INSULIN (NovoLOG) PER UNIT SC SCH ×4 (09:15→21:00)
[2016-12-31] MEDS: PANTOPRAZOLE 40MG TAB (PROTONIX) PO SCH (09:16)
[2016-12-31] MEDS: SENOKOT S TAB PO SCH (09:16)
[2016-12-31] MEDS: LISINOPRIL *2.5 MG* TAB PO SCH (09:16)
[2016-12-31] MEDS: SODIUM CHLORIDE 0.9% INJ 10 ML SYR IV SCH (09:16)
[2016-12-31] MEDS: SIMVASTATIN 40 MG TAB PO SCH (09:17)
[2016-12-31] MEDS: PERCOCET 5MG/325MG TAB PO PRN (18:00)
[2016-12-31 22:00] VITALS: BP 139/69
[2016-12-31] MEDS: SITagliptin 50 MG TAB (JANUVIA) PO SCH (22:11)
[2017-01-01] MEDS: SODIUM CHLORIDE 0.9% INJ 10 ML SYR IV PRN ×2 (05:43→16:50)
[2017-01-01 06:00] VITALS: BP 136/75
[2017-01-01 06:03] LABS: MEAN CORPUSCULAR HEMOGLOBIN 30.2 pg (27.0-33.0); MEAN CORPUSCULAR HGB CONC 31.7 g/dl (32.0-36.5); MEAN CORPUSCULAR VOLUME 95.2 fl (80.0-96.0); RED CELL DISTRIBUTION WIDTH 13.7 % (11.5-14.5); WHITE BLOOD COUNT 5.6 10^3/uL (4.0-10.0)
[2017-01-01 06:47] LABS: ANION GAP 5 MEQ/L (8-16); BLOOD UREA NITROGEN 22 MG/DL (7-18); CALCIUM LEVEL 9.1 MG/DL (8.5-10.1); CARBON DIOXIDE LEVEL 29 MEQ/L (21-32); CHLORIDE LEVEL 104 MEQ/L (98-107); CREATININE FOR GFR 0.61 MG/DL (0.55-1.02); GLOMERULAR FILTRATION RATE > 60.0 (>51); GLUCOSE, FASTING 283 MG/DL (70-105); POTASSIUM SERUM 4.4 MEQ/L (3.5-5.1); SODIUM LEVEL 138 MEQ/L (136-145)
[2017-01-01] MEDS: HumaLOG INSULIN (NovoLOG) PER UNIT SC SCH ×4 (08:23→22:18)
[2017-01-01] MEDS: SENOKOT S TAB PO SCH (08:24)
[2017-01-01] MEDS: SODIUM CHLORIDE 0.9% INJ 10 ML SYR IV SCH (08:24)
[2017-01-01] MEDS: LISINOPRIL *2.5 MG* TAB PO SCH (08:24)
[2017-01-01] MEDS: SIMVASTATIN 40 MG TAB PO SCH (08:24)
[2017-01-01] MEDS: PANTOPRAZOLE 40MG TAB (PROTONIX) PO SCH (08:24)
[2017-01-01 14:00] VITALS: BP 139/77
[2017-01-01 22:00] VITALS: BP 158/80
[2017-01-01] MEDS: SITagliptin 50 MG TAB (JANUVIA) PO SCH (22:18)
[2017-01-02 06:00] VITALS: BP 161/79
[2017-01-02] MEDS: SIMVASTATIN 40 MG TAB PO SCH (08:37)
[2017-01-02] MEDS: BACTRIM 160MG/800MG DS TAB PO SCH ×2 (08:37→20:43)
[2017-01-02] MEDS: HumaLOG INSULIN (NovoLOG) PER UNIT SC SCH ×4 (08:37→21:29)
[2017-01-02] MEDS: PANTOPRAZOLE 40MG TAB (PROTONIX) PO SCH (08:38)
[2017-01-02] MEDS: SENOKOT S TAB PO SCH (08:38)
[2017-01-02] MEDS: LISINOPRIL *2.5 MG* TAB PO SCH (08:39)
[2017-01-02] MEDS: SODIUM CHLORIDE 0.9% INJ 10 ML SYR IV SCH (08:40)
[2017-01-02] MEDS ORDERED: LEVEMIR (INSULIN DETEMIR) 1 UNITS/0.01ML SC SCH (09:00)
[2017-01-02 14:00] VITALS: BP 129/68
[2017-01-02] MEDS: SITagliptin 50 MG TAB (JANUVIA) PO SCH (20:43)
[2017-01-02] MEDS: MOM 30ML SUSPENSION UDC PO PRN (20:46)
[2017-01-03 06:00] VITALS: BP 142/76
[2017-01-03] MEDS: HumaLOG INSULIN (NovoLOG) PER UNIT SC SCH ×4 (08:15→20:14)
[2017-01-03] MEDS: LEVEMIR (INSULIN DETEMIR) 1 UNITS/0.01ML SC SCH (08:16)
[2017-01-03] MEDS: PANTOPRAZOLE 40MG TAB (PROTONIX) PO SCH (08:16)
[2017-01-03] MEDS: LISINOPRIL *2.5 MG* TAB PO SCH (08:16)
[2017-01-03] MEDS: SENOKOT S TAB PO SCH (08:16)
[2017-01-03] MEDS: SIMVASTATIN 40 MG TAB PO SCH (08:16)
[2017-01-03] MEDS: SODIUM CHLORIDE 0.9% INJ 10 ML SYR IV SCH ×2 (08:17→08:23)
[2017-01-03] MEDS: BACTRIM 160MG/800MG DS TAB PO SCH ×2 (08:17→21:11)
[2017-01-03] MEDS: PERCOCET 5MG/325MG TAB PO PRN ×2 (09:11→17:31)
[2017-01-03 14:00] VITALS: BP 144/81
[2017-01-03] MEDS: SITagliptin 50 MG TAB (JANUVIA) PO SCH (21:12)
[2017-01-04 05:41] VITALS: BP 140/79
[2017-01-04] MEDS: HumaLOG INSULIN (NovoLOG) PER UNIT SC SCH ×4 (08:42→21:00)
[2017-01-04] MEDS: SIMVASTATIN 40 MG TAB PO SCH (08:43)
[2017-01-04] MEDS: PANTOPRAZOLE 40MG TAB (PROTONIX) PO SCH (08:43)
[2017-01-04] MEDS: LEVEMIR (INSULIN DETEMIR) 1 UNITS/0.01ML SC SCH (08:43)
[2017-01-04] MEDS: BACTRIM 160MG/800MG DS TAB PO SCH ×2 (08:45→21:09)
[2017-01-04] MEDS: LISINOPRIL *2.5 MG* TAB PO SCH (08:45)
[2017-01-04] MEDS: SENOKOT S TAB PO SCH (08:45)
[2017-01-04] MEDS: SITagliptin 50 MG TAB (JANUVIA) PO SCH (21:09)
[2017-01-05 06:00] VITALS: BP 130/76
[2017-01-05] MEDS ORDERED: LEVEMIR (INSULIN DETEMIR) 1 UNITS/0.01ML SC SCH (09:00)
[2017-01-05] MEDS: LISINOPRIL *2.5 MG* TAB PO SCH (09:04)
[2017-01-05] MEDS: HumaLOG INSULIN (NovoLOG) PER UNIT SC SCH ×5 (09:04→21:00)
[2017-01-05] MEDS: PANTOPRAZOLE 40MG TAB (PROTONIX) PO SCH (09:05)
[2017-01-05] MEDS: SENOKOT S TAB PO SCH (09:05)
[2017-01-05] MEDS: SIMVASTATIN 40 MG TAB PO SCH (09:05)
[2017-01-05 09:18] LABS: MEAN CORPUSCULAR HEMOGLOBIN 30.3 pg (27.0-33.0); MEAN CORPUSCULAR HGB CONC 32.8 g/dl (32.0-36.5); MEAN CORPUSCULAR VOLUME 92.4 fl (80.0-96.0); RED CELL DISTRIBUTION WIDTH 13.6 % (11.5-14.5)
[2017-01-05 09:40] LABS: ANION GAP 8 MEQ/L (8-16); BLOOD UREA NITROGEN 30 MG/DL (7-18); CALCIUM LEVEL 9.6 MG/DL (8.5-10.1); CARBON DIOXIDE LEVEL 26 MEQ/L (21-32); CHLORIDE LEVEL 98 MEQ/L (98-107); CREATININE FOR GFR 0.97 MG/DL (0.55-1.02); GLOMERULAR FILTRATION RATE > 60.0 (>51); GLUCOSE, FASTING 351 MG/DL (70-105); MAGNESIUM LEVEL 2.2 MG/DL (1.8-2.4); POTASSIUM SERUM 4.9 MEQ/L (3.5-5.1); SODIUM LEVEL 132 MEQ/L (136-145)
--- NOTE | 2017-01-05 20:57 | IPNPDOC ---
Date Seen The patient was seen on 01/05/17. Progress Note Hospitalist Progress Note Subjective: Ms. Romero is once again in a good mood. She always maintains an optimistic attitude. She is further strengthen and her resolved by the fact that her right hemiparesis is significantly improving. She reports that she was able to walk to the hallway and back with the assistance of the walker and the physical therapist. She is experiencing no side effects from the radiation therapy. She was suffering from some dysuria and frequency a few days ago, therefore she was started on Bactrim twice a day 3 days, today is the final day of treatment, she states that her symptoms have completely resolved. Otherwise, the remainder of her review of systems is negative. Objective: General: Awake, alert, oriented 3. She is in a good mood. HEENT: Head normocephalic, atraumatic, sclera are nonicteric. Hearing is grossly intact to conversation. Respiratory: Clear to auscultation bilaterally with no wheezes, rales, or rhonchi. Cardiovascular: Regular rate and rhythm, with no rubs, gallops, or murmur. Abdomen: Soft, nontender, nondistended, no hepatosplenomegaly appreciated. Bowel sounds present. Extremities: 2+ pulses in the radial and dorsalis pedis bilaterally. No evidence of clubbing or cyanosis. Neuro: Her right hemiparesis is significantly improving. 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 She is able to lift her right leg entirely off the bed against gravity (but not against resistance) strength is 3/5. Assessment/Plan: 1. Breast cancer with metastases to the brain, status post surgical resection of metastases, leaving her with a right hemiparesis. Her right hemiparesis is actually improving, she is now able to move her right arm and lift her right leg against gravity. She even walked to the hallway and back with the aid of her walker and the physical therapist. She is receiving whole brain radiation. We will continue with Decadron 4 mg twice a day throughout the remainder of her radiation treatment. 2. Diabetes mellitus type 2. Fingersticks have been gradually moving up, likely due to the decadron, so we will increase her dose of long-acting insulin at this time. Continue with sitagliptin and before meals and at bedtime sliding coverage. 3. Hyperlipidemia. Continue statins 4. Hypertensive heart disease without heart failure. She continues to have appropriate pressures, we'll continue with small dose of lisinopril daily 5. Constipation. She is not currently constipated, we will continue to monitor. We'll continue with Senokot S by mouth daily scheduled, she also has PRN medications for this as well. 6. Pseudohyponatremia. Her corrected sodium is 136 given her elevated glucose this morning. No treatment necessary 7. Urinary tract infection. She is completing a three-day course of Bactrim, her symptoms have completely resolved. 8. DVT prophylaxis with teds and sequentials My preceptor for this patient encounter was physically present in the building during the encounter and was fully available. As needed, all aspects of the patient interview, examination, medical decision making process, and medical care plan development were reviewed and approved by the preceptor. Preceptor is aware and concurs with the plan as stated in the body of this note and will attest to such by his/her cosignature. VS, I&O, 24H, Fishbone Vital Signs/I&O Vital Signs Date Time Temp Pulse Resp B/P (MAP) Pulse Ox O2 Delivery O2 Flow Rate FiO2 01/05/17 09:04 130/76 01/05/17 06:00 98.0 80 18 97 Room Air I&O- Last 24 Hours up to 6 AM 01/06/17 06:00 Intake Total 280 ml Output Total 350 ml Balance -70 ml Laboratory Data 24H LABS Laboratory Tests 2 01/05/17 08:46: Bedside Glucose (Misc Panel) 314H 01/05/17 09:10: Anion Gap 8, Glomerular Filtration Rate > 60.0, Blood Urea Nitrogen 30H, Creatinine 0.97, Sodium Level 132L, Potassium Level 4.9, Chloride Level 98, Carbon Dioxide Level 26, Calcium Level 9.6, Magnesium Level 2.2 01/05/17 11:28: Bedside Glucose (Misc Panel) 234H 01/05/17 16:36: Bedside Glucose (Misc Panel) 333H 01/05/17 20:11: Bedside Glucose (Misc Panel) 228H CBC/BMP Laboratory Tests 01/05/17 09:10 Red Blood Count 4.32, Mean Corpuscular Volume 92.4, Mean Corpuscular Hemoglobin 30.3, Mean Corpuscular Hemoglobin Concent 32.8, Red Cell Distribution Width 13.6 , Calcium Level 9.6 Microbiology Microbiology 01/02/17 Urine Culture - Final, Complete Attending Note Attending Note I have seen and examined the above patient and agree with the above documentation. DAGOBERTO KENNEY DO Jan 05, 2017 20:57 TAB METCALF Jan 06, 2017 17:27
[2017-01-05] MEDS: SITagliptin 50 MG TAB (JANUVIA) PO SCH (21:51)
[2017-01-06] MEDS: ACETAMINOPHEN 500 MG TAB PO PRN (04:55)
[2017-01-06 06:00] VITALS: BP 117/71
[2017-01-06] MEDS: HumaLOG INSULIN (NovoLOG) PER UNIT SC SCH ×4 (08:46→21:31)
[2017-01-06] MEDS: SIMVASTATIN 40 MG TAB PO SCH (08:47)
[2017-01-06] MEDS: LISINOPRIL *2.5 MG* TAB PO SCH (08:47)
[2017-01-06] MEDS: PANTOPRAZOLE 40MG TAB (PROTONIX) PO SCH (08:47)
[2017-01-06] MEDS: SENOKOT S TAB PO SCH (08:47)
[2017-01-06] MEDS ORDERED: LEVEMIR (INSULIN DETEMIR) 1 UNITS/0.01ML SC SCH (09:00)
[2017-01-06] MEDS: SITagliptin 50 MG TAB (JANUVIA) PO SCH (21:30)
[2017-01-06 22:00] VITALS: BP 127/74
[2017-01-07 06:00] VITALS: BP 132/75
[2017-01-07] MEDS: SENOKOT S TAB PO SCH (11:20)
[2017-01-07] MEDS: SIMVASTATIN 40 MG TAB PO SCH (11:20)
[2017-01-07] MEDS: LISINOPRIL *2.5 MG* TAB PO SCH (11:20)
[2017-01-07] MEDS: HumaLOG INSULIN (NovoLOG) PER UNIT SC SCH ×4 (11:21→21:00)
[2017-01-07] MEDS: PANTOPRAZOLE 40MG TAB (PROTONIX) PO SCH (11:21)
[2017-01-07] MEDS: LEVEMIR (INSULIN DETEMIR) 1 UNITS/0.01ML SC SCH (11:22)
[2017-01-07] MEDS: SITagliptin 50 MG TAB (JANUVIA) PO SCH (21:08)
[2017-01-07 22:00] VITALS: BP 119/67
[2017-01-08] MEDS: SIMVASTATIN 40 MG TAB PO SCH (08:40)
[2017-01-08] MEDS: HumaLOG INSULIN (NovoLOG) PER UNIT SC SCH ×4 (08:40→21:00)
[2017-01-08] MEDS: LEVEMIR (INSULIN DETEMIR) 1 UNITS/0.01ML SC SCH (08:40)
[2017-01-08] MEDS: SENOKOT S TAB PO SCH (08:41)
[2017-01-08] MEDS: PANTOPRAZOLE 40MG TAB (PROTONIX) PO SCH (08:41)
[2017-01-08] MEDS: LISINOPRIL *2.5 MG* TAB PO SCH (08:42)
[2017-01-08] MEDS: SITagliptin 50 MG TAB (JANUVIA) PO SCH (21:20)
[2017-01-09 06:00] VITALS: BP 127/76
[2017-01-09] MEDS: HumaLOG INSULIN (NovoLOG) PER UNIT SC SCH ×4 (09:02→21:00)
[2017-01-09] MEDS: SENOKOT S TAB PO SCH (09:02)
[2017-01-09] MEDS: SIMVASTATIN 40 MG TAB PO SCH (09:02)
[2017-01-09] MEDS: PANTOPRAZOLE 40MG TAB (PROTONIX) PO SCH (09:02)
[2017-01-09] MEDS: LEVEMIR (INSULIN DETEMIR) 1 UNITS/0.01ML SC SCH (09:02)
[2017-01-09] MEDS: LISINOPRIL *2.5 MG* TAB PO SCH (09:03)
[2017-01-09] MEDS: SITagliptin 50 MG TAB (JANUVIA) PO SCH (21:25)
[2017-01-10] MEDS: ACETAMINOPHEN 500 MG TAB PO PRN (03:11)
[2017-01-10 06:00] VITALS: BP 110/65
[2017-01-10] MEDS: HumaLOG INSULIN (NovoLOG) PER UNIT SC SCH ×4 (09:21→21:00)
[2017-01-10] MEDS: PANTOPRAZOLE 40MG TAB (PROTONIX) PO SCH (09:21)
[2017-01-10] MEDS: LISINOPRIL *2.5 MG* TAB PO SCH (09:21)
[2017-01-10] MEDS: LEVEMIR (INSULIN DETEMIR) 1 UNITS/0.01ML SC SCH (09:21)
[2017-01-10] MEDS: SENOKOT S TAB PO SCH (09:21)
[2017-01-10] MEDS: LORATADINE 10 MG TAB PO PRN (09:21)
[2017-01-10] MEDS: SIMVASTATIN 40 MG TAB PO SCH (09:22)
[2017-01-10] MEDS: SITagliptin 50 MG TAB (JANUVIA) PO SCH (21:24)
[2017-01-11 06:00] VITALS: BP 125/76
[2017-01-11 07:58] VITALS: BP 130/70
[2017-01-11] MEDS: HumaLOG INSULIN (NovoLOG) PER UNIT SC SCH ×5 (08:26→21:00)
[2017-01-11] MEDS: LEVEMIR (INSULIN DETEMIR) 1 UNITS/0.01ML SC SCH (08:27)
[2017-01-11] MEDS: LISINOPRIL *2.5 MG* TAB PO SCH (08:28)
[2017-01-11] MEDS: SENOKOT S TAB PO SCH (08:28)
[2017-01-11] MEDS: PANTOPRAZOLE 40MG TAB (PROTONIX) PO SCH (08:29)
[2017-01-11] MEDS: SIMVASTATIN 40 MG TAB PO SCH (08:30)
[2017-01-11 14:53] VITALS: BP 123/60
[2017-01-11] MEDS: SITagliptin 50 MG TAB (JANUVIA) PO SCH (21:28)
[2017-01-12 06:00] VITALS: BP 102/58
[2017-01-12 07:05] LABS: MEAN CORPUSCULAR HEMOGLOBIN 30.6 pg (27.0-33.0); MEAN CORPUSCULAR HGB CONC 33.1 g/dl (32.0-36.5); MEAN CORPUSCULAR VOLUME 92.4 fl (80.0-96.0); RED CELL DISTRIBUTION WIDTH 13.1 % (11.5-14.5); WHITE BLOOD COUNT 8.3 10^3/uL (4.0-10.0)
[2017-01-12 07:29] LABS: ANION GAP 4 MEQ/L (8-16); BLOOD UREA NITROGEN 24 MG/DL (7-18); CARBON DIOXIDE LEVEL 26 MEQ/L (21-32); CHLORIDE LEVEL 104 MEQ/L (98-107); CREATININE FOR GFR 0.66 MG/DL (0.55-1.02); GLOMERULAR FILTRATION RATE > 60.0 (>51); GLUCOSE, FASTING 219 MG/DL (70-105); POTASSIUM SERUM 4.5 MEQ/L (3.5-5.1); SODIUM LEVEL 134 MEQ/L (136-145)
[2017-01-12 08:02] LABS: PLATELET COUNT, AUTOMATED 85 10^3/uL (150-450)
[2017-01-12 08:04] LABS: IMMATURE PLATELET FRACTION % 2.8 % (0.0-9.6)
[2017-01-12] MEDS: HumaLOG INSULIN (NovoLOG) PER UNIT SC SCH ×4 (09:04→21:00)
[2017-01-12] MEDS: LEVEMIR (INSULIN DETEMIR) 1 UNITS/0.01ML SC SCH (09:05)
[2017-01-12] MEDS: PANTOPRAZOLE 40MG TAB (PROTONIX) PO SCH (09:05)
[2017-01-12] MEDS: SENOKOT S TAB PO SCH (09:05)
[2017-01-12] MEDS: SIMVASTATIN 40 MG TAB PO SCH (09:05)
[2017-01-12] MEDS: LISINOPRIL *2.5 MG* TAB PO SCH (09:06)
--- NOTE | 2017-01-12 09:34 | RADONC ---
RADIATION ONCOLOGY PROGRESS NOTE DATE: 01/11/2017 CHART NUMBER: [id number]. PROGRESS NOTE: Ms. Romero is presently dose of 2700 cGy to her whole brain and is tolerating treatments quite well at this point with no complaints related to her radiation therapy. She is having no headaches or other problems. REVIEW OF SYSTEMS: The patient's review of systems is noncontributory. Denies nausea, vomiting, fevers, chills, night sweats, diplopia, headaches, anxiety or depression, anorexia, weight loss, visual disturbances, chest pain, urinary or bowel difficulties, bone pain, or neurological problems. PHYSICAL EXAMINATION: The patient remains in her stretcher. She continues to be paralyzed on her right side. The skin in the treated field shows no radiation change present and the remainder of physical exam also remains unchanged. ASSESSMENT: Ms. Romero is scheduled for completion tomorrow. I spoke with her hospitalist last week and gave him a Decadron taper schedule for her. She will be reduced on Decadron slowly with weekly steps down.
[2017-01-12 14:00] VITALS: BP 123/79
[2017-01-12] MEDS: SITagliptin 50 MG TAB (JANUVIA) PO SCH (21:25)
[2017-01-12] MEDS: MOM 30ML SUSPENSION UDC PO PRN (21:27)
[2017-01-13 06:00] VITALS: BP 112/62
--- NOTE | 2017-01-13 06:06 | RADONC ---
RADIATION ONCOLOGY TREATMENT SUMMARY DATE: 01/12/2017 CHART NUMBER: [id number]. DIAGNOSIS: Breast cancer. STAGE: IV. ECOG PERFORMANCE STATUS: 4. TREATMENT SUMMARY: Ms. 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 We treated the patient to her brain for a total dose of 3000 cGy delivered in 10 fractions of 300 cGy each over 13 elapsed days from 12/30/2016 through 01/12/2017. The patient's brain was treated on a linear accelerator utilizing a 6MV photon beam via parallel opposed lateral jones. Ms. Romero tolerated her treatments quite well with no difficulties related to her radiation therapy. The patient is scheduled see me again in 1 month for further followup. She will also continue to be followed by her other physicians as well. Once again, the patient was able complete therapy as prescribed. cc: MD Wallace Lopez MD Edmund Roache, MD
[2017-01-13] MEDS: LEVEMIR (INSULIN DETEMIR) 1 UNITS/0.01ML SC SCH (09:12)
[2017-01-13] MEDS: HumaLOG INSULIN (NovoLOG) PER UNIT SC SCH ×4 (09:12→22:01)
[2017-01-13] MEDS: SIMVASTATIN 40 MG TAB PO SCH (09:14)
[2017-01-13] MEDS: PANTOPRAZOLE 40MG TAB (PROTONIX) PO SCH (09:14)
[2017-01-13] MEDS: SENOKOT S TAB PO SCH (09:14)
[2017-01-13] MEDS: LISINOPRIL *2.5 MG* TAB PO SCH (13:07)
[2017-01-13] MEDS: SITagliptin 50 MG TAB (JANUVIA) PO SCH (21:51)
[2017-01-13] MEDS: DOCUSATE SODIUM 100 MG CAP PO PRN (21:51)
[2017-01-14 06:00] VITALS: BP 120/60
[2017-01-14] MEDS: LISINOPRIL *2.5 MG* TAB PO SCH (08:53)
[2017-01-14] MEDS: LEVEMIR (INSULIN DETEMIR) 1 UNITS/0.01ML SC SCH (08:53)
[2017-01-14] MEDS: PANTOPRAZOLE 40MG TAB (PROTONIX) PO SCH (08:53)
[2017-01-14] MEDS: HumaLOG INSULIN (NovoLOG) PER UNIT SC SCH ×4 (08:53→21:00)
[2017-01-14] MEDS: SENOKOT S TAB PO SCH (08:54)
[2017-01-14] MEDS: SIMVASTATIN 40 MG TAB PO SCH (08:54)
[2017-01-14] MEDS: DOCUSATE SODIUM 100 MG CAP PO PRN (22:28)
[2017-01-14] MEDS: SITagliptin 50 MG TAB (JANUVIA) PO SCH (22:28)
[2017-01-15 06:00] VITALS: BP 115/63
[2017-01-15] MEDS ORDERED: LevoFLOXacin 500 MG TABLET PO SCH (06:00)
[2017-01-15] MEDS: LEVEMIR (INSULIN DETEMIR) 1 UNITS/0.01ML SC SCH (08:53)
[2017-01-15] MEDS: HumaLOG INSULIN (NovoLOG) PER UNIT SC SCH (08:53)
[2017-01-15] MEDS: PANTOPRAZOLE 40MG TAB (PROTONIX) PO SCH (08:54)
[2017-01-15 08:55] VITALS: BP 115/63
[2017-01-15] MEDS: SENOKOT S TAB PO SCH (08:55)
[2017-01-15] MEDS: SIMVASTATIN 40 MG TAB PO SCH (08:55)
[2017-01-15] MEDS: LISINOPRIL *2.5 MG* TAB PO SCH (08:55)
[2017-01-15] MEDS ORDERED: SENN18TA PO (11:06)
[2017-01-15] MEDS ORDERED: INSUHUMDS SC ×2 (11:06)
[2017-01-15] MEDS ORDERED: LEVA1TAB2 PO (11:06)
[2017-01-15] MEDS ORDERED: INSUDET SC (11:06)
[2017-01-15] MEDS ORDERED: PANT40TA2 PO (11:06)
[2017-01-15] MEDS ORDERED: MILKSUS PO (11:06)
[2017-01-15] MEDS ORDERED: SENN1TAB2 PO (11:06)
[2017-01-15] MEDS ORDERED: DEXA4TA PO (11:15)
[2017-01-15] MEDS ORDERED: PERCOCET PO (11:15)
--- NOTE | 2017-01-17 13:37 | DSES ---
DATE OF ADMISSION: 12/11/2016 DATE OF DISCHARGE: 01/15/2017 DISCHARGE DIAGNOSES: Breast cancer with metastasis to brain status post brain mass biopsy, status post radiation therapy to the brain, 10 treatments. Right hemiparesis due to brain metastasis which is improving. Urinary tract infection with Proteus. Diabetes. Hypertensive heart disease. Hyperlipidemia. Diabetic retinopathy and neuropathy. Chronic lung disease and reactive airway disease. Carotid artery disease. History of pancytopenia during chemotherapy. Osteopenia. Depression, but symptoms well controlled with medications. HOSPITAL COURSE: This is a 61-year-old female who presented to the emergency room with about 1-month history of worsening right arm weakness, which progressed to involve her right leg. She initially was diagnosed with poorly differentiated infiltrating ductal carcinoma of the right breast. On 02/03/2011, she underwent lumpectomy followed by postoperative radiation therapy that was completed in 08/2011. Patient was then lost to followup until early 2015. At the end of 2015, she developed a new left-sided breast mass for which was planned to be treated with neoadjuvant chemotherapy followed by mastectomy; however, her mastectomy was delayed. She finished her chemotherapy in May, and her mastectomy was planned for December this month; however, she presented with increasing weakness in November. A brain MRI done on 11/26/2016 showed a 2.8 cm mass with a cystic component in the posterior left parietal lobe. On presentation to emergency, a repeat MRI was done with contrast which showed a 3.3 cm peripherally enhancing centrally cystic mass lesion in the left parietal lobe, as seen on the prior MRI study. She presented with known solitary brain metastasis, presented to the hospital with increased right-sided weakness. Patient was found to have increased size of the cystic brain metastasis from 2.8 to 3.3 cm in the left parietal lobe. Patient was admitted to neurosurgery service for brain biopsy of the brain metastasis. Patient had a biopsy done on 12/14/2016. Procedure performed was left frontoparietal craniotomy with open biopsy of intracranial lesion. Patient had worsening of right hemiparesis immediately after the procedure. Pathology of the biopsy showed metastatic carcinoma, consistent with metastatic breast carcinoma. During the operative procedure of the brain, there was also some debulking of the brain tumor. The patient received 10 doses of palliative radiation therapy from 12/30/2016 to 01/12/2017. Patient's right-sided weakness has improved significantly. Patient was placed on alternate level of care (ALC) status in the hospital from 12/23/2016 awaiting radiation followed by placement. After completion of radiation, patient was accepted by [facility] in [place], and patient was subsequently discharged to senior care on 01/15/2017. DISCHARGE MEDICATIONS: - dexamethasone 4 mg twice a day with a tapering course - Levemir insulin 14 units daily - Lispro insulin before food and nightly as per sliding scale - levofloxacin 500 mg by mouth daily - milk of magnesia 30 mL by mouth twice a day as needed constipation - oxycodone/acetaminophen 5/325 one to two tablets every 6 hours as needed severe pain - pantoprazole 40 mg by mouth daily - Senna Plus one tablet by mouth daily - Senna one tablet by mouth twice a day as needed constipation - Tylenol 1000 mg by mouth nightly - albuterol sulfate two puffs inhalation every 4 hours as needed shortness of breath - Victoza 1.2 mg subcutaneously daily - lisinopril 2.5 mg by mouth daily - loratadine 10 mg by mouth daily - simvastatin 40 mg by mouth daily - Januvia 100 mg by mouth at bedtime PHYSICAL EXAM: VITAL SIGNS: Temperature 98.5, pulse 82, respiratory rate 19, blood pressure 115/63, pulse oximetry 98% on room air. GENERAL: Patient awake, alert, oriented times three, lying in bed, in no acute distress. HEENT: Normocephalic, atraumatic. Moist mucous membranes. Anicteric eyes. CHEST: Clear to auscultation. CARDIOVASCULAR: S1, S2, regular. No rub, murmur, or gallop. ABDOMEN: Soft. Nontender. Bowel sounds present. EXTREMITIES: No edema. NEUROLOGICAL: Her right-sided hemiparesis has improved significantly. LABORATORY DATA: From 01/13/2016; WBC 8.3, hemoglobin 12.5, platelet 85. Sodium 134, potassium 4.5, chloride 104, bicarbonate 26, BUN 24, creatinine 0.6, glucose 219, calcium 9. Urine culture: Proteus mirabilis, greater than 100,000 units. DISPOSITION: Patient is discharged to [facility] in [place]. DISCHARGE INSTRUCTIONS: Patient to followup with primary care provider, Stanislav Costa, after discharge from senior care. While in the senior care, patient can follow with MD in the senior care. Patient to followup with Dr. Pastor in radiation oncology in 1 month. Patient to followup with her own oncologist at [place]. Carbohydrate-consistent diet. Activity as tolerated. MTDD
== END 2017-01-15 11:35 | DRG 26 ==
LOC: M ED 12:15 → M ED INP 16:20 → M MSPAV 17:35 → M ICU 12-14 19:45 → M MS5PR 12-15 13:33
PROVIDERS: ADMIT Neurological Surgery; ATTEND Hospitalist
PROC: 009 Central Nervous System and Cranial Nerves, Drainage (ICD-10-PCS; principal; 2016-12-14 14:00)
DX: C79.31 Secondary malignant neoplasm of brain (principal); G81.91 Hemiplegia, unspecified affecting right dominant side; E87.1 Hypo-osmolality and hyponatremia; N39.0 Urinary tract infection, site not specified; C50.911 Malignant neoplasm of unspecified site of right female breast; E11.65 Type 2 diabetes mellitus with hyperglycemia; E78.5 Hyperlipidemia, unspecified; I11.9 Hypertensive heart disease without heart failure; Z92.3 Personal history of irradiation; Z79.4 Long term (current) use of insulin; Z79.84 Long term (current) use of oral hypoglycemic drugs; Z79.899 Other long term (current) drug therapy; Z92.21 Personal history of antineoplastic chemotherapy

== ENCOUNTER → 2017-02-17 | Outpatient (CLI) | payer MEDICARE, MEDICAID ==
--- NOTE | 2016-12-30 08:34 | RADONC ---
RADIATION ONCOLOGY CONSULTATION NOTE DATE: 12/29/2016 DIAGNOSIS: Breast cancer. STAGE: IV. ECOG PERFORMANCE STATUS: 4. CONSULTATION NOTE: Ms. 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 She underwent lumpectomy at that time followed by postoperative radiation therapy which was completed on September 17, 2011 to her right breast and primary site. The patient did well and was lost to our followup in early 2012. At that time she had no evidence of disease. Apparently earlier this year or late last year the patient developed a new left-sided breast mass. She was treated with what was to be neoadjuvant chemotherapy to be followed by mastectomy. Apparently due to some difficulties with other issues. The mastectomy was not yet done. She had completed her chemotherapy in May according to the patient's history and was subsequently scheduled to have her mastectomy this month. Approximately 6-7 weeks ago the patient reported that she began having weakness in her right arm. She began to drop bottles and glasses. The weakness progressed to her right leg and she presented in the emergency department at [facility]. MRIs of the C-spine were undertaken on 11/26/2016 which did not show any evidence of metastatic disease. An MRI of the brain, however, done on 12/11/2016 showed a 3.3 cm ring enhancing mass in the left parietal lobe. On 12/15/2016 the patient underwent left craniotomy and biopsies of her left brain mass. Pathology revealed metastatic carcinoma consistent with the previously diagnosed metastatic breast cancer. The patient has now healed nicely and is presenting to us for consideration of postoperative radiation therapy in attempt to increase the likelihood of achieving local control of her brain metastasis. PAST MEDICAL HISTORY: The patient's past medical history is positive for hypertension, diabetes, arthritis and cataracts. ALLERGIES: The patient has NO KNOWN DRUG ALLERGIES. SOCIAL HISTORY: The patient does not smoke cigarettes nor abuse alcohol. FAMILY HISTORY: The patient's family history is positive for a mother with breast cancer and father with lung cancer. REVIEW OF SYSTEMS: The patient's review of systems is positive for continued lack of ability to use her right her right arm or leg. She is basically bed-bound. The patient is presenting in a stretcher. ASSESSMENT: Ms. Romero is presenting to us today for consideration of palliative radiation therapy for a brain metastasis. Clearly the patient is a candidate for this treatment I have so informed her. I have discussed with the patient in detail the potential benefits as well as possible acute and chronic sequelae of external beam radiation therapy. We discussed logistics of treatment planning, simulation and subsequent fractionated daily radiation treatments. I have scheduled the patient for simulation today and radiation treatments will begin subsequently. Thank you for allowing us to participate in the care of this very pleasant woman. If I could be of any further assistance or provide you with any information, please free to contact me anytime. I did speak with the hospitalist and the patient will begin Decadron tomorrow prior to initiation of her treatment. cc: MD Wallace Lopez MD Edmund Roache, MD
--- NOTE | 2017-01-05 08:16 | RADONC ---
RADIATION ONCOLOGY PROGRESS NOTE DATE: 01/04/2017 CHART NUMBER: [id number] Ms. Romero is presently at a dose of 1200 cGy to her brain and is tolerating treatments quite well at this point with no complaints related to her radiation therapy. She is having no additional headaches or other problems. She reports that she is actually getting some strength back. REVIEW OF SYSTEMS: The patient's review of systems continues to be positive for michele paralysis. She remains in a hospital bed. It is otherwise noncontributory. Denies nausea, vomiting, fevers, chills, night sweats, diplopia, headaches, anxiety or depression, anorexia, weight loss, visual disturbances, chest pain, urinary or bowel difficulties, bone pain, or neurological problems. PHYSICAL EXAMINATION: The patient's skin is in good condition with no evidence of radiation change present. There is no moist or dry desquamation. The remainder of her physical exam remains unchanged. Ms. Romero is tolerating treatments quite well and radiation will continue as scheduled.
[~2017-02-17] MED LIST changes: +ACET50TAOT PO; +ASPI325T PO; +ASPI81CH PO; +CLAR1TAB2 PO; +DEXA4TA PO; +INSUDET SC; +INSUHUMDS SC; +LEVA1TAB2 PO; +LISI2.5T3 PO; +MILKSUS PO; +PERCOCET PO; +PIOG30TA4 PO; +SENN18TA PO; +SENN1TAB2 PO; +TYLE500T78 PO; +VICT18IN SC; +ZOCO40TA PO
--- NOTE | 2017-02-20 08:50 | RADONC ---
RADIATION ONCOLOGY FOLLOWUP NOTE DATE: 02/17/2017 CHART NUMBER: [id number] DIAGNOSIS: Right breast cancer. STAGE: IV. ECOG PERFORMANCE STATUS: 4. FOLLOWUP NOTE: Ms. Romero is a very pleasant 61-year-old white female with the diagnosis of metastatic adenocarcinoma of the breast to the brain who is presenting to us today for routine followup visit 1 month post completion of palliative radiation therapy. The patient presents today reporting that generally she is doing quite well with no complaints at this time related to her radiation therapy. She continues to have a limited range of motion of her right upper extremity. She reports that she is taking some type of therapy for this. In addition, the patient reports that she has limited mobility and is presenting in a wheelchair. She is presently at a intermediate in [place], [place], and was driven all way up here just for her followup. She does have a primary care doctor at her nursing care facility. Her medical oncologist, Dr. Marshall, is all the way in [place]. REVIEW OF SYSTEMS: The patient's review of systems is positive for again her limited mobility. She denies nausea, vomiting, fevers, chills, night sweats, diplopia, headaches, anxiety, depression, anorexia, weight loss, visual disturbances, chest pain, urinary or bowel difficulties, or any bone pain at this time. She reports that she has been tapered from her Decadron. I do not have documentation of that from her intermediate facility at this point. PHYSICAL EXAMINATION: The patient's skin is in good condition with no evidence of radiation change present. The remainder of her physical exam remains largely unchanged. She has very limited range of motion of her right upper extremity. ASSESSMENT: The patient is now stable post radiation to the brain. I have recommended that she obtain a medical oncologist closer to where she is presently living in, [place], [place], so that she does not need to travel over 3 hours each day to see her oncology providers. We are more than glad to forward her records at anytime once a provider is chosen. I will of course defer this to her presently treating physician in [place], [place]. In the meantime, I have tentatively set this patient up for a followup in our office in six months' time. cc: MD Wallace Lopez MD Edmund Roache, MD
== END ==
LOC: M ONCR 12:10
PROVIDERS: ATTEND Radiology Radiation Oncology
DX: C50.911 Malignant neoplasm of unspecified site of right female breast (principal); C79.31 Secondary malignant neoplasm of brain